=== PATIENT | male | born 1950 | race Caucasian/White ===

== ENCOUNTER 2017-02-18 15:31 | Inpatient (IN) | payer MEDICARE ==
[2017-02-18] VITALS (11 sets, daily range): BP systolic 119–210; BP diastolic 67–106
[~2017-02-18] VITALS: Ht 180.3 cm; Wt 66.8 kg
[~2017-02-18 15:31] MED LIST: ACET325T9 PO; ASCO500C PO; ASPI-482 PO; CARV25TA PO; CHOL100013 PO; DIVA500T4 PO; DUONEB INH; FOLI1TAB16 PO; HYDR-971 PO; LORA-434 PO; LOSA25TA4 PO; MIRT15TA PO; MULT-208 PO; ONDA4TAB7 PO; PANT40TA3 PO; PRAV40TA2 PO; PROSTAT PO; QUET25TA5 PO; TRAZ100T12 PO
[2017-02-18] MEDS ORDERED: IV NORMAL SALINE 1000ML BAG 1,000 ML IV SCH (15:37)
[2017-02-18] MEDS ORDERED: HEPARIN for IV BOLUS 10,000 UNIT/10 ML VIAL. IV ONE (15:45)
[2017-02-18] MEDS ORDERED: HEPARIN 25,000UTS/500ML PREMIX 500 ML IV PRN (15:45)
[2017-02-18] MEDS ORDERED: fentaNYL PF VIAL 100 MCG/2 ML VIAL IV PRN ×2 (15:45→17:30)
[2017-02-18] MEDS ORDERED: NITROGLYCERIN PREMIX 250 ML IV ONE (15:45)
[2017-02-18 15:47] LABS: BASO # 0.1 x10^3/uL (0.0-0.2); BASO % 1 % (0-3); EOS % 5 % (0-3); HEMATOCRIT 33.9 % (39.0-53.0); HEMOGLOBIN 11.1 g/dL (13.0-17.5); LYMPH % 13 % (24-48); MEAN CORPUSCULAR HEMOGLOBIN 27 pg (25-35); MEAN CORPUSCULAR HGB CONC 33 g/dL (31-37); MEAN CORPUSCULAR VOLUME 83 fL (79-100); MONO % 10 % (0-9); NEUT % 72 % (31-73); PLATELET COUNT 142 x10^3/uL (140-400); RED BLOOD COUNT 4.09 x10^6/uL (4.30-5.70); RED CELL DISTRIBUTION WIDTH 16.5 % (11.5-14.5); WHITE BLOOD COUNT 7.7 x10^3/uL (4.0-11.0)
[2017-02-18 15:56] LABS: POTASSIUM ISTAT 3.6 mmol/L (3.5-5.0)
[2017-02-18 16:00] LABS: CALCIUM 8.9 mg/dL (8.5-10.1); CREATININE 1.5 mg/dL (0.7-1.3); POTASSIUM 3.6 mmol/L (3.5-5.1)
[2017-02-18 16:06] LABS: ALBUMIN 3.4 g/dL (3.4-5.0); DIRECT BILIRUBIN 0.2 mg/dL (0.0-0.2); MAGNESIUM 1.9 mg/dL (1.8-2.4); TOTAL BILIRUBIN 0.4 mg/dL (0.2-1.0); TOTAL PROTEIN 8.3 g/dL (6.4-8.2)
--- NOTE | 2017-02-18 16:12 | PHYS DOC ---
Past Medical History Past Medical History: A-Fib, Anxiety, CAD, CHF, CVA, Dementia, GERD, High Cholesterol, Hypertension, CO, Schizophrenia, Other Additional Past Medical Histor: DYSPHAGIA, HEPATITIS C, POSSIBLE DM, COCAINE ABUSE, PLEURAL EFFUSION Past Surgical History: Coronary Bypass Surgery, Other Additional Past Surgical Histo: PEG TUBE, R THORASCOPY, HEMOTHORAX, AORTIC VALVE REPLACEMENT, BACK SURGERY Alcohol Use: Heavy Drug Use: Cocaine Adult General Chief Complaint Chief Complaint: CHEST PAIN HPI HPI Patient is a 67 year old male who presents with complaint of substernal chest pain that started 30 minutes prior to arrival. Patient states that the pain as 10 out of 10 and describes it as crushing pressure in the middle of his chest. Patient states that it radiates towards his left shoulder. Patient states that he had similar symptoms with his previous myocardial infarction. Patient has history of coronary artery disease status post multivessel bypass surgery, schizophrenia, and hypertension. Patient was brought to the emergency department by EMS. Patient received a full dose aspirin, 200 g of fentanyl, and 3 nitroglycerin sublingual tablets prior to arrival. Patient states that this did not help with his pain. Patient has history of smoking but denies any use of drugs or alcohol. EMS activated the patient as a code STEMI and patient was evaluated by Dr. Mora in tandem with my evaluation. Review of Systems Review of Systems Constitutional: Denies fever or chills [] Eyes: Denies change in visual acuity, redness, or eye pain [] HENT: Denies nasal congestion or sore throat [] Respiratory: Denies cough or shortness of breath [] Cardiovascular: Chest pain [] GI: Nausea, denies abdominal pain, vomiting, bloody stools or diarrhea [] : Denies dysuria or hematuria [] Musculoskeletal: Denies back pain or joint pain [] Integument: Denies rash or skin lesions [] Neurologic: Denies headache, focal weakness or sensory changes [] Current Medications Current Medications Current Medications Medications (Trade) Dose Ordered Sig/Raine Start Time Stop Time Status Last Admin Dose Admin Fentanyl Citrate (Fentanyl 2ml Vial) 50 mcg PRN Q15MIN PRN 02/18/17 15:45 02/19/17 15:44 02/18/17 16:18 50 MCG Heparin Sodium (Porcine) (Heparin Sodium) 4,000 unit 1X ONCE 02/18/17 15:45 02/18/17 15:46 DC 02/18/17 15:51 4,000 UNIT Heparin Sodium/ Dextrose 500 ml @ 0 mls/hr CONT PRN 02/18/17 15:45 02/18/17 15:57 14 MLS/HR Lorazepam (Ativan) 1 mg 1X ONCE 02/18/17 15:45 02/18/17 15:46 DC 02/18/17 15:45 1 MG Nitroglycerin/ Dextrose 250 ml @ 3 mls/hr 1X ONCE 02/18/17 15:45 02/22/17 03:04 02/18/17 15:45 3 MLS/HR Sodium Chloride 1,000 ml @ 100 mls/hr Q10H 02/18/17 15:37 02/19/17 01:36 02/18/17 15:46 100 MLS/HR Allergies Allergies Allergies Coded Allergies Type Severity Reaction Last Updated Verified isoniazid Allergy Intermediate 01/01/15 Yes thiamine (vitamin B1) Allergy Intermediate 01/01/15 Yes I S O L A T I O N *CONTACT* Allergy Unknown 01/04/15 Yes Physical Exam Physical Exam Constitutional: Alert, afebrile, agitated, appears in moderate to severe discomfort. [] HENT: Normocephalic, atraumatic, bilateral external ears normal, oropharynx moist, no oral exudates, nose normal. [] Eyes: PERRLA, EOMI, conjunctiva normal, no discharge. [] Neck: Normal range of motion, no tenderness, supple, no stridor. [] Cardiovascular:Heart rate regular rhythm, no murmur [] Lungs & Thorax: Tachypneic, breath sounds clear bilaterally, chest nontender to palpation [] Abdomen: Bowel sounds normal, soft, no tenderness, no masses, no pulsatile masses. [] Skin: Warm, dry, no erythema, no rash. [] Back: No tenderness, no CVA tenderness. [] Extremities: No tenderness, no cyanosis, no clubbing, ROM intact, no edema. [] Neurologic: Alert and oriented X 3, normal motor function, normal sensory function, no focal deficits noted. [] Current Patient Data Vital Signs Vital Signs Date Time Temp Pulse Resp B/P (MAP) Pulse Ox O2 Delivery O2 Flow Rate FiO2 02/18/17 17:18 67 16 176/99 (124) 100 Nasal Cannula 3.0 02/18/17 16:04 98.5 98.5 Lab Values Laboratory Tests Test 02/18/17 15:37 02/18/17 15:43 02/18/17 15:47 02/18/17 16:45 White Blood Count 7.7 x10^3/uL (4.0-11.0) Red Blood Count 4.09 x10^6/uL (4.30-5.70) L Hemoglobin 11.1 g/dL (13.0-17.5) L Hematocrit 33.9 % (39.0-53.0) L Mean Corpuscular Volume 83 fL (79-100) Mean Corpuscular Hemoglobin 27 pg (25-35) Mean Corpuscular Hemoglobin Concent 33 g/dL (31-37) Red Cell Distribution Width 16.5 % (11.5-14.5) H Platelet Count 142 x10^3/uL (140-400) Neutrophils (%) (Auto) 72 % (31-73) Lymphocytes (%) (Auto) 13 % (24-48) L Monocytes (%) (Auto) 10 % (0-9) H Eosinophils (%) (Auto) 5 % (0-3) H Basophils (%) (Auto) 1 % (0-3) Neutrophils # (Auto) 5.6 x10^3uL (1.8-7.7) Lymphocytes # (Auto) 1.0 x10^3/uL (1.0-4.8) Monocytes # (Auto) 0.7 x10^3/uL (0.0-1.1) Eosinophils # (Auto) 0.4 x10^3/uL (0.0-0.7) Basophils # (Auto) 0.1 x10^3/uL (0.0-0.2) Sodium Level 139 mmol/L (136-145) Potassium Level 3.6 mmol/L (3.5-5.1) Chloride Level 100 mmol/L (98-107) Carbon Dioxide Level 30 mmol/L (21-32) Anion Gap 9 (6-14) 15 mmol/L (6-14) H Blood Urea Nitrogen 16 mg/dL (8-26) Creatinine 1.5 mg/dL (0.7-1.3) H Estimated GFR (Cockcroft-Gault) 47.0 Glucose Level 98 mg/dL (70-99) 97 mg/dL (70-99) Calcium Level 8.9 mg/dL (8.5-10.1) Magnesium Level 1.9 mg/dL (1.8-2.4) Total Bilirubin 0.4 mg/dL (0.2-1.0) Direct Bilirubin 0.2 mg/dL (0.0-0.2) Aspartate Amino Transferase (AST) 29 U/L (15-37) Alanine Aminotransferase (ALT) 21 U/L (16-63) Alkaline Phosphatase 106 U/L (46-116) Creatine Kinase 38 U/L (39-308) L Creatine Kinase MB (Mass) 1.5 ng/mL (0.0-3.6) Creatine Kinase MB Relative Index % (0-4) Troponin I Quantitative 0.028 ng/mL (0.000-0.055) IH-Uet-T-Type Natriuretic Peptide 7170 pg/mL (0-124) H Total Protein 8.3 g/dL (6.4-8.2) H Albumin 3.4 g/dL (3.4-5.0) Lipase 253 U/L (73-393) POC Troponin I 0.02 ng/ml (<0.08) POC Hemoglobin 11.9 g/dL (14-18) L POC Hematocrit 35 % (37-52) L POC Sodium 136 mmol/L (135-145) POC Potassium 3.6 mmol/L (3.5-5.0) POC Chloride 97 mmol/L (98-110) L POC Total CO2 29 mmol/L (23-32) POC Blood Urea Nitrogen 16 mg/dL (8-26) POC Creatinine 1.4 mg/dL (0.5-1.4) POC Ionized Calcium (Zander) 1.08 mmol/L (1.13-1.32) L Urine Collection Type Unknown Urine Color Yellow Urine Clarity Clear Urine pH 6.5 Urine Specific [place] 1.015 Urine Protein >=300 mg/dL (NEG-TRACE) Urine Glucose (UA) Negative mg/dL (NEG) Urine Ketones (Stick) Negative mg/dL (NEG) Urine Blood Small (NEG) Urine Nitrite Negative (NEG) Urine Bilirubin Negative (NEG) Urine Urobilinogen Dipstick 0.2 mg/dL (0.2 mg/dL) Urine Leukocyte Esterase Negative (NEG) Urine RBC 20-40 /HPF (0-2) Urine WBC 1-4 /HPF (0-4) Urine Squamous Epithelial Cells Few /LPF Urine Bacteria 0 /HPF (0-FEW) Urine Hyaline Casts Moderate /HPF Urine Mucus Slight /LPF Urine Opiates Screen Neg (NEG) Urine Methadone Screen Neg (NEG) Urine Barbiturates Neg (NEG) Urine Phencyclidine Screen Neg (NEG) Urine Amphetamine/Methamphetamine Neg (NEG) Urine Benzodiazepines Screen Neg (NEG) Urine Cocaine Screen Pos (NEG) Urine Cannabinoids Screen Neg (NEG) Urine Ethyl Alcohol Neg (NEG) Laboratory Tests 02/18/17 15:37 Laboratory Tests 02/18/17 15:37 02/18/17 15:47 EKG EKG Interpreted by me: Heart rate 85, sinus rhythm, leftward axis, left bundle branch block, slight ST elevations in V3 through V5 with a concave up pattern, no acute changes compared to previous EKG. Findings do not support acute STEMI. [] Radiology/Procedures Radiology/Procedures [facility] [address] [place] [address] IMAGING REPORT Signed PATIENT: GEO ARAGON ACCOUNT: [id number] : 1950 LOCATION: ER AGE: 67 SEX: M EXAM STATUS: PRE ER ORD. PHYSICIAN: DEMARCO PIMENTEL MD REASON: chest pain PROCEDURE: PORTABLE CHEST 1V Indication chest pain. A single view of the chest was obtained and is compared to an exam 01/07/2015. Postoperative changes are noted. There is generalized cardiomegaly. There is no gross congestive heart failure. There is volume loss in the right lower lobe. Some of this may be chronic. There is blunting of the right costophrenic angle compatible with scarring or a small pleural effusion. Underlying pneumonia in the right lower lobe is not entirely excluded. IMPRESSION: Cardiomegaly. Volume loss in the right lower lobe. Some of this may be chronic. Underlying pneumonia and/or a small pleural effusion is not excluded DICTATED and SIGNED BY: LIONEL GUTIERREZ MD DATE: 02/18/17 3062 CC: DEMARCO PIMENTEL MD; NO PCP ~ [] Course & Med Decision Making Course & Med Decision Making Pertinent Labs and Imaging studies reviewed. (See chart for details) The patient was immediately evaluated by Dr. Mora of cardiology. Patient's EKG was compared to a prior EKG and showed no significant changes. Patient's code STEMI was canceled by Dr. Mora 10 minutes after arrival to the emergency department. The patient's blood pressure was found be critically high. The patient was started on IV nitroglycerin which helped improve the patient's blood pressure and symptoms. Patient also found to have evidence of cocaine in his system despite denial of using any drugs. Patient was given 1 mg of IV Ativan which helped improve the patient's agitation. Patient will be admitted the hospital to rule out myocardial infarction and for continued treatment of malignant hypertension. I spoke with Dr. Hernandez who accepted care patient in hospital. critical care time excluding procedures: 55 minutes Dragon Disclaimer Dragon Disclaimer This electronic medical record was generated, in whole or in part, using a voice recognition dictation system. Departure Departure Impression: Primary Impression: Malignant hypertension Additional Impressions: Chest pain Congestive heart failure (CHF) Cocaine abuse Disposition: ADMITTED INPATIENT Admitting Physician: Juan Hernandez Condition: GUARDED Referrals: NO PCP (PCP) Problem Qualifiers Additional Impressions: Chest pain Chest pain type: other chest pain Qualified Codes: R07.89 - Other chest pain Congestive heart failure (CHF) Congestive heart failure type: unspecified congestive heart failure type Congestive heart failure chronicity: unspecified congestive heart failure chronicity Qualified Codes: I50.9 - Heart failure, unspecified DEMARCO PIMENTEL MD February 18, 2017 16:12
[2017-02-18 16:13] LABS: CKMB MASS 1.5 ng/mL (0.0-3.6); CREATINE KINASE 38 U/L (39-308)
--- NOTE | 2017-02-18 16:17 | PDOC2 ---
CONSULT Date of Consult Date of Consult DATE: 02/18/17 TIME: 16:05 Reason for Consult Reason for Consult: Chest pain and SOB Referring Physician Referring Physician: Dr. Ca Identification/Chief Complaint Chief Complaint Chest pain and SOB Source Source: Chart review, Patient History of Present Illness Reason for Visit: The patient is a 67-year-old male with reported episodes of chest discomfort and increasing shortness of breath approximately one hour ago. Paramedics were called and he was transported to the emergency room at [place]. His initial EKG in the ambulance showed a sinus rhythm with ST segment changes in the anterior leads. His EKG in the emergency room showed cerebral changes although they were less pronounced. An old EKG from 2014 was very similar. The patient's initial blood pressure was a systolic of greater than 230. He was initially treated with lorazepam nitroglycerin and fentanyl. His pain has now largely resolved. His shortness of breath is significantly improved. The patient has a very extensive past medical history including a prosthetic aortic valve, bypass surgery, pulmonary hypertension, paroxysmal atrial fibrillation, hepatitis C, gastroesophageal reflux disease, reported schizophrenia and possible dementia. The patient is now resting much more comfortably in the emergency room. Past Medical History Cardiovascular: AFIB, CAD, CHF, HTN, CT, Hyperlipidemia, Other (probable aortic stensos before replacement) Pulmonary: COPD, Other (pulmonary HTN) CENTRAL NERVOUS SYSTEM: CVA, Dementia GI: GERD, Other (Hepatitis c) Psych: Depression, Schizophrenia Musculoskeletal: low back pain Past Surgical History Past Surgical History: CABG, Other (AVR, PEG tube, probable right thoracotomy) Family History Family History: Family History Unknown Social History <1 pack per day ALCOHOL: none Drugs: None Lives: [facility] Domestic Violence: Neg Current Medications Current Medications Current Medications Lorazepam (Ativan) 1 mg 1X ONCE IV Last administered on 02/18/17 15:45; Start 02/18/17 at 15:45; Stop 02/18/17 at 15:46; Status DC Nitroglycerin/ Dextrose 250 ml @ 3 mls/hr 1X ONCE IV Last administered on 02/18 15:45; Start 02/18/17 at 15:45; Stop 02/22/17 at 03:04 Fentanyl Citrate (Fentanyl 2ml Vial) 50 mcg PRN Q15MIN PRN IV PAIN GREATER THAN 3/10; Start 02/18/17 at 15:45; Stop 02/19/17 at 15:44 Sodium Chloride 1,000 ml @ 100 mls/hr Q10H IV Last administered on 02/18/17 15:46; Start 02/18/17 at 15:37; Stop 02/19/17 at 01:36 Heparin Sodium (Porcine) (Heparin Sodium) 4,000 unit 1X ONCE IV Last administered on 02/18/17 15:51; Start 02/18/17 at 15:45; Stop 02/18/17 at 15:46 ; Status DC Heparin Sodium/ Dextrose 500 ml @ 0 mls/hr CONT PRN IV SEE I/O RECORD Last administered on 02/18/17 15:57; Start 02/18/17 at 15:45 Active Scripts Active Reported Pravastatin Sodium 40 Mg Tablet 40 Mg PO DAILY Zofran (Ondansetron Hcl) 4 Mg Tablet 1 Tab PO Q6HRS Tylenol (Acetaminophen) 325 Mg Tablet 650 Mg PO PRN Q4HRS PRN Ativan (Lorazepam) 1 Mg Tablet 1 Mg PO PRN Q4HRS PRN [Duoneb ] 1 Vial INH PRN Q4HRS PRN [place] 5-325 Tablet (Acetaminophen/Hydrocodone Bitart) 1 Each Tablet 1-2 Tab PO Q4-6HRS [Prostat] 30 Ml PO BID Seroquel (Quetiapine Fumarate) 25 Mg Tablet 25 Mg PO BID Depakote Er (Divalproex Sodium) 500 Mg Tab.er.24h 500 Mg PO HS Remeron (Mirtazapine) 15 Mg Tablet 7.5 Mg PO HS Vitamin D (Cholecalciferol (Vitamin D3)) 1,000 Unit Capsule 50,000 Unit PO WEEKLY Protonix (Pantoprazole Sodium) 40 Mg Tablet.dr 1 Tab PO DAILY Folic Acid 1 Mg Tablet 1 Tab PO DAILY Losartan Potassium 25 Mg Tablet 1 Tab PO DAILY Vitamin C (Ascorbic Acid) 500 Mg Capsule.er 500 Mg PO DAILY Aspir 81 (Aspirin) 81 Mg Tablet.dr 1 Tab PO DAILY Multi-Day Vitamins (Multivitamin) 1 Each Tablet 1 Tab PO DAILY Trazodone Hcl 100 Mg Tablet 2 Tab PO QHS Coreg (Carvedilol) 25 Mg Tablet 1 Tab PO BID Allergies Allergies: Coded Allergies: isoniazid (Verified Allergy, Intermediate, 01/01/15) thiamine (Verified Allergy, Intermediate, 4/6/15) I S O L A T I O N *CONTACT* (Verified Allergy, Unknown, 01/04/15) mrsa + ROS PSYCHOLOGICAL ROS: YES: Anxiety Respiratory: YES: Shortness of breath, SOB with excertion Cardiovascular: yes Chest Pain Physical Exam General: moderate distress HEENT: Atraumatic Lungs: Other (decreased breath sounds) Heart: Regular rate (regular rhythm with a II/ murmur.-) Abdomen: Normal bowel sounds Labs Labs Laboratory Tests Test 02/18/17 15:37 02/18/17 15:43 02/18/17 15:47 White Blood Count 7.7 x10^3/uL (4.0-11.0) Red Blood Count 4.09 x10^6/uL (4.30-5.70) Hemoglobin 11.1 g/dL (13.0-17.5) Hematocrit 33.9 % (39.0-53.0) Mean Corpuscular Volume 83 fL (79-100) Mean Corpuscular Hemoglobin 27 pg (25-35) Mean Corpuscular Hemoglobin Concent 33 g/dL (31-37) Red Cell Distribution Width 16.5 % (11.5-14.5) Platelet Count 142 x10^3/uL (140-400) Neutrophils (%) (Auto) 72 % (31-73) Lymphocytes (%) (Auto) 13 % (24-48) Monocytes (%) (Auto) 10 % (0-9) Eosinophils (%) (Auto) 5 % (0-3) Basophils (%) (Auto) 1 % (0-3) Neutrophils # (Auto) 5.6 x10^3uL (1.8-7.7) Lymphocytes # (Auto) 1.0 x10^3/uL (1.0-4.8) Monocytes # (Auto) 0.7 x10^3/uL (0.0-1.1) Eosinophils # (Auto) 0.4 x10^3/uL (0.0-0.7) Basophils # (Auto) 0.1 x10^3/uL (0.0-0.2) Sodium Level 139 mmol/L (136-145) Potassium Level 3.6 mmol/L (3.5-5.1) Chloride Level 100 mmol/L (98-107) Carbon Dioxide Level 30 mmol/L (21-32) Anion Gap 9 (6-14) 15 mmol/L (6-14) Blood Urea Nitrogen 16 mg/dL (8-26) Creatinine 1.5 mg/dL (0.7-1.3) Estimated GFR (Cockcroft-Gault) 47.0 Glucose Level 98 mg/dL (70-99) 97 mg/dL (70-99) Calcium Level 8.9 mg/dL (8.5-10.1) Bedside Troponin I 0.02 ng/ml (<0.08) Bedside Hemoglobin 11.9 g/dL (14-18) Bedside Hematocrit 35 % (37-52) Bedside Sodium 136 mmol/L (135-145) Bedside Potassium 3.6 mmol/L (3.5-5.0) Bedside Chloride 97 mmol/L (98-110) Bedside Total CO2 29 mmol/L (23-32) Bedside Blood Urea Nitrogen 16 mg/dL (8-26) Bedside Creatinine 1.4 mg/dL (0.5-1.4) Bedside Ionized Calcium (Zander) 1.08 mmol/L (1.13-1.32) Laboratory Tests Test 02/18/17 15:37 02/18/17 15:43 02/18/17 15:47 White Blood Count 7.7 x10^3/uL (4.0-11.0) Red Blood Count 4.09 x10^6/uL (4.30-5.70) Hemoglobin 11.1 g/dL (13.0-17.5) Hematocrit 33.9 % (39.0-53.0) Mean Corpuscular Volume 83 fL (79-100) Mean Corpuscular Hemoglobin 27 pg (25-35) Mean Corpuscular Hemoglobin Concent 33 g/dL (31-37) Red Cell Distribution Width 16.5 % (11.5-14.5) Platelet Count 142 x10^3/uL (140-400) Neutrophils (%) (Auto) 72 % (31-73) Lymphocytes (%) (Auto) 13 % (24-48) Monocytes (%) (Auto) 10 % (0-9) Eosinophils (%) (Auto) 5 % (0-3) Basophils (%) (Auto) 1 % (0-3) Neutrophils # (Auto) 5.6 x10^3uL (1.8-7.7) Lymphocytes # (Auto) 1.0 x10^3/uL (1.0-4.8) Monocytes # (Auto) 0.7 x10^3/uL (0.0-1.1) Eosinophils # (Auto) 0.4 x10^3/uL (0.0-0.7) Basophils # (Auto) 0.1 x10^3/uL (0.0-0.2) Sodium Level 139 mmol/L (136-145) Potassium Level 3.6 mmol/L (3.5-5.1) Chloride Level 100 mmol/L (98-107) Carbon Dioxide Level 30 mmol/L (21-32) Anion Gap 9 (6-14) 15 mmol/L (6-14) Blood Urea Nitrogen 16 mg/dL (8-26) Creatinine 1.5 mg/dL (0.7-1.3) Estimated GFR (Cockcroft-Gault) 47.0 Glucose Level 98 mg/dL (70-99) 97 mg/dL (70-99) Calcium Level 8.9 mg/dL (8.5-10.1) Bedside Troponin I 0.02 ng/ml (<0.08) Bedside Hemoglobin 11.9 g/dL (14-18) Bedside Hematocrit 35 % (37-52) Bedside Sodium 136 mmol/L (135-145) Bedside Potassium 3.6 mmol/L (3.5-5.0) Bedside Chloride 97 mmol/L (98-110) Bedside Total CO2 29 mmol/L (23-32) Bedside Blood Urea Nitrogen 16 mg/dL (8-26) Bedside Creatinine 1.4 mg/dL (0.5-1.4) Bedside Ionized Calcium (Zander) 1.08 mmol/L (1.13-1.32) Images Images pending Assessment/Plan Assessment/Plan 1. Malignant hypertension. Patient is being treated with sedation and IV nitroglycerin. We'll adjust oral medications once they are available. 2. Chest pain with a history of bypass surgery. Initial troponin is not significantly elevated. EKG is very similar to previous EKGs. We'll obtain an resume home medications. We'll rule out for myocardial infarction. Echocardiogram for LV function and to check the patient's valve. 3. Prosthetic aortic valve. Echocardiogram to evaluate. We'll attempt to obtain old records. Of note on November 2014 echo patient's valve was working normally, ejection fraction was normal, pulmonary pressures were elevated at 61 mmHg. 4. Pulmonary hypertension. Measurements as above. Continue medical treatment. Echocardiogram. 5. COPD with respiratory failure. Patient is improved post lorazepam and pulmonary treatments.. We'll continue to closely monitor. Patient has a history of reportedly severe COPD and continues to smoke cigarettes. The pulmonary service has seen the patient in the past. 6. History of paroxysmal atrial fibrillation. Patient is in a sinus rhythm at this time. We'll continue to monitor. 7. Gastroesophageal reflux disease. We'll obtain baseline medications and restart. 8. History of hepatitis C. 9. History of possible schizophrenia and dementia. We'll obtain baseline records. Patient does not see a maintenance inspector [facility] We'll attempt to obtain these records. Thank you for allowing us to participate in the care of your patient. ANTHONY ROSAS MD February 18, 2017 16:17
[2017-02-18 16:56] LABS: BILIRUBIN,URINE NEGATIVE (NEG); GLUCOSE,URINE NEGATIVE (NEG); NITRITE,URINE NEGATIVE (NEG); PH,URINE 6.5; PROTEIN,URINE >=300 mg/dL (NEG-TRACE); UROBILINOGEN,URINE 0.2 mg/dL (0.2 mg/dL)
[2017-02-18 17:03] LABS: BACTERIA,URINE 0 /HPF (0-FEW); BARBITURATES NEG (NEG); BENZODIAZEPINES NEG (NEG); CANNABINOIDS NEG (NEG); COCAINE POS (NEG); METHADONE NEG (NEG); OPIATES NEG (NEG); PHENCYCLIDINE NEG (NEG); RBC,URINE 20-40 /HPF (0-2); SQUAMOUS EPITHELIAL CELL,UR FEW /LPF
[2017-02-18] MEDS: IV NORMAL SALINE 1000ML BAG 1,000 ML IV SCH (17:29)
[2017-02-18] MEDS ORDERED: ONDANSETRON PF 4 MG/2 ML VIAL. IV PRN ×2 (17:30→21:00)
[2017-02-18] MEDS ORDERED: amLODIPine BESYLATE 10 MG TABLET PO ONE (19:30)
[2017-02-18] MEDS ORDERED: hydrALAZINE 20 MG/ML VIAL. IVP PRN (21:00)
[2017-02-18] MEDS ORDERED: ACETAMINOPHEN 325 MG TABLET. PO PRN (21:00)
--- NOTE | 2017-02-18 21:01 | PDOC1 ---
History and Physical Past Medical History Cardiovascular: AFIB, CAD, CHF, HTN, DE, Hyperlipidemia, Other (probable aortic stensos before replacement) Pulmonary: COPD, Other (pulmonary HTN) CENTRAL NERVOUS SYSTEM: CVA, Dementia GI: GERD, Other (Hepatitis c) Psych: Depression, Schizophrenia Past Surgical History Past Surgical History: CABG, Other (AVR, PEG tube, probable right thoracotomy) Family History Family History: Family History Unknown Social History Smoke: <1 pack per day ALCOHOL: none Drugs: None Current Problem List Problem List Problems Medical Problems: (1) Chest pain Status: Acute (2) Cocaine abuse Status: Acute (3) Congestive heart failure (CHF) Status: Acute (4) Malignant hypertension Status: Acute Current Medications Current Medications Current Medications Medications (Trade) Dose Ordered Sig/Raine Start Time Stop Time Status Last Admin Dose Admin Amlodipine Besylate (Norvasc) 10 mg ONCE ONCE 02/18/17 19:30 02/18/17 19:31 DC 02/18/17 19:42 10 MG Fentanyl Citrate (Fentanyl 2ml Vial) 50 mcg PRN Q2HR PRN 02/18/17 17:30 02/19/17 17:29 Heparin Sodium (Porcine) (Heparin Sodium) 4,000 unit 1X ONCE 02/18/17 15:45 02/18/17 15:46 DC 02/18/17 15:51 4,000 UNIT Heparin Sodium/ Dextrose 500 ml @ 0 mls/hr CONT PRN 02/18/17 15:45 02/18/17 15:57 14 MLS/HR Hydralazine HCl (Apresoline) 50 mg BID 02/19/17 09:00 Lorazepam (Ativan) 1 mg 1X ONCE 02/18/17 15:45 02/18/17 15:46 DC 02/18/17 15:45 1 MG Nitroglycerin/ Dextrose 250 ml @ 3 mls/hr 1X ONCE 02/18/17 15:45 02/22/17 03:04 02/18/17 15:45 3 MLS/HR Ondansetron HCl (Zofran) 4 mg PRN Q8HRS PRN 02/18/17 17:30 02/19/17 17:29 Sodium Chloride 1,000 ml @ 60 mls/hr [id number] 02/18/17 17:29 02/19/17 17:28 Allergies Allergies Allergies Coded Allergies Type Severity Reaction Last Updated Verified isoniazid Allergy Intermediate 01/01/15 Yes thiamine (vitamin B1) Allergy Intermediate 01/01/15 Yes I S O L A T I O N *CONTACT* Allergy Unknown 01/04/15 Yes ROS Review of System CONSTITUTIONAL: No fever or chills EYES: No recent changes SKIN: No rash or itching CARDIOVASCULAR: chest pain, no syncope, palpitations, or edema RESPIRATORY: No SOB or cough GASTROINTESTINAL: No nausea, vomiting or abdominal pain NEUROLOGICAL: No headaches or weakness ENDOCRINE: No cold or heat intolerance GENITOURINARY: No urgency or frequency of urination MUSCULOSKELETAL: No back pain or joint pain LYMPHATICS: No enlarged lymph nodes PSYCHIATRIC: No anxiety or depression Physical Exam Physical Exam GEN.: No apparent distress. Alert and oriented times 3 HEENT: Head is normocephalic, atraumatic NECK: Supple. no JVD LUNGS: Clear to auscultation. Normal airflow HEART: RRR, S1, S2 present. Peripheral pulses intact, old healing scar on chest. ABDOMEN: Soft, nontender. Positive bowel sounds. EXTREMITIES: Without any cyanosis. NEUROLOGIC: Normal speech, normal tone PSYCHIATRIC: Normal affect, normal mood. SKIN: No ulcerations Vitals Vitals Vital Signs Date Time Temp Pulse Resp B/P (MAP) Pulse Ox O2 Delivery O2 Flow Rate FiO2 02/18/17 19:42 69 179/101 02/18/17 19:30 18 99 Nasal Cannula 2.0 02/18/17 16:04 98.5 98.5 Labs Labs Laboratory Tests Test 02/18/17 15:37 02/18/17 15:43 02/18/17 15:47 02/18/17 16:45 White Blood Count 7.7 x10^3/uL (4.0-11.0) Red Blood Count 4.09 x10^6/uL (4.30-5.70) Hemoglobin 11.1 g/dL (13.0-17.5) Hematocrit 33.9 % (39.0-53.0) Mean Corpuscular Volume 83 fL (79-100) Mean Corpuscular Hemoglobin 27 pg (25-35) Mean Corpuscular Hemoglobin Concent 33 g/dL (31-37) Red Cell Distribution Width 16.5 % (11.5-14.5) Platelet Count 142 x10^3/uL (140-400) Neutrophils (%) (Auto) 72 % (31-73) Lymphocytes (%) (Auto) 13 % (24-48) Monocytes (%) (Auto) 10 % (0-9) Eosinophils (%) (Auto) 5 % (0-3) Basophils (%) (Auto) 1 % (0-3) Neutrophils # (Auto) 5.6 x10^3uL (1.8-7.7) Lymphocytes # (Auto) 1.0 x10^3/uL (1.0-4.8) Monocytes # (Auto) 0.7 x10^3/uL (0.0-1.1) Eosinophils # (Auto) 0.4 x10^3/uL (0.0-0.7) Basophils # (Auto) 0.1 x10^3/uL (0.0-0.2) Sodium Level 139 mmol/L (136-145) Potassium Level 3.6 mmol/L (3.5-5.1) Chloride Level 100 mmol/L (98-107) Carbon Dioxide Level 30 mmol/L (21-32) Anion Gap 9 (6-14) 15 mmol/L (6-14) Blood Urea Nitrogen 16 mg/dL (8-26) Creatinine 1.5 mg/dL (0.7-1.3) Estimated GFR (Cockcroft-Gault) 47.0 Glucose Level 98 mg/dL (70-99) 97 mg/dL (70-99) Calcium Level 8.9 mg/dL (8.5-10.1) Magnesium Level 1.9 mg/dL (1.8-2.4) Total Bilirubin 0.4 mg/dL (0.2-1.0) Direct Bilirubin 0.2 mg/dL (0.0-0.2) Aspartate Amino Transf (AST/SGOT) 29 U/L (15-37) Alanine Aminotransferase (ALT/SGPT) 21 U/L (16-63) Alkaline Phosphatase 106 U/L (46-116) Creatine Kinase 38 U/L (39-308) Creatine Kinase MB (Mass) 1.5 ng/mL (0.0-3.6) Creatine Kinase MB Relative Index % (0-4) Troponin I Quantitative 0.028 ng/mL (0.000-0.055) AC-Hyi-X-Type Natriuretic Peptide 7170 pg/mL (0-124) Total Protein 8.3 g/dL (6.4-8.2) Albumin 3.4 g/dL (3.4-5.0) Lipase 253 U/L (73-393) Bedside Troponin I 0.02 ng/ml (<0.08) Bedside Hemoglobin 11.9 g/dL (14-18) Bedside Hematocrit 35 % (37-52) Bedside Sodium 136 mmol/L (135-145) Bedside Potassium 3.6 mmol/L (3.5-5.0) Bedside Chloride 97 mmol/L (98-110) Bedside Total CO2 29 mmol/L (23-32) Bedside Blood Urea Nitrogen 16 mg/dL (8-26) Bedside Creatinine 1.4 mg/dL (0.5-1.4) Bedside Ionized Calcium (Zander) 1.08 mmol/L (1.13-1.32) Urine Collection Type Unknown Urine Color Yellow Urine Clarity Clear Urine pH 6.5 Urine Specific [place] 1.015 Urine Protein >=300 mg/dL (NEG-TRACE) Urine Glucose (UA) Negative mg/dL (NEG) Urine Ketones (Stick) Negative mg/dL (NEG) Urine Blood Small (NEG) Urine Nitrite Negative (NEG) Urine Bilirubin Negative (NEG) Urine Urobilinogen Dipstick 0.2 mg/dL (0.2 mg/dL) Urine Leukocyte Esterase Negative (NEG) Urine RBC 20-40 /HPF (0-2) Urine WBC 1-4 /HPF (0-4) Urine Squamous Epithelial Cells Few /LPF Urine Bacteria 0 /HPF (0-FEW) Urine Hyaline Casts Moderate /HPF Urine Mucus Slight /LPF Urine Opiates Screen Neg (NEG) Urine Methadone Screen Neg (NEG) Urine Barbiturates Neg (NEG) Urine Phencyclidine Screen Neg (NEG) Urine Amphetamine/Methamphetamine Neg (NEG) Urine Benzodiazepines Screen Neg (NEG) Urine Cocaine Screen Pos (NEG) Urine Cannabinoids Screen Neg (NEG) Urine Ethyl Alcohol Neg (NEG) Test 02/18/17 19:40 Glucose (Fingerstick) 90 mg/dL (70-99) Laboratory Tests Test 02/18/17 15:37 02/18/17 15:43 02/18/17 15:47 02/18/17 16:45 White Blood Count 7.7 x10^3/uL (4.0-11.0) Red Blood Count 4.09 x10^6/uL (4.30-5.70) Hemoglobin 11.1 g/dL (13.0-17.5) Hematocrit 33.9 % (39.0-53.0) Mean Corpuscular Volume 83 fL (79-100) Mean Corpuscular Hemoglobin 27 pg (25-35) Mean Corpuscular Hemoglobin Concent 33 g/dL (31-37) Red Cell Distribution Width 16.5 % (11.5-14.5) Platelet Count 142 x10^3/uL (140-400) Neutrophils (%) (Auto) 72 % (31-73) Lymphocytes (%) (Auto) 13 % (24-48) Monocytes (%) (Auto) 10 % (0-9) Eosinophils (%) (Auto) 5 % (0-3) Basophils (%) (Auto) 1 % (0-3) Neutrophils # (Auto) 5.6 x10^3uL (1.8-7.7) Lymphocytes # (Auto) 1.0 x10^3/uL (1.0-4.8) Monocytes # (Auto) 0.7 x10^3/uL (0.0-1.1) Eosinophils # (Auto) 0.4 x10^3/uL (0.0-0.7) Basophils # (Auto) 0.1 x10^3/uL (0.0-0.2) Sodium Level 139 mmol/L (136-145) Potassium Level 3.6 mmol/L (3.5-5.1) Chloride Level 100 mmol/L (98-107) Carbon Dioxide Level 30 mmol/L (21-32) Anion Gap 9 (6-14) 15 mmol/L (6-14) Blood Urea Nitrogen 16 mg/dL (8-26) Creatinine 1.5 mg/dL (0.7-1.3) Estimated GFR (Cockcroft-Gault) 47.0 Glucose Level 98 mg/dL (70-99) 97 mg/dL (70-99) Calcium Level 8.9 mg/dL (8.5-10.1) Magnesium Level 1.9 mg/dL (1.8-2.4) Total Bilirubin 0.4 mg/dL (0.2-1.0) Direct Bilirubin 0.2 mg/dL (0.0-0.2) Aspartate Amino Transf (AST/SGOT) 29 U/L (15-37) Alanine Aminotransferase (ALT/SGPT) 21 U/L (16-63) Alkaline Phosphatase 106 U/L (46-116) Creatine Kinase 38 U/L (39-308) Creatine Kinase MB (Mass) 1.5 ng/mL (0.0-3.6) Creatine Kinase MB Relative Index % (0-4) Troponin I Quantitative 0.028 ng/mL (0.000-0.055) ZZ-Gsp-B-Type Natriuretic Peptide 7170 pg/mL (0-124) Total Protein 8.3 g/dL (6.4-8.2) Albumin 3.4 g/dL (3.4-5.0) Lipase 253 U/L (73-393) Bedside Troponin I 0.02 ng/ml (<0.08) Bedside Hemoglobin 11.9 g/dL (14-18) Bedside Hematocrit 35 % (37-52) Bedside Sodium 136 mmol/L (135-145) Bedside Potassium 3.6 mmol/L (3.5-5.0) Bedside Chloride 97 mmol/L (98-110) Bedside Total CO2 29 mmol/L (23-32) Bedside Blood Urea Nitrogen 16 mg/dL (8-26) Bedside Creatinine 1.4 mg/dL (0.5-1.4) Bedside Ionized Calcium (Zander) 1.08 mmol/L (1.13-1.32) Urine Collection Type Unknown Urine Color Yellow Urine Clarity Clear Urine pH 6.5 Urine Specific [place] 1.015 Urine Protein >=300 mg/dL (NEG-TRACE) Urine Glucose (UA) Negative mg/dL (NEG) Urine Ketones (Stick) Negative mg/dL (NEG) Urine Blood Small (NEG) Urine Nitrite Negative (NEG) Urine Bilirubin Negative (NEG) Urine Urobilinogen Dipstick 0.2 mg/dL (0.2 mg/dL) Urine Leukocyte Esterase Negative (NEG) Urine RBC 20-40 /HPF (0-2) Urine WBC 1-4 /HPF (0-4) Urine Squamous Epithelial Cells Few /LPF Urine Bacteria 0 /HPF (0-FEW) Urine Hyaline Casts Moderate /HPF Urine Mucus Slight /LPF Urine Opiates Screen Neg (NEG) Urine Methadone Screen Neg (NEG) Urine Barbiturates Neg (NEG) Urine Phencyclidine Screen Neg (NEG) Urine Amphetamine/Methamphetamine Neg (NEG) Urine Benzodiazepines Screen Neg (NEG) Urine Cocaine Screen Pos (NEG) Urine Cannabinoids Screen Neg (NEG) Urine Ethyl Alcohol Neg (NEG) Test 02/18/17 19:40 Glucose (Fingerstick) 90 mg/dL (70-99) VTE Prophylaxis Ordered VTE Prophylaxis Devices: Yes VTE Pharmacological Prophylaxi: No PRISCILLA CRUM MD February 18, 2017 21:01
[2017-02-18] MEDS: traZODone 100 MG TABLET. PO SCH (21:37)
[2017-02-19] VITALS (12 sets, daily range): BP systolic 140–185; BP diastolic 74–92
[2017-02-19 04:31] LABS: BASO % 1 % (0-3); EOS % 7 % (0-3); HEMATOCRIT 27.8 % (39.0-53.0); HEMOGLOBIN 9.6 g/dL (13.0-17.5); LYMPH # 1.1 x10^3/uL (1.0-4.8); LYMPH % 13 % (24-48); MEAN CORPUSCULAR HEMOGLOBIN 28 pg (25-35); MEAN CORPUSCULAR HGB CONC 35 g/dL (31-37); MEAN CORPUSCULAR VOLUME 81 fL (79-100); MONO % 8 % (0-9); NEUT % 72 % (31-73); PLATELET COUNT 118 x10^3/uL (140-400); RED BLOOD COUNT 3.45 x10^6/uL (4.30-5.70); RED CELL DISTRIBUTION WIDTH 16.3 % (11.5-14.5); WHITE BLOOD COUNT 8.2 x10^3/uL (4.0-11.0)
[2017-02-19 05:16] LABS: CALCIUM 8.5 mg/dL (8.5-10.1); CREATININE 1.4 mg/dL (0.7-1.3); GFR 50.9; MAGNESIUM 1.8 mg/dL (1.8-2.4); POTASSIUM 3.5 mmol/L (3.5-5.1)
[2017-02-19 05:18] LABS: CHOLESTEROL/HDL RATIO 2.6
[2017-02-19] MEDS: HYDROcodone/APAP 5/325MG 1 TAB TABLET PO PRN ×2 (05:29→16:43)
--- NOTE | 2017-02-19 08:01 | EKG ---
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
[2017-02-19] MEDS: ALBUTEROL SULFATE 2.5 MG/3 ML NEBU. NEB PRN ×3 (08:31→15:12)
--- NOTE | 2017-02-19 08:40 | HP ---
ADMIT DATE: 02/18/2017 CHIEF COMPLAINT: Chest pain. HISTORY OF PRESENT ILLNESS: A 67-year-old male patient with several coronary problems and cardiac history, presented to the ER with complaints of substernal chest pain. Symptoms started 30 minutes prior to arrival. Initially, code STEMI was called and on arrival, the patient received aspirin, fentanyl and nitroglycerin. He was evaluated by Cardiology and code STEMI was canceled. Upon arrival, the patient's blood pressures were high and he was requiring nitroglycerin drip. After some time, his symptoms subsided and at the time of my examination, the patient denies any chest pain, shortness of breath, resting comfortably. He did not recall most of his medications. PAST MEDICAL HISTORY: Please see my electronic H and P. REVIEW OF SYSTEMS: Please see my electronic H and P. PHYSICAL EXAMINATION: Please see my electronic H and P. LABORATORY FINDINGS: CBC: Hemoglobin is 11.1, hematocrit is 33.9, MCV 83. Chemistry: Sodium 136, potassium 3.6, chloride is 97, anion gap is 15, Creatine kinase 38, troponin I 0.028, proBNP 7170. Toxicology positive for urine cocaine. Urinalysis, nitrites negative, bilirubin negative. EKG, personally not able to review. As per the ER report, sinus rhythm with left axis deviation and heart rate is 85 with left bundle branch block. ASSESSMENT: 1. Malignant hypertension, present on admission. 2. Chest pain, needs to rule out acute coronary syndrome. 3. Prior history of pulmonary hypertension. 4. history of chronic obstructive pulmonary disease with chronic respiratry failure. 5. History of paroxysmal atrial fibrillation. 6. Gastroesophageal reflux disease. 7. History of hepatitis C. 8. History of questionable dementia. PLAN: 1. Currently, the patient is on IV nitroglycerin drip and heparin drip per ACS protocol. Cardiology has been consulted. We will get 3 sets of troponins, placed in ICU due to severity of his disease. 2. Pain control with fentanyl and Lortab. 3. Home medications not yet reviewed. We will need to call the pharmacy at [place] and resume home medications in the a.m. 4. N.p.o. from midnight. 5. The patient's hemodynamic stability improved with heparin and nitroglycerin. 6. Prognosis guarded, high risk for cardio vascular events. PRISCILLA CRUM MD DR: May JOB#: [id number] / [id number] DEVON
[2017-02-19] MEDS: IV NORMAL SALINE 1000ML BAG 1,000 ML IV SCH (10:09)
--- NOTE | 2017-02-19 12:00 | PDOC ---
CARDIO Progress Notes Date and Time Date of Service 02/19/17 Time of Evaluation 1035 Subjective Subjective: No Palpitations, Other (mild dyspnea ) Vitals Vitals Vital Signs Date Time Temp Pulse Resp B/P (MAP) Pulse Ox O2 Delivery O2 Flow Rate FiO2 02/19/17 09:38 77 145/78 02/19/17 08:34 95 Room Air 02/19/17 07:00 18 2.0 02/19/17 04:00 97.7 97.7 Weight Weight [ ] Input and Output Intake and Output Intake and Output 02/19/17 07:00 Intake Total 1951.4 ml Output Total 850 ml Balance 1101.4 ml Intake Oral 800 ml IV Total 1151.4 ml Output Urine Total 850 ml Laboratory Labs Laboratory Tests Test 02/18/17 15:37 02/18/17 15:43 02/18/17 15:47 02/18/17 16:45 White Blood Count 7.7 x10^3/uL (4.0-11.0) Red Blood Count 4.09 x10^6/uL (4.30-5.70) Hemoglobin 11.1 g/dL (13.0-17.5) Hematocrit 33.9 % (39.0-53.0) Mean Corpuscular Volume 83 fL (79-100) Mean Corpuscular Hemoglobin 27 pg (25-35) Mean Corpuscular Hemoglobin Concent 33 g/dL (31-37) Red Cell Distribution Width 16.5 % (11.5-14.5) Platelet Count 142 x10^3/uL (140-400) Neutrophils (%) (Auto) 72 % (31-73) Lymphocytes (%) (Auto) 13 % (24-48) Monocytes (%) (Auto) 10 % (0-9) Eosinophils (%) (Auto) 5 % (0-3) Basophils (%) (Auto) 1 % (0-3) Neutrophils # (Auto) 5.6 x10^3uL (1.8-7.7) Lymphocytes # (Auto) 1.0 x10^3/uL (1.0-4.8) Monocytes # (Auto) 0.7 x10^3/uL (0.0-1.1) Eosinophils # (Auto) 0.4 x10^3/uL (0.0-0.7) Basophils # (Auto) 0.1 x10^3/uL (0.0-0.2) Sodium Level 139 mmol/L (136-145) Potassium Level 3.6 mmol/L (3.5-5.1) Chloride Level 100 mmol/L (98-107) Carbon Dioxide Level 30 mmol/L (21-32) Anion Gap 9 (6-14) 15 mmol/L (6-14) Blood Urea Nitrogen 16 mg/dL (8-26) Creatinine 1.5 mg/dL (0.7-1.3) Estimated GFR (Cockcroft-Gault) 47.0 Glucose Level 98 mg/dL (70-99) 97 mg/dL (70-99) Calcium Level 8.9 mg/dL (8.5-10.1) Magnesium Level 1.9 mg/dL (1.8-2.4) Total Bilirubin 0.4 mg/dL (0.2-1.0) Direct Bilirubin 0.2 mg/dL (0.0-0.2) Aspartate Amino Transf (AST/SGOT) 29 U/L (15-37) Alanine Aminotransferase (ALT/SGPT) 21 U/L (16-63) Alkaline Phosphatase 106 U/L (46-116) Creatine Kinase 38 U/L (39-308) Creatine Kinase MB (Mass) 1.5 ng/mL (0.0-3.6) Creatine Kinase MB Relative Index % (0-4) Troponin I Quantitative 0.028 ng/mL (0.000-0.055) NQ-Qia-Q-Type Natriuretic Peptide 7170 pg/mL (0-124) Total Protein 8.3 g/dL (6.4-8.2) Albumin 3.4 g/dL (3.4-5.0) Lipase 253 U/L (73-393) Bedside Troponin I 0.02 ng/ml (<0.08) Bedside Hemoglobin 11.9 g/dL (14-18) Bedside Hematocrit 35 % (37-52) Bedside Sodium 136 mmol/L (135-145) Bedside Potassium 3.6 mmol/L (3.5-5.0) Bedside Chloride 97 mmol/L (98-110) Bedside Total CO2 29 mmol/L (23-32) Bedside Blood Urea Nitrogen 16 mg/dL (8-26) Bedside Creatinine 1.4 mg/dL (0.5-1.4) Bedside Ionized Calcium (Zander) 1.08 mmol/L (1.13-1.32) Urine Collection Type Unknown Urine Color Yellow Urine Clarity Clear Urine pH 6.5 Urine Specific Barry 1.015 Urine Protein >=300 mg/dL (NEG-TRACE) Urine Glucose (UA) Negative mg/dL (NEG) Urine Ketones (Stick) Negative mg/dL (NEG) Urine Blood Small (NEG) Urine Nitrite Negative (NEG) Urine Bilirubin Negative (NEG) Urine Urobilinogen Dipstick 0.2 mg/dL (0.2 mg/dL) Urine Leukocyte Esterase Negative (NEG) Urine RBC 20-40 /HPF (0-2) Urine WBC 1-4 /HPF (0-4) Urine Squamous Epithelial Cells Few /LPF Urine Bacteria 0 /HPF (0-FEW) Urine Hyaline Casts Moderate /HPF Urine Mucus Slight /LPF Urine Opiates Screen Neg (NEG) Urine Methadone Screen Neg (NEG) Urine Barbiturates Neg (NEG) Urine Phencyclidine Screen Neg (NEG) Urine Amphetamine/Methamphetamine Neg (NEG) Urine Benzodiazepines Screen Neg (NEG) Urine Cocaine Screen Pos (NEG) Urine Cannabinoids Screen Neg (NEG) Urine Ethyl Alcohol Neg (NEG) Test 02/18/17 18:20 02/18/17 19:40 02/18/17 22:05 02/19/17 04:10 Nasal Screen MRSA (PCR) Positive (Negative) Glucose (Fingerstick) 90 mg/dL (70-99) Heparin Anti-Xa Act, Unfractionated 0.31 IU/mL (0.30-0.70) 0.20 IU/mL (0.30-0.70) White Blood Count 8.2 x10^3/uL (4.0-11.0) Red Blood Count 3.45 x10^6/uL (4.30-5.70) Hemoglobin 9.6 g/dL (13.0-17.5) Hematocrit 27.8 % (39.0-53.0) Mean Corpuscular Volume 81 fL (79-100) Mean Corpuscular Hemoglobin 28 pg (25-35) Mean Corpuscular Hemoglobin Concent 35 g/dL (31-37) Red Cell Distribution Width 16.3 % (11.5-14.5) Platelet Count 118 x10^3/uL (140-400) Neutrophils (%) (Auto) 72 % (31-73) Lymphocytes (%) (Auto) 13 % (24-48) Monocytes (%) (Auto) 8 % (0-9) Eosinophils (%) (Auto) 7 % (0-3) Basophils (%) (Auto) 1 % (0-3) Neutrophils # (Auto) 5.9 x10^3uL (1.8-7.7) Lymphocytes # (Auto) 1.1 x10^3/uL (1.0-4.8) Monocytes # (Auto) 0.6 x10^3/uL (0.0-1.1) Eosinophils # (Auto) 0.6 x10^3/uL (0.0-0.7) Basophils # (Auto) 0.0 x10^3/uL (0.0-0.2) Sodium Level 140 mmol/L (136-145) Potassium Level 3.5 mmol/L (3.5-5.1) Chloride Level 103 mmol/L (98-107) Carbon Dioxide Level 29 mmol/L (21-32) Anion Gap 8 (6-14) Blood Urea Nitrogen 17 mg/dL (8-26) Creatinine 1.4 mg/dL (0.7-1.3) Estimated GFR (Cockcroft-Gault) 50.9 Glucose Level 97 mg/dL (70-99) Calcium Level 8.5 mg/dL (8.5-10.1) Magnesium Level 1.8 mg/dL (1.8-2.4) Troponin I Quantitative 0.033 ng/mL (0.000-0.055) Triglycerides Level 41 mg/dL (0-150) Cholesterol Level 162 mg/dL (0-200) LDL Cholesterol, Calculated 92 mg/dL (0-100) VLDL Cholesterol, Calculated 8 mg/dL (0-40) Non-HDL Cholesterol Calculated 100 mg/dL (0-129) HDL Cholesterol 62 mg/dL (40-60) Cholesterol/HDL Ratio 2.6 Physical Exam HEENT: Neck Supple W Full Motion Chest: Symmetric LUNGS: Other (diminished bases, left chest tenderness upon palpation) Heart: S1S2, RRR, murmurs (systolic murmur ) Abdomen: Soft N/T Extremities: 2+ Dorsalis Pedis, No Edema Neurology: alert, oriented, follow commands, other (anxious ) Assessment Assessment 1. Malignant hypertension secondary to med non-compliance improved with nitro gtt. oral antiHTN therapy resumed- titrate nitro off as able. monitor trends to assess need for titration 2. Chest pain, atypical CE negative- AMI ruled out. discontinue heparin gtt Pain likely MSK in origin as it is reproducible with palpation to left chest. [facility] 3. Acute on chronic diastolic HF echo 12/10 with preserved LV function diuresis with lasix; monitor renal function echo to assess LV function 4. CAD s/p bypass surgery. details/facility unknown; patient cannot recall stable. Continue medical management LDL= 92; statin therapy no BB with cocaine use 3. Prosthetic AVR echo pending to evaluate. 4. Pulmonary hypertension PAP previously 61 5. Acute on chronic respiratory failure with AE COPD with continued tobaccoism improved. 6. H/o PAFIB maintaining SR with controlled rate ASA for stroke prevention monitor tele for paroxysmal episodes to guide ac therapy . 7. KHALIDA with CKD monitor with diuresis 8. Schizophrenia/ ? dementia 9. Non-compliance 10. Substance abuse UDS + cocaine 11. H/o hepatitis C MARILUZ MARTÍNEZ APRN February 19, 2017 12:00
--- NOTE | 2017-02-19 12:13 | CARD ---
APPROVED REPORT EXAM: Two-dimensional and M-mode echocardiogram with Doppler and color Doppler. Other Information Quality : Good INDICATION Chest Pain Malignant HTN, CHF 2D DIMENSIONS RVDd2.9 (2.9-3.5cm)Left Atrium(2D)4.3 (1.6-4.0cm) IVSd1.5 (0.7-1.1cm)Aortic Root(2D)3.3 (2.0-3.7cm) LVDd5.1 (3.9-5.9cm)LVOT Diameter2.2 (1.8-2.4cm) PWd1.1 (0.7-1.1cm)LVDs3.9 (2.5-4.0cm) FS (%) 22.2 %SV54.0 ml LVEF(%)44.6 (>50%) Aortic Valve AoV Peak [place].267.9cm/sAoV VTI53.8cm AO Peak GR.28.7mmHgLVOT Peak [place].101.9cm/s AO Mean GR.15mmHgAVA (VMAX)1.42cm2 Mitral Valve MV E Peak Gr.8mmHgMV E Mean Gr.2mmHg Pulmonary Valve PV Peak Jubynihs99.1cm/s Tricuspid Valve TR P. Bitodfye218ek/sTR Peak Gr.91mmHg LEFT VENTRICLE The left ventricle is normal size. There is mild to moderate asymmetric left ventricular hypertrophy. Left ventricle systolic function is mildly impaired. The Ejection Fraction is 45-50%. Moderate basal to mid inferior wall hypokinesis. Septal motion suggestive of conduction abnormality. Tissue Doppler imaging reveals moderate to severe left ventricular diastolic dysfunction. No left ventricle thrombu s noted on this study. RIGHT VENTRICLE The right ventricle is normal size. There is normal right ventricular wall thickness. The right ventr icular systolic function is normal. ATRIA The left atrium size is normal. The right atrium size is normal. The interatrial septum is intact wit h no evidence for an atrial septal defect or patent foramen ovale as noted on 2-D or Doppler imaging. AORTIC VALVE The aortic valve is moderately sclerotic. The aortic valve is trileaflet. Doppler and Color Flow reve aled no significant aortic regurgitation. There is mild valvular aortic stenosis. Calculated aortic v alve area is 1.5 cm2 with maximum pressure gradient of 29 mmHg and mean pressure gradient of 15 mmHg. MITRAL VALVE Mitral annular calcification is mild. The mitral valve leaflets are thickened. There is no evidence o f mitral valve prolapse. There is no mitral valve stenosis. Doppler and Color Flow revealed mild mitr al regurgitation. TRICUSPID VALVE Doppler and Color Flow revealed moderate tricuspid regurgitation. The pulmonary artery systolic press ure is estimated at 99 mmHg. There is severe pulmonary hypertension. PULMONIC VALVE Doppler and Color Flow revealed mild pulmonic valvular regurgitation. There is no pulmonic valvular s tenosis. GREAT VESSELS The aortic root is normal in size. The ascending aorta is normal in size. The pulmonary artery is dil ated. The IVC is normal in size and collapses <50% with inspiration. PERICARDIAL EFFUSION There is no evidence of significant pericardial effusion. Critical Notification Critical Value: No <Conclusion> Left ventricle systolic function is mildly impaired. The Ejection Fraction is 45-50%. Moderate basal to mid inferior wall hypokinesis. Septal motion suggestive of conduction abnormality. Tissue Doppler imaging reveals moderate to severe left ventricular diastolic dysfunction. Doppler and Color Flow revealed moderate tricuspid regurgitation. The pulmonary artery systolic press ure is estimated at 99 mmHg. There is severe pulmonary hypertension.
[2017-02-19] MEDS ORDERED: LOSARTAN POTASSIUM 25 MG TABLET. PO SCH (12:30)
[2017-02-19] MEDS ORDERED: FUROSEMIDE 40 MG/4 ML VIAL. IVP ONE (12:30)
[2017-02-19] MEDS: ASPIRIN ENTERIC COATED 81 MG TABLET.DR. PO SCH (12:35)
--- NOTE | 2017-02-19 14:16 | PDOC ---
PROGRESS NOTES Chief Complaint Chief Complaint Chest pain History of Present Illness History of Present Illness Pt was lying in bed in NAD Denies current chest pain or SOA d/w restarting pt home meds Vitals Vitals Vital Signs Date Time Temp Pulse Resp B/P (MAP) Pulse Ox O2 Delivery O2 Flow Rate FiO2 02/19/17 12:33 164/91 02/19/17 12:12 98 Room Air 02/19/17 11:46 97.8 66 20 97.8 02/19/17 07:00 2.0 Physical Exam General: Alert, Cooperative, No acute distress Heart: Regular rate (regular rhythm with a II/ murmur.-), Normal S1, Normal S2 Lungs: Clear, Other (no wheezing) Abdomen: Normal bowel sounds, Soft Extremities: No clubbing, No edema Skin: No rashes, No significant lesion Labs LABS Laboratory Tests Test 02/18/17 15:37 02/18/17 15:43 02/18/17 15:47 02/18/17 16:45 White Blood Count 7.7 x10^3/uL (4.0-11.0) Red Blood Count 4.09 x10^6/uL (4.30-5.70) Hemoglobin 11.1 g/dL (13.0-17.5) Hematocrit 33.9 % (39.0-53.0) Mean Corpuscular Volume 83 fL (79-100) Mean Corpuscular Hemoglobin 27 pg (25-35) Mean Corpuscular Hemoglobin Concent 33 g/dL (31-37) Red Cell Distribution Width 16.5 % (11.5-14.5) Platelet Count 142 x10^3/uL (140-400) Neutrophils (%) (Auto) 72 % (31-73) Lymphocytes (%) (Auto) 13 % (24-48) Monocytes (%) (Auto) 10 % (0-9) Eosinophils (%) (Auto) 5 % (0-3) Basophils (%) (Auto) 1 % (0-3) Neutrophils # (Auto) 5.6 x10^3uL (1.8-7.7) Lymphocytes # (Auto) 1.0 x10^3/uL (1.0-4.8) Monocytes # (Auto) 0.7 x10^3/uL (0.0-1.1) Eosinophils # (Auto) 0.4 x10^3/uL (0.0-0.7) Basophils # (Auto) 0.1 x10^3/uL (0.0-0.2) Sodium Level 139 mmol/L (136-145) Potassium Level 3.6 mmol/L (3.5-5.1) Chloride Level 100 mmol/L (98-107) Carbon Dioxide Level 30 mmol/L (21-32) Anion Gap 9 (6-14) 15 mmol/L (6-14) Blood Urea Nitrogen 16 mg/dL (8-26) Creatinine 1.5 mg/dL (0.7-1.3) Estimated GFR (Cockcroft-Gault) 47.0 Glucose Level 98 mg/dL (70-99) 97 mg/dL (70-99) Calcium Level 8.9 mg/dL (8.5-10.1) Magnesium Level 1.9 mg/dL (1.8-2.4) Total Bilirubin 0.4 mg/dL (0.2-1.0) Direct Bilirubin 0.2 mg/dL (0.0-0.2) Aspartate Amino Transf (AST/SGOT) 29 U/L (15-37) Alanine Aminotransferase (ALT/SGPT) 21 U/L (16-63) Alkaline Phosphatase 106 U/L (46-116) Creatine Kinase 38 U/L (39-308) Creatine Kinase MB (Mass) 1.5 ng/mL (0.0-3.6) Creatine Kinase MB Relative Index % (0-4) Troponin I Quantitative 0.028 ng/mL (0.000-0.055) EX-Too-J-Type Natriuretic Peptide 7170 pg/mL (0-124) Total Protein 8.3 g/dL (6.4-8.2) Albumin 3.4 g/dL (3.4-5.0) Lipase 253 U/L (73-393) Bedside Troponin I 0.02 ng/ml (<0.08) Bedside Hemoglobin 11.9 g/dL (14-18) Bedside Hematocrit 35 % (37-52) Bedside Sodium 136 mmol/L (135-145) Bedside Potassium 3.6 mmol/L (3.5-5.0) Bedside Chloride 97 mmol/L (98-110) Bedside Total CO2 29 mmol/L (23-32) Bedside Blood Urea Nitrogen 16 mg/dL (8-26) Bedside Creatinine 1.4 mg/dL (0.5-1.4) Bedside Ionized Calcium (Zander) 1.08 mmol/L (1.13-1.32) Urine Collection Type Unknown Urine Color Yellow Urine Clarity Clear Urine pH 6.5 Urine Specific [place] 1.015 Urine Protein >=300 mg/dL (NEG-TRACE) Urine Glucose (UA) Negative mg/dL (NEG) Urine Ketones (Stick) Negative mg/dL (NEG) Urine Blood Small (NEG) Urine Nitrite Negative (NEG) Urine Bilirubin Negative (NEG) Urine Urobilinogen Dipstick 0.2 mg/dL (0.2 mg/dL) Urine Leukocyte Esterase Negative (NEG) Urine RBC 20-40 /HPF (0-2) Urine WBC 1-4 /HPF (0-4) Urine Squamous Epithelial Cells Few /LPF Urine Bacteria 0 /HPF (0-FEW) Urine Hyaline Casts Moderate /HPF Urine Mucus Slight /LPF Urine Opiates Screen Neg (NEG) Urine Methadone Screen Neg (NEG) Urine Barbiturates Neg (NEG) Urine Phencyclidine Screen Neg (NEG) Urine Amphetamine/Methamphetamine Neg (NEG) Urine Benzodiazepines Screen Neg (NEG) Urine Cocaine Screen Pos (NEG) Urine Cannabinoids Screen Neg (NEG) Urine Ethyl Alcohol Neg (NEG) Test 02/18/17 18:20 02/18/17 19:40 02/18/17 22:05 02/19/17 04:10 Nasal Screen MRSA (PCR) Positive (Negative) Glucose (Fingerstick) 90 mg/dL (70-99) Heparin Anti-Xa Act, Unfractionated 0.31 IU/mL (0.30-0.70) 0.20 IU/mL (0.30-0.70) White Blood Count 8.2 x10^3/uL (4.0-11.0) Red Blood Count 3.45 x10^6/uL (4.30-5.70) Hemoglobin 9.6 g/dL (13.0-17.5) Hematocrit 27.8 % (39.0-53.0) Mean Corpuscular Volume 81 fL (79-100) Mean Corpuscular Hemoglobin 28 pg (25-35) Mean Corpuscular Hemoglobin Concent 35 g/dL (31-37) Red Cell Distribution Width 16.3 % (11.5-14.5) Platelet Count 118 x10^3/uL (140-400) Neutrophils (%) (Auto) 72 % (31-73) Lymphocytes (%) (Auto) 13 % (24-48) Monocytes (%) (Auto) 8 % (0-9) Eosinophils (%) (Auto) 7 % (0-3) Basophils (%) (Auto) 1 % (0-3) Neutrophils # (Auto) 5.9 x10^3uL (1.8-7.7) Lymphocytes # (Auto) 1.1 x10^3/uL (1.0-4.8) Monocytes # (Auto) 0.6 x10^3/uL (0.0-1.1) Eosinophils # (Auto) 0.6 x10^3/uL (0.0-0.7) Basophils # (Auto) 0.0 x10^3/uL (0.0-0.2) Sodium Level 140 mmol/L (136-145) Potassium Level 3.5 mmol/L (3.5-5.1) Chloride Level 103 mmol/L (98-107) Carbon Dioxide Level 29 mmol/L (21-32) Anion Gap 8 (6-14) Blood Urea Nitrogen 17 mg/dL (8-26) Creatinine 1.4 mg/dL (0.7-1.3) Estimated GFR (Cockcroft-Gault) 50.9 Glucose Level 97 mg/dL (70-99) Calcium Level 8.5 mg/dL (8.5-10.1) Magnesium Level 1.8 mg/dL (1.8-2.4) Troponin I Quantitative 0.033 ng/mL (0.000-0.055) Triglycerides Level 41 mg/dL (0-150) Cholesterol Level 162 mg/dL (0-200) LDL Cholesterol, Calculated 92 mg/dL (0-100) VLDL Cholesterol, Calculated 8 mg/dL (0-40) Non-HDL Cholesterol Calculated 100 mg/dL (0-129) HDL Cholesterol 62 mg/dL (40-60) Cholesterol/HDL Ratio 2.6 Test 02/19/17 11:00 Heparin Anti-Xa Act, Unfractionated 0.27 IU/mL (0.30-0.70) Review of Systems Review of Systems Denies chest pain Denies SOA Assessment and Plan Assessmemt and Plan Problems Medical Problems: (1) Chest pain Status: Acute (2) Cocaine abuse Status: Acute (3) Congestive heart failure (CHF) Status: Acute (4) Malignant hypertension Status: Acute Assessment: 1. Malignant hypertension: secondary to med non-compliance 2. Chest pain, atypical: CE negative- AMI ruled out, Pain likely MSK in origin as it is reproducible with palpation to left chest. 3. Acute on chronic diastolic HF: echo 12/10 with preserved LV function 4. CAD: s/p bypass surgery. details/facility unknown; patient cannot recall 5. Prosthetic AVR 6. Pulmonary hypertension 7. Acute on chronic respiratory failure with AE COPD - improved. 6. H/o PAFIB: maintaining SR with controlled rate 7. KHALIDA with CKD - improved 8. Schizophrenia/ ? dementia 10. Substance abuse : UDS + cocaine 11. H/o hepatitis C 12. Borderline hypokalemia Plan: Appreciate cardio input Await repeat echo Continue tele monitoring KCl 40 mEq PO x once Continue oral HTN meds, wean off nitro Check labs in am PT/OT Disp: if remain stable, probable d/c tomorrow Problems: Comment Review of Relevant I have reviewed the following items florentin (where applicable) has been applied. Labs Laboratory Tests Test 02/18/17 15:37 02/18/17 15:43 02/18/17 15:47 02/18/17 16:45 White Blood Count 7.7 x10^3/uL (4.0-11.0) Red Blood Count 4.09 x10^6/uL (4.30-5.70) Hemoglobin 11.1 g/dL (13.0-17.5) Hematocrit 33.9 % (39.0-53.0) Mean Corpuscular Volume 83 fL (79-100) Mean Corpuscular Hemoglobin 27 pg (25-35) Mean Corpuscular Hemoglobin Concent 33 g/dL (31-37) Red Cell Distribution Width 16.5 % (11.5-14.5) Platelet Count 142 x10^3/uL (140-400) Neutrophils (%) (Auto) 72 % (31-73) Lymphocytes (%) (Auto) 13 % (24-48) Monocytes (%) (Auto) 10 % (0-9) Eosinophils (%) (Auto) 5 % (0-3) Basophils (%) (Auto) 1 % (0-3) Neutrophils # (Auto) 5.6 x10^3uL (1.8-7.7) Lymphocytes # (Auto) 1.0 x10^3/uL (1.0-4.8) Monocytes # (Auto) 0.7 x10^3/uL (0.0-1.1) Eosinophils # (Auto) 0.4 x10^3/uL (0.0-0.7) Basophils # (Auto) 0.1 x10^3/uL (0.0-0.2) Sodium Level 139 mmol/L (136-145) Potassium Level 3.6 mmol/L (3.5-5.1) Chloride Level 100 mmol/L (98-107) Carbon Dioxide Level 30 mmol/L (21-32) Anion Gap 9 (6-14) 15 mmol/L (6-14) Blood Urea Nitrogen 16 mg/dL (8-26) Creatinine 1.5 mg/dL (0.7-1.3) Estimated GFR (Cockcroft-Gault) 47.0 Glucose Level 98 mg/dL (70-99) 97 mg/dL (70-99) Calcium Level 8.9 mg/dL (8.5-10.1) Magnesium Level 1.9 mg/dL (1.8-2.4) Total Bilirubin 0.4 mg/dL (0.2-1.0) Direct Bilirubin 0.2 mg/dL (0.0-0.2) Aspartate Amino Transf (AST/SGOT) 29 U/L (15-37) Alanine Aminotransferase (ALT/SGPT) 21 U/L (16-63) Alkaline Phosphatase 106 U/L (46-116) Creatine Kinase 38 U/L (39-308) Creatine Kinase MB (Mass) 1.5 ng/mL (0.0-3.6) Creatine Kinase MB Relative Index % (0-4) Troponin I Quantitative 0.028 ng/mL (0.000-0.055) ER-Pct-K-Type Natriuretic Peptide 7170 pg/mL (0-124) Total Protein 8.3 g/dL (6.4-8.2) Albumin 3.4 g/dL (3.4-5.0) Lipase 253 U/L (73-393) Bedside Troponin I 0.02 ng/ml (<0.08) Bedside Hemoglobin 11.9 g/dL (14-18) Bedside Hematocrit 35 % (37-52) Bedside Sodium 136 mmol/L (135-145) Bedside Potassium 3.6 mmol/L (3.5-5.0) Bedside Chloride 97 mmol/L (98-110) Bedside Total CO2 29 mmol/L (23-32) Bedside Blood Urea Nitrogen 16 mg/dL (8-26) Bedside Creatinine 1.4 mg/dL (0.5-1.4) Bedside Ionized Calcium (Zander) 1.08 mmol/L (1.13-1.32) Urine Collection Type Unknown Urine Color Yellow Urine Clarity Clear Urine pH 6.5 Urine Specific [place] 1.015 Urine Protein >=300 mg/dL (NEG-TRACE) Urine Glucose (UA) Negative mg/dL (NEG) Urine Ketones (Stick) Negative mg/dL (NEG) Urine Blood Small (NEG) Urine Nitrite Negative (NEG) Urine Bilirubin Negative (NEG) Urine Urobilinogen Dipstick 0.2 mg/dL (0.2 mg/dL) Urine Leukocyte Esterase Negative (NEG) Urine RBC 20-40 /HPF (0-2) Urine WBC 1-4 /HPF (0-4) Urine Squamous Epithelial Cells Few /LPF Urine Bacteria 0 /HPF (0-FEW) Urine Hyaline Casts Moderate /HPF Urine Mucus Slight /LPF Urine Opiates Screen Neg (NEG) Urine Methadone Screen Neg (NEG) Urine Barbiturates Neg (NEG) Urine Phencyclidine Screen Neg (NEG) Urine Amphetamine/Methamphetamine Neg (NEG) Urine Benzodiazepines Screen Neg (NEG) Urine Cocaine Screen Pos (NEG) Urine Cannabinoids Screen Neg (NEG) Urine Ethyl Alcohol Neg (NEG) Test 02/18/17 18:20 02/18/17 19:40 02/18/17 22:05 02/19/17 04:10 Nasal Screen MRSA (PCR) Positive (Negative) Glucose (Fingerstick) 90 mg/dL (70-99) Heparin Anti-Xa Act, Unfractionated 0.31 IU/mL (0.30-0.70) 0.20 IU/mL (0.30-0.70) White Blood Count 8.2 x10^3/uL (4.0-11.0) Red Blood Count 3.45 x10^6/uL (4.30-5.70) Hemoglobin 9.6 g/dL (13.0-17.5) Hematocrit 27.8 % (39.0-53.0) Mean Corpuscular Volume 81 fL (79-100) Mean Corpuscular Hemoglobin 28 pg (25-35) Mean Corpuscular Hemoglobin Concent 35 g/dL (31-37) Red Cell Distribution Width 16.3 % (11.5-14.5) Platelet Count 118 x10^3/uL (140-400) Neutrophils (%) (Auto) 72 % (31-73) Lymphocytes (%) (Auto) 13 % (24-48) Monocytes (%) (Auto) 8 % (0-9) Eosinophils (%) (Auto) 7 % (0-3) Basophils (%) (Auto) 1 % (0-3) Neutrophils # (Auto) 5.9 x10^3uL (1.8-7.7) Lymphocytes # (Auto) 1.1 x10^3/uL (1.0-4.8) Monocytes # (Auto) 0.6 x10^3/uL (0.0-1.1) Eosinophils # (Auto) 0.6 x10^3/uL (0.0-0.7) Basophils # (Auto) 0.0 x10^3/uL (0.0-0.2) Sodium Level 140 mmol/L (136-145) Potassium Level 3.5 mmol/L (3.5-5.1) Chloride Level 103 mmol/L (98-107) Carbon Dioxide Level 29 mmol/L (21-32) Anion Gap 8 (6-14) Blood Urea Nitrogen 17 mg/dL (8-26) Creatinine 1.4 mg/dL (0.7-1.3) Estimated GFR (Cockcroft-Gault) 50.9 Glucose Level 97 mg/dL (70-99) Calcium Level 8.5 mg/dL (8.5-10.1) Magnesium Level 1.8 mg/dL (1.8-2.4) Troponin I Quantitative 0.033 ng/mL (0.000-0.055) Triglycerides Level 41 mg/dL (0-150) Cholesterol Level 162 mg/dL (0-200) LDL Cholesterol, Calculated 92 mg/dL (0-100) VLDL Cholesterol, Calculated 8 mg/dL (0-40) Non-HDL Cholesterol Calculated 100 mg/dL (0-129) HDL Cholesterol 62 mg/dL (40-60) Cholesterol/HDL Ratio 2.6 Test 02/19/17 11:00 Heparin Anti-Xa Act, Unfractionated 0.27 IU/mL (0.30-0.70) Laboratory Tests Test 02/18/17 15:37 02/18/17 15:43 02/18/17 15:47 02/18/17 16:45 White Blood Count 7.7 x10^3/uL (4.0-11.0) Red Blood Count 4.09 x10^6/uL (4.30-5.70) Hemoglobin 11.1 g/dL (13.0-17.5) Hematocrit 33.9 % (39.0-53.0) Mean Corpuscular Volume 83 fL (79-100) Mean Corpuscular Hemoglobin 27 pg (25-35) Mean Corpuscular Hemoglobin Concent 33 g/dL (31-37) Red Cell Distribution Width 16.5 % (11.5-14.5) Platelet Count 142 x10^3/uL (140-400) Neutrophils (%) (Auto) 72 % (31-73) Lymphocytes (%) (Auto) 13 % (24-48) Monocytes (%) (Auto) 10 % (0-9) Eosinophils (%) (Auto) 5 % (0-3) Basophils (%) (Auto) 1 % (0-3) Neutrophils # (Auto) 5.6 x10^3uL (1.8-7.7) Lymphocytes # (Auto) 1.0 x10^3/uL (1.0-4.8) Monocytes # (Auto) 0.7 x10^3/uL (0.0-1.1) Eosinophils # (Auto) 0.4 x10^3/uL (0.0-0.7) Basophils # (Auto) 0.1 x10^3/uL (0.0-0.2) Sodium Level 139 mmol/L (136-145) Potassium Level 3.6 mmol/L (3.5-5.1) Chloride Level 100 mmol/L (98-107) Carbon Dioxide Level 30 mmol/L (21-32) Anion Gap 9 (6-14) 15 mmol/L (6-14) Blood Urea Nitrogen 16 mg/dL (8-26) Creatinine 1.5 mg/dL (0.7-1.3) Estimated GFR (Cockcroft-Gault) 47.0 Glucose Level 98 mg/dL (70-99) 97 mg/dL (70-99) Calcium Level 8.9 mg/dL (8.5-10.1) Magnesium Level 1.9 mg/dL (1.8-2.4) Total Bilirubin 0.4 mg/dL (0.2-1.0) Direct Bilirubin 0.2 mg/dL (0.0-0.2) Aspartate Amino Transf (AST/SGOT) 29 U/L (15-37) Alanine Aminotransferase (ALT/SGPT) 21 U/L (16-63) Alkaline Phosphatase 106 U/L (46-116) Creatine Kinase 38 U/L (39-308) Creatine Kinase MB (Mass) 1.5 ng/mL (0.0-3.6) Creatine Kinase MB Relative Index % (0-4) Troponin I Quantitative 0.028 ng/mL (0.000-0.055) CK-Ljr-D-Type Natriuretic Peptide 7170 pg/mL (0-124) Total Protein 8.3 g/dL (6.4-8.2) Albumin 3.4 g/dL (3.4-5.0) Lipase 253 U/L (73-393) Bedside Troponin I 0.02 ng/ml (<0.08) Bedside Hemoglobin 11.9 g/dL (14-18) Bedside Hematocrit 35 % (37-52) Bedside Sodium 136 mmol/L (135-145) Bedside Potassium 3.6 mmol/L (3.5-5.0) Bedside Chloride 97 mmol/L (98-110) Bedside Total CO2 29 mmol/L (23-32) Bedside Blood Urea Nitrogen 16 mg/dL (8-26) Bedside Creatinine 1.4 mg/dL (0.5-1.4) Bedside Ionized Calcium (Zander) 1.08 mmol/L (1.13-1.32) Urine Collection Type Unknown Urine Color Yellow Urine Clarity Clear Urine pH 6.5 Urine Specific [place] 1.015 Urine Protein >=300 mg/dL (NEG-TRACE) Urine Glucose (UA) Negative mg/dL (NEG) Urine Ketones (Stick) Negative mg/dL (NEG) Urine Blood Small (NEG) Urine Nitrite Negative (NEG) Urine Bilirubin Negative (NEG) Urine Urobilinogen Dipstick 0.2 mg/dL (0.2 mg/dL) Urine Leukocyte Esterase Negative (NEG) Urine RBC 20-40 /HPF (0-2) Urine WBC 1-4 /HPF (0-4) Urine Squamous Epithelial Cells Few /LPF Urine Bacteria 0 /HPF (0-FEW) Urine Hyaline Casts Moderate /HPF Urine Mucus Slight /LPF Urine Opiates Screen Neg (NEG) Urine Methadone Screen Neg (NEG) Urine Barbiturates Neg (NEG) Urine Phencyclidine Screen Neg (NEG) Urine Amphetamine/Methamphetamine Neg (NEG) Urine Benzodiazepines Screen Neg (NEG) Urine Cocaine Screen Pos (NEG) Urine Cannabinoids Screen Neg (NEG) Urine Ethyl Alcohol Neg (NEG) Test 02/18/17 18:20 02/18/17 19:40 02/18/17 22:05 02/19/17 04:10 Nasal Screen MRSA (PCR) Positive (Negative) Glucose (Fingerstick) 90 mg/dL (70-99) Heparin Anti-Xa Act, Unfractionated 0.31 IU/mL (0.30-0.70) 0.20 IU/mL (0.30-0.70) White Blood Count 8.2 x10^3/uL (4.0-11.0) Red Blood Count 3.45 x10^6/uL (4.30-5.70) Hemoglobin 9.6 g/dL (13.0-17.5) Hematocrit 27.8 % (39.0-53.0) Mean Corpuscular Volume 81 fL (79-100) Mean Corpuscular Hemoglobin 28 pg (25-35) Mean Corpuscular Hemoglobin Concent 35 g/dL (31-37) Red Cell Distribution Width 16.3 % (11.5-14.5) Platelet Count 118 x10^3/uL (140-400) Neutrophils (%) (Auto) 72 % (31-73) Lymphocytes (%) (Auto) 13 % (24-48) Monocytes (%) (Auto) 8 % (0-9) Eosinophils (%) (Auto) 7 % (0-3) Basophils (%) (Auto) 1 % (0-3) Neutrophils # (Auto) 5.9 x10^3uL (1.8-7.7) Lymphocytes # (Auto) 1.1 x10^3/uL (1.0-4.8) Monocytes # (Auto) 0.6 x10^3/uL (0.0-1.1) Eosinophils # (Auto) 0.6 x10^3/uL (0.0-0.7) Basophils # (Auto) 0.0 x10^3/uL (0.0-0.2) Sodium Level 140 mmol/L (136-145) Potassium Level 3.5 mmol/L (3.5-5.1) Chloride Level 103 mmol/L (98-107) Carbon Dioxide Level 29 mmol/L (21-32) Anion Gap 8 (6-14) Blood Urea Nitrogen 17 mg/dL (8-26) Creatinine 1.4 mg/dL (0.7-1.3) Estimated GFR (Cockcroft-Gault) 50.9 Glucose Level 97 mg/dL (70-99) Calcium Level 8.5 mg/dL (8.5-10.1) Magnesium Level 1.8 mg/dL (1.8-2.4) Troponin I Quantitative 0.033 ng/mL (0.000-0.055) Triglycerides Level 41 mg/dL (0-150) Cholesterol Level 162 mg/dL (0-200) LDL Cholesterol, Calculated 92 mg/dL (0-100) VLDL Cholesterol, Calculated 8 mg/dL (0-40) Non-HDL Cholesterol Calculated 100 mg/dL (0-129) HDL Cholesterol 62 mg/dL (40-60) Cholesterol/HDL Ratio 2.6 Test 02/19/17 11:00 Heparin Anti-Xa Act, Unfractionated 0.27 IU/mL (0.30-0.70) Medications Current Medications Lorazepam (Ativan) 1 mg 1X ONCE IV Last administered on 02/18/17 15:45; Start 02/18/17 at 15:45; Stop 02/18/17 at 15:46; Status DC Nitroglycerin/ Dextrose 250 ml @ 3 mls/hr 1X ONCE IV Last administered on 02/18 15:45; Start 02/18/17 at 15:45; Stop 02/22/17 at 03:04 Fentanyl Citrate (Fentanyl 2ml Vial) 50 mcg PRN Q15MIN PRN IV PAIN GREATER THAN 3/10 Last administered on 02/18/17 16:18; Start 02/18/17 at 15:45; Stop at 15:44 Sodium Chloride 1,000 ml @ 100 mls/hr Q10H IV Last administered on 02/18/17 15:46; Start 02/18/17 at 15:37; Stop 02/19/17 at 01:36; Status DC Heparin Sodium (Porcine) (Heparin Sodium) 4,000 unit 1X ONCE IV Last administered on 02/18/17 15:51; Start 02/18/17 at 15:45; Stop 02/19/17 at 11:17 ; Status DC Heparin Sodium/ Dextrose 500 ml @ 0 mls/hr CONT PRN IV SEE I/O RECORD Last administered on 02/18/17 15:57; Start 02/18/17 at 15:45; Stop 02/19/17 at 11:17 ; Status DC Ondansetron HCl (Zofran) 4 mg PRN Q8HRS PRN IV NAUSEA/VOMITING; Start 02/18/17 at 17:30; Stop 02/18/17 at 21:13; Status DC Fentanyl Citrate (Fentanyl 2ml Vial) 50 mcg PRN Q2HR PRN IV PAIN; Start at 17:30; Stop 02/19/17 at 17:29 Sodium Chloride 1,000 ml @ 60 mls/hr [id number] IV ; Start 02/18/17 at 17:29; Stop 02/19/17 at 17:28 Amlodipine Besylate (Norvasc) 10 mg ONCE ONCE PO Last administered on 19:42; Start 02/18/17 at 19:30; Stop 02/18/17 at 19:31; Status DC Hydralazine HCl (Apresoline) 50 mg ONCE ONCE PO Last administered on 19:42; Start 02/18/17 at 19:30; Stop 02/18/17 at 19:31; Status DC Hydralazine HCl (Apresoline) 50 mg BID PO Last administered on 02/19/17 09:38 ; Start 02/19/17 at 09:00 Acetaminophen (Tylenol) 325 mg PRN Q6HRS PRN PO MILD PAIN / TEMP; Start at 21:00 Acetaminophen/ Hydrocodone Bitart (Lortab 5/325) 1 tab PRN Q6HRS PRN PO MODERATE TO SEVERE PAIN Last administered on 02/19/17 05:29; Start 02/18/17 at 21:00 Hydralazine HCl (Apresoline) 10 mg PRN Q4HRS PRN IVP ELEVATED BP, SEE COMMENTS ; Start 02/18/17 at 21:00 Ondansetron HCl (Zofran) 4 mg PRN Q8HRS PRN IV NAUSEA/VOMITING; Start 02/18/17 at 21:00 Albuterol Sulfate (Ventolin Neb Soln) 2.5 mg PRN Q4HRS PRN NEB SHORTNESS OF BREATH Last administered on 02/19/17 12:11; Start 02/18/17 at 21:00 Trazodone HCl (Desyrel) 200 mg QHS PO Last administered on 02/18/17 21:37; Start 02/18/17 at 22:00 Aspirin (Ecotrin) 81 mg DAILY PO Last administered on 02/19/17 12:35; Start at 12:30 Losartan Potassium (Cozaar) 25 mg DAILY PO Last administered on 02/19/17 12:33 ; Start 02/19/17 at 12:30 Atorvastatin Calcium (Lipitor) 10 mg QHS PO ; Start 02/19/17 at 21:00 Furosemide (Lasix) 40 mg 1X ONCE IVP Last administered on 02/19/17 12:33; Start 02/19/17 at 12:30; Stop 02/19/17 at 12:31; Status DC Active Scripts Active Reported Pravastatin Sodium 40 Mg Tablet 40 Mg PO DAILY Zofran (Ondansetron Hcl) 4 Mg Tablet 1 Tab PO Q6HRS Tylenol (Acetaminophen) 325 Mg Tablet 650 Mg PO PRN Q4HRS PRN Ativan (Lorazepam) 1 Mg Tablet 1 Mg PO PRN Q4HRS PRN [Duoneb ] 1 Vial INH PRN Q4HRS PRN [place] 5-325 Tablet (Acetaminophen/Hydrocodone Bitart) 1 Each Tablet 1-2 Tab PO Q4-6HRS [Prostat] 30 Ml PO BID Seroquel (Quetiapine Fumarate) 25 Mg Tablet 25 Mg PO BID Depakote Er (Divalproex Sodium) 500 Mg Tab.er.24h 500 Mg PO HS Remeron (Mirtazapine) 15 Mg Tablet 7.5 Mg PO HS Vitamin D (Cholecalciferol (Vitamin D3)) 1,000 Unit Capsule 50,000 Unit PO WEEKLY Protonix (Pantoprazole Sodium) 40 Mg Tablet.dr 1 Tab PO DAILY Folic Acid 1 Mg Tablet 1 Tab PO DAILY Losartan Potassium 25 Mg Tablet 1 Tab PO DAILY Vitamin C (Ascorbic Acid) 500 Mg Capsule.er 500 Mg PO DAILY Aspir 81 (Aspirin) 81 Mg Tablet.dr 1 Tab PO DAILY Multi-Day Vitamins (Multivitamin) 1 Each Tablet 1 Tab PO DAILY Trazodone Hcl 100 Mg Tablet 2 Tab PO QHS Coreg (Carvedilol) 25 Mg Tablet 1 Tab PO BID Vitals/I & O Vital Sign - Last 24 Hours 02/18/17 02/18/17 02/18/17 02/18/17 16:04 16:18 16:19 16:34 Temp 98.5 98.5 Pulse 84 73 81 Resp 21 18 21 21 B/P (MAP) 237/118 (157) 220/116 (150) 219/120 (153) Pulse Ox 88 99 99 O2 Delivery Room Air Nasal Cannula Nasal Cannula Nasal Cannula O2 Flow Rate 2.0 2.0 2.0 02/18/17 02/18/17 02/18/17 02/18/17 16:43 16:49 16:55 17:04 Pulse 73 69 64 69 Resp 20 18 19 19 B/P (MAP) 221/115 (150) 195/104 (134) 189/107 (134) 196/107 (136) Pulse Ox 100 100 100 100 O2 Delivery Nasal Cannula Nasal Cannula Nasal Cannula Nasal Cannula O2 Flow Rate 2.0 2.0 2.0 2.0 02/18/17 02/18/17 02/18/17 02/18/17 17:17 17:18 17:19 17:34 Pulse 66 67 67 68 Resp 17 16 20 17 B/P (MAP) 176/99 (124) 176/99 (124) 178/103 (128) 179/104 (129) Pulse Ox 100 100 100 99 O2 Delivery Nasal Cannula Nasal Cannula Nasal Cannula Nasal Cannula O2 Flow Rate 2.0 3.0 2.0 2.0 02/18/17 02/18/17 02/18/17 02/18/17 17:41 17:43 17:49 18:05 Pulse 69 70 75 72 Resp 18 19 19 20 B/P (MAP) 200/115 (143) 191/105 (133) 188/109 (135) 184/96 (125) Pulse Ox 100 99 97 99 O2 Delivery Nasal Cannula Nasal Cannula Nasal Cannula Nasal Cannula O2 Flow Rate 2.0 2.0 2.0 2.0 02/18/17 02/18/17 02/18/17 02/18/17 18:15 18:30 18:45 19:00 Pulse 70 72 68 69 Resp 18 20 18 18 B/P (MAP) 210/106 (140) 190/104 (132) 186/99 (128) 179/95 (123) Pulse Ox 98 97 98 96 O2 Delivery Room Air Nasal Cannula Nasal Cannula Nasal Cannula O2 Flow Rate 2.0 2.0 2.0 02/18/17 02/18/17 02/18/17 02/18/17 19:15 19:30 19:42 19:42 Pulse 64 64 69 69 Resp 20 18 B/P (MAP) 173/95 (121) 179/101 (127) 179/101 179/101 Pulse Ox 99 99 O2 Delivery Nasal Cannula Nasal Cannula O2 Flow Rate 2.0 2.0 02/18/17 02/18/17 02/18/17 02/18/17 20:00 20:00 21:00 22:00 Pulse 69 71 68 Resp 15 27 15 B/P (MAP) 194/105 (134) 186/90 (122) 157/89 (111) Pulse Ox 98 96 96 O2 Delivery Nasal Cannula Nasal Cannula Nasal Cannula Nasal Cannula O2 Flow Rate 2.0 2.0 2.0 2.0 02/18/17 02/19/17 02/19/17 02/19/17 23:00 00:18 00:18 01:00 Temp 97.4 97.4 Pulse 59 67 66 Resp 13 17 12 B/P (MAP) 119/67 (84) 179/88 (118) 152/81 (104) Pulse Ox 95 97 97 O2 Delivery Nasal Cannula Nasal Cannula Nasal Cannula Nasal Cannula O2 Flow Rate 2.0 2.0 2.0 2.0 02/19/17 02/19/17 02/19/17 02/19/17 02:00 03:00 04:00 04:00 Temp 97.7 97.7 Pulse 66 69 67 Resp 12 13 14 B/P (MAP) 140/77 (98) 168/84 (112) 158/83 (108) Pulse Ox 95 96 96 O2 Delivery Nasal Cannula Nasal Cannula Nasal Cannula Nasal Cannula O2 Flow Rate 2.0 2.0 2.0 2.0 02/19/17 02/19/17 02/19/17 02/19/17 05:00 05:29 06:00 06:29 Pulse 70 66 Resp 14 18 13 10 B/P (MAP) 146/74 (98) 156/77 (103) Pulse Ox 96 97 97 98 O2 Delivery Nasal Cannula Nasal Cannula Nasal Cannula Nasal Cannula O2 Flow Rate 2.0 2.0 2.0 2.0 02/19/17 02/19/17 02/19/17 02/19/17 07:00 08:00 08:34 09:38 Pulse 59 77 Resp 18 B/P (MAP) 156/77 (103) 145/78 Pulse Ox 97 95 O2 Delivery Nasal Cannula Room Air Room Air O2 Flow Rate 2.0 02/19/17 02/19/17 02/19/17 11:46 12:12 12:33 Temp 97.8 97.8 Pulse 66 Resp 20 B/P (MAP) 164/91 (115) 164/91 Pulse Ox 98 98 O2 Delivery Room Air Room Air Intake and Output 02/18/17 02/18/17 02/19/17 15:00 23:00 07:00 Intake Total 300 ml 1651.4 ml Output Total 150 ml 700 ml Balance 150 ml 951.4 ml SONAL HARDEN III DO February 19, 2017 14:16
[2017-02-19] MEDS ORDERED: POTASSIUM CHLORIDE 20 MEQ TABLET.ER. PO ONE (14:30)
[2017-02-19] MEDS ORDERED: CLON1PAT TD (15:43)
[2017-02-19] MEDS ORDERED: POTA20TA82 PO (15:43)
[2017-02-19] MEDS ORDERED: LISI40TA PO (15:43)
[2017-02-19] MEDS ORDERED: HYDR-2868 PO (15:43)
[2017-02-19] MEDS ORDERED: ISOS60TA2 PO (15:43)
--- NOTE | 2017-02-19 15:43 | EKG ---
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
[2017-02-19] MEDS ORDERED: FURO20TA3 PO (15:50)
[2017-02-19] MEDS: LISINOPRIL 40 MG TABLET. PO SCH (16:42)
[2017-02-19] MEDS: PANTOPRAZOLE 40 MG TABLET.DR. PO SCH (16:43)
[2017-02-19] MEDS: ISOSORBIDE MONONITRATE ER 60 MG TAB.ER.24H. PO SCH (16:43)
[2017-02-19] MEDS: POTASSIUM CHLORIDE 20 MEQ TABLET.ER. PO SCH (17:00)
[2017-02-19] MEDS: FUROSEMIDE 20 MG TABLET PO SCH (17:00)
[2017-02-19] MEDS ORDERED: ATORVASTATIN CALCIUM 10 MG TABLET. PO SCH (21:00)
[2017-02-19] MEDS ORDERED: CALCIUM CARBONATE 500 MG TAB.CHEW PO PRN (21:00)
[2017-02-19] MEDS: traZODone 100 MG TABLET. PO SCH (21:09)
--- NOTE | 2017-02-20 02:23 | ACF ---
Admission Forms Criteria HYPERTENSION Clinical Indications for Admission to Inpatient Care ( Place "X" for any and all applicable criteria): Admission is indicated for ANY ONE of the following(1)(2)(3)(4): [ ]I. Hypertensive emergency, with evidence of acute and progressing target organ disease as indicated by ANY ONE of the following: [ ]a) Hypertensive encephalopathy (eg, confusion, altered mental status) [ ]b) Cerebral infarction [ ]c) Intracranial hemorrhage [ ]d) Myocardial ischemia or infarction [ ]e) Pulmonary edema [ ]f) Aortic dissection [ ]g) Seizure [ ]h) Acute renal insufficiency [ ]i) Papilledema [ ]j) Microangiopathic hemolytic anemia [ ]II. Adrenergic crisis (eg, severe hypertension due to pheochromocytoma crisis, cocaine or amphetamine intoxication, or clonidine withdrawal) [X ]III. Severe hypertension (SBP greater than 180 mmHg or DBP greater than 110 mmHg or greater than the 95th percentile for age, gender, and height in pediatric patients) that cannot be controlled (eg, to SBP less than 160 mmHg and DBP less than 100 mmHg in adults) by treatment with oral medication in emergency department or observation care Extended stay beyond goal length of stay may be needed for(11)(12)(13): [ ]a) Persistent hypertensive encephalopathy [ ]b) Continuation of pulmonary edema [ ]c) Recurring or persistent severe hypertension [ ]d) Target organ damage (eg, angina, stroke, aortic dissection) [ ]e) Associated renal insufficiency The original [facility] (by [employer])replaced by [facility] content created by [employer] has been revised. The portions of the content which have been revised are identified through the use of italic text or in bold, and [facility] has neither reviewed nor approved the modified material. All other unmodified content is copyright [facility]. Please see references footnoted in the original [facility] (by [employer])[facility] [employer] edition 2016 Admission Criteria Met?: Yes HOLDEN PAYTON February 20, 2017 02:23
[2017-02-20 02:50] VITALS: BP 191/86
[2017-02-20 04:08] LABS: BASO % 1 % (0-3); EOS % 7 % (0-3); HEMATOCRIT 28.6 % (39.0-53.0); HEMOGLOBIN 9.5 g/dL (13.0-17.5); LYMPH # 0.8 x10^3/uL (1.0-4.8); LYMPH % 12 % (24-48); MEAN CORPUSCULAR HEMOGLOBIN 27 pg (25-35); MEAN CORPUSCULAR HGB CONC 33 g/dL (31-37); MEAN CORPUSCULAR VOLUME 83 fL (79-100); MONO % 8 % (0-9); NEUT % 71 % (31-73); PLATELET COUNT 112 x10^3/uL (140-400); RED BLOOD COUNT 3.47 x10^6/uL (4.30-5.70); RED CELL DISTRIBUTION WIDTH 16.9 % (11.5-14.5); WHITE BLOOD COUNT 6.5 x10^3/uL (4.0-11.0)
[2017-02-20 04:24] LABS: CALCIUM 8.6 mg/dL (8.5-10.1); CREATININE 1.7 mg/dL (0.7-1.3); GFR 40.7; POTASSIUM 3.7 mmol/L (3.5-5.1)
[2017-02-20] MEDS: LISINOPRIL 40 MG TABLET. PO SCH (05:59)
[2017-02-20] MEDS: PANTOPRAZOLE 40 MG TABLET.DR. PO SCH (05:59)
[2017-02-20] MEDS: HYDROcodone/APAP 5/325MG 1 TAB TABLET PO PRN (06:32)
[2017-02-20] MEDS: ALBUTEROL SULFATE 2.5 MG/3 ML NEBU. NEB PRN (06:55)
[2017-02-20 07:00] VITALS: BP 173/74
[2017-02-20] MEDS: ASPIRIN ENTERIC COATED 81 MG TABLET.DR. PO SCH (08:29)
[2017-02-20] MEDS: FUROSEMIDE 20 MG TABLET PO SCH (08:29)
[2017-02-20] MEDS: ISOSORBIDE MONONITRATE ER 60 MG TAB.ER.24H. PO SCH (08:30)
[2017-02-20] MEDS: POTASSIUM CHLORIDE 20 MEQ TABLET.ER. PO SCH (08:30)
[2017-02-20 08:39] VITALS: BP 163/82
[2017-02-20 11:00] VITALS: BP 159/86
--- NOTE | 2017-02-20 12:44 | PDOC ---
CARDIO Progress Notes Date and Time Date of Service 02/20/17 Time of Evaluation 1115 Subjective Subjective: No Palpitations, Other (mild dyspnea ) Vitals Vitals Vital Signs Date Time Temp Pulse Resp B/P (MAP) Pulse Ox O2 Delivery O2 Flow Rate FiO2 02/20/17 11:00 98.6 97 22 159/86 (110) 98 Room Air 98.6 02/19/17 07:00 2.0 Weight Weight [ ] Input and Output Intake and Output Intake and Output 02/20/17 07:00 Intake Total 2147 ml Output Total 3500 ml Balance -1353 ml Intake Oral 1370 ml IV Total 777 ml Output Urine Total 3500 ml # Bowel Movements 4 Laboratory Labs Laboratory Tests Test 02/20/17 04:00 White Blood Count 6.5 x10^3/uL (4.0-11.0) Red Blood Count 3.47 x10^6/uL (4.30-5.70) Hemoglobin 9.5 g/dL (13.0-17.5) Hematocrit 28.6 % (39.0-53.0) Mean Corpuscular Volume 83 fL (79-100) Mean Corpuscular Hemoglobin 27 pg (25-35) Mean Corpuscular Hemoglobin Concent 33 g/dL (31-37) Red Cell Distribution Width 16.9 % (11.5-14.5) Platelet Count 112 x10^3/uL (140-400) Neutrophils (%) (Auto) 71 % (31-73) Lymphocytes (%) (Auto) 12 % (24-48) Monocytes (%) (Auto) 8 % (0-9) Eosinophils (%) (Auto) 7 % (0-3) Basophils (%) (Auto) 1 % (0-3) Neutrophils # (Auto) 4.7 x10^3uL (1.8-7.7) Lymphocytes # (Auto) 0.8 x10^3/uL (1.0-4.8) Monocytes # (Auto) 0.5 x10^3/uL (0.0-1.1) Eosinophils # (Auto) 0.5 x10^3/uL (0.0-0.7) Basophils # (Auto) 0.0 x10^3/uL (0.0-0.2) Sodium Level 140 mmol/L (136-145) Potassium Level 3.7 mmol/L (3.5-5.1) Chloride Level 104 mmol/L (98-107) Carbon Dioxide Level 30 mmol/L (21-32) Anion Gap 6 (6-14) Blood Urea Nitrogen 19 mg/dL (8-26) Creatinine 1.7 mg/dL (0.7-1.3) Estimated GFR (Cockcroft-Gault) 40.7 Glucose Level 100 mg/dL (70-99) Calcium Level 8.6 mg/dL (8.5-10.1) Physical Exam HEENT: Neck Supple W Full Motion Chest: Symmetric LUNGS: Other (diminished bases, left chest tenderness upon palpation) Heart: S1S2, RRR, murmurs (systolic murmur ) Abdomen: Soft N/T Extremities: 2+ Dorsalis Pedis, No Edema Neurology: alert, oriented, follow commands, other (anxious ) Assessment Assessment 1. Malignant hypertension secondary to med non-compliance; patient reports not taking medications " most of the time" better controlled with resumptions of home medication therapy 2. Chest pain, atypical AMI ruled out Pain likely MSK in origin as it is reproducible with palpation to left chest. may discharge from a cardiac standpoint [facility]. 3. Acute on chronic diastolic HF improved with Lasix echo shows an EF of 45-50% continue optimization therapy encouraged medical compliance 4. CAD s/p bypass surgery. stable. Continue medical management LDL= 92; statin therapy no BB with cocaine use 3. Prosthetic AVR 4. Severe pulmonary hypertension PAP 99 per echo 5. Acute on chronic respiratory failure with AE COPD with continued tobaccoism improved. 6. H/o PAFIB maintaining SR with controlled rate ASA for stroke prevention no further episodes of AFIB 7. KHALIDA with CKD monitor with diuresis 8. Schizophrenia/ ? dementia 9. Non-compliance 10. Substance abuse UDS + cocaine 11. H/o hepatitis C MARILUZ MARTÍNEZ APRN February 20, 2017 12:44
--- NOTE | 2017-02-21 00:04 | DS ---
DATE OF DISCHARGE: 02/20/2017 DISCHARGE DIAGNOSES: Accelerated hypertension and angina. DISCHARGE DIAGNOSIS: Resolving accelerated hypertension. HOSPITAL COURSE: The patient is a pleasant 67-year-old male who presented with accelerated hypertension. He was admitted to telemetry. We checked serial enzymes and serial EKGs, did cardiac monitoring. This morning, when I examined him, he was back to his baseline, his blood pressures have normalized. We plan to discharge. DISPOSITION: Home. ACTIVITY: As tolerated. DIET: Low sodium. MEDICATIONS: Please see the MRAD. TOTAL TIME: 32 minutes. SONAL HARDEN DO DR: DWAYNE/crystal JOB#: [id number] / [id number]
== END 2017-02-20 15:35 | disposition home or self-care (01) | DRG 291 ==
LOC: ER 15:31 → 1 WEST ICU 16:30 → 2 NORTH 02-19 11:30
PROVIDERS: ADMIT Internal Medicine; ATTEND Internal Medicine
DX: I13.0 Hypertensive heart and chronic kidney disease with heart failure and stage 1 through stage 4 chronic kidney disease, or unspecified chronic kidney disease (principal); I50.33 Acute on chronic diastolic (congestive) heart failure; J96.20 Acute and chronic respiratory failure, unspecified whether with hypoxia or hypercapnia; N17.9 Acute kidney failure, unspecified; J44.1 Chronic obstructive pulmonary disease with (acute) exacerbation; I25.119 Atherosclerotic heart disease of native coronary artery with unspecified angina pectoris; E78.5 Hyperlipidemia, unspecified; E87.6 Hypokalemia; F03.90 Unspecified dementia, unspecified severity, without behavioral disturbance, psychotic disturbance, mood disturbance, and anxiety; F14.10 Cocaine abuse, uncomplicated; F17.210 Nicotine dependence, cigarettes, uncomplicated; F41.9 Anxiety disorder, unspecified; E78.00 Pure hypercholesterolemia, unspecified; F20.9 Schizophrenia, unspecified; I15.8 Other secondary hypertension; I27.2 Other secondary pulmonary hypertension; I48.0 Paroxysmal atrial fibrillation; K21.9 Gastro-esophageal reflux disease without esophagitis; F32.9 Major depressive disorder, single episode, unspecified; N18.9 Chronic kidney disease, unspecified; Z86.73 Personal history of transient ischemic attack (TIA), and cerebral infarction without residual deficits; Z91.14 Patient's other noncompliance with medication regimen; Z91.19 Patient's noncompliance with other medical treatment and regimen; Z95.1 Presence of aortocoronary bypass graft; Z95.2 Presence of prosthetic heart valve; Z93.1 Gastrostomy status; Z88.8 Allergy status to other drugs, medicaments and biological substances
CPT/HCPCS: 36415; 71010; 80047; 80048; 80061; 80076; 81001; 82553; 82962; 83690; 83735; 83880; 84484; 85027; 85520; 87641; 93005; 93306; 94250; 94640; 94760; 96365; 96367; 96375; 96376; G0481; J0360; J1940; J2060; J3010; J3490; J7030; 97530; 99291-25

== ENCOUNTER 2017-06-26 09:58 | Inpatient (IN) | payer MEDICARE ==
[~2017-06-26] VITALS: Ht 180.3 cm; Wt 70.5 kg
[~2017-06-26 09:58] MED LIST changes: +CLON1PAT TD; +FURO20TA3 PO; +HYDR-2868 PO; +ISOS60TA2 PO; +LISI40TA PO; +POTA20TA82 PO
[2017-06-26] MEDS ORDERED: IV NORMAL SALINE 1000ML BAG 1,000 ML IV SCH (10:02)
[2017-06-26 10:14] LABS: BASO # 0.1 x10^3/uL (0.0-0.2); BASO % 1 % (0-3); EOS % 7 % (0-3); HEMATOCRIT 24.5 % (39.0-53.0); HEMOGLOBIN 8.7 g/dL (13.0-17.5); LYMPH # 0.7 x10^3/uL (1.0-4.8); LYMPH % 8 % (24-48); MEAN CORPUSCULAR HEMOGLOBIN 29 pg (25-35); MEAN CORPUSCULAR HGB CONC 35 g/dL (31-37); MEAN CORPUSCULAR VOLUME 83 fL (79-100); MONO % 10 % (0-9); NEUT % 75 % (31-73); PLATELET COUNT 124 x10^3/uL (140-400); RED BLOOD COUNT 2.95 x10^6/uL (4.30-5.70); RED CELL DISTRIBUTION WIDTH 18.4 % (11.5-14.5); WHITE BLOOD COUNT 8.1 x10^3/uL (4.0-11.0)
[2017-06-26] MEDS ORDERED: ASPIRIN 325 MG TABLET PO ONE (10:15)
[2017-06-26 10:26] LABS: CREATININE 1.5 mg/dL (0.7-1.3); POTASSIUM 4.2 mmol/L (3.5-5.1)
--- NOTE | 2017-06-26 10:28 | PHYS DOC ---
Past Medical History Past Medical History: A-Fib, Anxiety, CAD, CHF, CVA, Dementia, GERD, High Cholesterol, Hypertension, AR, Schizophrenia, Other Additional Past Medical Histor: DYSPHAGIA, HEPATITIS C, POSSIBLE DM, COCAINE ABUSE, PLEURAL EFFUSION Past Surgical History: Coronary Bypass Surgery, Other Additional Past Surgical Histo: PEG TUBE, R THORASCOPY, HEMOTHORAX, AORTIC VALVE REPLACEMENT, BACK SURGERY Alcohol Use: Heavy Drug Use: Cocaine Adult General Chief Complaint Chief Complaint: CHEST PAIN HPI HPI Patient is a 67 year old male who presents with the complaint of left-sided chest pain. Patient has known coronary artery disease and multiple risk factors for coronary artery disease also a history of schizophrenia. History, ROS, physical exam limited secondary to significant condition. Cardiology was consulted reviewed the EKG, they came down and saw the patient in the room and review the EKG and agreed that there is no acute changes. EKG today was compared to one of of January 2017. Review of Systems Review of Systems Constitutional: Denies fever or chills [] HENT: Denies nasal congestion or sore throat [] Respiratory: Denies cough or shortness of breath [] Cardiovascular: No additional information not addressed in HPI [] GI: Denies abdominal pain, nausea, vomiting, bloody stools or diarrhea [] Musculoskeletal: Denies back pain or joint pain [] Integument: Denies rash or skin lesions [] Neurologic: Denies headache, focal weakness or sensory changes [] ROS limited secondary to secondary condition Current Medications Current Medications Current Medications Medications (Trade) Dose Ordered Sig/Raine Start Time Stop Time Status Last Admin Dose Admin Aspirin (Meaghan Aspirin) 325 mg 1X ONCE 06/26/17 10:15 06/26/17 10:16 DC 06/26/17 10:12 325 MG Sodium Chloride 1,000 ml @ 1,000 mls/hr Q1H 06/26/17 10:02 06/26/17 11:01 DC 06/26/17 10:12 1,000 MLS/HR Allergies Allergies Allergies Coded Allergies Type Severity Reaction Last Updated Verified isoniazid Allergy Intermediate 01/01/15 Yes thiamine (vitamin B1) Allergy Intermediate 01/01/15 Yes I S O L A T I O N *CONTACT* Allergy Unknown 01/04/15 Yes Physical Exam Physical Exam Constitutional: Well developed, well nourished, mild distress, non-toxic appearance. [] HENT: Normocephalic, atraumatic, bilateral external ears normal, oropharynx dry , no oral exudates, nose normal. [] Eyes: , EOMI, conjunctiva normal, no discharge. [] Neck: Normal range of motion, no tenderness, supple, no stridor. No JVD Cardiovascular:Heart rate regular rhythm, no murmur, equal pulses, normal perfusion. Old well-healed scar midsternal Lungs & Thorax: Bilateral breath sounds clear to auscultation, no tachypnea Abdomen: Bowel sounds normal, soft, no tenderness, no masses, no pulsatile masses. [] Skin: Warm, dry, no erythema, no rash. [] Back: No tenderness, Extremities: No tenderness, no cyanosis, no DVT, ROM intact, no edema. [] Neurologic: Alert and oriented X 3, normal motor function,no focal deficits noted. [] Psychologic: Anxious, tangential. [] Current Patient Data Vital Signs Vital Signs Date Time Temp Pulse Resp B/P (MAP) Pulse Ox O2 Delivery O2 Flow Rate FiO2 06/26/17 10:14 98.6 71 16 174/85 (114) 90 Room Air 98.6 Lab Values Laboratory Tests Test 06/26/17 10:05 White Blood Count 8.1 x10^3/uL (4.0-11.0) Red Blood Count 2.95 x10^6/uL (4.30-5.70) L Hemoglobin 8.7 g/dL (13.0-17.5) L Hematocrit 24.5 % (39.0-53.0) L Mean Corpuscular Volume 83 fL (79-100) Mean Corpuscular Hemoglobin 29 pg (25-35) Mean Corpuscular Hemoglobin Concent 35 g/dL (31-37) Red Cell Distribution Width 18.4 % (11.5-14.5) H Platelet Count 124 x10^3/uL (140-400) L Neutrophils (%) (Auto) 75 % (31-73) H Lymphocytes (%) (Auto) 8 % (24-48) L Monocytes (%) (Auto) 10 % (0-9) H Eosinophils (%) (Auto) 7 % (0-3) H Basophils (%) (Auto) 1 % (0-3) Neutrophils # (Auto) 6.1 x10^3uL (1.8-7.7) Lymphocytes # (Auto) 0.7 x10^3/uL (1.0-4.8) L Monocytes # (Auto) 0.8 x10^3/uL (0.0-1.1) Eosinophils # (Auto) 0.6 x10^3/uL (0.0-0.7) Basophils # (Auto) 0.1 x10^3/uL (0.0-0.2) Sodium Level 134 mmol/L (136-145) L Potassium Level 4.2 mmol/L (3.5-5.1) Chloride Level 100 mmol/L (98-107) Carbon Dioxide Level 26 mmol/L (21-32) Anion Gap 8 (6-14) Blood Urea Nitrogen 25 mg/dL (8-26) Creatinine 1.5 mg/dL (0.7-1.3) H Estimated GFR (Cockcroft-Gault) 47.0 Glucose Level 108 mg/dL (70-99) H Calcium Level 9.0 mg/dL (8.5-10.1) Troponin I Quantitative 0.032 ng/mL (0.000-0.055) Laboratory Tests 06/26/17 10:05 Laboratory Tests 06/26/17 10:05 EKG EKG 0958 sinus rhythm, 68, no STEMI, similar to previous EKG from January 2017[] Radiology/Procedures Radiology/Procedures 1. Mild left lung base airspace opacity likely atelectasis or infiltrate appears new compared to prior exam. 2. Mild prominent appearing bilateral interstitial lung markings likely mild congestive changes. 3. Mild volume loss with blunting of the right costophrenic angle could be scarring or effusion similar to prior exam. [] Course & Med Decision Making Course & Med Decision Making Pertinent Labs and Imaging studies reviewed. (See chart for details) [] Dragon Disclaimer Dragon Disclaimer This electronic medical record was generated, in whole or in part, using a voice recognition dictation system. Departure Departure Impression: Primary Impression: Chest pain Additional Impression: Schizophrenia Disposition: 09 ADMITTED INPATIENT Admitting Physician: Ami Russo Condition: STABLE Referrals: NO PCP (PCP) Problem Qualifiers Tatiana NAVA MD Jun 26, 2017 10:28
--- NOTE | 2017-06-26 10:30 | RAD ---
Examination: Single frontal view chest. History: History of chest pain Comparison: 02/18/2017 Findings: Mild cardiomegaly is unchanged. There is volume loss identified in the right lower lobe of the lung with blunting of the right costophrenic angle could be scarring or mild effusion grossly similar to prior exam. Right lateral lung base scarring changes grossly similar to prior exam. Mild left lung base airspace opacity appears new likely atelectasis or infiltrate. Minimal prominent appearing bilateral interstitial lung markings. Calcified granuloma left upper lobe of the lung similar to prior exam. Sternotomy wires appear intact. Impression: 1. Mild left lung base airspace opacity likely atelectasis or infiltrate appears new compared to prior exam. 2. Mild prominent appearing bilateral interstitial lung markings likely mild congestive changes. 3. Mild volume loss with blunting of the right costophrenic angle could be scarring or effusion similar to prior exam.
[2017-06-26 11:22] LABS: POTASSIUM ISTAT 5.5 mmol/L (3.5-5.0)
[2017-06-26] MEDS ORDERED: ONDANSETRON PF 4 MG/2 ML VIAL. IV PRN ×2 (11:30→13:30)
--- NOTE | 2017-06-26 12:20 | PDOC2 ---
CARDIAC CONSULT DATE OF CONSULT Date of Consult DATE: 06/26/17 TIME: 12:05 REASON FOR CONSULT Reason for Consult: CP REFERRING PHYSICIAN Referring Physician: Giles SOURCE Source: Chart review, Patient HISTORY OF PRESENT ILLNESS HISTORY OF PRESENT ILLNESS This is a 67 yo male admitted for complains of chest pain and SOA. He is a poor historian and ending yelling most of our conversation. Reports that he has been having left chest pain which was reproducible with palpation. After I did this he warned me not to do it again. Deneis any nausea but positive for SOA with O2 sat noted in the mid 80s on RA. Upon further testing he was noted with CHF and renal insufficiency. He is significant for CAD, severe pulmonary HTN and COPD. Presently denies any CP unless I press his left chest and no radiation noted. Denies any n/v or palpitations. PAST MEDICAL HISTORY Cardiovascular: AFIB (?), CAD, CHF, HTN, IN, Hyperlipidemia Pulmonary: Other (severe pulmonary HTN PAP 99 mmHg) CENTRAL NERVOUS SYSTEM: CVA GI: GERD Heme/Onc: Anemia NOS Hepatobiliary: Hep A/B/C (c) Psych: Depression, Schizophrenia Musculoskeletal: low back pain, Osteoarthritis Rheumatologic: No pertinent hx Infectious disease: Other (HEp C; MRSA) ENT: No pertinent hx Renal/: Chronic renal insuff Endocrine: Diabetes Dermatology: No pertinent hx PAST SURGICAL HISTORY Past Surgical History: CABG (with AVR), Other (PEG placement; right thoracotomy ) FAMILY HISTORY Family History: Family History Unknown SOCIAL HISTORY Smoke: <1 pack per day ALCOHOL: none Drugs: Cocaine Lives: Residential CURRENT MEDICATIONS CURRENT MEDICATIONS Current Medications Medications (Trade) Dose Ordered Sig/Raine Route PRN Reason Start Time Stop Time Status Last Admin Dose Admin Aspirin (Meaghan Aspirin) 325 mg 1X ONCE PO 06/26/17 10:15 06/26/17 10:16 DC 06/26/17 10:12 Sodium Chloride 1,000 ml @ 1,000 mls/hr Q1H IV 06/26/17 10:02 06/26/17 11:01 DC 06/26/17 10:12 ALLERGIES ALLERGIES: Coded Allergies: isoniazid (Verified Allergy, Intermediate, 01/01/15) thiamine (vitamin B1) (Verified Allergy, Intermediate, 01/01/15) I S O L A T I O N *CONTACT* (Verified Allergy, Unknown, 01/04/15) mrsa + ROS Review of System limited, poor historian PHYSICAL EXAM General: Alert, Oriented X3, Cooperative, mild distress HEENT: Atraumatic, Mucous membr. moist/pink Lungs: Other (basilar crackles and diminished) Heart: Regular rate (SR with LBBB), Normal S1, Normal S2, Other (distant heart sounds) Abdomen: Soft, No tenderness Extremities: No cyanosis, Other (1+ bilateral LE pitting edema) Skin: No breakdown, No significant lesion Neuro: Normal speech, Sensation intact Psych/Mental Status: Mental status NL, Other (irritable) MUSCULOSKELETAL: Osteoarthritic changes both hands VITALS VITALS Vital Signs Date Time Temp Pulse Resp B/P (MAP) Pulse Ox O2 Delivery O2 Flow Rate FiO2 06/26/17 10:14 98.6 71 16 174/85 (114) 90 Room Air 98.6 LABS Lab: Laboratory Tests Test 06/26/17 10:05 06/26/17 10:09 White Blood Count 8.1 x10^3/uL (4.0-11.0) Red Blood Count 2.95 x10^6/uL (4.30-5.70) Hemoglobin 8.7 g/dL (13.0-17.5) Hematocrit 24.5 % (39.0-53.0) Mean Corpuscular Volume 83 fL (79-100) Mean Corpuscular Hemoglobin 29 pg (25-35) Mean Corpuscular Hemoglobin Concent 35 g/dL (31-37) Red Cell Distribution Width 18.4 % (11.5-14.5) Platelet Count 124 x10^3/uL (140-400) Neutrophils (%) (Auto) 75 % (31-73) Lymphocytes (%) (Auto) 8 % (24-48) Monocytes (%) (Auto) 10 % (0-9) Eosinophils (%) (Auto) 7 % (0-3) Basophils (%) (Auto) 1 % (0-3) Neutrophils # (Auto) 6.1 x10^3uL (1.8-7.7) Lymphocytes # (Auto) 0.7 x10^3/uL (1.0-4.8) Monocytes # (Auto) 0.8 x10^3/uL (0.0-1.1) Eosinophils # (Auto) 0.6 x10^3/uL (0.0-0.7) Basophils # (Auto) 0.1 x10^3/uL (0.0-0.2) Sodium Level 134 mmol/L (136-145) Potassium Level 4.2 mmol/L (3.5-5.1) Chloride Level 100 mmol/L (98-107) Carbon Dioxide Level 26 mmol/L (21-32) Anion Gap 8 (6-14) 13 mmol/L (6-14) Blood Urea Nitrogen 25 mg/dL (8-26) Creatinine 1.5 mg/dL (0.7-1.3) Estimated GFR (Cockcroft-Gault) 47.0 Glucose Level 108 mg/dL (70-99) 104 mg/dL (70-99) Calcium Level 9.0 mg/dL (8.5-10.1) Bedside Troponin I 0.04 ng/ml (<0.08) Troponin I Quantitative 0.032 ng/mL (0.000-0.055) Bedside Hemoglobin 9.2 g/dL (14-18) Bedside Hematocrit 27 % (37-52) Bedside Sodium 131 mmol/L (135-145) Bedside Potassium 5.5 mmol/L (3.5-5.0) Bedside Chloride 103 mmol/L (98-110) Bedside Total CO2 21 mmol/L (23-32) Bedside Blood Urea Nitrogen 33 mg/dL (8-26) Bedside Creatinine 1.6 mg/dL (0.5-1.4) Bedside Ionized Calcium (Zander) 0.97 mmol/L (1.13-1.32) ECHOCARDIOGRAM ECHOCARDIOGRAM <Conclusion> Left ventricle systolic function is mildly impaired. The Ejection Fraction is 45 -50%. Moderate basal to mid inferior wall hypokinesis. Septal motion suggestive of conduction abnormality. Tissue Doppler imaging reveals moderate to severe left ventricular diastolic dysfunction. Doppler and Color Flow revealed moderate tricuspid regurgitation. The pulmonary artery systolic pressure is estimated at 99 mmHg. There is severe pulmonary hypertension. DATE: 02/19/17 1213 ASSESSMENT/PLAN ASSESSMENT/PLAN 1. Atypical Chest pain; reproducible. likely MSK 2. Acute on chronic diastolic/systolic CHF: possibly induced by pulmonary issue 3. CAD with chronic LBBB: Past CABG with prosthetic AVR 4. AECOPD/Severe pulmonary hypertension: per PCP. PAP 99 mmHg 5. Possible PAFIB hx: multiple admission with no evidence of AFIB 6. KHALIDA with CKD3 with mild hyperkalemia: prerenal. per PCP 7. Schizophrenia/dementia 8. Hx of treatment Non-compliance and use of cocaine 9. HTN: labile 10. DM2/HLP 11. Continue tobaccoism Recommendations 1. Recent TTE with no mention of prosthetic aortic valve. Not on OAC so would assume bioprosthetic. Will revisit previous echo and if not conclusive then will repeat TTE 2. Continue with ASA and secondary prevention measures 3. Lasix with caution.. Discussed hydration adequacy with staff. 4. Resume BP meds from nsg home. Problems: ARASELI MANCIA BOOM TENDER Jun 26, 2017 12:20
[2017-06-26 12:46] LABS: BARBITURATES NEG (NEG); BENZODIAZEPINES NEG (NEG); CANNABINOIDS NEG (NEG); COCAINE NEG (NEG); METHADONE NEG (NEG); OPIATES NEG (NEG); PHENCYCLIDINE NEG (NEG)
[2017-06-26 13:00] VITALS: BP 135/75
[2017-06-26] MEDS ORDERED: FUROSEMIDE 40 MG/4 ML VIAL. IVP SCH (13:00)
--- NOTE | 2017-06-26 13:02 | EKG ---
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 RI6.01 Unconfirmed report Compared to ECG 02/19/2017 11:52:21 No significant changes Electronically Signed On 07-15-2017 10:28:41 CDT by Tyron Costa
[2017-06-26] MEDS ORDERED: KETOROLAC 15 MG/ML VIAL. IV PRN (13:30)
[2017-06-26] MEDS ORDERED: MORPHINE SULFATE 4 MG/ML DISP.SYRIN. IV PRN (13:30)
[2017-06-26] MEDS ORDERED: ACETAMINOPHEN 500 MG TABLET PO PRN (13:30)
[2017-06-26] MEDS ORDERED: TRAZ50TA15 PO (13:47)
[2017-06-26] MEDS ORDERED: FERR-26 PO (13:47)
[2017-06-26] MEDS ORDERED: LACT1CAP6 PO (13:47)
[2017-06-26] MEDS ORDERED: HYDR-2869 PO (13:47)
[2017-06-26] MEDS ORDERED: SENN-37 PO (13:47)
[2017-06-26] MEDS ORDERED: POLY255P PO (13:47)
[2017-06-26] MEDS ORDERED: NITR0.4T22 SL (13:47)
[2017-06-26] MEDS ORDERED: MAGN2400 PO (13:47)
[2017-06-26] MEDS ORDERED: ATOR40TA59 PO (13:47)
[2017-06-26] MEDS ORDERED: IPRA3AMP NEB (13:47)
[2017-06-26] MEDS ORDERED: AMOX1TAB61 PO (13:47)
[2017-06-26] MEDS ORDERED: DICL100G18 TP (13:47)
--- NOTE | 2017-06-26 13:52 | PDOC1 ---
History and Physical Date of Admission Date of Admission DATE: 06/26/17 TIME: 13:48 Identification/Chief Complaint Chief Complaint CP in SNU Problems: Source Source: Caregiver, Chart review, Patient History of Present Illness History of Present Illness 67 y.o male who had just recently started SNU, was sent in by staff bec of left sided CP in bed, at rest, reproducible to palpation, no other presyncopal sxs, diaphoresis or SOA. Does have CAD hx, Pt actually feels fine now and claims he does not know why he was sent to hospital,. Rest of history may be limited, nO family at bedside,. LAst time I admitted him was 2 yrs ago for: DATE OF ADMISSION: 01/01/2015 DATE OF DISCHARGE: 01/05/2015 ATTENDING PHYSICIAN: Ami Devlin M.D. DISCHARGE DIAGNOSES: 1. Complicated pneumonia/loculated effusion, no white count, no fever. 2. Dementia. 3. Hospital-acquired pneumonia because of a snf resident. 4. Acute on chronic congestive heart failure with diastolic dysfunction, not decompensated. 5. Pulmonary hypertension. 6. Coronary artery disease, coronary artery bypass grafting in the past with aortic valve replacement, stable. 7. Hypertension, improved. 8. Dyslipidemia, on statin. 9. History of atrial fibrillation. 10. Anemia of inflammation. Seen by cards now, planned for TTE. He does cont to smoke few cigs in SNU - claims they allow him to "get breaks" Past Medical History Cardiovascular: AFIB (?), CAD, CHF, HTN, [place], Hyperlipidemia Pulmonary: Other (severe pulmonary HTN PAP 99 mmHg) CENTRAL NERVOUS SYSTEM: CVA GI: GERD Heme/Onc: Anemia NOS Hepatobiliary: Hep A/B/C (c) Psych: Depression, Schizophrenia Musculoskeletal: low back pain, Osteoarthritis Rheumatologic: No pertinent hx Infectious disease: Other (HEp C; MRSA) ENT: No pertinent hx Renal/: Chronic renal insuff Endocrine: Diabetes Dermatology: No pertinent hx Past Surgical History Past Surgical History: CABG (with AVR), Other (PEG placement; right thoracotomy ) Family History Family History: Hypertension, Family History Unknown Social History Smoke: <1 pack per day ALCOHOL: none Drugs: Cocaine Current Problem List Problem List Problems Medical Problems: (1) Chest pain Status: Acute (2) Schizophrenia Status: Acute Problems: Current Medications Current Medications Current Medications Aspirin (Meaghan Aspirin) 325 mg 1X ONCE PO Last administered on 06/26/17 10:12 ; Start 06/26/17 at 10:15; Stop 06/26/17 at 10:16; Status DC Sodium Chloride 1,000 ml @ 1,000 mls/hr Q1H IV Last administered on 06/26/17 10:12; Start 06/26/17 at 10:02; Stop 06/26/17 at 11:01; Status DC Ondansetron HCl (Zofran) 4 mg PRN Q8HRS PRN IV NAUSEA/VOMITING; Start 06/26/17 at 11:30; Stop 06/26/17 at 13:22; Status DC Furosemide (Lasix) 40 mg DAILY IVP ; Start 06/26/17 at 13:00 Ondansetron HCl (Zofran) 4 mg PRN Q6HRS PRN IV NAUSEA/VOMITING; Start 06/26/17 at 13:30; Stop 06/27/17 at 13:29 Acetaminophen (Tylenol) 500 mg PRN Q6HRS PRN PO MILD PAIN / TEMP; Start at 13:30 Acetaminophen/ Hydrocodone Bitart (Lortab 5/325) 1 tab PRN Q4HRS PRN PO PAIN; Start 06/26/17 at 13:30 Ketorolac Tromethamine (Toradol) 15 mg PRN Q6HRS PRN IV PAIN; Start 06/26/17 at 13:30; Stop 07/01/17 at 13:29 Morphine Sulfate 1 mg PRN Q2HR PRN IV PAIN; Start 06/26/17 at 13:30 Active Scripts Active Reported Voltaren (Diclofenac Sodium) 100 Gm Gel..gram. 100 Gm TP PRN QID PRN Senokot-S Tablet (Sennosides/Docusate Sodium) 1 Each Tablet 2 Each PO PRN DAILY PRN Polyethylene Glycol 3350 255 Gm Powder 17 Gm PO PRN DAILY PRN NITROGLYCERIN SubLingual (Nitroglycerin) 0.4 Mg Tab.subl 0.4 Mg SL PRN Q5MIN PRN Milk Of Magnesia (Magnesium Hydroxide) 2,400 Mg/10 Ml Oral.susp 2,400 Mg PO PRN DAILY PRN Probiotic (Lactobacillus Acidophilus) 1 Each Capsule 1 Each PO BID 5 Days Ferrous Sulfate 325 Mg Tablet 325 Mg PO DAILY Augmentin 875-125 Tablet (Amoxicillin/Potassium Clav) 1 Each Tablet 1 Tab PO BID 5 Days Atorvastatin Calcium 40 Mg Tablet 40 Mg PO HS Hydralazine Hcl 50 Mg Tablet 50 Mg PO BID Duoneb 0.5-3(2.5) Mg/3 Ml (Albuterol/Ipratropium) 3 Ml Ampul.neb 3 Ml NEB QID Trazodone Hcl 50 Mg Tablet 100 Mg PO HS Zofran (Ondansetron Hcl) 4 Mg Tablet 1 Tab PO Q6HRS Protonix (Pantoprazole Sodium) 40 Mg Tablet.dr 1 Tab PO DAILY Aspir 81 (Aspirin) 81 Mg Tablet.dr 1 Tab PO DAILY Allergies Allergies: Coded Allergies: isoniazid (Verified Allergy, Intermediate, 01/01/15) thiamine (vitamin B1) (Verified Allergy, Intermediate, 01/01/15) I S O L A T I O N *CONTACT* (Verified Allergy, Unknown, 01/04/15) mrsa + ROS Review of System CP, that's it all else is neg Physical Exam General: Alert, Oriented X3, Cooperative, No acute distress HEENT: Atraumatic, PERRLA, EOMI Lungs: Clear to auscultation, Normal air movement Heart: S1S2, RRR, no thrills, no rubs, no gallops, no murmurs Cardiovascular: S1, S2 Breasts: Normal, Rt breast nml w/o mass, Lt breast nml w/o mass, Nipples normal Abdomen: Normal bowel sounds, Soft, No tenderness, No hepatosplenomegaly, No masses Male Genitals Exam: normal genitalia, normal prostate Rectal Exam: not examined Extremities: No clubbing, No cyanosis, No edema, Normal pulses, No tenderness/ swelling Skin: No rashes, No breakdown, No significant lesion Neuro: Normal gait, Normal speech, Strength at 5/5 X4 ext, Normal tone, Sensation intact, Cranial nerves 3-12 NL, Reflexes 2+ Vitals Vitals Vital Signs Date Time Temp Pulse Resp B/P (MAP) Pulse Ox O2 Delivery O2 Flow Rate FiO2 06/26/17 13:02 Nasal Cannula 2.0 06/26/17 13:00 97.5 81 18 135/75 (95) 85 97.5 Labs Labs Laboratory Tests Test 06/26/17 10:00 06/26/17 10:05 06/26/17 10:09 06/26/17 10:35 Magnesium Level 1.9 mg/dL (1.8-2.4) White Blood Count 8.1 x10^3/uL (4.0-11.0) Red Blood Count 2.95 x10^6/uL (4.30-5.70) Hemoglobin 8.7 g/dL (13.0-17.5) Hematocrit 24.5 % (39.0-53.0) Mean Corpuscular Volume 83 fL (79-100) Mean Corpuscular Hemoglobin 29 pg (25-35) Mean Corpuscular Hemoglobin Concent 35 g/dL (31-37) Red Cell Distribution Width 18.4 % (11.5-14.5) Platelet Count 124 x10^3/uL (140-400) Neutrophils (%) (Auto) 75 % (31-73) Lymphocytes (%) (Auto) 8 % (24-48) Monocytes (%) (Auto) 10 % (0-9) Eosinophils (%) (Auto) 7 % (0-3) Basophils (%) (Auto) 1 % (0-3) Neutrophils # (Auto) 6.1 x10^3uL (1.8-7.7) Lymphocytes # (Auto) 0.7 x10^3/uL (1.0-4.8) Monocytes # (Auto) 0.8 x10^3/uL (0.0-1.1) Eosinophils # (Auto) 0.6 x10^3/uL (0.0-0.7) Basophils # (Auto) 0.1 x10^3/uL (0.0-0.2) Sodium Level 134 mmol/L (136-145) Potassium Level 4.2 mmol/L (3.5-5.1) Chloride Level 100 mmol/L (98-107) Carbon Dioxide Level 26 mmol/L (21-32) Anion Gap 8 (6-14) 13 mmol/L (6-14) Blood Urea Nitrogen 25 mg/dL (8-26) Creatinine 1.5 mg/dL (0.7-1.3) Estimated GFR (Cockcroft-Gault) 47.0 Glucose Level 108 mg/dL (70-99) 104 mg/dL (70-99) Calcium Level 9.0 mg/dL (8.5-10.1) Bedside Troponin I 0.04 ng/ml (<0.08) Troponin I Quantitative 0.032 ng/mL (0.000-0.055) Bedside Hemoglobin 9.2 g/dL (14-18) Bedside Hematocrit 27 % (37-52) Bedside Sodium 131 mmol/L (135-145) Bedside Potassium 5.5 mmol/L (3.5-5.0) Bedside Chloride 103 mmol/L (98-110) Bedside Total CO2 21 mmol/L (23-32) Bedside Blood Urea Nitrogen 33 mg/dL (8-26) Bedside Creatinine 1.6 mg/dL (0.5-1.4) Bedside Ionized Calcium (Zander) 0.97 mmol/L (1.13-1.32) Urine Opiates Screen Neg (NEG) Urine Methadone Screen Neg (NEG) Urine Barbiturates Neg (NEG) Urine Phencyclidine Screen Neg (NEG) Urine Amphetamine/Methamphetamine Neg (NEG) Urine Benzodiazepines Screen Neg (NEG) Urine Cocaine Screen Neg (NEG) Urine Cannabinoids Screen Neg (NEG) Urine Ethyl Alcohol Neg (NEG) Laboratory Tests Test 06/26/17 10:00 06/26/17 10:05 06/26/17 10:09 06/26/17 10:35 Magnesium Level 1.9 mg/dL (1.8-2.4) White Blood Count 8.1 x10^3/uL (4.0-11.0) Red Blood Count 2.95 x10^6/uL (4.30-5.70) Hemoglobin 8.7 g/dL (13.0-17.5) Hematocrit 24.5 % (39.0-53.0) Mean Corpuscular Volume 83 fL (79-100) Mean Corpuscular Hemoglobin 29 pg (25-35) Mean Corpuscular Hemoglobin Concent 35 g/dL (31-37) Red Cell Distribution Width 18.4 % (11.5-14.5) Platelet Count 124 x10^3/uL (140-400) Neutrophils (%) (Auto) 75 % (31-73) Lymphocytes (%) (Auto) 8 % (24-48) Monocytes (%) (Auto) 10 % (0-9) Eosinophils (%) (Auto) 7 % (0-3) Basophils (%) (Auto) 1 % (0-3) Neutrophils # (Auto) 6.1 x10^3uL (1.8-7.7) Lymphocytes # (Auto) 0.7 x10^3/uL (1.0-4.8) Monocytes # (Auto) 0.8 x10^3/uL (0.0-1.1) Eosinophils # (Auto) 0.6 x10^3/uL (0.0-0.7) Basophils # (Auto) 0.1 x10^3/uL (0.0-0.2) Sodium Level 134 mmol/L (136-145) Potassium Level 4.2 mmol/L (3.5-5.1) Chloride Level 100 mmol/L (98-107) Carbon Dioxide Level 26 mmol/L (21-32) Anion Gap 8 (6-14) 13 mmol/L (6-14) Blood Urea Nitrogen 25 mg/dL (8-26) Creatinine 1.5 mg/dL (0.7-1.3) Estimated GFR (Cockcroft-Gault) 47.0 Glucose Level 108 mg/dL (70-99) 104 mg/dL (70-99) Calcium Level 9.0 mg/dL (8.5-10.1) Bedside Troponin I 0.04 ng/ml (<0.08) Troponin I Quantitative 0.032 ng/mL (0.000-0.055) Bedside Hemoglobin 9.2 g/dL (14-18) Bedside Hematocrit 27 % (37-52) Bedside Sodium 131 mmol/L (135-145) Bedside Potassium 5.5 mmol/L (3.5-5.0) Bedside Chloride 103 mmol/L (98-110) Bedside Total CO2 21 mmol/L (23-32) Bedside Blood Urea Nitrogen 33 mg/dL (8-26) Bedside Creatinine 1.6 mg/dL (0.5-1.4) Bedside Ionized Calcium (Zander) 0.97 mmol/L (1.13-1.32) Urine Opiates Screen Neg (NEG) Urine Methadone Screen Neg (NEG) Urine Barbiturates Neg (NEG) Urine Phencyclidine Screen Neg (NEG) Urine Amphetamine/Methamphetamine Neg (NEG) Urine Benzodiazepines Screen Neg (NEG) Urine Cocaine Screen Neg (NEG) Urine Cannabinoids Screen Neg (NEG) Urine Ethyl Alcohol Neg (NEG) VTE Prophylaxis Ordered VTE Prophylaxis Devices: Yes VTE Pharmacological Prophylaxi: Yes Assessment/Plan Assessment/Plan 1. Atypical Chest pain; reproducible. likely MSK 2. Acute on chronic diastolic/systolic CHF: possibly induced by pulmonary issue 3. CAD with chronic LBBB: Past CABG with prosthetic AVR 4. AECOPD/Severe pulmonary hypertension: per PCP. PAP 99 mmHg 5. Possible PAFIB hx: multiple admission with no evidence of AFIB 6. KHALIDA with CKD3 with mild hyperkalemia: prerenal. per PCP 7. Schizophrenia/dementia 8. Hx of treatment Non-compliance and use of cocaine 9. HTN: labile 10. DM2/HLP 11. Continue tobaccoism PLAN: Admit TTE Resume home meds PT/OT Low risk for cardiac etiology Seen at 524 [facility]I DEVLIN MD Jun 26, 2017 13:52
[2017-06-26] MEDS: ASPIRIN ENTERIC COATED 81 MG TABLET.DR. PO SCH (14:15)
[2017-06-26] MEDS ORDERED: DICLOFENAC SODIUM 1% TOPICAL GEL 100GM TUBE. TP PRN (14:15)
[2017-06-26] MEDS ORDERED: POLYETHYLENE GLYCOL 3350 238 GM POWDER PO PRN (14:15)
[2017-06-26] MEDS: AMOXICILLIN/K CLAV 875/125MG TABLET. PO SCH ×2 (14:15→21:40)
[2017-06-26] MEDS ORDERED: NITROGLYCERIN SUBLINGUAL 0.4 MG BOTTLE OF 25. SL PRN (14:15)
[2017-06-26] MEDS ORDERED: SENNOSIDES/DOCUSATE 8.6/50MG TABLET. PO PRN (14:15)
[2017-06-26 14:29] LABS: CHOLESTEROL 128 mg/dL (0-200); HDLC 81 mg/dL (40-60); NON-HDL CHOLESTEROL 47 mg/dL (0-129)
[2017-06-26] MEDS: ONDANSETRON ODT 4 MG TAB.RAPDIS. PO SCH ×3 (14:30→23:47)
[2017-06-26] MEDS ORDERED: MAGNESIUM HYDROXIDE 2,400 MG/30 ML ORAL.SUSP. PO PRN (14:30)
[2017-06-26 14:41] LABS: CHOLESTEROL/HDL RATIO 1.6
[2017-06-26 14:42] LABS: TRIGLYCERIDES < 15 mg/dL (0-150)
[2017-06-26 15:00] VITALS: BP 130/68
[2017-06-26] MEDS ORDERED: AMLO10TA2 PO (15:57)
[2017-06-26] MEDS ORDERED: ACET325T9 PO (15:57)
[2017-06-26] MEDS: amLODIPine BESYLATE 10 MG TABLET PO SCH (16:00)
[2017-06-26] MEDS ORDERED: ACETAMINOPHEN 325 MG TABLET. PO PRN (16:00)
--- NOTE | 2017-06-26 16:04 | CARD ---
APPROVED REPORT EXAM: Two-dimensional and M-mode echocardiogram with Doppler and color Doppler. Other Information Quality : Good INDICATION Aortic Valve Disease Pulmonary Hypertention Surgery/Intervention Status/Post Aortic Valve Replacement: Bioprosthetic 2D DIMENSIONS RVDd2.7 (2.9-3.5cm)Left Atrium(2D)3.4 (1.6-4.0cm) IVSd1.8 (0.7-1.1cm)Aortic Root(2D)3.3 (2.0-3.7cm) LVDd4.9 (3.9-5.9cm)LVOT Diameter2.1 (1.8-2.4cm) PWd1.3 (0.7-1.1cm)LVDs4.2 (2.5-4.0cm) FS (%) 15.5 %SV37.3 ml LVEF(%)32.6 (>50%) Aortic Valve AoV Peak [place].276.7cm/sAoV VTI47.2cm AO Peak GR.30.6mmHgLVOT VTI 22.60cm AO Mean GR.16mmHgAVA (VTI)1.60cm2 Mitral Valve MV E Otgkpesp316.0cm/sMV DECEL [id number] TDI Lateral E' P. V3.86cm/sMedial E' P. V3.86cm/s E/Lateral E'38.1E/Medial E'38.1 Tricuspid Valve TR P. [id number] [id number] TR Peak Gr.[id number] LEFT VENTRICLE The left ventricle is normal size. There is mild to moderate concentric left ventricular hypertrophy. Left ventricle systolic function is low normal. The Ejection Fraction is 50-55%. There is akinesis o f the basal to mid inferior/inferolateral hunter. The septal motion is consistent with conduction abno rmality. Tissue Doppler imaging reveals moderate left ventricular diastolic dysfunction. RIGHT VENTRICLE The right ventricle is normal size. The right ventricular systolic function is normal. ATRIA The left atrium size is normal. The right atrium size is normal. The interatrial septum is intact wit h no evidence for an atrial septal defect or patent foramen ovale as noted on 2-D or Doppler imaging. AORTIC VALVE The aortic valve is not well visualized. It appears heavily calcified but by doppler interrogation th ere does not appear to be significant stenosis. If there is high clinical suspicion, consider WIN. Do ppler and Color Flow revealed trace to mild aortic regurgitation. Calculated aortic valve area is 1.6 cm2 with maximum pressure gradient of 31 mmHg and mean pressure gradient of 16 mmHg. Doppler and col or-flow analysis revealed mild aortic stenosis. Bioprosthesis leaflets are not well visualized. MITRAL VALVE The mitral valve is mildly thickened. There is no evidence of mitral valve prolapse. There is no mitr al valve stenosis. Doppler and Color-flow revealed trace mitral regurgitation. TRICUSPID VALVE The tricuspid valve is normal in structure and function. Doppler and Color Flow revealed trace to mil d tricuspid regurgitation. There is severe pulmonary hypertension. The PA pressure was estimated at 8 7 mmHg. There is no tricuspid valve stenosis. PULMONIC VALVE Doppler and Color Flow revealed mild pulmonic valvular regurgitation. There is no pulmonic valvular s tenosis. GREAT VESSELS The aortic root is normal in size. The ascending aorta is normal in size. The IVC is normal in size a nd collapses >50% with inspiration. PERICARDIAL EFFUSION There is no evidence of significant pericardial effusion. Critical Notification Critical Value: No <Conclusion> There is akinesis of the basal to mid inferior/inferolateral hunter. The septal motion is consistent w ith conduction abnormality. Left ventricle systolic function is low normal. The Ejection Fraction is 50-55%. The aortic valve is not well visualized. It appears heavily calcified but by doppler interrogation th ere does not appear to be significant stenosis. If there is high clinical suspicion, consider WIN. Doppler and Color Flow revealed trace to mild tricuspid regurgitation. There is severe pulmonary hype rtension. The PA pressure was estimated at 87 mmHg.
[2017-06-26] MEDS: IPRATRPIUM/ALBUTEROL 0.5/2.5MG 3 ML NEBU. NEB SCH ×2 (16:39→20:14)
[2017-06-26] MEDS: PANTOPRAZOLE 40 MG TABLET.DR. PO SCH (17:54)
[2017-06-26] MEDS: FERROUS SULFATE 325 MG TABLET. PO SCH (17:54)
[2017-06-26 19:00] VITALS: BP 111/68
[2017-06-26] MEDS: LACTOBACILLUS ACIDOPH & BULGAR 1 TABLET. PO SCH (21:39)
[2017-06-26] MEDS: traZODone 50 MG TABLET. PO SCH (21:40)
[2017-06-26] MEDS: ATORVASTATIN CALCIUM 40 MG TABLET. PO SCH (21:40)
[2017-06-26 23:00] VITALS: BP 126/72
[2017-06-27] VITALS (7 sets, daily range): BP systolic 117–141; BP diastolic 63–80
[2017-06-27 05:48] LABS: BASO % 1 % (0-3); EOS % 4 % (0-3); HEMATOCRIT 23.8 % (39.0-53.0); HEMOGLOBIN 8.6 g/dL (13.0-17.5); LYMPH # 0.5 x10^3/uL (1.0-4.8); LYMPH % 6 % (24-48); MEAN CORPUSCULAR HEMOGLOBIN 30 pg (25-35); MEAN CORPUSCULAR HGB CONC 36 g/dL (31-37); MEAN CORPUSCULAR VOLUME 82 fL (79-100); MONO % 10 % (0-9); NEUT % 80 % (31-73); PLATELET COUNT 121 x10^3/uL (140-400); RED BLOOD COUNT 2.92 x10^6/uL (4.30-5.70); RED CELL DISTRIBUTION WIDTH 18.6 % (11.5-14.5); WHITE BLOOD COUNT 8.3 x10^3/uL (4.0-11.0)
[2017-06-27] MEDS: ONDANSETRON ODT 4 MG TAB.RAPDIS. PO SCH ×4 (06:00→23:27)
[2017-06-27 06:11] LABS: CALCIUM 8.5 mg/dL (8.5-10.1); CREATININE 1.5 mg/dL (0.7-1.3); POTASSIUM 3.8 mmol/L (3.5-5.1)
[2017-06-27] MEDS: IPRATRPIUM/ALBUTEROL 0.5/2.5MG 3 ML NEBU. NEB SCH ×4 (07:47→19:23)
--- NOTE | 2017-06-27 09:16 | PDOC ---
LORIE ESPINOSA Yasmine SE[employer] ENGINE [employer]IMIZER 06/27/17 0916: PROGRESS NOTES Subjective Subjective no chest pain, breathing better, no palpitations. Objective Objective tele - sinus rhythm with occasional short PAT Echo There is akinesis of the basal to mid inferior/inferolateral hunter. The septal motion is consistent with conduction abnormality. Left ventricle systolic function is low normal. The Ejection Fraction is 50-55%. The aortic valve is not well visualized. It appears heavily calcified but by doppler interrogation there does not appear to be significant stenosis. If there is high clinical suspicion, consider WIN. Doppler and Color Flow revealed trace to mild tricuspid regurgitation. There is severe pulmonary hypertension. The PA pressure was estimated at 87 mmHg. Vital Signs Date Time Temp Pulse Resp B/P (MAP) Pulse Ox O2 Delivery O2 Flow Rate FiO2 06/27/17 07:50 84 Room Air 06/27/17 03:00 98.2 83 18 122/63 (82) 2.0 98.2 Physical Exam Abdomen: Normal bowel sounds, Soft Heart: Regular rate, Normal S1, Normal S2 Extremities: Other (trace to 1+ edema bilaterally) General: Alert, Oriented X3, Cooperative, No acute distress HEENT: Atraumatic, EOMI Lungs: Other (decreased bases without significant crackles, rhonchi or wheezing ) Neuro: Normal gait, Normal speech, Strength at 5/5 X4 ext Psych/Mental Status: Mental status NL, Mood NL Assessment Assessment Problems Medical Problems: (1) Chest pain Status: Acute (2) Schizophrenia Status: Acute 1. Atypical Chest pain; - WI ruled out. No acute abn by echo 2. respitory insufficiency likely multifactorial : Acute on chronic diastolic/ systolic CHF, severe PHTN, COPD, Anemia - continues to require 2L/NC. good diuresis. will change lasix to oral, avoid significant preload decrease secondary to PHTN. 3. severe PHTN with pas 87 mmHg - Consider pulmonary consult and referral to PHTN clinic. 4. CAD with chronic LBBB: Past CABG with prosthetic AVR - angina free, continue med mgmt 5. Hypertension - controlled 6. Possible PAFIB hx: Occasional PAT on monitor but no atrial fib Comment Review of Relevant I have reviewed the following items florentin (where applicable) has been applied. Labs Laboratory Tests Test 06/26/17 10:00 06/26/17 10:05 06/26/17 10:09 06/26/17 10:35 Magnesium Level 1.9 mg/dL (1.8-2.4) White Blood Count 8.1 x10^3/uL (4.0-11.0) Red Blood Count 2.95 x10^6/uL (4.30-5.70) Hemoglobin 8.7 g/dL (13.0-17.5) Hematocrit 24.5 % (39.0-53.0) Mean Corpuscular Volume 83 fL (79-100) Mean Corpuscular Hemoglobin 29 pg (25-35) Mean Corpuscular Hemoglobin Concent 35 g/dL (31-37) Red Cell Distribution Width 18.4 % (11.5-14.5) Platelet Count 124 x10^3/uL (140-400) Neutrophils (%) (Auto) 75 % (31-73) Lymphocytes (%) (Auto) 8 % (24-48) Monocytes (%) (Auto) 10 % (0-9) Eosinophils (%) (Auto) 7 % (0-3) Basophils (%) (Auto) 1 % (0-3) Neutrophils # (Auto) 6.1 x10^3uL (1.8-7.7) Lymphocytes # (Auto) 0.7 x10^3/uL (1.0-4.8) Monocytes # (Auto) 0.8 x10^3/uL (0.0-1.1) Eosinophils # (Auto) 0.6 x10^3/uL (0.0-0.7) Basophils # (Auto) 0.1 x10^3/uL (0.0-0.2) Sodium Level 134 mmol/L (136-145) Potassium Level 4.2 mmol/L (3.5-5.1) Chloride Level 100 mmol/L (98-107) Carbon Dioxide Level 26 mmol/L (21-32) Anion Gap 8 (6-14) 13 mmol/L (6-14) Blood Urea Nitrogen 25 mg/dL (8-26) Creatinine 1.5 mg/dL (0.7-1.3) Estimated GFR (Cockcroft-Gault) 47.0 Glucose Level 108 mg/dL (70-99) 104 mg/dL (70-99) Calcium Level 9.0 mg/dL (8.5-10.1) Bedside Troponin I 0.04 ng/ml (<0.08) Troponin I Quantitative 0.032 ng/mL (0.000-0.055) SL-Qbl-U-Type Natriuretic Peptide 5450 pg/mL (0-124) Triglycerides Level < 15 mg/dL (0-150) Cholesterol Level 128 mg/dL (0-200) LDL Cholesterol, Calculated 44 mg/dL (0-100) VLDL Cholesterol, Calculated 3 mg/dL (0-40) Non-HDL Cholesterol Calculated 47 mg/dL (0-129) HDL Cholesterol 81 mg/dL (40-60) Cholesterol/HDL Ratio 1.6 Bedside Hemoglobin 9.2 g/dL (14-18) Bedside Hematocrit 27 % (37-52) Bedside Sodium 131 mmol/L (135-145) Bedside Potassium 5.5 mmol/L (3.5-5.0) Bedside Chloride 103 mmol/L (98-110) Bedside Total CO2 21 mmol/L (23-32) Bedside Blood Urea Nitrogen 33 mg/dL (8-26) Bedside Creatinine 1.6 mg/dL (0.5-1.4) Bedside Ionized Calcium (Zander) 0.97 mmol/L (1.13-1.32) Urine Opiates Screen Neg (NEG) Urine Methadone Screen Neg (NEG) Urine Barbiturates Neg (NEG) Urine Phencyclidine Screen Neg (NEG) Urine Amphetamine/Methamphetamine Neg (NEG) Urine Benzodiazepines Screen Neg (NEG) Urine Cocaine Screen Neg (NEG) Urine Cannabinoids Screen Neg (NEG) Urine Ethyl Alcohol Neg (NEG) Test 06/26/17 13:00 06/26/17 17:30 06/27/17 00:01 06/27/17 04:45 Nasal Screen MRSA (PCR) Positive (Negative) Troponin I Quantitative 0.020 ng/mL (0.000-0.055) 0.027 ng/mL (0.000-0.055) White Blood Count 8.3 x10^3/uL (4.0-11.0) Red Blood Count 2.92 x10^6/uL (4.30-5.70) Hemoglobin 8.6 g/dL (13.0-17.5) Hematocrit 23.8 % (39.0-53.0) Mean Corpuscular Volume 82 fL (79-100) Mean Corpuscular Hemoglobin 30 pg (25-35) Mean Corpuscular Hemoglobin Concent 36 g/dL (31-37) Red Cell Distribution Width 18.6 % (11.5-14.5) Platelet Count 121 x10^3/uL (140-400) Neutrophils (%) (Auto) 80 % (31-73) Lymphocytes (%) (Auto) 6 % (24-48) Monocytes (%) (Auto) 10 % (0-9) Eosinophils (%) (Auto) 4 % (0-3) Basophils (%) (Auto) 1 % (0-3) Neutrophils # (Auto) 6.6 x10^3uL (1.8-7.7) Lymphocytes # (Auto) 0.5 x10^3/uL (1.0-4.8) Monocytes # (Auto) 0.8 x10^3/uL (0.0-1.1) Eosinophils # (Auto) 0.3 x10^3/uL (0.0-0.7) Basophils # (Auto) 0.0 x10^3/uL (0.0-0.2) Sodium Level 134 mmol/L (136-145) Potassium Level 3.8 mmol/L (3.5-5.1) Chloride Level 99 mmol/L (98-107) Carbon Dioxide Level 26 mmol/L (21-32) Anion Gap 9 (6-14) Blood Urea Nitrogen 23 mg/dL (8-26) Creatinine 1.5 mg/dL (0.7-1.3) Estimated GFR (Cockcroft-Gault) 47.0 Glucose Level 78 mg/dL (70-99) Calcium Level 8.5 mg/dL (8.5-10.1) Laboratory Tests Test 06/26/17 10:00 06/26/17 10:05 06/26/17 10:09 06/26/17 10:35 Magnesium Level 1.9 mg/dL (1.8-2.4) White Blood Count 8.1 x10^3/uL (4.0-11.0) Red Blood Count 2.95 x10^6/uL (4.30-5.70) Hemoglobin 8.7 g/dL (13.0-17.5) Hematocrit 24.5 % (39.0-53.0) Mean Corpuscular Volume 83 fL (79-100) Mean Corpuscular Hemoglobin 29 pg (25-35) Mean Corpuscular Hemoglobin Concent 35 g/dL (31-37) Red Cell Distribution Width 18.4 % (11.5-14.5) Platelet Count 124 x10^3/uL (140-400) Neutrophils (%) (Auto) 75 % (31-73) Lymphocytes (%) (Auto) 8 % (24-48) Monocytes (%) (Auto) 10 % (0-9) Eosinophils (%) (Auto) 7 % (0-3) Basophils (%) (Auto) 1 % (0-3) Neutrophils # (Auto) 6.1 x10^3uL (1.8-7.7) Lymphocytes # (Auto) 0.7 x10^3/uL (1.0-4.8) Monocytes # (Auto) 0.8 x10^3/uL (0.0-1.1) Eosinophils # (Auto) 0.6 x10^3/uL (0.0-0.7) Basophils # (Auto) 0.1 x10^3/uL (0.0-0.2) Sodium Level 134 mmol/L (136-145) Potassium Level 4.2 mmol/L (3.5-5.1) Chloride Level 100 mmol/L (98-107) Carbon Dioxide Level 26 mmol/L (21-32) Anion Gap 8 (6-14) 13 mmol/L (6-14) Blood Urea Nitrogen 25 mg/dL (8-26) Creatinine 1.5 mg/dL (0.7-1.3) Estimated GFR (Cockcroft-Gault) 47.0 Glucose Level 108 mg/dL (70-99) 104 mg/dL (70-99) Calcium Level 9.0 mg/dL (8.5-10.1) Bedside Troponin I 0.04 ng/ml (<0.08) Troponin I Quantitative 0.032 ng/mL (0.000-0.055) CY-Lus-R-Type Natriuretic Peptide 5450 pg/mL (0-124) Triglycerides Level < 15 mg/dL (0-150) Cholesterol Level 128 mg/dL (0-200) LDL Cholesterol, Calculated 44 mg/dL (0-100) VLDL Cholesterol, Calculated 3 mg/dL (0-40) Non-HDL Cholesterol Calculated 47 mg/dL (0-129) HDL Cholesterol 81 mg/dL (40-60) Cholesterol/HDL Ratio 1.6 Bedside Hemoglobin 9.2 g/dL (14-18) Bedside Hematocrit 27 % (37-52) Bedside Sodium 131 mmol/L (135-145) Bedside Potassium 5.5 mmol/L (3.5-5.0) Bedside Chloride 103 mmol/L (98-110) Bedside Total CO2 21 mmol/L (23-32) Bedside Blood Urea Nitrogen 33 mg/dL (8-26) Bedside Creatinine 1.6 mg/dL (0.5-1.4) Bedside Ionized Calcium (Zander) 0.97 mmol/L (1.13-1.32) Urine Opiates Screen Neg (NEG) Urine Methadone Screen Neg (NEG) Urine Barbiturates Neg (NEG) Urine Phencyclidine Screen Neg (NEG) Urine Amphetamine/Methamphetamine Neg (NEG) Urine Benzodiazepines Screen Neg (NEG) Urine Cocaine Screen Neg (NEG) Urine Cannabinoids Screen Neg (NEG) Urine Ethyl Alcohol Neg (NEG) Test 06/26/17 13:00 06/26/17 17:30 06/27/17 00:01 06/27/17 04:45 Nasal Screen MRSA (PCR) Positive (Negative) Troponin I Quantitative 0.020 ng/mL (0.000-0.055) 0.027 ng/mL (0.000-0.055) White Blood Count 8.3 x10^3/uL (4.0-11.0) Red Blood Count 2.92 x10^6/uL (4.30-5.70) Hemoglobin 8.6 g/dL (13.0-17.5) Hematocrit 23.8 % (39.0-53.0) Mean Corpuscular Volume 82 fL (79-100) Mean Corpuscular Hemoglobin 30 pg (25-35) Mean Corpuscular Hemoglobin Concent 36 g/dL (31-37) Red Cell Distribution Width 18.6 % (11.5-14.5) Platelet Count 121 x10^3/uL (140-400) Neutrophils (%) (Auto) 80 % (31-73) Lymphocytes (%) (Auto) 6 % (24-48) Monocytes (%) (Auto) 10 % (0-9) Eosinophils (%) (Auto) 4 % (0-3) Basophils (%) (Auto) 1 % (0-3) Neutrophils # (Auto) 6.6 x10^3uL (1.8-7.7) Lymphocytes # (Auto) 0.5 x10^3/uL (1.0-4.8) Monocytes # (Auto) 0.8 x10^3/uL (0.0-1.1) Eosinophils # (Auto) 0.3 x10^3/uL (0.0-0.7) Basophils # (Auto) 0.0 x10^3/uL (0.0-0.2) Sodium Level 134 mmol/L (136-145) Potassium Level 3.8 mmol/L (3.5-5.1) Chloride Level 99 mmol/L (98-107) Carbon Dioxide Level 26 mmol/L (21-32) Anion Gap 9 (6-14) Blood Urea Nitrogen 23 mg/dL (8-26) Creatinine 1.5 mg/dL (0.7-1.3) Estimated GFR (Cockcroft-Gault) 47.0 Glucose Level 78 mg/dL (70-99) Calcium Level 8.5 mg/dL (8.5-10.1) Medications Current Medications Aspirin ([employer] Aspirin) 325 mg 1X ONCE PO Last administered on 06/26/17 10:12 ; Start 06/26/17 at 10:15; Stop 06/26/17 at 10:16; Status DC Sodium Chloride 1,000 ml @ 1,000 mls/hr Q1H IV Last administered on 06/26/17 10:12; Start 06/26/17 at 10:02; Stop 06/26/17 at 11:01; Status DC Ondansetron HCl (Zofran) 4 mg PRN Q8HRS PRN IV NAUSEA/VOMITING; Start 06/26/17 at 11:30; Stop 06/26/17 at 13:22; Status DC Furosemide (Lasix) 40 mg DAILY IVP Last administered on 06/26/17 14:21; Start 06/26/17 at 13:00 Ondansetron HCl (Zofran) 4 mg PRN Q6HRS PRN IV NAUSEA/VOMITING; Start 06/26/17 at 13:30; Stop 06/27/17 at 13:29 Acetaminophen (Tylenol) 500 mg PRN Q6HRS PRN PO MILD PAIN / TEMP; Start at 13:30 Acetaminophen/ Hydrocodone Bitart (Lortab 5/325) 1 tab PRN Q4HRS PRN PO PAIN; Start 06/26/17 at 13:30 Ketorolac Tromethamine (Toradol) 15 mg PRN Q6HRS PRN IV PAIN; Start 06/26/17 at 13:30; Stop 07/01/17 at 13:29 Morphine Sulfate 1 mg PRN Q2HR PRN IV PAIN; Start 06/26/17 at 13:30 Amoxicillin/ Clavulanate Potassium (Augmentin 875/ 125mg) 1 tab BID PO Last administered on 06/26/17 21:40; Start 06/26/17 at 14:15 Aspirin (Ecotrin) 81 mg DAILY PO ; Start 06/26/17 at 14:15 Atorvastatin Calcium (Lipitor) 40 mg HS PO Last administered on 06/26/17 21:40 ; Start 06/26/17 at 21:00 Diclofenac Sodium (Voltaren) 100 julissa PRN QID PRN TP INFLAMMATION; Start at 14:15 Ferrous Sulfate (Feosol) 325 mg DAILY PO Last administered on 06/26/17 17:54; Start 06/26/17 at 17:30 Hydralazine HCl (Apresoline) 50 mg BID PO Last administered on 06/26/17 21:40 ; Start 06/26/17 at 14:15 Albuterol/ Ipratropium (Duoneb) 3 ml QID NEB Last administered on 06/27/17 07: 47; Start 06/26/17 at 17:00 Nitroglycerin (Nitrostat) 0.4 mg PRN Q5MIN PRN SL CHEST PAIN; Start 06/26/17 at 14:15 Pantoprazole Sodium (Protonix) 40 mg DAILY PO Last administered on 06/26/17 17 :54; Start 06/26/17 at 16:30 Polyethylene Glycol (miraLAX Powder BULK BOTTLE) 17 gm PRN DAILY PRN PO CONSTIPATION; Start 06/26/17 at 14:15 Senna/Docusate Sodium (Senna Plus) 2 tab PRN DAILY PRN PO CONSTIPATION; Start 06/26/17 at 14:15 Trazodone HCl (Desyrel) 100 mg HS PO Last administered on 06/26/17 21:40; Start 06/26/17 at 21:00 Lactobacillus Acidophilus (Bacid, Leila-Bid) 1 tab BID PO Last administered on 21:39; Start 06/26/17 at 21:00 Magnesium Hydroxide (Milk Of Magnesia) 2,400 mg PRN DAILY PRN PO CONSTIPATION; Start 06/26/17 at 14:30 Ondansetron HCl (Zofran Odt) 4 mg Q6HRS PO Last administered on 06/26/17 23:47 ; Start 06/26/17 at 14:30 Acetaminophen (Tylenol) 650 mg PRN Q6HRS PRN PO MILD PAIN / TEMP; Start at 16:00 Amlodipine Besylate (Norvasc) 10 mg DAILY PO ; Start 06/26/17 at 16:00 Active Scripts Active Reported Tylenol (Acetaminophen) 325 Mg Tablet 650 Mg PO PRN Q6HRS PRN Amlodipine Besylate 10 Mg Tablet 10 Mg PO DAILY Voltaren (Diclofenac Sodium) 100 Gm Gel..gram. 100 Gm TP PRN QID PRN Senokot-S Tablet (Sennosides/Docusate Sodium) 1 Each Tablet 2 Each PO PRN DAILY PRN Polyethylene Glycol 3350 255 Gm Powder 17 Gm PO PRN DAILY PRN NITROGLYCERIN SubLingual (Nitroglycerin) 0.4 Mg Tab.subl 0.4 Mg SL PRN Q5MIN PRN Milk Of Magnesia (Magnesium Hydroxide) 2,400 Mg/10 Ml Oral.susp 2,400 Mg PO PRN DAILY PRN Probiotic (Lactobacillus Acidophilus) 1 Each Capsule 1 Each PO BID 5 Days Ferrous Sulfate 325 Mg Tablet 325 Mg PO DAILY Augmentin 875-125 Tablet (Amoxicillin/Potassium Clav) 1 Each Tablet 1 Tab PO BID 5 Days Atorvastatin Calcium 40 Mg Tablet 40 Mg PO HS Hydralazine Hcl 50 Mg Tablet 50 Mg PO BID Duoneb 0.5-3(2.5) Mg/3 Ml (Albuterol/Ipratropium) 3 Ml Ampul.neb 3 Ml NEB QID Trazodone Hcl 50 Mg Tablet 100 Mg PO HS Zofran (Ondansetron Hcl) 4 Mg Tablet 1 Tab PO Q6HRS Protonix (Pantoprazole Sodium) 40 Mg Tablet.dr 1 Tab PO DAILY Aspir 81 (Aspirin) 81 Mg Tablet.dr 1 Tab PO DAILY Vitals/I & O Vital Sign - Last 24 Hours 06/26/17 06/26/17 06/26/17 06/26/17 10:14 10:36 11:06 11:51 Temp 98.6 98.6 Pulse 71 68 66 78 Resp 16 B/P (MAP) 174/85 (114) 185/84 (117) 164/21 (68) 194/91 (125) Pulse Ox 90 91 90 90 O2 Delivery Room Air Nasal Cannula Nasal Cannula O2 Flow Rate 2.0 2.0 06/26/17 06/26/17 06/26/17 06/26/17 13:00 13:02 15:00 16:41 Temp 97.5 97.6 97.5 97.6 Pulse 81 80 Resp 18 18 B/P (MAP) 135/75 (95) 130/68 (88) Pulse Ox 85 89 O2 Delivery Nasal Cannula Nasal Cannula Nasal Cannula Nasal Cannula O2 Flow Rate 2.0 2.0 2.0 06/26/17 06/26/17 06/26/17 06/26/17 19:00 20:00 20:16 21:40 Temp 97.5 97.5 Pulse 69 69 Resp 16 B/P (MAP) 111/68 (82) 111/68 Pulse Ox 93 94 O2 Delivery Nasal Cannula Nasal Cannula Nasal Cannula O2 Flow Rate 2.0 2.0 2.0 06/26/17 06/27/17 06/27/17 23:00 03:00 07:50 Temp 97.6 98.2 97.6 98.2 Pulse 78 83 Resp 18 18 B/P (MAP) 126/72 (90) 122/63 (82) Pulse Ox 92 94 84 O2 Delivery Nasal Cannula Nasal Cannula Room Air O2 Flow Rate 2.0 2.0 RAJENDRA CRAMER MD 06/27/17 1322: PROGRESS NOTES Plan Plan of Care Patient seen and examined. Agree with above nurse practitioner note. No acute events overnight. Chest pain has resolved. Supportive care from a cardiac standpoint. Okay to discharge from a cardiac standpoint. He will need follow-up for his pulmonary hypertension and approximately 2-4 weeks. LORIE ESPINOSA APRN Jun 27, 2017 09:16 RAJENDRA CRAMER MD Jun 27, 2017 13:22
[2017-06-27] MEDS: AMOXICILLIN/K CLAV 875/125MG TABLET. PO SCH ×2 (09:31→20:25)
[2017-06-27] MEDS: PANTOPRAZOLE 40 MG TABLET.DR. PO SCH (09:32)
[2017-06-27] MEDS: FERROUS SULFATE 325 MG TABLET. PO SCH (09:32)
[2017-06-27] MEDS: ASPIRIN ENTERIC COATED 81 MG TABLET.DR. PO SCH (09:32)
[2017-06-27] MEDS: LACTOBACILLUS ACIDOPH & BULGAR 1 TABLET. PO SCH ×2 (09:33→20:25)
[2017-06-27] MEDS: amLODIPine BESYLATE 10 MG TABLET PO SCH (09:34)
[2017-06-27] MEDS: FUROSEMIDE 40 MG TABLET. PO SCH (12:44)
--- NOTE | 2017-06-27 13:01 | PDOC ---
PROGRESS NOTES Chief Complaint Chief Complaint Chest pain from SNU History of Present Illness History of Present Illness 67 y.o male who had just recently started SNU, was sent in by staff bec of left sided CP in bed, at rest, reproducible to palpation, no other presyncopal sxs, diaphoresis or SOA. He has a hx of CAD. The patient is being followed by cardiology who currently performing a full cardiac workup. I will also consult pulm due to CXR findings. Patient seen at bedside. he is resting comfortably and in no acute distress. he denies any current CP and states he is feeling quite well and would like to return to SNU. Vitals Vitals Vital Signs Date Time Temp Pulse Resp B/P (MAP) Pulse Ox O2 Delivery O2 Flow Rate FiO2 06/27/17 11:00 98.7 95 19 137/70 (92) 80 Room Air 98.7 06/27/17 03:00 2.0 Physical Exam General: Alert, Oriented X3, Cooperative, No acute distress Heart: Regular rate, Normal S1, Normal S2 Lungs: Clear, Other Abdomen: Normal bowel sounds, Soft Extremities: Other (trace to 1+ edema bilaterally) Skin: No rashes, No breakdown, No significant lesion Labs LABS Laboratory Tests Test 06/26/17 13:00 06/26/17 17:30 06/27/17 00:01 06/27/17 04:45 Nasal Screen MRSA (PCR) Positive (Negative) Troponin I Quantitative 0.020 ng/mL (0.000-0.055) 0.027 ng/mL (0.000-0.055) White Blood Count 8.3 x10^3/uL (4.0-11.0) Red Blood Count 2.92 x10^6/uL (4.30-5.70) Hemoglobin 8.6 g/dL (13.0-17.5) Hematocrit 23.8 % (39.0-53.0) Mean Corpuscular Volume 82 fL (79-100) Mean Corpuscular Hemoglobin 30 pg (25-35) Mean Corpuscular Hemoglobin Concent 36 g/dL (31-37) Red Cell Distribution Width 18.6 % (11.5-14.5) Platelet Count 121 x10^3/uL (140-400) Neutrophils (%) (Auto) 80 % (31-73) Lymphocytes (%) (Auto) 6 % (24-48) Monocytes (%) (Auto) 10 % (0-9) Eosinophils (%) (Auto) 4 % (0-3) Basophils (%) (Auto) 1 % (0-3) Neutrophils # (Auto) 6.6 x10^3uL (1.8-7.7) Lymphocytes # (Auto) 0.5 x10^3/uL (1.0-4.8) Monocytes # (Auto) 0.8 x10^3/uL (0.0-1.1) Eosinophils # (Auto) 0.3 x10^3/uL (0.0-0.7) Basophils # (Auto) 0.0 x10^3/uL (0.0-0.2) Sodium Level 134 mmol/L (136-145) Potassium Level 3.8 mmol/L (3.5-5.1) Chloride Level 99 mmol/L (98-107) Carbon Dioxide Level 26 mmol/L (21-32) Anion Gap 9 (6-14) Blood Urea Nitrogen 23 mg/dL (8-26) Creatinine 1.5 mg/dL (0.7-1.3) Estimated GFR (Cockcroft-Gault) 47.0 Glucose Level 78 mg/dL (70-99) Calcium Level 8.5 mg/dL (8.5-10.1) Review of Systems Review of Systems General: + fatigue, + hunger CV: denies CP and palpitations Resp: no SOB or wheezing Assessment and Plan Assessmemt and Plan Problems Medical Problems: (1) Chest pain Status: Acute (2) Schizophrenia Status: Acute Assessment 1. Atypical Chest pain; reproducible. likely MSK 2. Acute on chronic diastolic/systolic CHF: possibly induced by pulmonary issue 3. CAD with chronic LBBB: Past CABG with prosthetic AVR 4. AECOPD/Severe pulmonary hypertension: per PCP. PAP 99 mmHg 5. Possible PAFIB hx: multiple admission with no evidence of AFIB 6. KHALIDA with CKD3 with mild hyperkalemia: prerenal. per PCP 7. Schizophrenia/dementia 8. Hx of treatment Non-compliance and use of cocaine 9. HTN: labile 10. DM2/HLP 11. Continue tobaccoism Plan: -Recheck labs -Continue home Meds -Cardiology will continue to follow -PT/OT -Consult Pulm Problems: Comment Review of Relevant I have reviewed the following items florentin (where applicable) has been applied. Labs Laboratory Tests Test 06/26/17 10:00 06/26/17 10:05 06/26/17 10:09 06/26/17 10:35 Magnesium Level 1.9 mg/dL (1.8-2.4) White Blood Count 8.1 x10^3/uL (4.0-11.0) Red Blood Count 2.95 x10^6/uL (4.30-5.70) Hemoglobin 8.7 g/dL (13.0-17.5) Hematocrit 24.5 % (39.0-53.0) Mean Corpuscular Volume 83 fL (79-100) Mean Corpuscular Hemoglobin 29 pg (25-35) Mean Corpuscular Hemoglobin Concent 35 g/dL (31-37) Red Cell Distribution Width 18.4 % (11.5-14.5) Platelet Count 124 x10^3/uL (140-400) Neutrophils (%) (Auto) 75 % (31-73) Lymphocytes (%) (Auto) 8 % (24-48) Monocytes (%) (Auto) 10 % (0-9) Eosinophils (%) (Auto) 7 % (0-3) Basophils (%) (Auto) 1 % (0-3) Neutrophils # (Auto) 6.1 x10^3uL (1.8-7.7) Lymphocytes # (Auto) 0.7 x10^3/uL (1.0-4.8) Monocytes # (Auto) 0.8 x10^3/uL (0.0-1.1) Eosinophils # (Auto) 0.6 x10^3/uL (0.0-0.7) Basophils # (Auto) 0.1 x10^3/uL (0.0-0.2) Sodium Level 134 mmol/L (136-145) Potassium Level 4.2 mmol/L (3.5-5.1) Chloride Level 100 mmol/L (98-107) Carbon Dioxide Level 26 mmol/L (21-32) Anion Gap 8 (6-14) 13 mmol/L (6-14) Blood Urea Nitrogen 25 mg/dL (8-26) Creatinine 1.5 mg/dL (0.7-1.3) Estimated GFR (Cockcroft-Gault) 47.0 Glucose Level 108 mg/dL (70-99) 104 mg/dL (70-99) Calcium Level 9.0 mg/dL (8.5-10.1) Bedside Troponin I 0.04 ng/ml (<0.08) Troponin I Quantitative 0.032 ng/mL (0.000-0.055) DW-Dbq-V-Type Natriuretic Peptide 5450 pg/mL (0-124) Triglycerides Level < 15 mg/dL (0-150) Cholesterol Level 128 mg/dL (0-200) LDL Cholesterol, Calculated 44 mg/dL (0-100) VLDL Cholesterol, Calculated 3 mg/dL (0-40) Non-HDL Cholesterol Calculated 47 mg/dL (0-129) HDL Cholesterol 81 mg/dL (40-60) Cholesterol/HDL Ratio 1.6 Bedside Hemoglobin 9.2 g/dL (14-18) Bedside Hematocrit 27 % (37-52) Bedside Sodium 131 mmol/L (135-145) Bedside Potassium 5.5 mmol/L (3.5-5.0) Bedside Chloride 103 mmol/L (98-110) Bedside Total CO2 21 mmol/L (23-32) Bedside Blood Urea Nitrogen 33 mg/dL (8-26) Bedside Creatinine 1.6 mg/dL (0.5-1.4) Bedside Ionized Calcium (Zander) 0.97 mmol/L (1.13-1.32) Urine Opiates Screen Neg (NEG) Urine Methadone Screen Neg (NEG) Urine Barbiturates Neg (NEG) Urine Phencyclidine Screen Neg (NEG) Urine Amphetamine/Methamphetamine Neg (NEG) Urine Benzodiazepines Screen Neg (NEG) Urine Cocaine Screen Neg (NEG) Urine Cannabinoids Screen Neg (NEG) Urine Ethyl Alcohol Neg (NEG) Test 06/26/17 13:00 06/26/17 17:30 06/27/17 00:01 06/27/17 04:45 Nasal Screen MRSA (PCR) Positive (Negative) Troponin I Quantitative 0.020 ng/mL (0.000-0.055) 0.027 ng/mL (0.000-0.055) White Blood Count 8.3 x10^3/uL (4.0-11.0) Red Blood Count 2.92 x10^6/uL (4.30-5.70) Hemoglobin 8.6 g/dL (13.0-17.5) Hematocrit 23.8 % (39.0-53.0) Mean Corpuscular Volume 82 fL (79-100) Mean Corpuscular Hemoglobin 30 pg (25-35) Mean Corpuscular Hemoglobin Concent 36 g/dL (31-37) Red Cell Distribution Width 18.6 % (11.5-14.5) Platelet Count 121 x10^3/uL (140-400) Neutrophils (%) (Auto) 80 % (31-73) Lymphocytes (%) (Auto) 6 % (24-48) Monocytes (%) (Auto) 10 % (0-9) Eosinophils (%) (Auto) 4 % (0-3) Basophils (%) (Auto) 1 % (0-3) Neutrophils # (Auto) 6.6 x10^3uL (1.8-7.7) Lymphocytes # (Auto) 0.5 x10^3/uL (1.0-4.8) Monocytes # (Auto) 0.8 x10^3/uL (0.0-1.1) Eosinophils # (Auto) 0.3 x10^3/uL (0.0-0.7) Basophils # (Auto) 0.0 x10^3/uL (0.0-0.2) Sodium Level 134 mmol/L (136-145) Potassium Level 3.8 mmol/L (3.5-5.1) Chloride Level 99 mmol/L (98-107) Carbon Dioxide Level 26 mmol/L (21-32) Anion Gap 9 (6-14) Blood Urea Nitrogen 23 mg/dL (8-26) Creatinine 1.5 mg/dL (0.7-1.3) Estimated GFR (Cockcroft-Gault) 47.0 Glucose Level 78 mg/dL (70-99) Calcium Level 8.5 mg/dL (8.5-10.1) Laboratory Tests Test 06/26/17 13:00 06/26/17 17:30 06/27/17 00:01 06/27/17 04:45 Nasal Screen MRSA (PCR) Positive (Negative) Troponin I Quantitative 0.020 ng/mL (0.000-0.055) 0.027 ng/mL (0.000-0.055) White Blood Count 8.3 x10^3/uL (4.0-11.0) Red Blood Count 2.92 x10^6/uL (4.30-5.70) Hemoglobin 8.6 g/dL (13.0-17.5) Hematocrit 23.8 % (39.0-53.0) Mean Corpuscular Volume 82 fL (79-100) Mean Corpuscular Hemoglobin 30 pg (25-35) Mean Corpuscular Hemoglobin Concent 36 g/dL (31-37) Red Cell Distribution Width 18.6 % (11.5-14.5) Platelet Count 121 x10^3/uL (140-400) Neutrophils (%) (Auto) 80 % (31-73) Lymphocytes (%) (Auto) 6 % (24-48) Monocytes (%) (Auto) 10 % (0-9) Eosinophils (%) (Auto) 4 % (0-3) Basophils (%) (Auto) 1 % (0-3) Neutrophils # (Auto) 6.6 x10^3uL (1.8-7.7) Lymphocytes # (Auto) 0.5 x10^3/uL (1.0-4.8) Monocytes # (Auto) 0.8 x10^3/uL (0.0-1.1) Eosinophils # (Auto) 0.3 x10^3/uL (0.0-0.7) Basophils # (Auto) 0.0 x10^3/uL (0.0-0.2) Sodium Level 134 mmol/L (136-145) Potassium Level 3.8 mmol/L (3.5-5.1) Chloride Level 99 mmol/L (98-107) Carbon Dioxide Level 26 mmol/L (21-32) Anion Gap 9 (6-14) Blood Urea Nitrogen 23 mg/dL (8-26) Creatinine 1.5 mg/dL (0.7-1.3) Estimated GFR (Cockcroft-Gault) 47.0 Glucose Level 78 mg/dL (70-99) Calcium Level 8.5 mg/dL (8.5-10.1) Medications Current Medications Aspirin (Meaghan Aspirin) 325 mg 1X ONCE PO Last administered on 06/26/17t 10:12 ; Start 06/26/17 at 10:15; Stop 06/26/17 at 10:16; Status DC Sodium Chloride 1,000 ml @ 1,000 mls/hr Q1H IV Last administered on 06/26/17 10:12; Start 06/26/17 at 10:02; Stop 06/26/17 at 11:01; Status DC Ondansetron HCl (Zofran) 4 mg PRN Q8HRS PRN IV NAUSEA/VOMITING; Start 06/26/17 at 11:30; Stop 06/26/17 at 13:22; Status DC Furosemide (Lasix) 40 mg DAILY IVP Last administered on 06/26/17 14:21; Start 06/26/17 at 13:00; Stop 06/27/17 at 09:18; Status DC Ondansetron HCl (Zofran) 4 mg PRN Q6HRS PRN IV NAUSEA/VOMITING; Start 06/26/17 at 13:30; Stop 06/27/17 at 13:29 Acetaminophen (Tylenol) 500 mg PRN Q6HRS PRN PO MILD PAIN / TEMP; Start at 13:30 Acetaminophen/ Hydrocodone Bitart (Lortab 5/325) 1 tab PRN Q4HRS PRN PO PAIN; Start 06/26/17 at 13:30 Ketorolac Tromethamine (Toradol) 15 mg PRN Q6HRS PRN IV PAIN; Start 06/26/17 at 13:30; Stop 07/01/17 at 13:29 Morphine Sulfate 1 mg PRN Q2HR PRN IV PAIN; Start 06/26/17 at 13:30 Amoxicillin/ Clavulanate Potassium (Augmentin 875/ 125mg) 1 tab BID PO Last administered on 06/27/17 09:31; Start 06/26/17 at 14:15 Aspirin (Ecotrin) 81 mg DAILY PO Last administered on 06/27/17 09:32; Start at 14:15 Atorvastatin Calcium (Lipitor) 40 mg HS PO Last administered on 06/26/17 21:40 ; Start 06/26/17 at 21:00 Diclofenac Sodium (Voltaren) 100 julissa PRN QID PRN TP INFLAMMATION; Start at 14:15 Ferrous Sulfate (Feosol) 325 mg DAILY PO Last administered on 06/27/17 09:32; Start 06/26/17 at 17:30 Hydralazine HCl (Apresoline) 50 mg BID PO Last administered on 06/27/17 09:33 ; Start 06/26/17 at 14:15 Albuterol/ Ipratropium (Duoneb) 3 ml QID NEB Last administered on 06/27/17 10: 46; Start 06/26/17 at 17:00 Nitroglycerin (Nitrostat) 0.4 mg PRN Q5MIN PRN SL CHEST PAIN; Start 06/26/17 at 14:15 Pantoprazole Sodium (Protonix) 40 mg DAILY PO Last administered on 06/27/17 09 :32; Start 06/26/17 at 16:30 Polyethylene Glycol (miraLAX Powder BULK BOTTLE) 17 gm PRN DAILY PRN PO CONSTIPATION; Start 06/26/17 at 14:15 Senna/Docusate Sodium (Senna Plus) 2 tab PRN DAILY PRN PO CONSTIPATION; Start 06/26/17 at 14:15 Trazodone HCl (Desyrel) 100 mg HS PO Last administered on 06/26/17 21:40; Start 06/26/17 at 21:00 Lactobacillus Acidophilus (Bacid, Leila-Bid) 1 tab BID PO Last administered on 09:33; Start 06/26/17 at 21:00 Magnesium Hydroxide (Milk Of Magnesia) 2,400 mg PRN DAILY PRN PO CONSTIPATION; Start 06/26/17 at 14:30 Ondansetron HCl (Zofran Odt) 4 mg Q6HRS PO Last administered on 06/27/17 12:43 ; Start 06/26/17 at 14:30 Acetaminophen (Tylenol) 650 mg PRN Q6HRS PRN PO MILD PAIN / TEMP; Start at 16:00 Amlodipine Besylate (Norvasc) 10 mg DAILY PO Last administered on 06/27/17 09: 34; Start 06/26/17 at 16:00 Furosemide (Lasix) 40 mg DAILY PO Last administered on 06/27/17 12:44; Start 06/27/17 at 10:00 Active Scripts Active Reported Tylenol (Acetaminophen) 325 Mg Tablet 650 Mg PO PRN Q6HRS PRN Amlodipine Besylate 10 Mg Tablet 10 Mg PO DAILY Voltaren (Diclofenac Sodium) 100 Gm Gel..gram. 100 Gm TP PRN QID PRN Senokot-S Tablet (Sennosides/Docusate Sodium) 1 Each Tablet 2 Each PO PRN DAILY PRN Polyethylene Glycol 3350 255 Gm Powder 17 Gm PO PRN DAILY PRN NITROGLYCERIN SubLingual (Nitroglycerin) 0.4 Mg Tab.subl 0.4 Mg SL PRN Q5MIN PRN Milk Of Magnesia (Magnesium Hydroxide) 2,400 Mg/10 Ml Oral.susp 2,400 Mg PO PRN DAILY PRN Probiotic (Lactobacillus Acidophilus) 1 Each Capsule 1 Each PO BID 5 Days Ferrous Sulfate 325 Mg Tablet 325 Mg PO DAILY Augmentin 875-125 Tablet (Amoxicillin/Potassium Clav) 1 Each Tablet 1 Tab PO BID 5 Days Atorvastatin Calcium 40 Mg Tablet 40 Mg PO HS Hydralazine Hcl 50 Mg Tablet 50 Mg PO BID Duoneb 0.5-3(2.5) Mg/3 Ml (Albuterol/Ipratropium) 3 Ml Ampul.neb 3 Ml NEB QID Trazodone Hcl 50 Mg Tablet 100 Mg PO HS Zofran (Ondansetron Hcl) 4 Mg Tablet 1 Tab PO Q6HRS Protonix (Pantoprazole Sodium) 40 Mg Tablet.dr 1 Tab PO DAILY Aspir 81 (Aspirin) 81 Mg Tablet.dr 1 Tab PO DAILY Vitals/I & O Vital Sign - Last 24 Hours 06/26/17 06/26/17 06/26/17 06/26/17 13:00 13:02 15:00 16:41 Temp 97.5 97.6 97.5 97.6 Pulse 81 80 Resp 18 18 B/P (MAP) 135/75 (95) 130/68 (88) Pulse Ox 85 89 O2 Delivery Nasal Cannula Nasal Cannula Nasal Cannula Nasal Cannula O2 Flow Rate 2.0 2.0 2.0 06/26/17 06/26/17 06/26/17 06/26/17 19:00 20:00 20:16 21:40 Temp 97.5 97.5 Pulse 69 69 Resp 16 B/P (MAP) 111/68 (82) 111/68 Pulse Ox 93 94 O2 Delivery Nasal Cannula Nasal Cannula Nasal Cannula O2 Flow Rate 2.0 2.0 2.0 06/26/17 06/27/17 06/27/17 06/27/17 23:00 03:00 07:00 07:50 Temp 97.6 98.2 98.6 97.6 98.2 98.6 Pulse 78 83 70 Resp 18 18 18 B/P (MAP) 126/72 (90) 122/63 (82) 137/75 (95) Pulse Ox 92 94 88 84 O2 Delivery Nasal Cannula Nasal Cannula Nasal Cannula Room Air O2 Flow Rate 2.0 2.0 06/27/17 06/27/17 06/27/17 06/27/17 09:33 09:34 10:48 11:00 Temp 98.7 98.7 Pulse 70 70 95 Resp 19 B/P (MAP) 137/75 137/75 137/70 (92) Pulse Ox 84 80 O2 Delivery Room Air Room Air SONAL HARDEN III DO Jun 27, 2017 13:01
[2017-06-27] MEDS: traZODone 50 MG TABLET. PO SCH (20:25)
[2017-06-27] MEDS: ATORVASTATIN CALCIUM 40 MG TABLET. PO SCH (20:25)
[2017-06-28] MEDS: HYDROcodone/APAP 5/325MG 1 TAB TABLET PO PRN ×3 (00:10→20:24)
[2017-06-28 03:16] VITALS: BP 122/67
[2017-06-28] MEDS: ONDANSETRON ODT 4 MG TAB.RAPDIS. PO SCH ×4 (06:05→23:15)
[2017-06-28 06:19] LABS: BASO % 1 % (0-3); EOS % 7 % (0-3); HEMATOCRIT 23.6 % (39.0-53.0); HEMOGLOBIN 8.2 g/dL (13.0-17.5); LYMPH # 0.6 x10^3/uL (1.0-4.8); LYMPH % 11 % (24-48); MEAN CORPUSCULAR HEMOGLOBIN 29 pg (25-35); MEAN CORPUSCULAR HGB CONC 35 g/dL (31-37); MEAN CORPUSCULAR VOLUME 83 fL (79-100); MONO % 12 % (0-9); NEUT % 69 % (31-73); PLATELET COUNT 104 x10^3/uL (140-400); RED BLOOD COUNT 2.85 x10^6/uL (4.30-5.70); WHITE BLOOD COUNT 5.6 x10^3/uL (4.0-11.0)
[2017-06-28 06:49] LABS: CALCIUM 8.6 mg/dL (8.5-10.1); CREATININE 1.7 mg/dL (0.7-1.3); GFR 40.7; POTASSIUM 3.5 mmol/L (3.5-5.1)
[2017-06-28] MEDS: IPRATRPIUM/ALBUTEROL 0.5/2.5MG 3 ML NEBU. NEB SCH ×4 (07:49→20:29)
[2017-06-28 09:31] VITALS: BP 150/82
[2017-06-28 11:00] VITALS: BP 154/85
[2017-06-28] MEDS: LACTOBACILLUS ACIDOPH & BULGAR 1 TABLET. PO SCH ×2 (11:03→20:24)
[2017-06-28] MEDS: FERROUS SULFATE 325 MG TABLET. PO SCH (11:03)
[2017-06-28] MEDS: PANTOPRAZOLE 40 MG TABLET.DR. PO SCH (11:03)
[2017-06-28] MEDS: FUROSEMIDE 40 MG TABLET. PO SCH (11:03)
[2017-06-28] MEDS: AMOXICILLIN/K CLAV 875/125MG TABLET. PO SCH (11:03)
[2017-06-28] MEDS: ASPIRIN ENTERIC COATED 81 MG TABLET.DR. PO SCH (11:03)
[2017-06-28] MEDS: amLODIPine BESYLATE 10 MG TABLET PO SCH (11:07)
--- NOTE | 2017-06-28 11:51 | PDOC ---
Provider Note Provider Note dictated TIFFANY CHEW MD Jun 28, 2017 11:51
[2017-06-28] MEDS ORDERED: VANCOMYCIN 1.75 GM in IV NORMAL SALINE 500ML BAG 500 ML IV ONE (12:30)
--- NOTE | 2017-06-28 12:32 | CONS ---
DATE OF CONSULTATION: ATTENDING PHYSICIAN: Dr. Russo REASON FOR CONSULTATION: Dyspnea. HISTORY OF PRESENT ILLNESS: The patient is a 67-year-old male who is a resident of [facility]. The patient presented to the hospital with complaint of shortness of breath. He has a cough and he says it develops mostly over here. Denies any chest pain. He has no headache. No nausea, vomiting or diarrhea and no leg edema. The patient's chest x-ray was reviewed and I had initially looked at the x-ray from 01/2017 where he had some pleural thickening and a small loculated right pleural effusion. The patient's chest x-ray done on this admission on 06/26 was reviewed and it shows that the amount of pleural thickening/loculation has definitely increased. He has more right lower lobe pleural effusion. The patient has infiltrate involving the right lower lobe as well and also minimally in the left lower lobe. He has hard wire on his spine and a calcified nodule in the left upper lobe. The patient is currently requiring supplemental oxygen at a flow of 2 liters with saturation of 90%-96%. No history of deep vein thrombosis or pulmonary embolism. No history of any lung malignancy. Consultation requested for further evaluation and management. He was started on Augmentin p.o. PAST MEDICAL HISTORY: Significant for history of pulmonary hypertension. In fact, his recent echocardiogram has shown an EF of 50%-55% and there was evidence of severe pulmonary hypertension with a pulmonary artery systolic pressure of 87. He had a workup done previously in 2016 for his pulmonary hypertension. His CT angiogram had no evidence of pulmonary embolism. History of COPD, unknown FEV1; history of coronary artery bypass grafting in the past with aortic valve replacement; history of dyslipidemia; and atrial fibrillation. PAST SURGICAL HISTORY: History of bypass with AVR and history of PEG placement, history of right thoracotomy. FAMILY HISTORY: Hypertension. ALLERGIES: ISONIAZID AND THIAMINE. REVIEW OF SYSTEMS: Twelve-point systems obtained, pertinent positives discussed in my history of present illness, otherwise noncontributory. All systems that were negative were reviewed as well. MEDICATIONS: Reviewed, as listed in the MRAD. PHYSICAL EXAMINATION: GENERAL: He is awake, following commands. VITAL SIGNS: Blood pressure is stable, pulse ox 90%-96% on 3 liters. HEENT: Sclerae nonicteric. NECK: Supple. LUNGS: Diminished breath sounds posteriorly. CARDIOVASCULAR: Regular . ABDOMEN: Soft, nontender. EXTREMITIES: No pitting edema. LABORATORY DATA: Reviewed. White cell count 5.6, hemoglobin 8.2 and platelets are 104. Toxicology screen is negative. Chemistries with a BUN of 24 and a creatinine of 1.7. MRSA screen was positive. IMPRESSION: 1. Acute hypoxic respiratory failure secondary to suspected healthcare-associated pneumonia. He also has other abnormalities on his chest x-ray with increasing pleural thickening and loculated pleural effusion involving the right lower lobe and the possibility of a parapneumonic effusion cannot be ruled out. However, a mesothelioma should also be considered as well. 2. Abnormal chest x-ray with increasing pleural thickening on the right side and also right lower lobe partially loculated pleural effusion along with infiltrate. Also, minimal infiltrate in the left lower lobe. The pleural processes have progressed since January's chest x-ray and I would like to proceed with CT chest to rule out any organized pleural effusion, rule out any pleural-based mass such as mesothelioma. 3. Severe pulmonary hypertension demonstrated on previous echo and on a recent echo as well. Previous CT angiogram was negative. The severity of pulmonary hypertension is certainly out of proportion to one would expect from chronic obstructive pulmonary disease or cardiac dysfunction. We will need further workup. 4. History of prior thoracotomy in the past, details of which are not available .Pt does not remember anything. 5. Schizophrenia RECOMMENDATIONS: 1. Change oral Augmentin to IV cefepime./Vanc 2. Obtain CT chest without contrast to better assess for pleural and parenchymal lung process. 3. May need CT-guided thoracentesis. 4. Obtain old records regarding details of prior thoracotomy. 5. Bronchodilators. 6. Continue oxygen. 7. Further recommendations to follow after review of CT chest. TIFFANY CHEW MD DR: KASSIE/crystal JOB#: [id number] / [id number] DEVON
[2017-06-28] MEDS: CEFEPIME HCL 1 GM in IV NORMAL SALINE 50ML 50 ML IV SCH ×2 (12:57→20:23)
--- NOTE | 2017-06-28 13:40 | PDOC ---
PROGRESS NOTES Chief Complaint Chief Complaint Chest pain from SNU History of Present Illness History of Present Illness 67 y.o male who had just recently started SNU, was sent in by staff bec of left sided CP in bed, at rest, reproducible to palpation, no other presyncopal sxs, diaphoresis or SOA. He has a hx of CAD. The patient is being followed by cardiology who performed a full cardiac workup. Echocardiogram showed severe PHTN. Pulm is now following. Patient seen at bedside. he is resting comfortably and in no acute distress. Potassium is 3.5 this AM-will treat with 40 mg PO. He denies any current CP and states he is feeling quite well and would like to be d/c from the hospital. No acute complaints at this time. Awaiting pulm input for further plan of care. Vitals Vitals Vital Signs Date Time Temp Pulse Resp B/P (MAP) Pulse Ox O2 Delivery O2 Flow Rate FiO2 06/28/17 11:33 Nasal Cannula 3.0 06/28/17 11:07 77 140/76 06/28/17 11:00 97.9 20 90 97.9 Physical Exam General: Alert, Oriented X3, Cooperative, No acute distress Heart: Regular rate, Normal S1, Normal S2 Lungs: Clear, Other (Mild wheezing best heard over the left lower lobe) Abdomen: Normal bowel sounds, Soft Extremities: No clubbing, No cyanosis, Other (trace to 1+ edema bilaterally) Skin: No rashes, No breakdown, No significant lesion Labs LABS Laboratory Tests Test 06/28/17 05:55 White Blood Count 5.6 x10^3/uL (4.0-11.0) Red Blood Count 2.85 x10^6/uL (4.30-5.70) Hemoglobin 8.2 g/dL (13.0-17.5) Hematocrit 23.6 % (39.0-53.0) Mean Corpuscular Volume 83 fL (79-100) Mean Corpuscular Hemoglobin 29 pg (25-35) Mean Corpuscular Hemoglobin Concent 35 g/dL (31-37) Red Cell Distribution Width 18.0 % (11.5-14.5) Platelet Count 104 x10^3/uL (140-400) Neutrophils (%) (Auto) 69 % (31-73) Lymphocytes (%) (Auto) 11 % (24-48) Monocytes (%) (Auto) 12 % (0-9) Eosinophils (%) (Auto) 7 % (0-3) Basophils (%) (Auto) 1 % (0-3) Neutrophils # (Auto) 3.8 x10^3uL (1.8-7.7) Lymphocytes # (Auto) 0.6 x10^3/uL (1.0-4.8) Monocytes # (Auto) 0.7 x10^3/uL (0.0-1.1) Eosinophils # (Auto) 0.4 x10^3/uL (0.0-0.7) Basophils # (Auto) 0.0 x10^3/uL (0.0-0.2) Sodium Level 132 mmol/L (136-145) Potassium Level 3.5 mmol/L (3.5-5.1) Chloride Level 97 mmol/L (98-107) Carbon Dioxide Level 25 mmol/L (21-32) Anion Gap 10 (6-14) Blood Urea Nitrogen 24 mg/dL (8-26) Creatinine 1.7 mg/dL (0.7-1.3) Estimated GFR (Cockcroft-Gault) 40.7 Glucose Level 106 mg/dL (70-99) Calcium Level 8.6 mg/dL (8.5-10.1) Review of Systems Review of Systems Gen: + fatigue, No fever or chills CV: no CP or palpitations Resp: No SOB or pleuritic pain Assessment and Plan Assessmemt and Plan Problems Medical Problems: (1) Chest pain Status: Acute (2) Schizophrenia Status: Acute Assessment: CP PHTN CAD Shizophrenia Plan: -continue monitoring -home meds -recheck labs -PT/OT -Ordered 40 mg potassium PO -Continue cardiology following -Consult Pulm-continue with their plan of care Problems: Comment Review of Relevant I have reviewed the following items florentin (where applicable) has been applied. Labs Laboratory Tests Test 06/26/17 17:30 06/27/17 00:01 06/27/17 04:45 06/28/17 05:55 Troponin I Quantitative 0.020 ng/mL (0.000-0.055) 0.027 ng/mL (0.000-0.055) White Blood Count 8.3 x10^3/uL (4.0-11.0) 5.6 x10^3/uL (4.0-11.0) Red Blood Count 2.92 x10^6/uL (4.30-5.70) 2.85 x10^6/uL (4.30-5.70) Hemoglobin 8.6 g/dL (13.0-17.5) 8.2 g/dL (13.0-17.5) Hematocrit 23.8 % (39.0-53.0) 23.6 % (39.0-53.0) Mean Corpuscular Volume 82 fL (79-100) 83 fL (79-100) Mean Corpuscular Hemoglobin 30 pg (25-35) 29 pg (25-35) Mean Corpuscular Hemoglobin Concent 36 g/dL (31-37) 35 g/dL (31-37) Red Cell Distribution Width 18.6 % (11.5-14.5) 18.0 % (11.5-14.5) Platelet Count 121 x10^3/uL (140-400) 104 x10^3/uL (140-400) Neutrophils (%) (Auto) 80 % (31-73) 69 % (31-73) Lymphocytes (%) (Auto) 6 % (24-48) 11 % (24-48) Monocytes (%) (Auto) 10 % (0-9) 12 % (0-9) Eosinophils (%) (Auto) 4 % (0-3) 7 % (0-3) Basophils (%) (Auto) 1 % (0-3) 1 % (0-3) Neutrophils # (Auto) 6.6 x10^3uL (1.8-7.7) 3.8 x10^3uL (1.8-7.7) Lymphocytes # (Auto) 0.5 x10^3/uL (1.0-4.8) 0.6 x10^3/uL (1.0-4.8) Monocytes # (Auto) 0.8 x10^3/uL (0.0-1.1) 0.7 x10^3/uL (0.0-1.1) Eosinophils # (Auto) 0.3 x10^3/uL (0.0-0.7) 0.4 x10^3/uL (0.0-0.7) Basophils # (Auto) 0.0 x10^3/uL (0.0-0.2) 0.0 x10^3/uL (0.0-0.2) Sodium Level 134 mmol/L (136-145) 132 mmol/L (136-145) Potassium Level 3.8 mmol/L (3.5-5.1) 3.5 mmol/L (3.5-5.1) Chloride Level 99 mmol/L (98-107) 97 mmol/L (98-107) Carbon Dioxide Level 26 mmol/L (21-32) 25 mmol/L (21-32) Anion Gap 9 (6-14) 10 (6-14) Blood Urea Nitrogen 23 mg/dL (8-26) 24 mg/dL (8-26) Creatinine 1.5 mg/dL (0.7-1.3) 1.7 mg/dL (0.7-1.3) Estimated GFR (Cockcroft-Gault) 47.0 40.7 Glucose Level 78 mg/dL (70-99) 106 mg/dL (70-99) Calcium Level 8.5 mg/dL (8.5-10.1) 8.6 mg/dL (8.5-10.1) Laboratory Tests Test 06/28/17 05:55 White Blood Count 5.6 x10^3/uL (4.0-11.0) Red Blood Count 2.85 x10^6/uL (4.30-5.70) Hemoglobin 8.2 g/dL (13.0-17.5) Hematocrit 23.6 % (39.0-53.0) Mean Corpuscular Volume 83 fL (79-100) Mean Corpuscular Hemoglobin 29 pg (25-35) Mean Corpuscular Hemoglobin Concent 35 g/dL (31-37) Red Cell Distribution Width 18.0 % (11.5-14.5) Platelet Count 104 x10^3/uL (140-400) Neutrophils (%) (Auto) 69 % (31-73) Lymphocytes (%) (Auto) 11 % (24-48) Monocytes (%) (Auto) 12 % (0-9) Eosinophils (%) (Auto) 7 % (0-3) Basophils (%) (Auto) 1 % (0-3) Neutrophils # (Auto) 3.8 x10^3uL (1.8-7.7) Lymphocytes # (Auto) 0.6 x10^3/uL (1.0-4.8) Monocytes # (Auto) 0.7 x10^3/uL (0.0-1.1) Eosinophils # (Auto) 0.4 x10^3/uL (0.0-0.7) Basophils # (Auto) 0.0 x10^3/uL (0.0-0.2) Sodium Level 132 mmol/L (136-145) Potassium Level 3.5 mmol/L (3.5-5.1) Chloride Level 97 mmol/L (98-107) Carbon Dioxide Level 25 mmol/L (21-32) Anion Gap 10 (6-14) Blood Urea Nitrogen 24 mg/dL (8-26) Creatinine 1.7 mg/dL (0.7-1.3) Estimated GFR (Cockcroft-Gault) 40.7 Glucose Level 106 mg/dL (70-99) Calcium Level 8.6 mg/dL (8.5-10.1) Medications Current Medications Aspirin ([employer] Aspirin) 325 mg 1X ONCE PO Last administered on 06/26/17 10:12 ; Start 06/26/17 at 10:15; Stop 06/26/17 at 10:16; Status DC Sodium Chloride 1,000 ml @ 1,000 mls/hr Q1H IV Last administered on 06/26/17 10:12; Start 06/26/17 at 10:02; Stop 06/26/17 at 11:01; Status DC Ondansetron HCl (Zofran) 4 mg PRN Q8HRS PRN IV NAUSEA/VOMITING; Start 06/26/17 at 11:30; Stop 06/26/17 at 13:22; Status DC Furosemide (Lasix) 40 mg DAILY IVP Last administered on 06/26/17 14:21; Start 06/26/17 at 13:00; Stop 06/27/17 at 09:18; Status DC Ondansetron HCl (Zofran) 4 mg PRN Q6HRS PRN IV NAUSEA/VOMITING; Start 06/26/17 at 13:30; Stop 06/27/17 at 13:29; Status DC Acetaminophen (Tylenol) 500 mg PRN Q6HRS PRN PO MILD PAIN / TEMP; Start at 13:30; Stop 06/27/17 at 15:22; Status DC Acetaminophen/ Hydrocodone Bitart (Lortab 5/325) 1 tab PRN Q4HRS PRN PO MODERATE - SEVERE PAIN Last administered on 06/28/17 00:10; Start 06/26/17 at 13:30 Ketorolac Tromethamine (Toradol) 15 mg PRN Q6HRS PRN IV PAIN; Start 06/26/17 at 13:30; Stop 07/01/17 at 13:29 Morphine Sulfate 1 mg PRN Q2HR PRN IV PAIN; Start 06/26/17 at 13:30 Amoxicillin/ Clavulanate Potassium (Augmentin 875/ 125mg) 1 tab BID PO Last administered on 06/28/17 11:03; Start 06/26/17 at 14:15; Stop 06/28/17 at 11:52 ; Status DC Aspirin (Ecotrin) 81 mg DAILY PO Last administered on 06/28/17 11:03; Start at 14:15 Atorvastatin Calcium (Lipitor) 40 mg HS PO Last administered on 06/27/17 20:25 ; Start 06/26/17 at 21:00 Diclofenac Sodium (Voltaren) 100 julissa PRN QID PRN TP INFLAMMATION; Start at 14:15 Ferrous Sulfate (Feosol) 325 mg DAILY PO Last administered on 06/28/17 11:03; Start 06/26/17 at 17:30 Hydralazine HCl (Apresoline) 50 mg BID PO Last administered on 06/28/17 11:06 ; Start 06/26/17 at 14:15 Albuterol/ Ipratropium (Duoneb) 3 ml QID NEB Last administered on 06/28/17 11: 33; Start 06/26/17 at 17:00 Nitroglycerin (Nitrostat) 0.4 mg PRN Q5MIN PRN SL CHEST PAIN; Start 06/26/17 at 14:15 Pantoprazole Sodium (Protonix) 40 mg DAILY PO Last administered on 06/28/17 11 :03; Start 06/26/17 at 16:30 Polyethylene Glycol (miraLAX Powder BULK BOTTLE) 17 gm PRN DAILY PRN PO CONSTIPATION; Start 06/26/17 at 14:15 Senna/Docusate Sodium (Senna Plus) 2 tab PRN DAILY PRN PO CONSTIPATION; Start 06/26/17 at 14:15 Trazodone HCl (Desyrel) 100 mg HS PO Last administered on 06/27/17 20:25; Start 06/26/17 at 21:00 Lactobacillus Acidophilus (Bacid, Leila-Bid) 1 tab BID PO Last administered on 06/28/17 11:03; Start 06/26/17 at 21:00 Magnesium Hydroxide (Milk Of Magnesia) 2,400 mg PRN DAILY PRN PO CONSTIPATION; Start 06/26/17 at 14:30 Ondansetron HCl (Zofran Odt) 4 mg Q6HRS PO Last administered on 06/28/17 12:58 ; Start 06/26/17 at 14:30 Acetaminophen (Tylenol) 650 mg PRN Q6HRS PRN PO MILD PAIN / TEMP; Start at 16:00 Amlodipine Besylate (Norvasc) 10 mg DAILY PO Last administered on 06/28/17 11: 07; Start 06/26/17 at 16:00 Furosemide (Lasix) 40 mg DAILY PO Last administered on 06/28/17 11:03; Start 06/27/17 at 10:00 Vancomycin HCl (Vanco Per Pharmacy) 1 each PRN DAILY PRN MC SEE COMMENTS; Start 06/28/17 at 12:00 Cefepime HCl 1 gm/ Sodium Chloride 50 ml @ 100 mls/hr Q8HRS IV Last administered on 06/28/17 12:57; Start 06/28/17 at 12:30 Vancomycin HCl 1.75 gm/Sodium Chloride 500 ml @ 250 mls/hr 1X ONCE IV ; Start 06/28/17 at 12:30; Stop 06/28/17 at 14:29 Active Scripts Active Reported Tylenol (Acetaminophen) 325 Mg Tablet 650 Mg PO PRN Q6HRS PRN Amlodipine Besylate 10 Mg Tablet 10 Mg PO DAILY Voltaren (Diclofenac Sodium) 100 Gm Gel..gram. 100 Gm TP PRN QID PRN Senokot-S Tablet (Sennosides/Docusate Sodium) 1 Each Tablet 2 Each PO PRN DAILY PRN Polyethylene Glycol 3350 255 Gm Powder 17 Gm PO PRN DAILY PRN NITROGLYCERIN SubLingual (Nitroglycerin) 0.4 Mg Tab.subl 0.4 Mg SL PRN Q5MIN PRN Milk Of Magnesia (Magnesium Hydroxide) 2,400 Mg/10 Ml Oral.susp 2,400 Mg PO PRN DAILY PRN Probiotic (Lactobacillus Acidophilus) 1 Each Capsule 1 Each PO BID 5 Days Ferrous Sulfate 325 Mg Tablet 325 Mg PO DAILY Augmentin 875-125 Tablet (Amoxicillin/Potassium Clav) 1 Each Tablet 1 Tab PO BID 5 Days Atorvastatin Calcium 40 Mg Tablet 40 Mg PO HS Hydralazine Hcl 50 Mg Tablet 50 Mg PO BID Duoneb 0.5-3(2.5) Mg/3 Ml (Albuterol/Ipratropium) 3 Ml Ampul.neb 3 Ml NEB QID Trazodone Hcl 50 Mg Tablet 100 Mg PO HS Zofran (Ondansetron Hcl) 4 Mg Tablet 1 Tab PO Q6HRS Protonix (Pantoprazole Sodium) 40 Mg Tablet.dr 1 Tab PO DAILY Aspir 81 (Aspirin) 81 Mg Tablet.dr 1 Tab PO DAILY Vitals/I & O Vital Sign - Last 24 Hours 06/27/17 06/27/17 06/27/17 06/27/17 15:00 15:06 15:53 17:31 Temp 98.5 98.3 98.5 98.3 Pulse 78 77 Resp 19 20 B/P (MAP) 131/71 (91) 130/69 (89) Pulse Ox 93 90 84 93 O2 Delivery Room Air Nasal Cannula Nasal Cannula Nasal Cannula O2 Flow Rate 3.5 3.0 2.5 06/27/17 06/27/17 06/27/17 06/27/17 19:00 19:24 20:00 20:25 Temp 97.7 97.7 Pulse 80 80 Resp 20 B/P (MAP) 141/80 (100) 141/80 Pulse Ox 88 95 O2 Delivery Nasal Cannula Nasal Cannula Nasal Cannula O2 Flow Rate 3.0 2.5 06/27/17 06/28/17 06/28/17 06/28/17 23:00 00:10 03:16 07:30 Temp 98.1 97.6 98.1 97.6 Pulse 78 78 Resp 20 20 20 B/P (MAP) 117/66 (83) 122/67 (85) Pulse Ox 92 92 92 95 O2 Delivery Nasal Cannula Nasal Cannula Nasal Cannula Nasal Cannula O2 Flow Rate 3.0 2.0 06/28/17 06/28/17 06/28/17 06/28/17 07:40 07:52 09:31 11:00 Temp 97.3 97.9 97.3 97.9 Pulse 76 79 Resp 20 20 B/P (MAP) 150/82 (104) 154/85 (108) Pulse Ox 96 96 90 O2 Delivery Nasal Cannula Nasal Cannula Nasal Cannula Nasal Cannula O2 Flow Rate 2.0 3.0 2.0 2.0 06/28/17 06/28/17 06/28/17 11:06 11:07 11:33 Pulse 77 77 B/P (MAP) 140/76 140/76 O2 Delivery Nasal Cannula O2 Flow Rate 3.0 SONAL HARDEN III DO Jun 28, 2017 13:40
[2017-06-28] MEDS ORDERED: POTASSIUM CHLORIDE 20 MEQ TABLET.ER. PO ONE (14:00)
--- NOTE | 2017-06-28 14:06 | RAD ---
One or more of the following individualized dose reduction techniques were utilized for this examination: 1. Automated exposure control 2. Adjustment of the mA and/or kV according to patient size 3. Use of iterative reconstruction technique CT chest without contrast. History: Loculated pleural effusion CT scan of the chest was done without contrast. Comparison is made with a recent chest x-ray and with a previous chest CT from December 2014. Thyroid is homogeneous. There is mediastinal adenopathy although the pattern has changed little from the old exam. Visualized portions of the liver and spleen are normal. The gallbladder was contracted without a calcified gallstone. Adrenal glands are normal. There are renal calculi. There is pleural thickening or small effusion on the left. There is fluid loculated in the major fissure on the left. There is atelectasis along the loculated effusion in the left lower lobe. There is pleural thickening on the right. Pleural calcifications on the right suggests prior pleurodesis. There is chronic infiltrate in the right lower lobe. Right lower lobe disease was similar in appearance on the old study. The heart is enlarged. There are changes from prior right past surgery. Is also chronic scarring or infiltrate along the lateral right upper lobe Impression: 1. Left pleural effusion including fluid loculated in the fissure similar to the old study. 2. Left lower lobe atelectasis secondary to the fusion. 3. Scarring in the lingula without change. 4. Chronic pleural thickening on the right. 5. Chronic right lower lobe infiltrates and scarring and in the lateral chest on the right. 6. Mediastinal adenopathy similar to the old exam.
[2017-06-28] MEDS: VANCOMYCIN PER PHARMACY MC PRN (14:46)
[2017-06-28 15:00] VITALS: BP 149/80
[2017-06-28 19:00] VITALS: BP 141/77
[2017-06-28] MEDS: traZODone 50 MG TABLET. PO SCH (20:23)
[2017-06-28] MEDS: ATORVASTATIN CALCIUM 40 MG TABLET. PO SCH (20:24)
[2017-06-28 23:00] VITALS: BP 140/78
[2017-06-29 03:01] VITALS: BP 135/72
[2017-06-29] MEDS ORDERED: ALBUTEROL SULFATE 2.5 MG/3 ML NEBU. NEB ONE (04:15)
[2017-06-29 04:51] LABS: BASO % 1 % (0-3); EOS % 7 % (0-3); HEMATOCRIT 23.6 % (39.0-53.0); HEMOGLOBIN 7.9 g/dL (13.0-17.5); LYMPH # 0.6 x10^3/uL (1.0-4.8); LYMPH % 9 % (24-48); MEAN CORPUSCULAR HEMOGLOBIN 28 pg (25-35); MEAN CORPUSCULAR HGB CONC 34 g/dL (31-37); MEAN CORPUSCULAR VOLUME 84 fL (79-100); MONO % 12 % (0-9); NEUT % 72 % (31-73); PLATELET COUNT 112 x10^3/uL (140-400); RED BLOOD COUNT 2.81 x10^6/uL (4.30-5.70); RED CELL DISTRIBUTION WIDTH 18.2 % (11.5-14.5); WHITE BLOOD COUNT 6.3 x10^3/uL (4.0-11.0)
[2017-06-29 05:03] LABS: CALCIUM 8.8 mg/dL (8.5-10.1); CREATININE 1.7 mg/dL (0.7-1.3); GFR 40.7
[2017-06-29] MEDS: ONDANSETRON ODT 4 MG TAB.RAPDIS. PO SCH ×4 (05:35→23:17)
[2017-06-29] MEDS: CEFEPIME HCL 1 GM in IV NORMAL SALINE 50ML 50 ML IV SCH ×3 (05:35→20:45)
[2017-06-29] MEDS: HYDROcodone/APAP 5/325MG 1 TAB TABLET PO PRN ×3 (05:35→20:44)
[2017-06-29 07:00] VITALS: BP 141/79
[2017-06-29] MEDS: IPRATRPIUM/ALBUTEROL 0.5/2.5MG 3 ML NEBU. NEB SCH ×4 (08:14→19:59)
[2017-06-29] MEDS: LACTOBACILLUS ACIDOPH & BULGAR 1 TABLET. PO SCH ×2 (08:48→20:44)
[2017-06-29] MEDS: ASPIRIN ENTERIC COATED 81 MG TABLET.DR. PO SCH (08:48)
[2017-06-29] MEDS: FUROSEMIDE 40 MG TABLET. PO SCH (08:48)
[2017-06-29] MEDS: FERROUS SULFATE 325 MG TABLET. PO SCH (08:48)
[2017-06-29] MEDS: PANTOPRAZOLE 40 MG TABLET.DR. PO SCH (08:48)
[2017-06-29] MEDS: amLODIPine BESYLATE 10 MG TABLET PO SCH (08:49)
--- NOTE | 2017-06-29 09:14 | PDOC ---
PULMONARY PROGRESS NOTES Subjective PT WITH NO INCREASE SOA Vitals Vital Signs Date Time Temp Pulse Resp B/P (MAP) Pulse Ox O2 Delivery O2 Flow Rate FiO2 06/29/17 08:50 75 135/72 06/29/17 08:14 92 Simple Mask 6.0 06/29/17 07:00 97.4 18 97.4 ROS: No Nausea, No Chest Pain, No Abdominal Pain, No Increase Cough General: Alert, No acute distress Lungs: Clear Cardiovascular: S1, S2 Abdomen: Soft Neuro Exam: Alert Extremities: No Edema, Other Skin: Warm Labs Laboratory Tests Test 06/28/17 05:55 06/29/17 04:05 White Blood Count 5.6 x10^3/uL (4.0-11.0) 6.3 x10^3/uL (4.0-11.0) Red Blood Count 2.85 x10^6/uL (4.30-5.70) 2.81 x10^6/uL (4.30-5.70) Hemoglobin 8.2 g/dL (13.0-17.5) 7.9 g/dL (13.0-17.5) Hematocrit 23.6 % (39.0-53.0) 23.6 % (39.0-53.0) Mean Corpuscular Volume 83 fL (79-100) 84 fL (79-100) Mean Corpuscular Hemoglobin 29 pg (25-35) 28 pg (25-35) Mean Corpuscular Hemoglobin Concent 35 g/dL (31-37) 34 g/dL (31-37) Red Cell Distribution Width 18.0 % (11.5-14.5) 18.2 % (11.5-14.5) Platelet Count 104 x10^3/uL (140-400) 112 x10^3/uL (140-400) Neutrophils (%) (Auto) 69 % (31-73) 72 % (31-73) Lymphocytes (%) (Auto) 11 % (24-48) 9 % (24-48) Monocytes (%) (Auto) 12 % (0-9) 12 % (0-9) Eosinophils (%) (Auto) 7 % (0-3) 7 % (0-3) Basophils (%) (Auto) 1 % (0-3) 1 % (0-3) Neutrophils # (Auto) 3.8 x10^3uL (1.8-7.7) 4.5 x10^3uL (1.8-7.7) Lymphocytes # (Auto) 0.6 x10^3/uL (1.0-4.8) 0.6 x10^3/uL (1.0-4.8) Monocytes # (Auto) 0.7 x10^3/uL (0.0-1.1) 0.7 x10^3/uL (0.0-1.1) Eosinophils # (Auto) 0.4 x10^3/uL (0.0-0.7) 0.4 x10^3/uL (0.0-0.7) Basophils # (Auto) 0.0 x10^3/uL (0.0-0.2) 0.0 x10^3/uL (0.0-0.2) Sodium Level 132 mmol/L (136-145) 131 mmol/L (136-145) Potassium Level 3.5 mmol/L (3.5-5.1) 4.0 mmol/L (3.5-5.1) Chloride Level 97 mmol/L (98-107) 97 mmol/L (98-107) Carbon Dioxide Level 25 mmol/L (21-32) 25 mmol/L (21-32) Anion Gap 10 (6-14) 9 (6-14) Blood Urea Nitrogen 24 mg/dL (8-26) 25 mg/dL (8-26) Creatinine 1.7 mg/dL (0.7-1.3) 1.7 mg/dL (0.7-1.3) Estimated GFR (Cockcroft-Gault) 40.7 40.7 Glucose Level 106 mg/dL (70-99) 96 mg/dL (70-99) Calcium Level 8.6 mg/dL (8.5-10.1) 8.8 mg/dL (8.5-10.1) Laboratory Tests Test 06/29/17 04:05 White Blood Count 6.3 x10^3/uL (4.0-11.0) Red Blood Count 2.81 x10^6/uL (4.30-5.70) Hemoglobin 7.9 g/dL (13.0-17.5) Hematocrit 23.6 % (39.0-53.0) Mean Corpuscular Volume 84 fL (79-100) Mean Corpuscular Hemoglobin 28 pg (25-35) Mean Corpuscular Hemoglobin Concent 34 g/dL (31-37) Red Cell Distribution Width 18.2 % (11.5-14.5) Platelet Count 112 x10^3/uL (140-400) Neutrophils (%) (Auto) 72 % (31-73) Lymphocytes (%) (Auto) 9 % (24-48) Monocytes (%) (Auto) 12 % (0-9) Eosinophils (%) (Auto) 7 % (0-3) Basophils (%) (Auto) 1 % (0-3) Neutrophils # (Auto) 4.5 x10^3uL (1.8-7.7) Lymphocytes # (Auto) 0.6 x10^3/uL (1.0-4.8) Monocytes # (Auto) 0.7 x10^3/uL (0.0-1.1) Eosinophils # (Auto) 0.4 x10^3/uL (0.0-0.7) Basophils # (Auto) 0.0 x10^3/uL (0.0-0.2) Sodium Level 131 mmol/L (136-145) Potassium Level 4.0 mmol/L (3.5-5.1) Chloride Level 97 mmol/L (98-107) Carbon Dioxide Level 25 mmol/L (21-32) Anion Gap 9 (6-14) Blood Urea Nitrogen 25 mg/dL (8-26) Creatinine 1.7 mg/dL (0.7-1.3) Estimated GFR (Cockcroft-Gault) 40.7 Glucose Level 96 mg/dL (70-99) Calcium Level 8.8 mg/dL (8.5-10.1) Medications Active Scripts Medications Dose Route/Sig Max Daily Dose Days Date Category Tylenol (Acetaminophen) 325 Mg Tablet 650 Mg PO PRN Q6HRS PRN 06/26/17 Reported Amlodipine Besylate 10 Mg Tablet 10 Mg PO DAILY 06/26/17 Reported Voltaren (Diclofenac Sodium) 100 Gm Gel..gram. 100 Gm TP PRN QID PRN 06/26/17 Reported Senokot-S Tablet (Sennosides/Docusate Sodium) 1 Each Tablet 2 Each PO PRN DAILY PRN 06/26/17 Reported Polyethylene Glycol 3350 255 Gm Powder 17 Gm PO PRN DAILY PRN 06/26/17 Reported NITROGLYCERIN SubLingual (Nitroglycerin) 0.4 Mg Tab.subl 0.4 Mg SL PRN Q5MIN PRN 06/26/17 Reported Milk Of Magnesia (Magnesium Hydroxide) 2,400 Mg/10 Ml Oral.susp 2,400 Mg PO PRN DAILY PRN 06/26/17 Reported Probiotic (Lactobacillus Acidophilus) 1 Each Capsule 1 Each PO BID 5 06/26/17 Reported Ferrous Sulfate 325 Mg Tablet 325 Mg PO DAILY 06/26/17 Reported Augmentin 875-125 Tablet (Amoxicillin/Potassium Clav) 1 Each Tablet 1 Tab PO BID 5 06/26/17 Reported Atorvastatin Calcium 40 Mg Tablet 40 Mg PO HS 06/26/17 Reported Hydralazine Hcl 50 Mg Tablet 50 Mg PO BID 06/26/17 Reported Duoneb 0.5-3(2.5) Mg/3 Ml (Albuterol/Ipratropium) 3 Ml Ampul.neb 3 Ml NEB QID 06/26/17 Reported Trazodone Hcl 50 Mg Tablet 100 Mg PO HS 06/26/17 Reported Zofran (Ondansetron Hcl) 4 Mg Tablet 1 Tab PO Q6HRS 01/01/15 Reported Protonix (Pantoprazole Sodium) 40 Mg Tablet.dr 1 Tab PO DAILY 01/01/15 Reported Aspir 81 (Aspirin) 81 Mg Tablet.dr 1 Tab PO DAILY 01/01/15 Reported Impression . 1. Acute hypoxic respiratory failure secondary to suspected GRAM NEG/POS PNEUMONIA 2. Abnormal chest x-ray with increasing pleural thickening on the right side 3. Severe pulmonary hypertension demonstrated on previous echo and on a recent echo as well. Previous CT angiogram was negative. 4. History of prior thoracotomy in the past, details of which are not available .Pt does not remember anything. 5. Schizophrenia Impression: 1. Left pleural effusion including fluid loculated in the fissure similar to the old study. 2. Left lower lobe atelectasis secondary to the fusion. 3. Scarring in the lingula without change. 4. Chronic pleural thickening on the right. 5. Chronic right lower lobe infiltrates and scarring and in the lateral chest on the right. 6. Mediastinal adenopathy similar to the old exam. Plan . REVIEWED THE CT NO MAJOR CHANGE IN COMPARISON TO PREVIOUS CT WILL NEED A RIGHT HEART CATH TO CONFIRM PULM HTN CONTINUE SAME FOR NOW I DO NOT RECOMMEND CHEST TUBE PLACEMENT SIGRID DAMON MD Jun 29, 2017 09:14
[2017-06-29 11:00] VITALS: BP 149/73
--- NOTE | 2017-06-29 11:17 | PDOC ---
PROGRESS NOTES Chief Complaint Chief Complaint Chest pain from SNU PNA History of Present Illness History of Present Illness 67 y.o male who had just recently started SNU, was sent in by staff bec of left sided CP in bed, at rest, reproducible to palpation, no other presyncopal sxs, diaphoresis or SOA. He has a hx of CAD. The patient is being followed by cardiology who performed a full cardiac workup. Echocardiogram showed severe PHTN. Pulm is now following. CT chest per pulm. Will move forward with plan of care per pulm, following CT chest results. Patient seen at bedside. he is resting comfortably and in no acute distress. Potassium up to 4 today. The patient is pleasant and talkitive. He denies any current CP and states he is feeling quite well and would like to be d/c from the hospital. No acute complaints at this time. Awaiting pulm input for further plan of care. Vitals Vitals Vital Signs Date Time Temp Pulse Resp B/P (MAP) Pulse Ox O2 Delivery O2 Flow Rate FiO2 06/29/17 08:50 75 135/72 06/29/17 08:14 92 Simple Mask 6.0 06/29/17 07:00 97.4 18 97.4 Physical Exam General: Alert, Oriented X3, Cooperative, No acute distress Heart: Regular rate, Normal S1, Normal S2 Lungs: Clear, Other (Mild wheezing best heard over the left lower lobe) Abdomen: Normal bowel sounds, Soft Extremities: No clubbing, No cyanosis, Other (trace to 1+ edema bilaterally) Skin: No rashes, No breakdown, No significant lesion Labs LABS Laboratory Tests Test 06/29/17 04:05 White Blood Count 6.3 x10^3/uL (4.0-11.0) Red Blood Count 2.81 x10^6/uL (4.30-5.70) Hemoglobin 7.9 g/dL (13.0-17.5) Hematocrit 23.6 % (39.0-53.0) Mean Corpuscular Volume 84 fL (79-100) Mean Corpuscular Hemoglobin 28 pg (25-35) Mean Corpuscular Hemoglobin Concent 34 g/dL (31-37) Red Cell Distribution Width 18.2 % (11.5-14.5) Platelet Count 112 x10^3/uL (140-400) Neutrophils (%) (Auto) 72 % (31-73) Lymphocytes (%) (Auto) 9 % (24-48) Monocytes (%) (Auto) 12 % (0-9) Eosinophils (%) (Auto) 7 % (0-3) Basophils (%) (Auto) 1 % (0-3) Neutrophils # (Auto) 4.5 x10^3uL (1.8-7.7) Lymphocytes # (Auto) 0.6 x10^3/uL (1.0-4.8) Monocytes # (Auto) 0.7 x10^3/uL (0.0-1.1) Eosinophils # (Auto) 0.4 x10^3/uL (0.0-0.7) Basophils # (Auto) 0.0 x10^3/uL (0.0-0.2) Sodium Level 131 mmol/L (136-145) Potassium Level 4.0 mmol/L (3.5-5.1) Chloride Level 97 mmol/L (98-107) Carbon Dioxide Level 25 mmol/L (21-32) Anion Gap 9 (6-14) Blood Urea Nitrogen 25 mg/dL (8-26) Creatinine 1.7 mg/dL (0.7-1.3) Estimated GFR (Cockcroft-Gault) 40.7 Glucose Level 96 mg/dL (70-99) Calcium Level 8.8 mg/dL (8.5-10.1) Review of Systems Review of Systems Gen: + fatigue, +hunger, No fever or chills CV: No CP or palpitations Resp: + SOB, no pleuritic pain Assessment and Plan Assessmemt and Plan Problems Medical Problems: (1) Chest pain Status: Acute (2) Schizophrenia Status: Acute Assessment: CP PNA Atelectasis pleural effusion Shizophrenia Anemia Plan: continue monitoring continue abx per pulm breathing treatments home meds PT/OT recheck labs CT Chest Anemia-Will follow [facility] Pulm Dr. Huber following the patient-Will await his input for further plan of care and probable d/c if cleared by him. Problems: Comment Review of Relevant I have reviewed the following items florentin (where applicable) has been applied. Labs Laboratory Tests Test 06/28/17 05:55 06/29/17 04:05 White Blood Count 5.6 x10^3/uL (4.0-11.0) 6.3 x10^3/uL (4.0-11.0) Red Blood Count 2.85 x10^6/uL (4.30-5.70) 2.81 x10^6/uL (4.30-5.70) Hemoglobin 8.2 g/dL (13.0-17.5) 7.9 g/dL (13.0-17.5) Hematocrit 23.6 % (39.0-53.0) 23.6 % (39.0-53.0) Mean Corpuscular Volume 83 fL (79-100) 84 fL (79-100) Mean Corpuscular Hemoglobin 29 pg (25-35) 28 pg (25-35) Mean Corpuscular Hemoglobin Concent 35 g/dL (31-37) 34 g/dL (31-37) Red Cell Distribution Width 18.0 % (11.5-14.5) 18.2 % (11.5-14.5) Platelet Count 104 x10^3/uL (140-400) 112 x10^3/uL (140-400) Neutrophils (%) (Auto) 69 % (31-73) 72 % (31-73) Lymphocytes (%) (Auto) 11 % (24-48) 9 % (24-48) Monocytes (%) (Auto) 12 % (0-9) 12 % (0-9) Eosinophils (%) (Auto) 7 % (0-3) 7 % (0-3) Basophils (%) (Auto) 1 % (0-3) 1 % (0-3) Neutrophils # (Auto) 3.8 x10^3uL (1.8-7.7) 4.5 x10^3uL (1.8-7.7) Lymphocytes # (Auto) 0.6 x10^3/uL (1.0-4.8) 0.6 x10^3/uL (1.0-4.8) Monocytes # (Auto) 0.7 x10^3/uL (0.0-1.1) 0.7 x10^3/uL (0.0-1.1) Eosinophils # (Auto) 0.4 x10^3/uL (0.0-0.7) 0.4 x10^3/uL (0.0-0.7) Basophils # (Auto) 0.0 x10^3/uL (0.0-0.2) 0.0 x10^3/uL (0.0-0.2) Sodium Level 132 mmol/L (136-145) 131 mmol/L (136-145) Potassium Level 3.5 mmol/L (3.5-5.1) 4.0 mmol/L (3.5-5.1) Chloride Level 97 mmol/L (98-107) 97 mmol/L (98-107) Carbon Dioxide Level 25 mmol/L (21-32) 25 mmol/L (21-32) Anion Gap 10 (6-14) 9 (6-14) Blood Urea Nitrogen 24 mg/dL (8-26) 25 mg/dL (8-26) Creatinine 1.7 mg/dL (0.7-1.3) 1.7 mg/dL (0.7-1.3) Estimated GFR (Cockcroft-Gault) 40.7 40.7 Glucose Level 106 mg/dL (70-99) 96 mg/dL (70-99) Calcium Level 8.6 mg/dL (8.5-10.1) 8.8 mg/dL (8.5-10.1) Laboratory Tests Test 06/29/17 04:05 White Blood Count 6.3 x10^3/uL (4.0-11.0) Red Blood Count 2.81 x10^6/uL (4.30-5.70) Hemoglobin 7.9 g/dL (13.0-17.5) Hematocrit 23.6 % (39.0-53.0) Mean Corpuscular Volume 84 fL (79-100) Mean Corpuscular Hemoglobin 28 pg (25-35) Mean Corpuscular Hemoglobin Concent 34 g/dL (31-37) Red Cell Distribution Width 18.2 % (11.5-14.5) Platelet Count 112 x10^3/uL (140-400) Neutrophils (%) (Auto) 72 % (31-73) Lymphocytes (%) (Auto) 9 % (24-48) Monocytes (%) (Auto) 12 % (0-9) Eosinophils (%) (Auto) 7 % (0-3) Basophils (%) (Auto) 1 % (0-3) Neutrophils # (Auto) 4.5 x10^3uL (1.8-7.7) Lymphocytes # (Auto) 0.6 x10^3/uL (1.0-4.8) Monocytes # (Auto) 0.7 x10^3/uL (0.0-1.1) Eosinophils # (Auto) 0.4 x10^3/uL (0.0-0.7) Basophils # (Auto) 0.0 x10^3/uL (0.0-0.2) Sodium Level 131 mmol/L (136-145) Potassium Level 4.0 mmol/L (3.5-5.1) Chloride Level 97 mmol/L (98-107) Carbon Dioxide Level 25 mmol/L (21-32) Anion Gap 9 (6-14) Blood Urea Nitrogen 25 mg/dL (8-26) Creatinine 1.7 mg/dL (0.7-1.3) Estimated GFR (Cockcroft-Gault) 40.7 Glucose Level 96 mg/dL (70-99) Calcium Level 8.8 mg/dL (8.5-10.1) Medications Current Medications Aspirin (ChangeMob Aspirin) 325 mg 1X ONCE PO Last administered on 06/26/17 10:12 ; Start 06/26/17 at 10:15; Stop 06/26/17 at 10:16; Status DC Sodium Chloride 1,000 ml @ 1,000 mls/hr Q1H IV Last administered on 06/26/17 10:12; Start 06/26/17 at 10:02; Stop 06/26/17 at 11:01; Status DC Ondansetron HCl (Zofran) 4 mg PRN Q8HRS PRN IV NAUSEA/VOMITING; Start 06/26/17 at 11:30; Stop 06/26/17 at 13:22; Status DC Furosemide (Lasix) 40 mg DAILY IVP Last administered on 06/26/17 14:21; Start 06/26/17 at 13:00; Stop 06/27/17 at 09:18; Status DC Ondansetron HCl (Zofran) 4 mg PRN Q6HRS PRN IV NAUSEA/VOMITING; Start 06/26/17 at 13:30; Stop 06/27/17 at 13:29; Status DC Acetaminophen (Tylenol) 500 mg PRN Q6HRS PRN PO MILD PAIN / TEMP; Start at 13:30; Stop 06/27/17 at 15:22; Status DC Acetaminophen/ Hydrocodone Bitart (Lortab 5/325) 1 tab PRN Q4HRS PRN PO MODERATE - SEVERE PAIN Last administered on 06/29/17 05:35; Start 06/26/17 at 13:30 Ketorolac Tromethamine (Toradol) 15 mg PRN Q6HRS PRN IV PAIN; Start 06/26/17 at 13:30; Stop 07/01/17 at 13:29 Morphine Sulfate 1 mg PRN Q2HR PRN IV PAIN; Start 06/26/17 at 13:30 Amoxicillin/ Clavulanate Potassium (Augmentin 875/ 125mg) 1 tab BID PO Last administered on 06/28/17 11:03; Start 06/26/17 at 14:15; Stop 06/28/17 at 11:52 ; Status DC Aspirin (Ecotrin) 81 mg DAILY PO Last administered on 06/29/17 08:48; Start at 14:15 Atorvastatin Calcium (Lipitor) 40 mg HS PO Last administered on 06/28/17 20:24 ; Start 06/26/17 at 21:00 Diclofenac Sodium (Voltaren) 100 julissa PRN QID PRN TP INFLAMMATION; Start at 14:15 Ferrous Sulfate (Feosol) 325 mg DAILY PO Last administered on 06/29/17 08:48; Start 06/26/17 at 17:30 Hydralazine HCl (Apresoline) 50 mg BID PO Last administered on 06/29/17 08:50 ; Start 06/26/17 at 14:15 Albuterol/ Ipratropium (Duoneb) 3 ml QID NEB Last administered on 06/29/17 08: 14; Start 06/26/17 at 17:00 Nitroglycerin (Nitrostat) 0.4 mg PRN Q5MIN PRN SL CHEST PAIN; Start 06/26/17 at 14:15 Pantoprazole Sodium (Protonix) 40 mg DAILY PO Last administered on 06/29/17 08 :48; Start 06/26/17 at 16:30 Polyethylene Glycol (miraLAX Powder BULK BOTTLE) 17 gm PRN DAILY PRN PO CONSTIPATION; Start 06/26/17 at 14:15 Senna/Docusate Sodium (Senna Plus) 2 tab PRN DAILY PRN PO CONSTIPATION; Start 06/26/17 at 14:15 Trazodone HCl (Desyrel) 100 mg HS PO Last administered on 06/28/17 20:23; Start 06/26/17 at 21:00 Lactobacillus Acidophilus (Bacid, Leila-Bid) 1 tab BID PO Last administered on 06/29/17 08:48; Start 06/26/17 at 21:00 Magnesium Hydroxide (Milk Of Magnesia) 2,400 mg PRN DAILY PRN PO CONSTIPATION; Start 06/26/17 at 14:30 Ondansetron HCl (Zofran Odt) 4 mg Q6HRS PO Last administered on 06/29/17 05:35 ; Start 06/26/17 at 14:30 Acetaminophen (Tylenol) 650 mg PRN Q6HRS PRN PO MILD PAIN / TEMP; Start at 16:00 Amlodipine Besylate (Norvasc) 10 mg DAILY PO Last administered on 06/29/17 08: 49; Start 06/26/17 at 16:00 Furosemide (Lasix) 40 mg DAILY PO Last administered on 06/29/17 08:48; Start 06/27/17 at 10:00 Vancomycin HCl (Vanco Per Pharmacy) 1 each PRN DAILY PRN MC SEE COMMENTS Last administered on 06/28/17 14:46; Start 06/28/17 at 12:00 Cefepime HCl 1 gm/ Sodium Chloride 50 ml @ 100 mls/hr Q8HRS IV Last administered on 06/29/17 05:35; Start 06/28/17 at 12:30 Vancomycin HCl 1.75 gm/Sodium Chloride 500 ml @ 250 mls/hr 1X ONCE IV Last administered on 06/28/17 14:30; Start 06/28/17 at 12:30; Stop 06/28/17 at 14:29 ; Status DC Potassium Chloride (Klor-Con) 40 meq 1X ONCE PO Last administered on 17:08; Start 06/28/17 at 14:00; Stop 06/28/17 at 14:01; Status DC Vancomycin HCl 1 gm/Sodium Chloride 250 ml @ 250 mls/hr Q24H IV ; Start at 15:00 Vancomycin HCl 1 each 1X ONCE MC ; Start 06/30/17 at 14:30; Stop 06/30/17 at 14 :31 Albuterol Sulfate (Ventolin Neb Soln) 2.5 mg 1X ONCE NEB Last administered on 06/29/17t 04:20; Start 06/29/17 at 04:15; Stop 06/29/17 at 04:16; Status DC Active Scripts Active Reported Tylenol (Acetaminophen) 325 Mg Tablet 650 Mg PO PRN Q6HRS PRN Amlodipine Besylate 10 Mg Tablet 10 Mg PO DAILY Voltaren (Diclofenac Sodium) 100 Gm Gel..gram. 100 Gm TP PRN QID PRN Senokot-S Tablet (Sennosides/Docusate Sodium) 1 Each Tablet 2 Each PO PRN DAILY PRN Polyethylene Glycol 3350 255 Gm Powder 17 Gm PO PRN DAILY PRN NITROGLYCERIN SubLingual (Nitroglycerin) 0.4 Mg Tab.subl 0.4 Mg SL PRN Q5MIN PRN Milk Of Magnesia (Magnesium Hydroxide) 2,400 Mg/10 Ml Oral.susp 2,400 Mg PO PRN DAILY PRN Probiotic (Lactobacillus Acidophilus) 1 Each Capsule 1 Each PO BID 5 Days Ferrous Sulfate 325 Mg Tablet 325 Mg PO DAILY Augmentin 875-125 Tablet (Amoxicillin/Potassium Clav) 1 Each Tablet 1 Tab PO BID 5 Days Atorvastatin Calcium 40 Mg Tablet 40 Mg PO HS Hydralazine Hcl 50 Mg Tablet 50 Mg PO BID Duoneb 0.5-3(2.5) Mg/3 Ml (Albuterol/Ipratropium) 3 Ml Ampul.neb 3 Ml NEB QID Trazodone Hcl 50 Mg Tablet 100 Mg PO HS Zofran (Ondansetron Hcl) 4 Mg Tablet 1 Tab PO Q6HRS Protonix (Pantoprazole Sodium) 40 Mg Tablet.dr 1 Tab PO DAILY Aspir 81 (Aspirin) 81 Mg Tablet.dr 1 Tab PO DAILY Vitals/I & O Vital Sign - Last 24 Hours 06/28/17 06/28/17 06/28/17 06/28/17 11:33 15:00 16:37 17:10 Temp 97.6 97.6 Pulse 75 Resp 20 20 B/P (MAP) 149/80 (103) Pulse Ox 93 90 O2 Delivery Nasal Cannula Nasal Cannula Nasal Cannula Nasal Cannula O2 Flow Rate 3.0 2.0 3.0 2.5 06/28/17 06/28/17 06/28/17 06/28/17 19:00 19:35 20:24 20:24 Temp 97.4 97.4 Pulse 79 79 Resp 20 18 B/P (MAP) 141/77 (98) 141/77 Pulse Ox 91 90 O2 Delivery Nasal Cannula Nasal Cannula Nasal Cannula O2 Flow Rate 2.0 2.0 06/28/17 06/28/17 06/29/17 06/29/17 20:33 23:00 03:01 04:21 Temp 97.8 97.9 97.8 97.9 Pulse 87 75 Resp 20 20 B/P (MAP) 140/78 (98) 135/72 (93) Pulse Ox 93 91 92 93 O2 Delivery Nasal Cannula Nasal Cannula O2 Flow Rate 5.0 5.0 06/29/17 06/29/17 06/29/17 06/29/17 05:35 06:35 07:00 08:00 Temp 97.4 97.4 Pulse 75 Resp 18 18 18 B/P (MAP) 141/79 (99) Pulse Ox 93 93 90 O2 Delivery Nasal Cannula Nasal Cannula Nasal Cannula Nasal Cannula O2 Flow Rate 5.0 5.0 6.0 06/29/17 06/29/17 06/29/17 08:14 08:49 08:50 Pulse 75 75 B/P (MAP) 135/72 135/72 Pulse Ox 92 O2 Delivery Simple Mask O2 Flow Rate 6.0 Intake and Output 06/29/17 06/29/17 06/30/17 15:00 23:00 07:00 Intake Total 250 ml Balance 250 ml CASTLE,NIAL K III DO Jun 29, 2017 11:17
[2017-06-29] MEDS: VANCOMYCIN PER PHARMACY MC PRN (13:06)
[2017-06-29 15:00] VITALS: BP 139/62
[2017-06-29] MEDS: VANCOMYCIN 1 GM in IV NORMAL SALINE 250ML 250 ML IV SCH (16:28)
[2017-06-29 19:00] VITALS: BP 120/70
[2017-06-29] MEDS: ALPRAZolam 0.25 MG TABLET PO PRN (20:43)
[2017-06-29] MEDS: traZODone 50 MG TABLET. PO SCH (20:44)
[2017-06-29] MEDS: ATORVASTATIN CALCIUM 40 MG TABLET. PO SCH (20:44)
[2017-06-29 23:00] VITALS: BP 133/74
[2017-06-30 04:28] LABS: BASO # 0.1 x10^3/uL (0.0-0.2); BASO % 1 % (0-3); EOS % 10 % (0-3); HEMATOCRIT 21.7 % (39.0-53.0); HEMOGLOBIN 7.5 g/dL (13.0-17.5); LYMPH # 0.5 x10^3/uL (1.0-4.8); LYMPH % 10 % (24-48); MEAN CORPUSCULAR HEMOGLOBIN 29 pg (25-35); MEAN CORPUSCULAR HGB CONC 35 g/dL (31-37); MEAN CORPUSCULAR VOLUME 83 fL (79-100); MONO % 13 % (0-9); NEUT % 66 % (31-73); PLATELET COUNT 113 x10^3/uL (140-400); RED BLOOD COUNT 2.61 x10^6/uL (4.30-5.70); RED CELL DISTRIBUTION WIDTH 17.9 % (11.5-14.5)
[2017-06-30 04:39] LABS: CALCIUM 8.4 mg/dL (8.5-10.1); CREATININE 1.8 mg/dL (0.7-1.3); GFR 38.1; POTASSIUM 3.8 mmol/L (3.5-5.1)
[2017-06-30] MEDS: ONDANSETRON ODT 4 MG TAB.RAPDIS. PO SCH ×2 (05:01→11:39)
[2017-06-30] MEDS: CEFEPIME HCL 1 GM in IV NORMAL SALINE 50ML 50 ML IV SCH ×2 (05:02→14:09)
[2017-06-30 07:00] VITALS: BP 116/73
[2017-06-30] MEDS: IPRATRPIUM/ALBUTEROL 0.5/2.5MG 3 ML NEBU. NEB SCH ×3 (07:30→16:18)
[2017-06-30] MEDS: LACTOBACILLUS ACIDOPH & BULGAR 1 TABLET. PO SCH (08:48)
[2017-06-30] MEDS: ASPIRIN ENTERIC COATED 81 MG TABLET.DR. PO SCH (08:48)
[2017-06-30] MEDS: FERROUS SULFATE 325 MG TABLET. PO SCH (08:48)
[2017-06-30] MEDS: FUROSEMIDE 40 MG TABLET. PO SCH (08:48)
[2017-06-30] MEDS: ALPRAZolam 0.25 MG TABLET PO PRN (08:49)
[2017-06-30] MEDS: PANTOPRAZOLE 40 MG TABLET.DR. PO SCH (08:49)
[2017-06-30] MEDS: amLODIPine BESYLATE 10 MG TABLET PO SCH (08:49)
--- NOTE | 2017-06-30 10:41 | PDOC ---
PROGRESS NOTES Chief Complaint Chief Complaint Chest pain from SNU PNA PMH: Afib, CAD CHF HTN DE Anemia Schizophrenia CVA GERD History of Present Illness History of Present Illness Pt was awake and sitting on the side of his bed. He was very conversant and pleasant. He has no new complaints at this time other than mild fatigue and some hunger. Pulmonary is seeing him and discussed a possible right heart cath in order to diagnose pulmonary HTN. Believes resp failure likely secondary to pneumonia. Discussed plan of care with the pt and RN. Pt would like to know when he can go and is getting anxious. Pt has some flight of ideas and is difficult to have him fully concentrate. Vitals Vitals Vital Signs Date Time Temp Pulse Resp B/P (MAP) Pulse Ox O2 Delivery O2 Flow Rate FiO2 06/30/17 08:49 87 116/73 06/30/17 08:00 Nasal Cannula 6.0 06/30/17 07:32 98 06/30/17 07:00 98.1 18 98.1 Physical Exam General: Alert, Oriented X3, Cooperative, No acute distress Heart: Regular rate, Normal S1, Normal S2 Lungs: Clear Abdomen: Normal bowel sounds, Soft Extremities: No clubbing, No cyanosis Skin: No rashes, No breakdown, No significant lesion Labs LABS Laboratory Tests Test 06/30/17 04:00 White Blood Count 5.0 x10^3/uL (4.0-11.0) Red Blood Count 2.61 x10^6/uL (4.30-5.70) Hemoglobin 7.5 g/dL (13.0-17.5) Hematocrit 21.7 % (39.0-53.0) Mean Corpuscular Volume 83 fL (79-100) Mean Corpuscular Hemoglobin 29 pg (25-35) Mean Corpuscular Hemoglobin Concent 35 g/dL (31-37) Red Cell Distribution Width 17.9 % (11.5-14.5) Platelet Count 113 x10^3/uL (140-400) Neutrophils (%) (Auto) 66 % (31-73) Lymphocytes (%) (Auto) 10 % (24-48) Monocytes (%) (Auto) 13 % (0-9) Eosinophils (%) (Auto) 10 % (0-3) Basophils (%) (Auto) 1 % (0-3) Neutrophils # (Auto) 3.3 x10^3uL (1.8-7.7) Lymphocytes # (Auto) 0.5 x10^3/uL (1.0-4.8) Monocytes # (Auto) 0.6 x10^3/uL (0.0-1.1) Eosinophils # (Auto) 0.5 x10^3/uL (0.0-0.7) Basophils # (Auto) 0.1 x10^3/uL (0.0-0.2) Sodium Level 130 mmol/L (136-145) Potassium Level 3.8 mmol/L (3.5-5.1) Chloride Level 97 mmol/L (98-107) Carbon Dioxide Level 25 mmol/L (21-32) Anion Gap 8 (6-14) Blood Urea Nitrogen 25 mg/dL (8-26) Creatinine 1.8 mg/dL (0.7-1.3) Estimated GFR (Cockcroft-Gault) 38.1 Glucose Level 102 mg/dL (70-99) Calcium Level 8.4 mg/dL (8.5-10.1) Review of Systems Review of Systems PT complains of fatigue Pt complains of hunger Assessment and Plan Assessmemt and Plan Problems Medical Problems: (1) Chest pain Status: Acute (2) Schizophrenia Status: Acute Chest pain from SNU PNA PMH: Afib, CAD CHF HTN DE Anemia Schizophrenia CVA GERD Plan: Recheck labs PT/OT Awaiting Pulmonary Cont. abx Monitor Hgb - steady decline of 1.2g noted Appreciate subspecialist input Possible SNU tomorrow if ok with pulm Problems: Comment Review of Relevant I have reviewed the following items florentin (where applicable) has been applied. Labs Laboratory Tests Test 06/29/17 04:05 06/30/17 04:00 White Blood Count 6.3 x10^3/uL (4.0-11.0) 5.0 x10^3/uL (4.0-11.0) Red Blood Count 2.81 x10^6/uL (4.30-5.70) 2.61 x10^6/uL (4.30-5.70) Hemoglobin 7.9 g/dL (13.0-17.5) 7.5 g/dL (13.0-17.5) Hematocrit 23.6 % (39.0-53.0) 21.7 % (39.0-53.0) Mean Corpuscular Volume 84 fL (79-100) 83 fL (79-100) Mean Corpuscular Hemoglobin 28 pg (25-35) 29 pg (25-35) Mean Corpuscular Hemoglobin Concent 34 g/dL (31-37) 35 g/dL (31-37) Red Cell Distribution Width 18.2 % (11.5-14.5) 17.9 % (11.5-14.5) Platelet Count 112 x10^3/uL (140-400) 113 x10^3/uL (140-400) Neutrophils (%) (Auto) 72 % (31-73) 66 % (31-73) Lymphocytes (%) (Auto) 9 % (24-48) 10 % (24-48) Monocytes (%) (Auto) 12 % (0-9) 13 % (0-9) Eosinophils (%) (Auto) 7 % (0-3) 10 % (0-3) Basophils (%) (Auto) 1 % (0-3) 1 % (0-3) Neutrophils # (Auto) 4.5 x10^3uL (1.8-7.7) 3.3 x10^3uL (1.8-7.7) Lymphocytes # (Auto) 0.6 x10^3/uL (1.0-4.8) 0.5 x10^3/uL (1.0-4.8) Monocytes # (Auto) 0.7 x10^3/uL (0.0-1.1) 0.6 x10^3/uL (0.0-1.1) Eosinophils # (Auto) 0.4 x10^3/uL (0.0-0.7) 0.5 x10^3/uL (0.0-0.7) Basophils # (Auto) 0.0 x10^3/uL (0.0-0.2) 0.1 x10^3/uL (0.0-0.2) Sodium Level 131 mmol/L (136-145) 130 mmol/L (136-145) Potassium Level 4.0 mmol/L (3.5-5.1) 3.8 mmol/L (3.5-5.1) Chloride Level 97 mmol/L (98-107) 97 mmol/L (98-107) Carbon Dioxide Level 25 mmol/L (21-32) 25 mmol/L (21-32) Anion Gap 9 (6-14) 8 (6-14) Blood Urea Nitrogen 25 mg/dL (8-26) 25 mg/dL (8-26) Creatinine 1.7 mg/dL (0.7-1.3) 1.8 mg/dL (0.7-1.3) Estimated GFR (Cockcroft-Gault) 40.7 38.1 Glucose Level 96 mg/dL (70-99) 102 mg/dL (70-99) Calcium Level 8.8 mg/dL (8.5-10.1) 8.4 mg/dL (8.5-10.1) Laboratory Tests Test 06/30/17 04:00 White Blood Count 5.0 x10^3/uL (4.0-11.0) Red Blood Count 2.61 x10^6/uL (4.30-5.70) Hemoglobin 7.5 g/dL (13.0-17.5) Hematocrit 21.7 % (39.0-53.0) Mean Corpuscular Volume 83 fL (79-100) Mean Corpuscular Hemoglobin 29 pg (25-35) Mean Corpuscular Hemoglobin Concent 35 g/dL (31-37) Red Cell Distribution Width 17.9 % (11.5-14.5) Platelet Count 113 x10^3/uL (140-400) Neutrophils (%) (Auto) 66 % (31-73) Lymphocytes (%) (Auto) 10 % (24-48) Monocytes (%) (Auto) 13 % (0-9) Eosinophils (%) (Auto) 10 % (0-3) Basophils (%) (Auto) 1 % (0-3) Neutrophils # (Auto) 3.3 x10^3uL (1.8-7.7) Lymphocytes # (Auto) 0.5 x10^3/uL (1.0-4.8) Monocytes # (Auto) 0.6 x10^3/uL (0.0-1.1) Eosinophils # (Auto) 0.5 x10^3/uL (0.0-0.7) Basophils # (Auto) 0.1 x10^3/uL (0.0-0.2) Sodium Level 130 mmol/L (136-145) Potassium Level 3.8 mmol/L (3.5-5.1) Chloride Level 97 mmol/L (98-107) Carbon Dioxide Level 25 mmol/L (21-32) Anion Gap 8 (6-14) Blood Urea Nitrogen 25 mg/dL (8-26) Creatinine 1.8 mg/dL (0.7-1.3) Estimated GFR (Cockcroft-Gault) 38.1 Glucose Level 102 mg/dL (70-99) Calcium Level 8.4 mg/dL (8.5-10.1) Medications Current Medications Aspirin (OYO Sport[employer]ys Aspirin) 325 mg 1X ONCE PO Last administered on 06/26/17 10:12 ; Start 06/26/17 at 10:15; Stop 06/26/17 at 10:16; Status DC Sodium Chloride 1,000 ml @ 1,000 mls/hr Q1H IV Last administered on 06/26/17 10:12; Start 06/26/17 at 10:02; Stop 06/26/17 at 11:01; Status DC Ondansetron HCl (Zofran) 4 mg PRN Q8HRS PRN IV NAUSEA/VOMITING; Start 06/26/17 at 11:30; Stop 06/26/17 at 13:22; Status DC Furosemide (Lasix) 40 mg DAILY IVP Last administered on 06/26/17 14:21; Start 06/26/17 at 13:00; Stop 06/27/17 at 09:18; Status DC Ondansetron HCl (Zofran) 4 mg PRN Q6HRS PRN IV NAUSEA/VOMITING; Start 06/26/17 at 13:30; Stop 06/27/17 at 13:29; Status DC Acetaminophen (Tylenol) 500 mg PRN Q6HRS PRN PO MILD PAIN / TEMP; Start at 13:30; Stop 06/27/17 at 15:22; Status DC Acetaminophen/ Hydrocodone Bitart (Lortab 5/325) 1 tab PRN Q4HRS PRN PO MODERATE - SEVERE PAIN Last administered on 06/29/17 20:44; Start 06/26/17 at 13:30 Ketorolac Tromethamine (Toradol) 15 mg PRN Q6HRS PRN IV PAIN; Start 06/26/17 at 13:30; Stop 07/01/17 at 13:29 Morphine Sulfate 1 mg PRN Q2HR PRN IV PAIN; Start 06/26/17 at 13:30 Amoxicillin/ Clavulanate Potassium (Augmentin 875/ 125mg) 1 tab BID PO Last administered on 06/28/17 11:03; Start 06/26/17 at 14:15; Stop 06/28/17 at 11:52 ; Status DC Aspirin (Ecotrin) 81 mg DAILY PO Last administered on 06/30/17 08:48; Start at 14:15 Atorvastatin Calcium (Lipitor) 40 mg HS PO Last administered on 06/29/17 20:44 ; Start 06/26/17 at 21:00 Diclofenac Sodium (Voltaren) 100 julissa PRN QID PRN TP INFLAMMATION; Start at 14:15 Ferrous Sulfate (Feosol) 325 mg DAILY PO Last administered on 06/30/17 08:48; Start 06/26/17 at 17:30 Hydralazine HCl (Apresoline) 50 mg BID PO Last administered on 06/30/17 08:48 ; Start 06/26/17 at 14:15 Albuterol/ Ipratropium (Duoneb) 3 ml QID NEB Last administered on 06/30/17 07: 30; Start 06/26/17 at 17:00 Nitroglycerin (Nitrostat) 0.4 mg PRN Q5MIN PRN SL CHEST PAIN; Start 06/26/17 at 14:15 Pantoprazole Sodium (Protonix) 40 mg DAILY PO Last administered on 06/30/17 08 :49; Start 06/26/17 at 16:30 Polyethylene Glycol (miraLAX Powder BULK BOTTLE) 17 gm PRN DAILY PRN PO CONSTIPATION; Start 06/26/17 at 14:15 Senna/Docusate Sodium (Senna Plus) 2 tab PRN DAILY PRN PO CONSTIPATION; Start 06/26/17 at 14:15 Trazodone HCl (Desyrel) 100 mg HS PO Last administered on 06/29/17 20:44; Start 06/26/17 at 21:00 Lactobacillus Acidophilus (Bacid, Leila-Bid) 1 tab BID PO Last administered on 06/30/17 08:48; Start 06/26/17 at 21:00 Magnesium Hydroxide (Milk Of Magnesia) 2,400 mg PRN DAILY PRN PO CONSTIPATION; Start 06/26/17 at 14:30 Ondansetron HCl (Zofran Odt) 4 mg Q6HRS PO Last administered on 06/30/17 05:01 ; Start 06/26/17 at 14:30 Acetaminophen (Tylenol) 650 mg PRN Q6HRS PRN PO MILD PAIN / TEMP; Start at 16:00 Amlodipine Besylate (Norvasc) 10 mg DAILY PO Last administered on 06/30/17 08: 49; Start 06/26/17 at 16:00 Furosemide (Lasix) 40 mg DAILY PO Last administered on 06/30/17 08:48; Start 06/27/17 at 10:00 Vancomycin HCl (Vanco Per Pharmacy) 1 each PRN DAILY PRN MC SEE COMMENTS Last administered on 06/29/17 13:06; Start 06/28/17 at 12:00 Cefepime HCl 1 gm/ Sodium Chloride 50 ml @ 100 mls/hr Q8HRS IV Last administered on 06/30/17 05:02; Start 06/28/17 at 12:30 Vancomycin HCl 1.75 gm/Sodium Chloride 500 ml @ 250 mls/hr 1X ONCE IV Last administered on 06/28/17 14:30; Start 06/28/17 at 12:30; Stop 06/28/17 at 14:29 ; Status DC Potassium Chloride (Klor-Con) 40 meq 1X ONCE PO Last administered on 17:08; Start 06/28/17 at 14:00; Stop 06/28/17 at 14:01; Status DC Vancomycin HCl 1 gm/Sodium Chloride 250 ml @ 250 mls/hr Q24H IV Last administered on 06/29/17 16:28; Start 06/29/17 at 15:00 Vancomycin HCl 1 each 1X ONCE MC ; Start 06/30/17 at 14:30; Stop 06/30/17 at 14 :31 Albuterol Sulfate (Ventolin Neb Soln) 2.5 mg 1X ONCE NEB Last administered on 06/29/17 04:20; Start 06/29/17 at 04:15; Stop 06/29/17 at 04:16; Status DC Alprazolam (Xanax) 0.25 mg PRN Q6HRS PRN PO ANXIETY / AGITATION Last administered on 06/30/17t 08:49; Start 06/29/17 at 19:15 Active Scripts Active Reported Tylenol (Acetaminophen) 325 Mg Tablet 650 Mg PO PRN Q6HRS PRN Amlodipine Besylate 10 Mg Tablet 10 Mg PO DAILY Voltaren (Diclofenac Sodium) 100 Gm Gel..gram. 100 Gm TP PRN QID PRN Senokot-S Tablet (Sennosides/Docusate Sodium) 1 Each Tablet 2 Each PO PRN DAILY PRN Polyethylene Glycol 3350 255 Gm Powder 17 Gm PO PRN DAILY PRN NITROGLYCERIN SubLingual (Nitroglycerin) 0.4 Mg Tab.subl 0.4 Mg SL PRN Q5MIN PRN Milk Of Magnesia (Magnesium Hydroxide) 2,400 Mg/10 Ml Oral.susp 2,400 Mg PO PRN DAILY PRN Probiotic (Lactobacillus Acidophilus) 1 Each Capsule 1 Each PO BID 5 Days Ferrous Sulfate 325 Mg Tablet 325 Mg PO DAILY Augmentin 875-125 Tablet (Amoxicillin/Potassium Clav) 1 Each Tablet 1 Tab PO BID 5 Days Atorvastatin Calcium 40 Mg Tablet 40 Mg PO HS Hydralazine Hcl 50 Mg Tablet 50 Mg PO BID Duoneb 0.5-3(2.5) Mg/3 Ml (Albuterol/Ipratropium) 3 Ml Ampul.neb 3 Ml NEB QID Trazodone Hcl 50 Mg Tablet 100 Mg PO HS Zofran (Ondansetron Hcl) 4 Mg Tablet 1 Tab PO Q6HRS Protonix (Pantoprazole Sodium) 40 Mg Tablet.dr 1 Tab PO DAILY Aspir 81 (Aspirin) 81 Mg Tablet.dr 1 Tab PO DAILY Vitals/I & O Vital Sign - Last 24 Hours 06/29/17 06/29/17 06/29/17 06/29/17 11:00 11:47 15:00 15:32 Temp 97.7 97.1 97.7 97.1 Pulse 77 79 Resp 18 18 B/P (MAP) 149/73 (98) 139/62 (87) Pulse Ox 92 91 93 94 O2 Delivery Nasal Cannula Nasal Cannula Nasal Cannula Nasal Cannula O2 Flow Rate 5.0 5.0 06/29/17 06/29/17 06/29/17 06/29/17 17:22 18:22 19:00 19:30 Temp 98.0 98.0 Pulse 71 Resp 20 20 18 B/P (MAP) 120/70 (87) Pulse Ox 92 O2 Delivery Nasal Cannula Nasal Cannula Nasal Cannula O2 Flow Rate 5.0 5.0 06/29/17 06/29/17 06/29/17 06/29/17 20:02 20:44 20:44 21:44 Pulse 79 Resp 18 B/P (MAP) 141/67 Pulse Ox 96 96 96 O2 Delivery Nasal Cannula Nasal Cannula Nasal Cannula O2 Flow Rate 5.0 5.0 5.0 06/29/17 06/30/17 06/30/17 06/30/17 23:00 07:00 07:32 08:00 Temp 98.3 98.1 98.3 98.1 Pulse 81 73 Resp 18 18 B/P (MAP) 133/74 (93) 116/73 (87) Pulse Ox 90 95 98 O2 Delivery Nasal Cannula Nasal Cannula Nasal Cannula Nasal Cannula O2 Flow Rate 5.0 6.0 06/30/17 06/30/17 08:48 08:49 Pulse 87 87 B/P (MAP) 116/73 116/73 SONAL HARDEN III DO Jun 30, 2017 10:41
[2017-06-30 11:00] VITALS: BP 127/74
--- NOTE | 2017-06-30 12:09 | PDOC2 ---
CONSULT Date of Consult Date of Consult DATE: 06/30/17 TIME: 12:04 Reason for Consult Reason for Consult: RENAL FAILURE Referring Physician Referring Physician: QUITA Identification/Chief Complaint Chief Complaint SOB Problems: Source Source: Chart review History of Present Illness Reason for Visit: THIS IS A 67 YR OLD ADMITTED WITH SOB FROM HIS ASSISTED FACILITY. CR IS 1.8 AND RENAL CONSULT WAS INITIATED. HE HAS CKD STAGE 3 WITH CR OF 1.5-1.7 AT BASELINE. CURRENTLY ON ANTIBIOTICS FOR HIS PNEUMONIA. NA IS 130 TO 134 RANGE. HE IS A POOR HX AND DOES NOT PROVIDE A GOOD HX OF CURRENT OR PAST PROBLEMS Past Medical History Cardiovascular: AFIB (?), CAD, CHF, HTN, PA, Hyperlipidemia Pulmonary: Other (severe pulmonary HTN PAP 99 mmHg) CENTRAL NERVOUS SYSTEM: CVA GI: GERD Heme/Onc: Anemia NOS Hepatobiliary: Hep A/B/C (c) Psych: Depression, Schizophrenia Musculoskeletal: low back pain, Osteoarthritis Rheumatologic: No pertinent hx Infectious disease: Other (HEp C; MRSA) ENT: No pertinent hx Renal/: Chronic renal insuff Endocrine: Diabetes Dermatology: No pertinent hx Past Surgical History Past Surgical History: CABG (with AVR), Other (PEG placement; right thoracotomy ) Family History Family History: Hypertension, Family History Unknown Social History <1 pack per day ALCOHOL: none Drugs: Cocaine Lives: Alf Domestic Violence: Neg Current Problem List Problem List Problems Medical Problems: (1) Chest pain Status: Acute (2) Schizophrenia Status: Acute Current Medications Current Medications Current Medications Aspirin (Meaghan Aspirin) 325 mg 1X ONCE PO Last administered on 06/26/17 10:12 ; Start 06/26/17 at 10:15; Stop 06/26/17 at 10:16; Status DC Sodium Chloride 1,000 ml @ 1,000 mls/hr Q1H IV Last administered on 06/26/17 10:12; Start 06/26/17 at 10:02; Stop 06/26/17 at 11:01; Status DC Ondansetron HCl (Zofran) 4 mg PRN Q8HRS PRN IV NAUSEA/VOMITING; Start 06/26/17 at 11:30; Stop 06/26/17 at 13:22; Status DC Furosemide (Lasix) 40 mg DAILY IVP Last administered on 06/26/17 14:21; Start 06/26/17 at 13:00; Stop 06/27/17 at 09:18; Status DC Ondansetron HCl (Zofran) 4 mg PRN Q6HRS PRN IV NAUSEA/VOMITING; Start 06/26/17 at 13:30; Stop 06/27/17 at 13:29; Status DC Acetaminophen (Tylenol) 500 mg PRN Q6HRS PRN PO MILD PAIN / TEMP; Start at 13:30; Stop 06/27/17 at 15:22; Status DC Acetaminophen/ Hydrocodone Bitart (Lortab 5/325) 1 tab PRN Q4HRS PRN PO MODERATE - SEVERE PAIN Last administered on 06/29/17 20:44; Start 06/26/17 at 13:30 Ketorolac Tromethamine (Toradol) 15 mg PRN Q6HRS PRN IV PAIN; Start 06/26/17 at 13:30; Stop 07/01/17 at 13:29 Morphine Sulfate 1 mg PRN Q2HR PRN IV PAIN; Start 06/26/17 at 13:30 Amoxicillin/ Clavulanate Potassium (Augmentin 875/ 125mg) 1 tab BID PO Last administered on 06/28/17 11:03; Start 06/26/17 at 14:15; Stop 06/28/17 at 11:52 ; Status DC Aspirin (Ecotrin) 81 mg DAILY PO Last administered on 06/30/17 08:48; Start at 14:15 Atorvastatin Calcium (Lipitor) 40 mg HS PO Last administered on 06/29/17 20:44 ; Start 06/26/17 at 21:00 Diclofenac Sodium (Voltaren) 100 julissa PRN QID PRN TP INFLAMMATION; Start at 14:15 Ferrous Sulfate (Feosol) 325 mg DAILY PO Last administered on 06/30/17 08:48; Start 06/26/17 at 17:30 Hydralazine HCl (Apresoline) 50 mg BID PO Last administered on 06/30/17 08:48 ; Start 06/26/17 at 14:15 Albuterol/ Ipratropium (Duoneb) 3 ml QID NEB Last administered on 06/30/17 11: 36; Start 06/26/17 at 17:00 Nitroglycerin (Nitrostat) 0.4 mg PRN Q5MIN PRN SL CHEST PAIN; Start 06/26/17 at 14:15 Pantoprazole Sodium (Protonix) 40 mg DAILY PO Last administered on 06/30/17 08 :49; Start 06/26/17 at 16:30 Polyethylene Glycol (miraLAX Powder BULK BOTTLE) 17 gm PRN DAILY PRN PO CONSTIPATION; Start 06/26/17 at 14:15 Senna/Docusate Sodium (Senna Plus) 2 tab PRN DAILY PRN PO CONSTIPATION; Start 06/26/17 at 14:15 Trazodone HCl (Desyrel) 100 mg HS PO Last administered on 06/29/17 20:44; Start 06/26/17 at 21:00 Lactobacillus Acidophilus (Bacid, Leila-Bid) 1 tab BID PO Last administered on 06/30/17 08:48; Start 06/26/17 at 21:00 Magnesium Hydroxide (Milk Of Magnesia) 2,400 mg PRN DAILY PRN PO CONSTIPATION; Start 06/26/17 at 14:30 Ondansetron HCl (Zofran Odt) 4 mg Q6HRS PO Last administered on 06/30/17 11:39 ; Start 06/26/17 at 14:30 Acetaminophen (Tylenol) 650 mg PRN Q6HRS PRN PO MILD PAIN / TEMP; Start at 16:00 Amlodipine Besylate (Norvasc) 10 mg DAILY PO Last administered on 06/30/17 08: 49; Start 06/26/17 at 16:00 Furosemide (Lasix) 40 mg DAILY PO Last administered on 06/30/17 08:48; Start 06/27/17 at 10:00 Vancomycin HCl (Vanco Per Pharmacy) 1 each PRN DAILY PRN MC SEE COMMENTS Last administered on 06/29/17 13:06; Start 06/28/17 at 12:00 Cefepime HCl 1 gm/ Sodium Chloride 50 ml @ 100 mls/hr Q8HRS IV Last administered on 06/30/17 05:02; Start 06/28/17 at 12:30 Vancomycin HCl 1.75 gm/Sodium Chloride 500 ml @ 250 mls/hr 1X ONCE IV Last administered on 06/28/17 14:30; Start 06/28/17 at 12:30; Stop 06/28/17 at 14:29 ; Status DC Potassium Chloride (Klor-Con) 40 meq 1X ONCE PO Last administered on 17:08; Start 06/28/17 at 14:00; Stop 06/28/17 at 14:01; Status DC Vancomycin HCl 1 gm/Sodium Chloride 250 ml @ 250 mls/hr Q24H IV Last administered on 06/29/17 16:28; Start 06/29/17 at 15:00 Vancomycin HCl 1 each 1X ONCE MC ; Start 06/30/17 at 14:30; Stop 06/30/17 at 14 :31 Albuterol Sulfate (Ventolin Neb Soln) 2.5 mg 1X ONCE NEB Last administered on 06/29/17 04:20; Start 06/29/17 at 04:15; Stop 06/29/17 at 04:16; Status DC Alprazolam (Xanax) 0.25 mg PRN Q6HRS PRN PO ANXIETY / AGITATION Last administered on 06/30/17 08:49; Start 06/29/17 at 19:15 Active Scripts Active Reported Tylenol (Acetaminophen) 325 Mg Tablet 650 Mg PO PRN Q6HRS PRN Amlodipine Besylate 10 Mg Tablet 10 Mg PO DAILY Voltaren (Diclofenac Sodium) 100 Gm Gel..gram. 100 Gm TP PRN QID PRN Senokot-S Tablet (Sennosides/Docusate Sodium) 1 Each Tablet 2 Each PO PRN DAILY PRN Polyethylene Glycol 3350 255 Gm Powder 17 Gm PO PRN DAILY PRN NITROGLYCERIN SubLingual (Nitroglycerin) 0.4 Mg Tab.subl 0.4 Mg SL PRN Q5MIN PRN Milk Of Magnesia (Magnesium Hydroxide) 2,400 Mg/10 Ml Oral.susp 2,400 Mg PO PRN DAILY PRN Probiotic (Lactobacillus Acidophilus) 1 Each Capsule 1 Each PO BID 5 Days Ferrous Sulfate 325 Mg Tablet 325 Mg PO DAILY Augmentin 875-125 Tablet (Amoxicillin/Potassium Clav) 1 Each Tablet 1 Tab PO BID 5 Days Atorvastatin Calcium 40 Mg Tablet 40 Mg PO HS Hydralazine Hcl 50 Mg Tablet 50 Mg PO BID Duoneb 0.5-3(2.5) Mg/3 Ml (Albuterol/Ipratropium) 3 Ml Ampul.neb 3 Ml NEB QID Trazodone Hcl 50 Mg Tablet 100 Mg PO HS Zofran (Ondansetron Hcl) 4 Mg Tablet 1 Tab PO Q6HRS Protonix (Pantoprazole Sodium) 40 Mg Tablet.dr 1 Tab PO DAILY Aspir 81 (Aspirin) 81 Mg Tablet.dr 1 Tab PO DAILY Allergies Allergies: Coded Allergies: isoniazid (Verified Allergy, Intermediate, 01/01/15) thiamine (vitamin B1) (Verified Allergy, Intermediate, 01/01/15) I S O L A T I O N *CONTACT* (Verified Allergy, Unknown, 01/04/15) mrsa + ROS Review of System UNABLE TO OBTAIN FROM THIS PT Physical Exam General: Alert, Cooperative, No acute distress HEENT: Atraumatic, PERRLA Lungs: Clear to auscultation Heart: Regular rate, Normal S1, Normal S2 Abdomen: Normal bowel sounds, Soft, No tenderness Extremities: No clubbing, No edema Skin: No rashes Neuro: Other (NO ASYMMETRY) Psych/Mental Status: Other (FLAT AFFECT) MUSCULOSKELETAL: No deformity, No swelling Vitals VITALS Vital Signs Date Time Temp Pulse Resp B/P (MAP) Pulse Ox O2 Delivery O2 Flow Rate FiO2 06/30/17 11:38 95 Nasal Cannula 5.0 06/30/17 11:00 97.6 76 18 127/74 (91) 97.6 Labs Labs Laboratory Tests Test 06/29/17 04:05 06/30/17 04:00 White Blood Count 6.3 x10^3/uL (4.0-11.0) 5.0 x10^3/uL (4.0-11.0) Red Blood Count 2.81 x10^6/uL (4.30-5.70) 2.61 x10^6/uL (4.30-5.70) Hemoglobin 7.9 g/dL (13.0-17.5) 7.5 g/dL (13.0-17.5) Hematocrit 23.6 % (39.0-53.0) 21.7 % (39.0-53.0) Mean Corpuscular Volume 84 fL (79-100) 83 fL (79-100) Mean Corpuscular Hemoglobin 28 pg (25-35) 29 pg (25-35) Mean Corpuscular Hemoglobin Concent 34 g/dL (31-37) 35 g/dL (31-37) Red Cell Distribution Width 18.2 % (11.5-14.5) 17.9 % (11.5-14.5) Platelet Count 112 x10^3/uL (140-400) 113 x10^3/uL (140-400) Neutrophils (%) (Auto) 72 % (31-73) 66 % (31-73) Lymphocytes (%) (Auto) 9 % (24-48) 10 % (24-48) Monocytes (%) (Auto) 12 % (0-9) 13 % (0-9) Eosinophils (%) (Auto) 7 % (0-3) 10 % (0-3) Basophils (%) (Auto) 1 % (0-3) 1 % (0-3) Neutrophils # (Auto) 4.5 x10^3uL (1.8-7.7) 3.3 x10^3uL (1.8-7.7) Lymphocytes # (Auto) 0.6 x10^3/uL (1.0-4.8) 0.5 x10^3/uL (1.0-4.8) Monocytes # (Auto) 0.7 x10^3/uL (0.0-1.1) 0.6 x10^3/uL (0.0-1.1) Eosinophils # (Auto) 0.4 x10^3/uL (0.0-0.7) 0.5 x10^3/uL (0.0-0.7) Basophils # (Auto) 0.0 x10^3/uL (0.0-0.2) 0.1 x10^3/uL (0.0-0.2) Sodium Level 131 mmol/L (136-145) 130 mmol/L (136-145) Potassium Level 4.0 mmol/L (3.5-5.1) 3.8 mmol/L (3.5-5.1) Chloride Level 97 mmol/L (98-107) 97 mmol/L (98-107) Carbon Dioxide Level 25 mmol/L (21-32) 25 mmol/L (21-32) Anion Gap 9 (6-14) 8 (6-14) Blood Urea Nitrogen 25 mg/dL (8-26) 25 mg/dL (8-26) Creatinine 1.7 mg/dL (0.7-1.3) 1.8 mg/dL (0.7-1.3) Estimated GFR (Cockcroft-Gault) 40.7 38.1 Glucose Level 96 mg/dL (70-99) 102 mg/dL (70-99) Calcium Level 8.8 mg/dL (8.5-10.1) 8.4 mg/dL (8.5-10.1) Laboratory Tests Test 06/30/17 04:00 White Blood Count 5.0 x10^3/uL (4.0-11.0) Red Blood Count 2.61 x10^6/uL (4.30-5.70) Hemoglobin 7.5 g/dL (13.0-17.5) Hematocrit 21.7 % (39.0-53.0) Mean Corpuscular Volume 83 fL (79-100) Mean Corpuscular Hemoglobin 29 pg (25-35) Mean Corpuscular Hemoglobin Concent 35 g/dL (31-37) Red Cell Distribution Width 17.9 % (11.5-14.5) Platelet Count 113 x10^3/uL (140-400) Neutrophils (%) (Auto) 66 % (31-73) Lymphocytes (%) (Auto) 10 % (24-48) Monocytes (%) (Auto) 13 % (0-9) Eosinophils (%) (Auto) 10 % (0-3) Basophils (%) (Auto) 1 % (0-3) Neutrophils # (Auto) 3.3 x10^3uL (1.8-7.7) Lymphocytes # (Auto) 0.5 x10^3/uL (1.0-4.8) Monocytes # (Auto) 0.6 x10^3/uL (0.0-1.1) Eosinophils # (Auto) 0.5 x10^3/uL (0.0-0.7) Basophils # (Auto) 0.1 x10^3/uL (0.0-0.2) Sodium Level 130 mmol/L (136-145) Potassium Level 3.8 mmol/L (3.5-5.1) Chloride Level 97 mmol/L (98-107) Carbon Dioxide Level 25 mmol/L (21-32) Anion Gap 8 (6-14) Blood Urea Nitrogen 25 mg/dL (8-26) Creatinine 1.8 mg/dL (0.7-1.3) Estimated GFR (Cockcroft-Gault) 38.1 Glucose Level 102 mg/dL (70-99) Calcium Level 8.4 mg/dL (8.5-10.1) Assessment/Plan Assessment/Plan IMP MILD HYPONATREMIA-STABLE CKD STAGE 3-BASELINE CR IS 1.5-1.7-CURRENTLY 1.8 PNEUMONIA SCHIZOPHRENIA PLAN SUPPORTIVE CARE RENAL FUNCTION IS STABLE WILL FOLLOW NEEDED AVOID TORADOL NINO JEROME MD Jun 30, 2017 12:09
--- NOTE | 2017-06-30 13:05 | PDOC ---
PULMONARY PROGRESS NOTES Subjective PT WITH NO INCREASE SOA Vitals Vital Signs Date Time Temp Pulse Resp B/P (MAP) Pulse Ox O2 Delivery O2 Flow Rate FiO2 06/30/17 11:38 95 Nasal Cannula 5.0 06/30/17 11:00 97.6 76 18 127/74 (91) 97.6 ROS: No Nausea, No Chest Pain, No Abdominal Pain, No Increase Cough General: Alert, No acute distress Lungs: Clear Cardiovascular: S1, S2 Abdomen: Soft Neuro Exam: Alert Extremities: No Edema, Other Skin: Warm Labs Laboratory Tests Test 06/29/17 04:05 06/30/17 04:00 White Blood Count 6.3 x10^3/uL (4.0-11.0) 5.0 x10^3/uL (4.0-11.0) Red Blood Count 2.81 x10^6/uL (4.30-5.70) 2.61 x10^6/uL (4.30-5.70) Hemoglobin 7.9 g/dL (13.0-17.5) 7.5 g/dL (13.0-17.5) Hematocrit 23.6 % (39.0-53.0) 21.7 % (39.0-53.0) Mean Corpuscular Volume 84 fL (79-100) 83 fL (79-100) Mean Corpuscular Hemoglobin 28 pg (25-35) 29 pg (25-35) Mean Corpuscular Hemoglobin Concent 34 g/dL (31-37) 35 g/dL (31-37) Red Cell Distribution Width 18.2 % (11.5-14.5) 17.9 % (11.5-14.5) Platelet Count 112 x10^3/uL (140-400) 113 x10^3/uL (140-400) Neutrophils (%) (Auto) 72 % (31-73) 66 % (31-73) Lymphocytes (%) (Auto) 9 % (24-48) 10 % (24-48) Monocytes (%) (Auto) 12 % (0-9) 13 % (0-9) Eosinophils (%) (Auto) 7 % (0-3) 10 % (0-3) Basophils (%) (Auto) 1 % (0-3) 1 % (0-3) Neutrophils # (Auto) 4.5 x10^3uL (1.8-7.7) 3.3 x10^3uL (1.8-7.7) Lymphocytes # (Auto) 0.6 x10^3/uL (1.0-4.8) 0.5 x10^3/uL (1.0-4.8) Monocytes # (Auto) 0.7 x10^3/uL (0.0-1.1) 0.6 x10^3/uL (0.0-1.1) Eosinophils # (Auto) 0.4 x10^3/uL (0.0-0.7) 0.5 x10^3/uL (0.0-0.7) Basophils # (Auto) 0.0 x10^3/uL (0.0-0.2) 0.1 x10^3/uL (0.0-0.2) Sodium Level 131 mmol/L (136-145) 130 mmol/L (136-145) Potassium Level 4.0 mmol/L (3.5-5.1) 3.8 mmol/L (3.5-5.1) Chloride Level 97 mmol/L (98-107) 97 mmol/L (98-107) Carbon Dioxide Level 25 mmol/L (21-32) 25 mmol/L (21-32) Anion Gap 9 (6-14) 8 (6-14) Blood Urea Nitrogen 25 mg/dL (8-26) 25 mg/dL (8-26) Creatinine 1.7 mg/dL (0.7-1.3) 1.8 mg/dL (0.7-1.3) Estimated GFR (Cockcroft-Gault) 40.7 38.1 Glucose Level 96 mg/dL (70-99) 102 mg/dL (70-99) Calcium Level 8.8 mg/dL (8.5-10.1) 8.4 mg/dL (8.5-10.1) Laboratory Tests Test 06/30/17 04:00 White Blood Count 5.0 x10^3/uL (4.0-11.0) Red Blood Count 2.61 x10^6/uL (4.30-5.70) Hemoglobin 7.5 g/dL (13.0-17.5) Hematocrit 21.7 % (39.0-53.0) Mean Corpuscular Volume 83 fL (79-100) Mean Corpuscular Hemoglobin 29 pg (25-35) Mean Corpuscular Hemoglobin Concent 35 g/dL (31-37) Red Cell Distribution Width 17.9 % (11.5-14.5) Platelet Count 113 x10^3/uL (140-400) Neutrophils (%) (Auto) 66 % (31-73) Lymphocytes (%) (Auto) 10 % (24-48) Monocytes (%) (Auto) 13 % (0-9) Eosinophils (%) (Auto) 10 % (0-3) Basophils (%) (Auto) 1 % (0-3) Neutrophils # (Auto) 3.3 x10^3uL (1.8-7.7) Lymphocytes # (Auto) 0.5 x10^3/uL (1.0-4.8) Monocytes # (Auto) 0.6 x10^3/uL (0.0-1.1) Eosinophils # (Auto) 0.5 x10^3/uL (0.0-0.7) Basophils # (Auto) 0.1 x10^3/uL (0.0-0.2) Sodium Level 130 mmol/L (136-145) Potassium Level 3.8 mmol/L (3.5-5.1) Chloride Level 97 mmol/L (98-107) Carbon Dioxide Level 25 mmol/L (21-32) Anion Gap 8 (6-14) Blood Urea Nitrogen 25 mg/dL (8-26) Creatinine 1.8 mg/dL (0.7-1.3) Estimated GFR (Cockcroft-Gault) 38.1 Glucose Level 102 mg/dL (70-99) Calcium Level 8.4 mg/dL (8.5-10.1) Medications Active Scripts Medications Dose Route/Sig Max Daily Dose Days Date Category Tylenol (Acetaminophen) 325 Mg Tablet 650 Mg PO PRN Q6HRS PRN 06/26/17 Reported Amlodipine Besylate 10 Mg Tablet 10 Mg PO DAILY 06/26/17 Reported Voltaren (Diclofenac Sodium) 100 Gm Gel..gram. 100 Gm TP PRN QID PRN 06/26/17 Reported Senokot-S Tablet (Sennosides/Docusate Sodium) 1 Each Tablet 2 Each PO PRN DAILY PRN 06/26/17 Reported Polyethylene Glycol 3350 255 Gm Powder 17 Gm PO PRN DAILY PRN 06/26/17 Reported NITROGLYCERIN SubLingual (Nitroglycerin) 0.4 Mg Tab.subl 0.4 Mg SL PRN Q5MIN PRN 06/26/17 Reported Milk Of Magnesia (Magnesium Hydroxide) 2,400 Mg/10 Ml Oral.susp 2,400 Mg PO PRN DAILY PRN 06/26/17 Reported Probiotic (Lactobacillus Acidophilus) 1 Each Capsule 1 Each PO BID 5 06/26/17 Reported Ferrous Sulfate 325 Mg Tablet 325 Mg PO DAILY 06/26/17 Reported Augmentin 875-125 Tablet (Amoxicillin/Potassium Clav) 1 Each Tablet 1 Tab PO BID 5 06/26/17 Reported Atorvastatin Calcium 40 Mg Tablet 40 Mg PO HS 06/26/17 Reported Hydralazine Hcl 50 Mg Tablet 50 Mg PO BID 06/26/17 Reported Duoneb 0.5-3(2.5) Mg/3 Ml (Albuterol/Ipratropium) 3 Ml Ampul.neb 3 Ml NEB QID 06/26/17 Reported Trazodone Hcl 50 Mg Tablet 100 Mg PO HS 06/26/17 Reported Zofran (Ondansetron Hcl) 4 Mg Tablet 1 Tab PO Q6HRS 01/01/15 Reported Protonix (Pantoprazole Sodium) 40 Mg Tablet.dr 1 Tab PO DAILY 01/01/15 Reported Aspir 81 (Aspirin) 81 Mg Tablet.dr 1 Tab PO DAILY 01/01/15 Reported Impression . 1. Acute hypoxic respiratory failure secondary to suspected GRAM NEG/POS PNEUMONIA 2. Abnormal chest x-ray with increasing pleural thickening on the right side 3. Severe pulmonary hypertension demonstrated on previous echo and on a recent echo as well. Previous CT angiogram was negative. 4. History of prior thoracotomy in the past, details of which are not available .Pt does not remember anything. 5. Schizophrenia Impression: 1. Left pleural effusion including fluid loculated in the fissure similar to the old study. 2. Left lower lobe atelectasis secondary to the fusion. 3. Scarring in the lingula without change. 4. Chronic pleural thickening on the right. 5. Chronic right lower lobe infiltrates and scarring and in the lateral chest on the right. 6. Mediastinal adenopathy similar to the old exam. Plan . REVIEWED THE CT NO MAJOR CHANGE IN COMPARISON TO PREVIOUS CT WILL NEED A RIGHT HEART CATH TO CONFIRM PULM HTN CONTINUE SAME FOR NOW I DO NOT RECOMMEND CHEST TUBE PLACEMENT SIGRID DAMON MD Jun 30, 2017 13:05
[2017-06-30 15:00] VITALS: BP 120/62
[2017-06-30] MEDS: VANCOMYCIN PER PHARMACY MC PRN (15:19)
[2017-06-30] MEDS: VANCOMYCIN 1 GM in IV NORMAL SALINE 250ML 250 ML IV SCH (15:28)
--- NOTE | 2017-07-16 12:29 | DS ---
DATE OF DISCHARGE: 06/30/2017 ADMISSION DIAGNOSIS: Chest pain. 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 HOSPITAL COURSE: The patient is a pleasant 67-year-old male with multiple medical issues. Basically, presented with chest pain. We admitted him. We did a full workup. His cardiac workup was negative, but we are concerned he could have a possible risk for mesothelioma. He does have some calcium plaquing on his pleura. He did well. We discharged to skilled. DISPOSITION: Skilled. SONAL HARDEN DO DR: DWAYNE/crystal JOB#: [id number] / [id number]
== END 2017-06-30 16:45 | DRG 177 ==
LOC: ER 09:58 → 5 NORTH 11:17
PROVIDERS: ADMIT Internal Medicine; ATTEND Internal Medicine
DX: J69.0 Pneumonitis due to inhalation of food and vomit (principal); I50.43 Acute on chronic combined systolic (congestive) and diastolic (congestive) heart failure; J96.01 Acute respiratory failure with hypoxia; N17.9 Acute kidney failure, unspecified; I13.0 Hypertensive heart and chronic kidney disease with heart failure and stage 1 through stage 4 chronic kidney disease, or unspecified chronic kidney disease; J44.0 Chronic obstructive pulmonary disease with (acute) lower respiratory infection; J44.1 Chronic obstructive pulmonary disease with (acute) exacerbation; J98.11 Atelectasis; E87.1 Hypo-osmolality and hyponatremia; F03.90 Unspecified dementia, unspecified severity, without behavioral disturbance, psychotic disturbance, mood disturbance, and anxiety; E11.22 Type 2 diabetes mellitus with diabetic chronic kidney disease; N18.3 Chronic kidney disease, stage 3 (moderate); R07.89 Other chest pain; D64.9 Anemia, unspecified; E87.5 Hyperkalemia; F17.210 Nicotine dependence, cigarettes, uncomplicated; F20.9 Schizophrenia, unspecified; I25.10 Atherosclerotic heart disease of native coronary artery without angina pectoris; I44.7 Left bundle-branch block, unspecified; I48.91 Unspecified atrial fibrillation; K21.9 Gastro-esophageal reflux disease without esophagitis; E78.5 Hyperlipidemia, unspecified; E78.00 Pure hypercholesterolemia, unspecified; Z82.49 Family history of ischemic heart disease and other diseases of the circulatory system; Z86.73 Personal history of transient ischemic attack (TIA), and cerebral infarction without residual deficits; Z91.19 Patient's noncompliance with other medical treatment and regimen; Z93.1 Gastrostomy status; Z95.1 Presence of aortocoronary bypass graft; Z95.2 Presence of prosthetic heart valve; Z87.898 Personal history of other specified conditions; Z88.1 Allergy status to other antibiotic agents; Z88.8 Allergy status to other drugs, medicaments and biological substances
CPT/HCPCS: 36415; 71010; 71250; 80047; 80048; 80061; 80202; 80307; 83735; 83880; 84484; 85025; 87641; 93005; 93306; 94640; 94760; 96360; J0692; J1940; J3370; J7030; J7040; J7050; J7613; J7620; Q0162; 97110; 97116; 99285-25; G0479

== ENCOUNTER 2017-07-10 12:39 | Inpatient (IN) | payer MEDICARE ==
[~2017-07-10] VITALS: Ht 177.8 cm; Wt 75.0 kg
[~2017-07-10 12:39] MED LIST changes: +AMLO10TA2 PO; +AMOX1TAB61 PO; +ATOR40TA59 PO; +DICL100G18 TP; +FERR-26 PO; +HYDR-2869 PO; +IPRA3AMP NEB; +LACT1CAP6 PO; +MAGN2400 PO; +NITR0.4T22 SL; +POLY255P PO; +SENN-37 PO; +TRAZ50TA15 PO
[2017-07-10 13:45] VITALS: BP 166/81
[2017-07-10] MEDS ORDERED: 0.9 % SODIUM CHLORIDE 10 ML DISP.SYRIN. IV PRN (14:00)
[2017-07-10] MEDS ORDERED: MAG HYDROX/ALUMINUM HYD/SIMETH 30 ML ORAL.SUSP PO PRN (14:00)
[2017-07-10] MEDS ORDERED: MAGNESIUM HYDROXIDE 2,400 MG/30 ML ORAL.SUSP. PO PRN ×2 (14:00→14:30)
[2017-07-10] MEDS ORDERED: PROCHLORPERAZINE 10 MG/2 ML VIAL. IV PRN (14:00)
[2017-07-10] MEDS ORDERED: DICLOFENAC SODIUM 1% TOPICAL GEL 100GM TUBE. TP PRN (14:15)
[2017-07-10] MEDS ORDERED: POLYETHYLENE GLYCOL 3350 238 GM POWDER PO PRN (14:15)
--- NOTE | 2017-07-10 14:24 | HP ---
ADMIT DATE: 07/10/2017 CHIEF COMPLAINT: Chest pain. HISTORY OF PRESENT ILLNESS: The patient is a 67-year-old gentleman [facility] with multiple medical and psychiatric issues, who presented to the Emergency Room at [facility] this morning with left-sided chest pain. He relates that this is sharp pain over his entire left chest, has been going on since this morning. Initially states it is a 10/10. When I remind him that people with a 10/10 chest pain typically do not want to eat because there are so miserable, he gradually decreases the pain level to 4. He states that he has been short of breath as well, is typically on 2-4 liters of O2 at home. He has been diagnosed with pneumonia, states this was today, but clearly has been on antibiotics on an outpatient basis as well. He denies any nausea, vomiting, although apparently told the Emergency Room doctor that he is having loose stools. He was transferred to [facility] secondary to multiple issues including chest pain, pneumonia and anemia with hemoglobin of 7.4, 2 g below his baseline. PAST MEDICAL HISTORY: Aortic stenosis, status post replacement; CHF; hypertension; hyperlipidemia; COPD, O2 dependent; atrial fibrillation; GERD; dysphagia; diabetes; schizophrenia. PAST SURGICAL HISTORY: Status post CABG and aortic valve replacement, also had maze procedure. He is status post back surgery. FAMILY HISTORY: Both parents passed of cancers. He is unsure what type. SOCIAL HISTORY: States he quit smoking cigarettes 5 days ago. No alcohol, no drugs. REVIEW OF SYSTEMS: Positive as per HPI. Denies any other symptoms in rest of organ system review. PHYSICAL EXAMINATION: VITAL SIGNS: Blood pressure of 166/82, heart rate of 78, respiratory rate at 22. He is satting 85% on 6 liters, afebrile. GENERAL: This is a well-nourished 67-year-old gentleman, awake, alert, in no acute distress, somewhat inappropriate in interactions with yelling and not quite appropriate answers. HEENT: Shows no scleral icterus. Oral mucosa is pink and moist. NECK: Supple, without any lymphadenopathy. LUNGS: Clear. HEART: Has regular rate and rhythm. ABDOMEN: Has positive bowel sounds, soft, nontender. EXTREMITIES: Show no edema. SKIN: Warm, soft and dry without any rash. LABORATORY DATA: CBC with a WBC of 7.5, hemoglobin 7.4, MCV of 85, platelets of 161. Chemistries with a BUN and creatinine of 35 and 1.8. Of note, all his labs are essentially identical to labs from 06/30 when he was discharged from [facility]. LFTs essentially within normal limits. IMAGING: Chest x-ray shows cardiomegaly and worsening moderate patchy bilateral pulmonary infiltrates suggesting pulmonary edema versus pneumonia. Ultrasound of the lower extremities shows a 2.4 x 3.7 cm fluid collection in the left popliteal fossa comparable with a Weber's cyst, no DVT in either extremity. ASSESSMENT AND PLAN: The patient is a 67-year-old snf resident, who presents with left-sided chest pain and imaging consistent with worsening congestive heart failure. He actually had been seen by both Pulmonary as well as Cardiology Services at his recent admission about a week ago. We will reconsult both services. He does have significant pulmonary hypertension and pleural effusion, although echo did not reveal significant heart failure. Right heart catheterization may be an option for diagnosis. In the meantime, we will continue his medications. We will keep him on p.o. antibiotics as he has no other signs of ongoing infection at this time. He did have infectious pneumonia during previous admit, and treated with IV antibiotics which were switched to p.o. at time of discharge. The patient does have significant history of heart disease including coronary artery disease status post CABG with AVR. His left-sided chest pain is somewhat atypical. We will obtain CTA to rule out pulmonary embolus. He does have multiple other medical issues including chronic renal insufficiency and now worsening hyponatremia. We will obtain renal consult as well. For his diabetes, home medications will be continued, insulin sliding scale will be added. For all his other medical issues, home medications will be continued. JYOTSNA HELMS MD DR: MARSHALL/nts JOB#: [id number] / [id number] DEVON
[2017-07-10] MEDS: ONDANSETRON ODT 4 MG TAB.RAPDIS. PO SCH ×2 (14:30→17:51)
--- NOTE | 2017-07-10 14:31 | EKG ---
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
[2017-07-10 14:49] LABS: BASO % 1 % (0-3); EOS % 0 % (0-3); HEMATOCRIT 23.6 % (39.0-53.0); HEMOGLOBIN 7.9 g/dL (13.0-17.5); LYMPH # 0.1 x10^3/uL (1.0-4.8); LYMPH % 2 % (24-48); MEAN CORPUSCULAR HEMOGLOBIN 28 pg (25-35); MEAN CORPUSCULAR HGB CONC 34 g/dL (31-37); MEAN CORPUSCULAR VOLUME 84 fL (79-100); MONO % 1 % (0-9); NEUT % 97 % (31-73); PLATELET COUNT 143 x10^3/uL (140-400); RED BLOOD COUNT 2.79 x10^6/uL (4.30-5.70); RED CELL DISTRIBUTION WIDTH 17.8 % (11.5-14.5); WHITE BLOOD COUNT 6.8 x10^3/uL (4.0-11.0)
[2017-07-10 15:00] LABS: INR 1.2 (0.8-1.1); PROTHROMBIN TIME PATIENT 14.3 SEC (11.7-14.0)
[2017-07-10] MEDS ORDERED: guaiFENesin DM 200MG/20MG 10 ML SYRUP PO PRN (15:00)
[2017-07-10] MEDS: ASPIRIN ENTERIC COATED 81 MG TABLET.DR. PO SCH (15:00)
[2017-07-10 15:08] LABS: ALBUMIN 3.1 g/dL (3.4-5.0); ALBUMIN/GLOBULIN RATIO 0.6 (1.0-1.7); CALCIUM 9.1 mg/dL (8.5-10.1); GFR 33.7; MAGNESIUM 1.8 mg/dL (1.8-2.4); PHOSPHORUS 4.3 mg/dL (2.6-4.7); TOTAL BILIRUBIN 0.4 mg/dL (0.2-1.0); TOTAL PROTEIN 7.9 g/dL (6.4-8.2)
[2017-07-10 15:35] LABS: ANISOCYTOSIS SLIGHT; OVALOCYTES FEW; PLT ESTIMATE ADEQUATE (ADEQUATE); POLYCHROMASIA SLIGHT; SCHISTOCYTES OCC
[2017-07-10 15:36] LABS: ACANTHOCYTES OCC
[2017-07-10] MEDS: IPRATRPIUM/ALBUTEROL 0.5/2.5MG 3 ML NEBU. NEB SCH ×2 (16:00→19:53)
--- NOTE | 2017-07-10 16:16 | PDOC ---
CARDIO Progress Notes Date and Time Date of Service 07/10/2017 Time of Evaluation 1600 Subjective Subjective: Other (Positive for reproducible CP, SOA, No nausea, palpitations and complains of abdominal fullness) Vitals Vitals Vital Signs Date Time Temp Pulse Resp B/P (MAP) Pulse Ox O2 Delivery O2 Flow Rate FiO2 07/10/17 13:45 97.6 78 22 166/81 (109) 85 Nasal Cannula 6.0 97.6 Weight Weight [ ] Laboratory Labs Laboratory Tests Test 07/10/17 14:35 White Blood Count 6.8 x10^3/uL (4.0-11.0) Red Blood Count 2.79 x10^6/uL (4.30-5.70) Hemoglobin 7.9 g/dL (13.0-17.5) Hematocrit 23.6 % (39.0-53.0) Mean Corpuscular Volume 84 fL (79-100) Mean Corpuscular Hemoglobin 28 pg (25-35) Mean Corpuscular Hemoglobin Concent 34 g/dL (31-37) Red Cell Distribution Width 17.8 % (11.5-14.5) Platelet Count 143 x10^3/uL (140-400) Neutrophils (%) (Auto) 97 % (31-73) Lymphocytes (%) (Auto) 2 % (24-48) Monocytes (%) (Auto) 1 % (0-9) Eosinophils (%) (Auto) 0 % (0-3) Basophils (%) (Auto) 1 % (0-3) Neutrophils # (Auto) 6.6 x10^3uL (1.8-7.7) Lymphocytes # (Auto) 0.1 x10^3/uL (1.0-4.8) Monocytes # (Auto) 0.1 x10^3/uL (0.0-1.1) Eosinophils # (Auto) 0.0 x10^3/uL (0.0-0.7) Basophils # (Auto) 0.0 x10^3/uL (0.0-0.2) Segmented Neutrophils % 97 % (35-66) Lymphocytes % 3 % (24-48) Platelet Estimate Adequate (ADEQUATE) Polychromasia Slight Anisocytosis Slight Ovalocytes Few Acanthocytes Occ Schistocytes Occ Prothrombin Time 14.3 SEC (11.7-14.0) Prothromb Time International Ratio 1.2 (0.8-1.1) Activated Partial Thromboplast Time 33 SEC (24-38) D-Dimer (Zayda) 1.43 ug/mlFEU (0.00-0.50) Sodium Level 139 mmol/L (136-145) Potassium Level 4.0 mmol/L (3.5-5.1) Chloride Level 102 mmol/L (98-107) Carbon Dioxide Level 25 mmol/L (21-32) Anion Gap 12 (6-14) Blood Urea Nitrogen 36 mg/dL (8-26) Creatinine 2.0 mg/dL (0.7-1.3) Estimated GFR (Cockcroft-Gault) 33.7 BUN/Creatinine Ratio 18 (6-20) Glucose Level 200 mg/dL (70-99) Calcium Level 9.1 mg/dL (8.5-10.1) Phosphorus Level 4.3 mg/dL (2.6-4.7) Magnesium Level 1.8 mg/dL (1.8-2.4) Total Bilirubin 0.4 mg/dL (0.2-1.0) Aspartate Amino Transf (AST/SGOT) 26 U/L (15-37) Alanine Aminotransferase (ALT/SGPT) 26 U/L (16-63) Alkaline Phosphatase 142 U/L (46-116) Total Protein 7.9 g/dL (6.4-8.2) Albumin 3.1 g/dL (3.4-5.0) Albumin/Globulin Ratio 0.6 (1.0-1.7) Thyroid Stimulating Hormone (TSH) 1.779 uIU/mL (0.358-3.74) Physical Exam HEENT: Neck Supple W Full Motion Chest: Symmetric Heart: S1S2, RRR (SR with LBBB), other (distant heart sounds) Abdomen: Soft N/T Extremities: No Calf Tenderness, Other (2+ bilateral LE pitting edema) Neurology: alert, follow commands Assessment Assessment HPI: This is a 67 yo male admitted as a transfer from [place] for chest pain. Reports is as sharp and also with some SOA. He was noted with pneumonia recently and was also noted with atypical CP from his recent hospital admission which was reproducible with palpation. Also he has been having loose stools and noted with anemia with Hgb of 7.4. Pt is a poor historian. I saw him in his room and told me to leave him alone. I asked about his CP and right away after mildly pressing on his left chest, he said stop it that hurts. He is also DM2 and was found with bar of chocolate harshens in his shoes. He is significant for severe pulmonary HTN and presumed bioprosthetic AVR as pt is not on OAC. His SOA slightly better and able to lay flat but slightly tachypneic still. He received x1 IV lasix dose in [place] as he was noted with acute CHF. <Conclusion> TTE There is akinesis of the basal to mid inferior/inferolateral hunter. The septal motion is consistent with conduction abnormality. Left ventricle systolic function is low normal. The Ejection Fraction is 50-55%. The aortic valve is not well visualized. It appears heavily calcified but by doppler interrogation there does not appear to be significant stenosis. If there is high clinical suspicion, consider WIN. Doppler and Color Flow revealed trace to mild tricuspid regurgitation. There is severe pulmonary hypertension. The PA pressure was estimated at 87 mmHg. DATE: 06/26/17 1603 Assessment/Plan 1. Atypical Chest pain: MSK/pleuritic. 2. Acute on chronic diastolic/systolic CHF: likely induced by pulmonary issue 3. CAD with chronic LBBB: Past CABG with prosthetic AVR 4. AECOPD/Severe pulmonary hypertension: per PCP. PAP 87 mmHg 5. Possible PAFIB hx: multiple admissions with no evidence of AFIB 6. KHALIDA on CKD3 7. Schizophrenia/dementia 8. Hx of treatment Non-compliance 9. HTN 10. DM2/HLP 11. Continued tobaccoism 12. Recent pneumonia 13. Anemia: Hgb 7.9 per PCP Recommendations 1. Will consider for RHC and WIN on Thursday to further evaluate his PHTN and AVR 2. Strict I & O. Pt has received lasix IV at [facility] today. Continue low dose IV lasix and additional dosing with caution 3. Continue antiHTN regimen. Maintain PO hydration. 4. Pulmonary consult. 5. Continue with secondary prevention ARASELI MANCIA APRN Jul 10, 2017 16:16
--- NOTE | 2017-07-10 17:31 | PDOC ---
Provider Note Provider Note [id number] acute resp fail acuter diastolic chf pulm htn ae of copd see orders YANNICK BARRON MD Jul 10, 2017 17:31
[2017-07-10] MEDS: PANTOPRAZOLE 40 MG TABLET.DR. PO SCH (17:51)
[2017-07-10] MEDS: FERROUS SULFATE 325 MG TABLET. PO SCH (17:51)
[2017-07-10] MEDS: amLODIPine BESYLATE 10 MG TABLET PO SCH (17:54)
--- NOTE | 2017-07-10 17:59 | CONS ---
DATE OF CONSULTATION: 07/10/2017 I was asked to see this 67-year-old gentleman for shortness of breath, chest pain. HISTORY OF PRESENT ILLNESS: He is a poor historian. He was transferred from [place] for chest pain. He had recent admission for pneumonia. He states that his chest pain now is better. He was found to have hemoglobin of 7.4. He has occasional cough. No fever or chills. PAST MEDICAL HISTORY: Pulmonary hypertension, echocardiogram shows ejection fraction 55% with pulmonary artery systolic pressure of 87, COPD, CABG AVR. FAMILY HISTORY: Hypertension. ALLERGIES: INH AND THIAMINE. MEDICATIONS: Currently, he is on Lasix, MiraLax, trazodone, hydralazine, Lipitor, Protonix, DuoNeb, ferrous sulfate, aspirin, Norvasc, magnesium, nitroglycerin. REVIEW OF SYSTEMS: As mentioned as above, other systems otherwise negative. PHYSICAL EXAMINATION: GENERAL: This is an overweight gentleman. VITAL SIGNS: His O2 saturation on 6 liters of oxygen is 90%, respiratory rate 22, heart rate 78, blood pressure 166/81, temperature 97.6. HEENT: Normocephalic, atraumatic. Pupils equal, round, reactive to light. There is shallow oropharynx. Nose is clear. NECK: Positive JVD. No lymphadenopathy. CARDIOVASCULAR: Regular rate and rhythm. PMI is nondisplaced. CHEST: Inspection is normal. LUNGS: There are bibasilar crackle sounds, a few end expiratory wheezing. ABDOMEN: Soft. Bowel sounds are good. There is no mass. EXTREMITIES: Lower extremities positive for edema. LYMPHATICS: No lymphadenopathy. NEUROLOGIC: Alert. LABORATORY DATA: I reviewed the following lab detail: WBC 6.8, hemoglobin 7.9, platelets 143. Sodium 139, potassium 4, chloride 102, CO2 25, glucose 200. BUN 36, creatinine 2. INR 1.2. Chest x-ray reportedly showed increased vascular marking, loculated effusion. IMPRESSION: 1. Acute respiratory failure, multifactorial in etiology including acute diastolic congestive heart failure, acute exacerbation of chronic obstructive pulmonary disease. 2. Abnormal chest x-ray. 3. Severe pulmonary hypertension. 4. History previous thoracotomy. 5. Schizophrenia. 6. Paroxysmal atrial fibrillation. 7. [id number] kidney disease. 8. Diabetes mellitus. 9. Recent pneumonia. 10. Anemia. PLAN AND RECOMMENDATIONS: 1. Titrate FiO2 to keep O2 saturation 90%. 2. Bronchodilator. 3. Inhaled corticosteroid. 4. Keep intake less than output, Lasix, monitor creatinine and potassium. 5. Cardiology is consulted. They are planning to do a WIN on Thursday. 6. Monitor respiratory status very closely. 7. Workup for hemoglobin per primary physician. 8. Continue Protonix for stress ulcer prophylaxis. 9. Findings and recommendations were discussed with the patient and RN. 10. His lower extremity venous Doppler did not show DVT, I agree with V/Q scan. At the same time, we will repeat the chest x-ray. He may require CT of the chest. Thank you very much for allowing me to participate in care of this very nice gentleman. YANNICK BARRON M.D. DR: Paul JOB#: [id number] / [id number]
[2017-07-10 19:00] VITALS: BP 143/70
--- NOTE | 2017-07-10 19:31 | RAD ---
Lung scan 07/10/2017 CLINICAL HISTORY: Left-sided chest pain with shortness of breath. TECHNIQUE: After the administration of 15.0 mCi of xenon-133 gas, ventilation images of both lungs were obtained using the gamma camera. After the intravenous administration of 5.0 mCi of technetium 99m MAA, perfusion images of both lungs were obtained. FINDINGS: No recent chest radiograph is available for comparison. Comparison is made to a CTA of the chest dated 06/16/2016. This demonstrated surgical changes consistent with a CABG procedure and mild to moderate cardiomegaly. Heterogeneous ventilation and perfusion to both lungs is seen. No unmatched perfusion defect is noted. These findings are consistent with a low probability study for pulmonary embolism. IMPRESSION: Low probability study. Electronically signed by: Johnny Valdes MD (07/10/2017 7:28 PM) [facility]
[2017-07-10] MEDS: BUDESONIDE 0.5 MG/2 ML NEBU. NEB SCH (19:53)
[2017-07-10] MEDS: SENNOSIDES/DOCUSATE 8.6/50MG TABLET. PO SCH (20:48)
[2017-07-10] MEDS: traZODone 50 MG TABLET. PO SCH (20:48)
[2017-07-10] MEDS: LACTOBACILLUS ACIDOPH & BULGAR 1 TABLET. PO SCH (20:48)
[2017-07-10] MEDS: ATORVASTATIN CALCIUM 40 MG TABLET. PO SCH (20:48)
[2017-07-10 23:00] VITALS: BP 129/67
[2017-07-10 23:05] LABS: BILIRUBIN,URINE NEGATIVE (NEG); GLUCOSE,URINE NEGATIVE (NEG); NITRITE,URINE NEGATIVE (NEG); PROTEIN,URINE 30 mg/dL (NEG-TRACE); UROBILINOGEN,URINE 0.2 mg/dL (0.2 mg/dL)
[2017-07-10 23:19] LABS: BACTERIA,URINE FEW /HPF (0-FEW); SQUAMOUS EPITHELIAL CELL,UR FEW /LPF
[2017-07-11] MEDS: ALBUTEROL SULFATE 2.5 MG/3 ML NEBU. NEB PRN ×2 (01:15→05:05)
[2017-07-11 03:00] VITALS: BP 135/76
[2017-07-11 04:46] LABS: BASO % 0 % (0-3); EOS % 0 % (0-3); HEMOGLOBIN 7.1 g/dL (13.0-17.5); LYMPH # 0.2 x10^3/uL (1.0-4.8); LYMPH % 3 % (24-48); MEAN CORPUSCULAR HEMOGLOBIN 28 pg (25-35); MEAN CORPUSCULAR HGB CONC 34 g/dL (31-37); MEAN CORPUSCULAR VOLUME 83 fL (79-100); MONO % 2 % (0-9); NEUT % 95 % (31-73); PLATELET COUNT 142 x10^3/uL (140-400); RED BLOOD COUNT 2.51 x10^6/uL (4.30-5.70); RED CELL DISTRIBUTION WIDTH 17.9 % (11.5-14.5); WHITE BLOOD COUNT 7.2 x10^3/uL (4.0-11.0)
[2017-07-11] MEDS: ACETAMINOPHEN 325 MG TABLET. PO PRN (04:55)
[2017-07-11 04:58] LABS: ALBUMIN 2.9 g/dL (3.4-5.0); ALBUMIN/GLOBULIN RATIO 0.7 (1.0-1.7); CALCIUM 8.7 mg/dL (8.5-10.1); CREATININE 2.1 mg/dL (0.7-1.3); GFR 31.9; POTASSIUM 4.1 mmol/L (3.5-5.1); TOTAL BILIRUBIN 0.3 mg/dL (0.2-1.0); TOTAL PROTEIN 7.2 g/dL (6.4-8.2)
[2017-07-11 05:06] LABS: HEMATOCRIT 20.8 % (39.0-53.0)
[2017-07-11] MEDS: ONDANSETRON ODT 4 MG TAB.RAPDIS. PO SCH ×4 (05:31→16:41)
[2017-07-11 07:22] VITALS: BP 141/74
[2017-07-11] MEDS: BUDESONIDE 0.5 MG/2 ML NEBU. NEB SCH ×2 (07:24→20:46)
[2017-07-11] MEDS: IPRATRPIUM/ALBUTEROL 0.5/2.5MG 3 ML NEBU. NEB SCH ×4 (07:24→20:45)
[2017-07-11] MEDS: SENNOSIDES/DOCUSATE 8.6/50MG TABLET. PO SCH ×2 (07:59→20:44)
[2017-07-11] MEDS: amLODIPine BESYLATE 10 MG TABLET PO SCH (08:00)
[2017-07-11] MEDS: FERROUS SULFATE 325 MG TABLET. PO SCH (08:00)
[2017-07-11] MEDS: LACTOBACILLUS ACIDOPH & BULGAR 1 TABLET. PO SCH ×2 (08:01→20:43)
[2017-07-11] MEDS: PANTOPRAZOLE 40 MG TABLET.DR. PO SCH (08:01)
[2017-07-11] MEDS: ASPIRIN ENTERIC COATED 81 MG TABLET.DR. PO SCH (08:01)
[2017-07-11] MEDS: FUROSEMIDE 20 MG/2 ML VIAL. IVP SCH (08:01)
[2017-07-11] MEDS ORDERED: POLYETHYLENE GLYCOL 3350 17 GM PACKET. PO PRN (09:00)
--- NOTE | 2017-07-11 09:44 | RAD ---
Portable AP upright chest x-ray performed at 08 11 History: CHF. Follow-up study. Comparison: June 26, 2017. Findings: Old granulomatous disease is seen. Again seen are bilateral pleural effusions. There is a small to moderate-sized pleural effusion on the right side which has not changed significantly. Small left-sided pleural effusion is seen which has increased slightly in size. Loculated pleural fluid is again evident within the major fissure on the left side. This has increased here. Cephalization of pulmonary flow is seen. Mild perihilar interstitial pulmonary edema is seen which is more prominent than previously. No pneumothorax is seen. The heart size and mediastinum are stable. IMPRESSION: Worsening CHF.
--- NOTE | 2017-07-11 11:09 | PDOC ---
PROGRESS NOTES Chief Complaint Chief Complaint 1. Acute respiratory failure, multifactorial in etiology including acute diastolic congestive heart failure, acute exacerbation of chronic obstructive pulmonary disease. 1. Atypical Chest pain: MSK/pleuritic. 2. Acute on chronic diastolic/systolic CHF: likely induced by pulmonary issue 3. Severe pulmonary hypertension. 3. CAD with chronic LBBB: Past CABG with prosthetic AVR 4. AECOPD/Severe pulmonary hypertension: per PCP. PAP 87 mmHg 5. Schizophrenia. 6. Paroxysmal atrial fibrillation. 7. Oyood-tu-skdmixy kidney disease. 8. Diabetes mellitus. 9. Recent pneumonia. 10. Anemia, NORMOCYTIC History of Present Illness History of Present Illness Wants to go home today Doing ok he claims Lives with roomates CArds planning WIN thursday ON diuresis with monitoring of lytes Also on PNA coverage HGb 7 plus MCV NORMAL pT CLAIMS he had cscope done many yrs ago was normal Pt claims he ahd some bloody streaks in his diaper long time ago, he does not known from which end that came from PLAn: Check FOBT GI consult WIN plans cards on thursday tentative Cont Abx for PNA, empiric Diurese and elytes monitoring dw pt Vitals Vitals Vital Signs Date Time Temp Pulse Resp B/P (MAP) Pulse Ox O2 Delivery O2 Flow Rate FiO2 07/11/17 08:00 Nasal Cannula 5.0 07/11/17 08:00 70 106/71 07/11/17 07:32 91 07/11/17 07:22 97.9 20 97.9 Physical Exam General: Alert, Oriented X3, Cooperative Heart: Regular rate Lungs: Clear Abdomen: Normal bowel sounds, Soft Extremities: No clubbing, No cyanosis Skin: No rashes, No breakdown Labs LABS Laboratory Tests Test 07/10/17 14:35 07/10/17 21:24 07/10/17 22:57 07/11/17 03:30 White Blood Count 6.8 x10^3/uL (4.0-11.0) 7.2 x10^3/uL (4.0-11.0) Red Blood Count 2.79 x10^6/uL (4.30-5.70) 2.51 x10^6/uL (4.30-5.70) Hemoglobin 7.9 g/dL (13.0-17.5) 7.1 g/dL (13.0-17.5) Hematocrit 23.6 % (39.0-53.0) 20.8 % (39.0-53.0) Mean Corpuscular Volume 84 fL (79-100) 83 fL (79-100) Mean Corpuscular Hemoglobin 28 pg (25-35) 28 pg (25-35) Mean Corpuscular Hemoglobin Concent 34 g/dL (31-37) 34 g/dL (31-37) Red Cell Distribution Width 17.8 % (11.5-14.5) 17.9 % (11.5-14.5) Platelet Count 143 x10^3/uL (140-400) 142 x10^3/uL (140-400) Neutrophils (%) (Auto) 97 % (31-73) 95 % (31-73) Lymphocytes (%) (Auto) 2 % (24-48) 3 % (24-48) Monocytes (%) (Auto) 1 % (0-9) 2 % (0-9) Eosinophils (%) (Auto) 0 % (0-3) 0 % (0-3) Basophils (%) (Auto) 1 % (0-3) 0 % (0-3) Neutrophils # (Auto) 6.6 x10^3uL (1.8-7.7) 6.9 x10^3uL (1.8-7.7) Lymphocytes # (Auto) 0.1 x10^3/uL (1.0-4.8) 0.2 x10^3/uL (1.0-4.8) Monocytes # (Auto) 0.1 x10^3/uL (0.0-1.1) 0.1 x10^3/uL (0.0-1.1) Eosinophils # (Auto) 0.0 x10^3/uL (0.0-0.7) 0.0 x10^3/uL (0.0-0.7) Basophils # (Auto) 0.0 x10^3/uL (0.0-0.2) 0.0 x10^3/uL (0.0-0.2) Segmented Neutrophils % 97 % (35-66) Lymphocytes % 3 % (24-48) Platelet Estimate Adequate (ADEQUATE) Polychromasia Slight Anisocytosis Slight Ovalocytes Few Acanthocytes Occ Schistocytes Occ Prothrombin Time 14.3 SEC (11.7-14.0) Prothromb Time International Ratio 1.2 (0.8-1.1) Activated Partial Thromboplast Time 33 SEC (24-38) D-Dimer (Zayda) 1.43 ug/mlFEU (0.00-0.50) Sodium Level 139 mmol/L (136-145) 138 mmol/L (136-145) Potassium Level 4.0 mmol/L (3.5-5.1) 4.1 mmol/L (3.5-5.1) Chloride Level 102 mmol/L (98-107) 103 mmol/L (98-107) Carbon Dioxide Level 25 mmol/L (21-32) 26 mmol/L (21-32) Anion Gap 12 (6-14) 9 (6-14) Blood Urea Nitrogen 36 mg/dL (8-26) 42 mg/dL (8-26) Creatinine 2.0 mg/dL (0.7-1.3) 2.1 mg/dL (0.7-1.3) Estimated GFR (Cockcroft-Gault) 33.7 31.9 BUN/Creatinine Ratio 18 (6-20) 20 (6-20) Glucose Level 200 mg/dL (70-99) 153 mg/dL (70-99) Calcium Level 9.1 mg/dL (8.5-10.1) 8.7 mg/dL (8.5-10.1) Phosphorus Level 4.3 mg/dL (2.6-4.7) Magnesium Level 1.8 mg/dL (1.8-2.4) 1.8 mg/dL (1.8-2.4) Total Bilirubin 0.4 mg/dL (0.2-1.0) 0.3 mg/dL (0.2-1.0) Aspartate Amino Transf (AST/SGOT) 26 U/L (15-37) 22 U/L (15-37) Alanine Aminotransferase (ALT/SGPT) 26 U/L (16-63) 24 U/L (16-63) Alkaline Phosphatase 142 U/L (46-116) 118 U/L (46-116) Total Protein 7.9 g/dL (6.4-8.2) 7.2 g/dL (6.4-8.2) Albumin 3.1 g/dL (3.4-5.0) 2.9 g/dL (3.4-5.0) Albumin/Globulin Ratio 0.6 (1.0-1.7) 0.7 (1.0-1.7) Thyroid Stimulating Hormone (TSH) 1.779 uIU/mL (0.358-3.74) Glucose (Fingerstick) 239 mg/dL (70-99) Urine Collection Type Unknown Urine Color Yellow Urine Clarity Clear Urine pH 5.0 Urine Specific [place] 1.015 Urine Protein 30 mg/dL (NEG-TRACE) Urine Glucose (UA) Negative mg/dL (NEG) Urine Ketones (Stick) Negative mg/dL (NEG) Urine Blood Small (NEG) Urine Nitrite Negative (NEG) Urine Bilirubin Negative (NEG) Urine Urobilinogen Dipstick 0.2 mg/dL (0.2 mg/dL) Urine Leukocyte Esterase Moderate (NEG) Urine RBC 11-20 /HPF (0-2) Urine WBC 11-20 /HPF (0-4) Urine Squamous Epithelial Cells Few /LPF Urine Bacteria Few /HPF (0-FEW) Urine Hyaline Casts Many /HPF Test 07/11/17 07:27 07/11/17 10:56 Glucose (Fingerstick) 253 mg/dL (70-99) 201 mg/dL (70-99) Review of Systems Review of Systems denies 14 pt reviewed Comment Review of Relevant I have reviewed the following items florentin (where applicable) has been applied. Labs Laboratory Tests Test 07/10/17 14:35 07/10/17 21:24 07/10/17 22:57 07/11/17 03:30 White Blood Count 6.8 x10^3/uL (4.0-11.0) 7.2 x10^3/uL (4.0-11.0) Red Blood Count 2.79 x10^6/uL (4.30-5.70) 2.51 x10^6/uL (4.30-5.70) Hemoglobin 7.9 g/dL (13.0-17.5) 7.1 g/dL (13.0-17.5) Hematocrit 23.6 % (39.0-53.0) 20.8 % (39.0-53.0) Mean Corpuscular Volume 84 fL (79-100) 83 fL (79-100) Mean Corpuscular Hemoglobin 28 pg (25-35) 28 pg (25-35) Mean Corpuscular Hemoglobin Concent 34 g/dL (31-37) 34 g/dL (31-37) Red Cell Distribution Width 17.8 % (11.5-14.5) 17.9 % (11.5-14.5) Platelet Count 143 x10^3/uL (140-400) 142 x10^3/uL (140-400) Neutrophils (%) (Auto) 97 % (31-73) 95 % (31-73) Lymphocytes (%) (Auto) 2 % (24-48) 3 % (24-48) Monocytes (%) (Auto) 1 % (0-9) 2 % (0-9) Eosinophils (%) (Auto) 0 % (0-3) 0 % (0-3) Basophils (%) (Auto) 1 % (0-3) 0 % (0-3) Neutrophils # (Auto) 6.6 x10^3uL (1.8-7.7) 6.9 x10^3uL (1.8-7.7) Lymphocytes # (Auto) 0.1 x10^3/uL (1.0-4.8) 0.2 x10^3/uL (1.0-4.8) Monocytes # (Auto) 0.1 x10^3/uL (0.0-1.1) 0.1 x10^3/uL (0.0-1.1) Eosinophils # (Auto) 0.0 x10^3/uL (0.0-0.7) 0.0 x10^3/uL (0.0-0.7) Basophils # (Auto) 0.0 x10^3/uL (0.0-0.2) 0.0 x10^3/uL (0.0-0.2) Segmented Neutrophils % 97 % (35-66) Lymphocytes % 3 % (24-48) Platelet Estimate Adequate (ADEQUATE) Polychromasia Slight Anisocytosis Slight Ovalocytes Few Acanthocytes Occ Schistocytes Occ Prothrombin Time 14.3 SEC (11.7-14.0) Prothromb Time International Ratio 1.2 (0.8-1.1) Activated Partial Thromboplast Time 33 SEC (24-38) D-Dimer (Zayda) 1.43 ug/mlFEU (0.00-0.50) Sodium Level 139 mmol/L (136-145) 138 mmol/L (136-145) Potassium Level 4.0 mmol/L (3.5-5.1) 4.1 mmol/L (3.5-5.1) Chloride Level 102 mmol/L (98-107) 103 mmol/L (98-107) Carbon Dioxide Level 25 mmol/L (21-32) 26 mmol/L (21-32) Anion Gap 12 (6-14) 9 (6-14) Blood Urea Nitrogen 36 mg/dL (8-26) 42 mg/dL (8-26) Creatinine 2.0 mg/dL (0.7-1.3) 2.1 mg/dL (0.7-1.3) Estimated GFR (Cockcroft-Gault) 33.7 31.9 BUN/Creatinine Ratio 18 (6-20) 20 (6-20) Glucose Level 200 mg/dL (70-99) 153 mg/dL (70-99) Calcium Level 9.1 mg/dL (8.5-10.1) 8.7 mg/dL (8.5-10.1) Phosphorus Level 4.3 mg/dL (2.6-4.7) Magnesium Level 1.8 mg/dL (1.8-2.4) 1.8 mg/dL (1.8-2.4) Total Bilirubin 0.4 mg/dL (0.2-1.0) 0.3 mg/dL (0.2-1.0) Aspartate Amino Transf (AST/SGOT) 26 U/L (15-37) 22 U/L (15-37) Alanine Aminotransferase (ALT/SGPT) 26 U/L (16-63) 24 U/L (16-63) Alkaline Phosphatase 142 U/L (46-116) 118 U/L (46-116) Total Protein 7.9 g/dL (6.4-8.2) 7.2 g/dL (6.4-8.2) Albumin 3.1 g/dL (3.4-5.0) 2.9 g/dL (3.4-5.0) Albumin/Globulin Ratio 0.6 (1.0-1.7) 0.7 (1.0-1.7) Thyroid Stimulating Hormone (TSH) 1.779 uIU/mL (0.358-3.74) Glucose (Fingerstick) 239 mg/dL (70-99) Urine Collection Type Unknown Urine Color Yellow Urine Clarity Clear Urine pH 5.0 Urine Specific [place] 1.015 Urine Protein 30 mg/dL (NEG-TRACE) Urine Glucose (UA) Negative mg/dL (NEG) Urine Ketones (Stick) Negative mg/dL (NEG) Urine Blood Small (NEG) Urine Nitrite Negative (NEG) Urine Bilirubin Negative (NEG) Urine Urobilinogen Dipstick 0.2 mg/dL (0.2 mg/dL) Urine Leukocyte Esterase Moderate (NEG) Urine RBC 11-20 /HPF (0-2) Urine WBC 11-20 /HPF (0-4) Urine Squamous Epithelial Cells Few /LPF Urine Bacteria Few /HPF (0-FEW) Urine Hyaline Casts Many /HPF Test 07/11/17 07:27 07/11/17 10:56 Glucose (Fingerstick) 253 mg/dL (70-99) 201 mg/dL (70-99) Laboratory Tests Test 07/10/17 14:35 07/10/17 21:24 07/10/17 22:57 07/11/17 03:30 White Blood Count 6.8 x10^3/uL (4.0-11.0) 7.2 x10^3/uL (4.0-11.0) Red Blood Count 2.79 x10^6/uL (4.30-5.70) 2.51 x10^6/uL (4.30-5.70) Hemoglobin 7.9 g/dL (13.0-17.5) 7.1 g/dL (13.0-17.5) Hematocrit 23.6 % (39.0-53.0) 20.8 % (39.0-53.0) Mean Corpuscular Volume 84 fL (79-100) 83 fL (79-100) Mean Corpuscular Hemoglobin 28 pg (25-35) 28 pg (25-35) Mean Corpuscular Hemoglobin Concent 34 g/dL (31-37) 34 g/dL (31-37) Red Cell Distribution Width 17.8 % (11.5-14.5) 17.9 % (11.5-14.5) Platelet Count 143 x10^3/uL (140-400) 142 x10^3/uL (140-400) Neutrophils (%) (Auto) 97 % (31-73) 95 % (31-73) Lymphocytes (%) (Auto) 2 % (24-48) 3 % (24-48) Monocytes (%) (Auto) 1 % (0-9) 2 % (0-9) Eosinophils (%) (Auto) 0 % (0-3) 0 % (0-3) Basophils (%) (Auto) 1 % (0-3) 0 % (0-3) Neutrophils # (Auto) 6.6 x10^3uL (1.8-7.7) 6.9 x10^3uL (1.8-7.7) Lymphocytes # (Auto) 0.1 x10^3/uL (1.0-4.8) 0.2 x10^3/uL (1.0-4.8) Monocytes # (Auto) 0.1 x10^3/uL (0.0-1.1) 0.1 x10^3/uL (0.0-1.1) Eosinophils # (Auto) 0.0 x10^3/uL (0.0-0.7) 0.0 x10^3/uL (0.0-0.7) Basophils # (Auto) 0.0 x10^3/uL (0.0-0.2) 0.0 x10^3/uL (0.0-0.2) Segmented Neutrophils % 97 % (35-66) Lymphocytes % 3 % (24-48) Platelet Estimate Adequate (ADEQUATE) Polychromasia Slight Anisocytosis Slight Ovalocytes Few Acanthocytes Occ Schistocytes Occ Prothrombin Time 14.3 SEC (11.7-14.0) Prothromb Time International Ratio 1.2 (0.8-1.1) Activated Partial Thromboplast Time 33 SEC (24-38) D-Dimer (Zayda) 1.43 ug/mlFEU (0.00-0.50) Sodium Level 139 mmol/L (136-145) 138 mmol/L (136-145) Potassium Level 4.0 mmol/L (3.5-5.1) 4.1 mmol/L (3.5-5.1) Chloride Level 102 mmol/L (98-107) 103 mmol/L (98-107) Carbon Dioxide Level 25 mmol/L (21-32) 26 mmol/L (21-32) Anion Gap 12 (6-14) 9 (6-14) Blood Urea Nitrogen 36 mg/dL (8-26) 42 mg/dL (8-26) Creatinine 2.0 mg/dL (0.7-1.3) 2.1 mg/dL (0.7-1.3) Estimated GFR (Cockcroft-Gault) 33.7 31.9 BUN/Creatinine Ratio 18 (6-20) 20 (6-20) Glucose Level 200 mg/dL (70-99) 153 mg/dL (70-99) Calcium Level 9.1 mg/dL (8.5-10.1) 8.7 mg/dL (8.5-10.1) Phosphorus Level 4.3 mg/dL (2.6-4.7) Magnesium Level 1.8 mg/dL (1.8-2.4) 1.8 mg/dL (1.8-2.4) Total Bilirubin 0.4 mg/dL (0.2-1.0) 0.3 mg/dL (0.2-1.0) Aspartate Amino Transf (AST/SGOT) 26 U/L (15-37) 22 U/L (15-37) Alanine Aminotransferase (ALT/SGPT) 26 U/L (16-63) 24 U/L (16-63) Alkaline Phosphatase 142 U/L (46-116) 118 U/L (46-116) Total Protein 7.9 g/dL (6.4-8.2) 7.2 g/dL (6.4-8.2) Albumin 3.1 g/dL (3.4-5.0) 2.9 g/dL (3.4-5.0) Albumin/Globulin Ratio 0.6 (1.0-1.7) 0.7 (1.0-1.7) Thyroid Stimulating Hormone (TSH) 1.779 uIU/mL (0.358-3.74) Glucose (Fingerstick) 239 mg/dL (70-99) Urine Collection Type Unknown Urine Color Yellow Urine Clarity Clear Urine pH 5.0 Urine Specific [place] 1.015 Urine Protein 30 mg/dL (NEG-TRACE) Urine Glucose (UA) Negative mg/dL (NEG) Urine Ketones (Stick) Negative mg/dL (NEG) Urine Blood Small (NEG) Urine Nitrite Negative (NEG) Urine Bilirubin Negative (NEG) Urine Urobilinogen Dipstick 0.2 mg/dL (0.2 mg/dL) Urine Leukocyte Esterase Moderate (NEG) Urine RBC 11-20 /HPF (0-2) Urine WBC 11-20 /HPF (0-4) Urine Squamous Epithelial Cells Few /LPF Urine Bacteria Few /HPF (0-FEW) Urine Hyaline Casts Many /HPF Test 07/11/17 07:27 07/11/17 10:56 Glucose (Fingerstick) 253 mg/dL (70-99) 201 mg/dL (70-99) Medications Current Medications Sodium Chloride (Normal Saline Flush) 3 ml PRN DAILY PRN IV AFTER MEDS AND BLOOD DRAWS; Start 07/10/17 at 14:00 Prochlorperazine Edisylate (Compazine) 10 mg PRN Q6HRS PRN IV NAUSEA/VOMITING; Start 07/10/17 at 14:00 Al Hydroxide/Mg Hydroxide (Mylanta Plus Xs) 30 ml PRN Q3HRS PRN PO HEARTBURN / GAS; Start 07/10/17 at 14:00 Senna/Docusate Sodium (Senna Plus) 1 tab BID PO Last administered on 07:59; Start 07/10/17 at 21:00 Magnesium Hydroxide (Milk Of Magnesia) 2,400 mg PRN Q12HR PRN PO CONSTIPATION; Start 07/10/17 at 14:00 Acetaminophen (Tylenol) 650 mg PRN Q6HRS PRN PO MILD PAIN / TEMP Last administered on 07/11/17 04:55; Start 07/10/17 at 14:15 Amlodipine Besylate (Norvasc) 10 mg DAILY PO Last administered on 07/11/17 08 :00; Start 07/10/17 at 15:00 Aspirin (Ecotrin) 81 mg DAILY PO Last administered on 07/11/17 08:01; Start 07/10/17 at 15:00 Atorvastatin Calcium (Lipitor) 40 mg HS PO Last administered on 07/10/17 20: 48; Start 07/10/17 at 21:00 Diclofenac Sodium (Voltaren) 100 julissa PRN QID PRN TP INFLAMMATION; Start at 14:15 Ferrous Sulfate (Feosol) 325 mg DAILYWBKFT PO Last administered on 07/11/17 08:00; Start 07/10/17 at 15:00 Hydralazine HCl (Apresoline) 50 mg BID PO Last administered on 07/11/17 08:00 ; Start 07/10/17 at 21:00 Albuterol/ Ipratropium (Duoneb) 3 ml RTQID NEB Last administered on 07/11/17 07:24; Start 07/10/17 at 16:00 Nitroglycerin (Nitrostat) 0.4 mg PRN Q5MIN PRN SL CHEST PAIN; Start 07/10/17 at 14:15 Pantoprazole Sodium (Protonix) 40 mg DAILYAC PO Last administered on 08:01; Start 07/10/17 at 16:30 Polyethylene Glycol (miraLAX Powder BULK BOTTLE) 17 gm PRN DAILY PRN PO CONSTIPATION; Start 07/10/17 at 14:15; Stop 07/10/17 at 14:22; Status DC Senna/Docusate Sodium (Senna Plus) 2 tab PRN DAILY PRN PO CONSTIPATION; Start 07/10/17 at 14:15 Trazodone HCl (Desyrel) 100 mg HS PO Last administered on 07/10/17 20:48; Start 07/10/17 at 21:00 Lactobacillus Acidophilus (Bacid, Leila-Bid) 1 tab BID PO Last administered on 07/11/17 08:01; Start 07/10/17 at 21:00 Magnesium Hydroxide (Milk Of Magnesia) 2,400 mg PRN DAILY PRN PO CONSTIPATION; Start 07/10/17 at 14:30 Ondansetron HCl (Zofran Odt) 4 mg Q6HRS PO Last administered on 07/10/17 17: 51; Start 07/10/17 at 14:30 Polyethylene Glycol (miraLAX PACKET) 17 gm PRN DAILY PRN PO CONSTIPATION; Start 07/11/17 at 09:00 Guaifenesin (Robitussin Dm) 10 ml PRN Q6HRS PRN PO COUGH Last administered on 07/11/17 04:55; Start 07/10/17 at 15:00 Acetaminophen/ Hydrocodone Bitart (Lortab 5/325) 1 tab PRN Q4HRS PRN PO PAIN; Start 07/10/17 at 15:00 Morphine Sulfate 1 mg PRN Q2HR PRN IV PAIN; Start 07/10/17 at 15:00 Furosemide (Lasix) 20 mg DAILY IVP Last administered on 07/11/17 08:01; Start 07/11/17 at 09:00 Budesonide (Pulmicort) 0.5 mg RTBID NEB Last administered on 07/11/17 07:24; Start 07/10/17 at 20:00 Albuterol Sulfate (Ventolin Neb Soln) 2.5 mg PRN Q4HRS PRN NEB SHORTNESS OF BREATH Last administered on 07/11/17 05:05; Start 07/10/17 at 23:00 Active Scripts Active Reported Tylenol (Acetaminophen) 325 Mg Tablet 650 Mg PO PRN Q6HRS PRN Amlodipine Besylate 10 Mg Tablet 10 Mg PO DAILY Voltaren (Diclofenac Sodium) 100 Gm Gel..gram. 100 Gm TP PRN QID PRN Senokot-S Tablet (Sennosides/Docusate Sodium) 1 Each Tablet 2 Each PO PRN DAILY PRN Polyethylene Glycol 3350 255 Gm Powder 17 Gm PO PRN DAILY PRN NITROGLYCERIN SubLingual (Nitroglycerin) 0.4 Mg Tab.subl 0.4 Mg SL PRN Q5MIN PRN Milk Of Magnesia (Magnesium Hydroxide) 2,400 Mg/10 Ml Oral.susp 2,400 Mg PO PRN DAILY PRN Probiotic (Lactobacillus Acidophilus) 1 Each Capsule 1 Each PO BID 5 Days Ferrous Sulfate 325 Mg Tablet 325 Mg PO DAILY Augmentin 875-125 Tablet (Amoxicillin/Potassium Clav) 1 Each Tablet 1 Tab PO BID 5 Days Atorvastatin Calcium 40 Mg Tablet 40 Mg PO HS Hydralazine Hcl 50 Mg Tablet 50 Mg PO BID Duoneb 0.5-3(2.5) Mg/3 Ml (Albuterol/Ipratropium) 3 Ml Ampul.neb 3 Ml NEB QID Trazodone Hcl 50 Mg Tablet 100 Mg PO HS Zofran (Ondansetron Hcl) 4 Mg Tablet 1 Tab PO Q6HRS Protonix (Pantoprazole Sodium) 40 Mg Tablet.dr 1 Tab PO DAILY Aspir 81 (Aspirin) 81 Mg Tablet.dr 1 Tab PO DAILY Vitals/I & O Vital Sign - Last 24 Hours 07/10/17 07/10/17 07/10/17 07/10/17 13:45 14:30 17:23 17:54 Temp 97.6 97.6 Pulse 78 78 Resp 22 B/P (MAP) 166/81 (109) 166/81 Pulse Ox 85 96 O2 Delivery Nasal Cannula Nasal Cannula Nasal Cannula O2 Flow Rate 6.0 6.0 5.0 07/10/17 07/10/17 07/10/17 07/10/17 19:00 19:54 19:56 20:00 Temp 98.1 98.1 Pulse 80 Resp 20 B/P (MAP) 143/70 (94) Pulse Ox 92 93 93 O2 Delivery Room Air Nasal Cannula Nasal Cannula Nasal Cannula O2 Flow Rate 7.0 7.0 6.0 07/10/17 07/10/17 07/11/17 07/11/17 20:48 23:00 01:16 03:00 Temp 97.5 98.3 97.5 98.3 Pulse 80 80 84 Resp 20 20 B/P (MAP) 143/70 129/67 (87) 135/76 (95) Pulse Ox 93 90 O2 Delivery Room Air Nasal Cannula Room Air O2 Flow Rate 7.0 07/11/17 07/11/17 07/11/17 07/11/17 05:05 07:22 07:28 07:32 Temp 97.9 97.9 Pulse 82 Resp 20 B/P (MAP) 141/74 (96) Pulse Ox 91 95 91 91 O2 Delivery Nasal Cannula Room Air Nasal Cannula Nasal Cannula O2 Flow Rate 7.0 5.0 5.0 07/11/17 07/11/17 07/11/17 08:00 08:00 08:00 Pulse 70 70 B/P (MAP) 106/71 106/71 O2 Delivery Nasal Cannula O2 Flow Rate 5.0 SAMIRA DEVLIN MD Jul 11, 2017 11:09
[2017-07-11 11:19] VITALS: BP 119/67
[2017-07-11] MEDS ORDERED: DEXTROSE 50% 25 GM / 50ML DISP.SYRIN. IV PRN (11:45)
[2017-07-11] MEDS: INSULIN ASPART 300 UNITS/3 ML INSULN.PEN SQ SCH ×2 (12:14→16:30)
--- NOTE | 2017-07-11 12:22 | PDOC ---
PROGRESS NOTES Subjective Subjective The patient is less short of breath today. Denies any chest pain. Objective Objective Vital Signs Date Time Temp Pulse Resp B/P (MAP) Pulse Ox O2 Delivery O2 Flow Rate FiO2 07/11/17 11:19 97.9 76 20 119/67 (84) 93 Room Air 97.9 07/11/17 11:11 5.0 Physical Exam Abdomen: Normal bowel sounds Heart: Regular rate General: No acute distress Lungs: Other (minimally decreased breath sounds) Assessment Assessment 1. Atypical Chest pain: MSK/pleuritic. No evidence of acute infarction. 2. Acute on chronic diastolic/systolic CHF: Improved today on medical treatment. 3. CAD with chronic LBBB: Past CABG with prosthetic AVR. As above. Possible WIN Thursday. Potentially this could be done as an outpatient if the patient insists on discharge. 4. AECOPD/Severe pulmonary hypertension: per PCP. PAP 87 mmHg 5. Possible PAFIB hx: multiple admissions with no evidence of AFIB 6. HKALIDA on CKD3 7. Schizophrenia/dementia 8. Hx of treatment Non-compliance 9. HTN 10. DM2/HLP 11. Continued tobaccoism 12. Recent pneumonia Comment Review of Relevant I have reviewed the following items florentin (where applicable) has been applied. Labs Laboratory Tests Test 07/10/17 14:35 07/10/17 21:24 07/10/17 22:57 07/11/17 03:30 White Blood Count 6.8 x10^3/uL (4.0-11.0) 7.2 x10^3/uL (4.0-11.0) Red Blood Count 2.79 x10^6/uL (4.30-5.70) 2.51 x10^6/uL (4.30-5.70) Hemoglobin 7.9 g/dL (13.0-17.5) 7.1 g/dL (13.0-17.5) Hematocrit 23.6 % (39.0-53.0) 20.8 % (39.0-53.0) Mean Corpuscular Volume 84 fL (79-100) 83 fL (79-100) Mean Corpuscular Hemoglobin 28 pg (25-35) 28 pg (25-35) Mean Corpuscular Hemoglobin Concent 34 g/dL (31-37) 34 g/dL (31-37) Red Cell Distribution Width 17.8 % (11.5-14.5) 17.9 % (11.5-14.5) Platelet Count 143 x10^3/uL (140-400) 142 x10^3/uL (140-400) Neutrophils (%) (Auto) 97 % (31-73) 95 % (31-73) Lymphocytes (%) (Auto) 2 % (24-48) 3 % (24-48) Monocytes (%) (Auto) 1 % (0-9) 2 % (0-9) Eosinophils (%) (Auto) 0 % (0-3) 0 % (0-3) Basophils (%) (Auto) 1 % (0-3) 0 % (0-3) Neutrophils # (Auto) 6.6 x10^3uL (1.8-7.7) 6.9 x10^3uL (1.8-7.7) Lymphocytes # (Auto) 0.1 x10^3/uL (1.0-4.8) 0.2 x10^3/uL (1.0-4.8) Monocytes # (Auto) 0.1 x10^3/uL (0.0-1.1) 0.1 x10^3/uL (0.0-1.1) Eosinophils # (Auto) 0.0 x10^3/uL (0.0-0.7) 0.0 x10^3/uL (0.0-0.7) Basophils # (Auto) 0.0 x10^3/uL (0.0-0.2) 0.0 x10^3/uL (0.0-0.2) Segmented Neutrophils % 97 % (35-66) Lymphocytes % 3 % (24-48) Platelet Estimate Adequate (ADEQUATE) Polychromasia Slight Anisocytosis Slight Ovalocytes Few Acanthocytes Occ Schistocytes Occ Prothrombin Time 14.3 SEC (11.7-14.0) Prothromb Time International Ratio 1.2 (0.8-1.1) Activated Partial Thromboplast Time 33 SEC (24-38) D-Dimer (Zayda) 1.43 ug/mlFEU (0.00-0.50) Sodium Level 139 mmol/L (136-145) 138 mmol/L (136-145) Potassium Level 4.0 mmol/L (3.5-5.1) 4.1 mmol/L (3.5-5.1) Chloride Level 102 mmol/L (98-107) 103 mmol/L (98-107) Carbon Dioxide Level 25 mmol/L (21-32) 26 mmol/L (21-32) Anion Gap 12 (6-14) 9 (6-14) Blood Urea Nitrogen 36 mg/dL (8-26) 42 mg/dL (8-26) Creatinine 2.0 mg/dL (0.7-1.3) 2.1 mg/dL (0.7-1.3) Estimated GFR (Cockcroft-Gault) 33.7 31.9 BUN/Creatinine Ratio 18 (6-20) 20 (6-20) Glucose Level 200 mg/dL (70-99) 153 mg/dL (70-99) Calcium Level 9.1 mg/dL (8.5-10.1) 8.7 mg/dL (8.5-10.1) Phosphorus Level 4.3 mg/dL (2.6-4.7) Magnesium Level 1.8 mg/dL (1.8-2.4) 1.8 mg/dL (1.8-2.4) Total Bilirubin 0.4 mg/dL (0.2-1.0) 0.3 mg/dL (0.2-1.0) Aspartate Amino Transf (AST/SGOT) 26 U/L (15-37) 22 U/L (15-37) Alanine Aminotransferase (ALT/SGPT) 26 U/L (16-63) 24 U/L (16-63) Alkaline Phosphatase 142 U/L (46-116) 118 U/L (46-116) Total Protein 7.9 g/dL (6.4-8.2) 7.2 g/dL (6.4-8.2) Albumin 3.1 g/dL (3.4-5.0) 2.9 g/dL (3.4-5.0) Albumin/Globulin Ratio 0.6 (1.0-1.7) 0.7 (1.0-1.7) Thyroid Stimulating Hormone (TSH) 1.779 uIU/mL (0.358-3.74) Glucose (Fingerstick) 239 mg/dL (70-99) Urine Collection Type Unknown Urine Color Yellow Urine Clarity Clear Urine pH 5.0 Urine Specific [place] 1.015 Urine Protein 30 mg/dL (NEG-TRACE) Urine Glucose (UA) Negative mg/dL (NEG) Urine Ketones (Stick) Negative mg/dL (NEG) Urine Blood Small (NEG) Urine Nitrite Negative (NEG) Urine Bilirubin Negative (NEG) Urine Urobilinogen Dipstick 0.2 mg/dL (0.2 mg/dL) Urine Leukocyte Esterase Moderate (NEG) Urine RBC 11-20 /HPF (0-2) Urine WBC 11-20 /HPF (0-4) Urine Squamous Epithelial Cells Few /LPF Urine Bacteria Few /HPF (0-FEW) Urine Hyaline Casts Many /HPF Reticulocyte Count (auto) 1.5 % (0.5-2.5) Test 07/11/17 07:27 07/11/17 10:56 Glucose (Fingerstick) 253 mg/dL (70-99) 201 mg/dL (70-99) Laboratory Tests Test 07/10/17 14:35 07/10/17 21:24 07/10/17 22:57 07/11/17 03:30 White Blood Count 6.8 x10^3/uL (4.0-11.0) 7.2 x10^3/uL (4.0-11.0) Red Blood Count 2.79 x10^6/uL (4.30-5.70) 2.51 x10^6/uL (4.30-5.70) Hemoglobin 7.9 g/dL (13.0-17.5) 7.1 g/dL (13.0-17.5) Hematocrit 23.6 % (39.0-53.0) 20.8 % (39.0-53.0) Mean Corpuscular Volume 84 fL (79-100) 83 fL (79-100) Mean Corpuscular Hemoglobin 28 pg (25-35) 28 pg (25-35) Mean Corpuscular Hemoglobin Concent 34 g/dL (31-37) 34 g/dL (31-37) Red Cell Distribution Width 17.8 % (11.5-14.5) 17.9 % (11.5-14.5) Platelet Count 143 x10^3/uL (140-400) 142 x10^3/uL (140-400) Neutrophils (%) (Auto) 97 % (31-73) 95 % (31-73) Lymphocytes (%) (Auto) 2 % (24-48) 3 % (24-48) Monocytes (%) (Auto) 1 % (0-9) 2 % (0-9) Eosinophils (%) (Auto) 0 % (0-3) 0 % (0-3) Basophils (%) (Auto) 1 % (0-3) 0 % (0-3) Neutrophils # (Auto) 6.6 x10^3uL (1.8-7.7) 6.9 x10^3uL (1.8-7.7) Lymphocytes # (Auto) 0.1 x10^3/uL (1.0-4.8) 0.2 x10^3/uL (1.0-4.8) Monocytes # (Auto) 0.1 x10^3/uL (0.0-1.1) 0.1 x10^3/uL (0.0-1.1) Eosinophils # (Auto) 0.0 x10^3/uL (0.0-0.7) 0.0 x10^3/uL (0.0-0.7) Basophils # (Auto) 0.0 x10^3/uL (0.0-0.2) 0.0 x10^3/uL (0.0-0.2) Segmented Neutrophils % 97 % (35-66) Lymphocytes % 3 % (24-48) Platelet Estimate Adequate (ADEQUATE) Polychromasia Slight Anisocytosis Slight Ovalocytes Few Acanthocytes Occ Schistocytes Occ Prothrombin Time 14.3 SEC (11.7-14.0) Prothromb Time International Ratio 1.2 (0.8-1.1) Activated Partial Thromboplast Time 33 SEC (24-38) D-Dimer (Zayda) 1.43 ug/mlFEU (0.00-0.50) Sodium Level 139 mmol/L (136-145) 138 mmol/L (136-145) Potassium Level 4.0 mmol/L (3.5-5.1) 4.1 mmol/L (3.5-5.1) Chloride Level 102 mmol/L (98-107) 103 mmol/L (98-107) Carbon Dioxide Level 25 mmol/L (21-32) 26 mmol/L (21-32) Anion Gap 12 (6-14) 9 (6-14) Blood Urea Nitrogen 36 mg/dL (8-26) 42 mg/dL (8-26) Creatinine 2.0 mg/dL (0.7-1.3) 2.1 mg/dL (0.7-1.3) Estimated GFR (Cockcroft-Gault) 33.7 31.9 BUN/Creatinine Ratio 18 (6-20) 20 (6-20) Glucose Level 200 mg/dL (70-99) 153 mg/dL (70-99) Calcium Level 9.1 mg/dL (8.5-10.1) 8.7 mg/dL (8.5-10.1) Phosphorus Level 4.3 mg/dL (2.6-4.7) Magnesium Level 1.8 mg/dL (1.8-2.4) 1.8 mg/dL (1.8-2.4) Total Bilirubin 0.4 mg/dL (0.2-1.0) 0.3 mg/dL (0.2-1.0) Aspartate Amino Transf (AST/SGOT) 26 U/L (15-37) 22 U/L (15-37) Alanine Aminotransferase (ALT/SGPT) 26 U/L (16-63) 24 U/L (16-63) Alkaline Phosphatase 142 U/L (46-116) 118 U/L (46-116) Total Protein 7.9 g/dL (6.4-8.2) 7.2 g/dL (6.4-8.2) Albumin 3.1 g/dL (3.4-5.0) 2.9 g/dL (3.4-5.0) Albumin/Globulin Ratio 0.6 (1.0-1.7) 0.7 (1.0-1.7) Thyroid Stimulating Hormone (TSH) 1.779 uIU/mL (0.358-3.74) Glucose (Fingerstick) 239 mg/dL (70-99) Urine Collection Type Unknown Urine Color Yellow Urine Clarity Clear Urine pH 5.0 Urine Specific [place] 1.015 Urine Protein 30 mg/dL (NEG-TRACE) Urine Glucose (UA) Negative mg/dL (NEG) Urine Ketones (Stick) Negative mg/dL (NEG) Urine Blood Small (NEG) Urine Nitrite Negative (NEG) Urine Bilirubin Negative (NEG) Urine Urobilinogen Dipstick 0.2 mg/dL (0.2 mg/dL) Urine Leukocyte Esterase Moderate (NEG) Urine RBC 11-20 /HPF (0-2) Urine WBC 11-20 /HPF (0-4) Urine Squamous Epithelial Cells Few /LPF Urine Bacteria Few /HPF (0-FEW) Urine Hyaline Casts Many /HPF Reticulocyte Count (auto) 1.5 % (0.5-2.5) Test 07/11/17 07:27 07/11/17 10:56 Glucose (Fingerstick) 253 mg/dL (70-99) 201 mg/dL (70-99) Medications Current Medications Sodium Chloride (Normal Saline Flush) 3 ml PRN DAILY PRN IV AFTER MEDS AND BLOOD DRAWS; Start 07/10/17 at 14:00 Prochlorperazine Edisylate (Compazine) 10 mg PRN Q6HRS PRN IV NAUSEA/VOMITING; Start 07/10/17 at 14:00 Al Hydroxide/Mg Hydroxide (Mylanta Plus Xs) 30 ml PRN Q3HRS PRN PO HEARTBURN / GAS; Start 07/10/17 at 14:00 Senna/Docusate Sodium (Senna Plus) 1 tab BID PO Last administered on 07:59; Start 07/10/17 at 21:00 Magnesium Hydroxide (Milk Of Magnesia) 2,400 mg PRN Q12HR PRN PO CONSTIPATION; Start 07/10/17 at 14:00 Acetaminophen (Tylenol) 650 mg PRN Q6HRS PRN PO MILD PAIN / TEMP Last administered on 07/11/17 04:55; Start 07/10/17 at 14:15 Amlodipine Besylate (Norvasc) 10 mg DAILY PO Last administered on 07/11/17 08 :00; Start 07/10/17 at 15:00 Aspirin (Ecotrin) 81 mg DAILY PO Last administered on 07/11/17 08:01; Start 07/10/17 at 15:00 Atorvastatin Calcium (Lipitor) 40 mg HS PO Last administered on 07/10/17 20: 48; Start 07/10/17 at 21:00 Diclofenac Sodium (Voltaren) 100 julissa PRN QID PRN TP INFLAMMATION; Start at 14:15 Ferrous Sulfate (Feosol) 325 mg DAILYWBKFT PO Last administered on 07/11/17 08:00; Start 07/10/17 at 15:00 Hydralazine HCl (Apresoline) 50 mg BID PO Last administered on 07/11/17 08:00 ; Start 07/10/17 at 21:00 Albuterol/ Ipratropium (Duoneb) 3 ml RTQID NEB Last administered on 07/11/17 11:10; Start 07/10/17 at 16:00 Nitroglycerin (Nitrostat) 0.4 mg PRN Q5MIN PRN SL CHEST PAIN; Start 07/10/17 at 14:15 Pantoprazole Sodium (Protonix) 40 mg DAILYAC PO Last administered on 08:01; Start 07/10/17 at 16:30 Polyethylene Glycol (miraLAX Powder BULK BOTTLE) 17 gm PRN DAILY PRN PO CONSTIPATION; Start 07/10/17 at 14:15; Stop 07/10/17 at 14:22; Status DC Senna/Docusate Sodium (Senna Plus) 2 tab PRN DAILY PRN PO CONSTIPATION; Start 07/10/17 at 14:15 Trazodone HCl (Desyrel) 100 mg HS PO Last administered on 07/10/17 20:48; Start 07/10/17 at 21:00 Lactobacillus Acidophilus (Bacid, Leila-Bid) 1 tab BID PO Last administered on 07/11/17 08:01; Start 07/10/17 at 21:00 Magnesium Hydroxide (Milk Of Magnesia) 2,400 mg PRN DAILY PRN PO CONSTIPATION; Start 07/10/17 at 14:30 Ondansetron HCl (Zofran Odt) 4 mg Q6HRS PO Last administered on 07/11/17 11: 35; Start 07/10/17 at 14:30 Polyethylene Glycol (miraLAX PACKET) 17 gm PRN DAILY PRN PO CONSTIPATION; Start 07/11/17 at 09:00 Guaifenesin (Robitussin Dm) 10 ml PRN Q6HRS PRN PO COUGH Last administered on 07/11/17 04:55; Start 07/10/17 at 15:00 Acetaminophen/ Hydrocodone Bitart (Lortab 5/325) 1 tab PRN Q4HRS PRN PO PAIN; Start 07/10/17 at 15:00 Morphine Sulfate 1 mg PRN Q2HR PRN IV PAIN; Start 07/10/17 at 15:00 Furosemide (Lasix) 20 mg DAILY IVP Last administered on 07/11/17 08:01; Start 07/11/17 at 09:00 Budesonide (Pulmicort) 0.5 mg RTBID NEB Last administered on 07/11/17 07:24; Start 07/10/17 at 20:00 Albuterol Sulfate (Ventolin Neb Soln) 2.5 mg PRN Q4HRS PRN NEB SHORTNESS OF BREATH Last administered on 07/11/17 05:05; Start 07/10/17 at 23:00 Insulin Aspart (NovoLOG) 0-9 UNITS TIDWMEALS SQ Last administered on 12:14; Start 07/11/17 at 12:00 Dextrose (Dextrose 50%-Water Syringe) 12.5 gm PRN Q15MIN PRN IV SEE COMMENTS; Start 07/11/17 at 11:45 Active Scripts Active Reported Tylenol (Acetaminophen) 325 Mg Tablet 650 Mg PO PRN Q6HRS PRN Amlodipine Besylate 10 Mg Tablet 10 Mg PO DAILY Voltaren (Diclofenac Sodium) 100 Gm Gel..gram. 100 Gm TP PRN QID PRN Senokot-S Tablet (Sennosides/Docusate Sodium) 1 Each Tablet 2 Each PO PRN DAILY PRN Polyethylene Glycol 3350 255 Gm Powder 17 Gm PO PRN DAILY PRN NITROGLYCERIN SubLingual (Nitroglycerin) 0.4 Mg Tab.subl 0.4 Mg SL PRN Q5MIN PRN Milk Of Magnesia (Magnesium Hydroxide) 2,400 Mg/10 Ml Oral.susp 2,400 Mg PO PRN DAILY PRN Probiotic (Lactobacillus Acidophilus) 1 Each Capsule 1 Each PO BID 5 Days Ferrous Sulfate 325 Mg Tablet 325 Mg PO DAILY Augmentin 875-125 Tablet (Amoxicillin/Potassium Clav) 1 Each Tablet 1 Tab PO BID 5 Days Atorvastatin Calcium 40 Mg Tablet 40 Mg PO HS Hydralazine Hcl 50 Mg Tablet 50 Mg PO BID Duoneb 0.5-3(2.5) Mg/3 Ml (Albuterol/Ipratropium) 3 Ml Ampul.neb 3 Ml NEB QID Trazodone Hcl 50 Mg Tablet 100 Mg PO HS Zofran (Ondansetron Hcl) 4 Mg Tablet 1 Tab PO Q6HRS Protonix (Pantoprazole Sodium) 40 Mg Tablet.dr 1 Tab PO DAILY Aspir 81 (Aspirin) 81 Mg Tablet.dr 1 Tab PO DAILY Vitals/I & O Vital Sign - Last 24 Hours 07/10/17 07/10/17 07/10/17 07/10/17 13:45 14:30 17:23 17:54 Temp 97.6 97.6 Pulse 78 78 Resp 22 B/P (MAP) 166/81 (109) 166/81 Pulse Ox 85 96 O2 Delivery Nasal Cannula Nasal Cannula Nasal Cannula O2 Flow Rate 6.0 6.0 5.0 07/10/17 07/10/17 07/10/17 07/10/17 19:00 19:54 19:56 20:00 Temp 98.1 98.1 Pulse 80 Resp 20 B/P (MAP) 143/70 (94) Pulse Ox 92 93 93 O2 Delivery Room Air Nasal Cannula Nasal Cannula Nasal Cannula O2 Flow Rate 7.0 7.0 6.0 07/10/17 07/10/17 07/11/17 07/11/17 20:48 23:00 01:16 03:00 Temp 97.5 98.3 97.5 98.3 Pulse 80 80 84 Resp 20 20 B/P (MAP) 143/70 129/67 (87) 135/76 (95) Pulse Ox 93 90 O2 Delivery Room Air Nasal Cannula Room Air O2 Flow Rate 7.0 07/11/17 07/11/17 07/11/17 07/11/17 05:05 07:22 07:28 07:32 Temp 97.9 97.9 Pulse 82 Resp 20 B/P (MAP) 141/74 (96) Pulse Ox 91 95 91 91 O2 Delivery Nasal Cannula Room Air Nasal Cannula Nasal Cannula O2 Flow Rate 7.0 5.0 5.0 07/11/17 07/11/17 07/11/17 07/11/17 08:00 08:00 08:00 11:11 Pulse 70 70 B/P (MAP) 106/71 106/71 O2 Delivery Nasal Cannula Nasal Cannula O2 Flow Rate 5.0 5.0 07/11/17 11:19 Temp 97.9 97.9 Pulse 76 Resp 20 B/P (MAP) 119/67 (84) Pulse Ox 93 O2 Delivery Room Air ANTHONY ROSAS MD Jul 11, 2017 12:22
--- NOTE | 2017-07-11 12:50 | PDOC ---
PULMONARY PROGRESS NOTES Subjective on 02, wants it off. sob better, has occ cough, no pain Vitals Vital Signs Date Time Temp Pulse Resp B/P (MAP) Pulse Ox O2 Delivery O2 Flow Rate FiO2 07/11/17 11:19 97.9 76 20 119/67 (84) 93 Room Air 97.9 07/11/17 11:11 5.0 ROS: No Nausea, No Chest Pain General: Alert, No acute distress HEENT: Other (nc at perrl) Lungs: Crackles Cardiovascular: S1, S2 Abdomen: Soft, Non-tender Neuro Exam: Alert Extremities: Other (edema) Skin: Warm Labs Laboratory Tests Test 07/10/17 14:35 07/10/17 21:24 07/10/17 22:57 07/11/17 03:30 White Blood Count 6.8 x10^3/uL (4.0-11.0) 7.2 x10^3/uL (4.0-11.0) Red Blood Count 2.79 x10^6/uL (4.30-5.70) 2.51 x10^6/uL (4.30-5.70) Hemoglobin 7.9 g/dL (13.0-17.5) 7.1 g/dL (13.0-17.5) Hematocrit 23.6 % (39.0-53.0) 20.8 % (39.0-53.0) Mean Corpuscular Volume 84 fL (79-100) 83 fL (79-100) Mean Corpuscular Hemoglobin 28 pg (25-35) 28 pg (25-35) Mean Corpuscular Hemoglobin Concent 34 g/dL (31-37) 34 g/dL (31-37) Red Cell Distribution Width 17.8 % (11.5-14.5) 17.9 % (11.5-14.5) Platelet Count 143 x10^3/uL (140-400) 142 x10^3/uL (140-400) Neutrophils (%) (Auto) 97 % (31-73) 95 % (31-73) Lymphocytes (%) (Auto) 2 % (24-48) 3 % (24-48) Monocytes (%) (Auto) 1 % (0-9) 2 % (0-9) Eosinophils (%) (Auto) 0 % (0-3) 0 % (0-3) Basophils (%) (Auto) 1 % (0-3) 0 % (0-3) Neutrophils # (Auto) 6.6 x10^3uL (1.8-7.7) 6.9 x10^3uL (1.8-7.7) Lymphocytes # (Auto) 0.1 x10^3/uL (1.0-4.8) 0.2 x10^3/uL (1.0-4.8) Monocytes # (Auto) 0.1 x10^3/uL (0.0-1.1) 0.1 x10^3/uL (0.0-1.1) Eosinophils # (Auto) 0.0 x10^3/uL (0.0-0.7) 0.0 x10^3/uL (0.0-0.7) Basophils # (Auto) 0.0 x10^3/uL (0.0-0.2) 0.0 x10^3/uL (0.0-0.2) Segmented Neutrophils % 97 % (35-66) Lymphocytes % 3 % (24-48) Platelet Estimate Adequate (ADEQUATE) Polychromasia Slight Anisocytosis Slight Ovalocytes Few Acanthocytes Occ Schistocytes Occ Prothrombin Time 14.3 SEC (11.7-14.0) Prothromb Time International Ratio 1.2 (0.8-1.1) Activated Partial Thromboplast Time 33 SEC (24-38) D-Dimer (Zayda) 1.43 ug/mlFEU (0.00-0.50) Sodium Level 139 mmol/L (136-145) 138 mmol/L (136-145) Potassium Level 4.0 mmol/L (3.5-5.1) 4.1 mmol/L (3.5-5.1) Chloride Level 102 mmol/L (98-107) 103 mmol/L (98-107) Carbon Dioxide Level 25 mmol/L (21-32) 26 mmol/L (21-32) Anion Gap 12 (6-14) 9 (6-14) Blood Urea Nitrogen 36 mg/dL (8-26) 42 mg/dL (8-26) Creatinine 2.0 mg/dL (0.7-1.3) 2.1 mg/dL (0.7-1.3) Estimated GFR (Cockcroft-Gault) 33.7 31.9 BUN/Creatinine Ratio 18 (6-20) 20 (6-20) Glucose Level 200 mg/dL (70-99) 153 mg/dL (70-99) Calcium Level 9.1 mg/dL (8.5-10.1) 8.7 mg/dL (8.5-10.1) Phosphorus Level 4.3 mg/dL (2.6-4.7) Magnesium Level 1.8 mg/dL (1.8-2.4) 1.8 mg/dL (1.8-2.4) Total Bilirubin 0.4 mg/dL (0.2-1.0) 0.3 mg/dL (0.2-1.0) Aspartate Amino Transf (AST/SGOT) 26 U/L (15-37) 22 U/L (15-37) Alanine Aminotransferase (ALT/SGPT) 26 U/L (16-63) 24 U/L (16-63) Alkaline Phosphatase 142 U/L (46-116) 118 U/L (46-116) Total Protein 7.9 g/dL (6.4-8.2) 7.2 g/dL (6.4-8.2) Albumin 3.1 g/dL (3.4-5.0) 2.9 g/dL (3.4-5.0) Albumin/Globulin Ratio 0.6 (1.0-1.7) 0.7 (1.0-1.7) Thyroid Stimulating Hormone (TSH) 1.779 uIU/mL (0.358-3.74) Glucose (Fingerstick) 239 mg/dL (70-99) Urine Collection Type Unknown Urine Color Yellow Urine Clarity Clear Urine pH 5.0 Urine Specific [place] 1.015 Urine Protein 30 mg/dL (NEG-TRACE) Urine Glucose (UA) Negative mg/dL (NEG) Urine Ketones (Stick) Negative mg/dL (NEG) Urine Blood Small (NEG) Urine Nitrite Negative (NEG) Urine Bilirubin Negative (NEG) Urine Urobilinogen Dipstick 0.2 mg/dL (0.2 mg/dL) Urine Leukocyte Esterase Moderate (NEG) Urine RBC 11-20 /HPF (0-2) Urine WBC 11-20 /HPF (0-4) Urine Squamous Epithelial Cells Few /LPF Urine Bacteria Few /HPF (0-FEW) Urine Hyaline Casts Many /HPF Reticulocyte Count (auto) 1.5 % (0.5-2.5) Test 07/11/17 07:27 07/11/17 10:56 Glucose (Fingerstick) 253 mg/dL (70-99) 201 mg/dL (70-99) Laboratory Tests Test 07/10/17 14:35 07/10/17 21:24 07/10/17 22:57 07/11/17 03:30 White Blood Count 6.8 x10^3/uL (4.0-11.0) 7.2 x10^3/uL (4.0-11.0) Red Blood Count 2.79 x10^6/uL (4.30-5.70) 2.51 x10^6/uL (4.30-5.70) Hemoglobin 7.9 g/dL (13.0-17.5) 7.1 g/dL (13.0-17.5) Hematocrit 23.6 % (39.0-53.0) 20.8 % (39.0-53.0) Mean Corpuscular Volume 84 fL (79-100) 83 fL (79-100) Mean Corpuscular Hemoglobin 28 pg (25-35) 28 pg (25-35) Mean Corpuscular Hemoglobin Concent 34 g/dL (31-37) 34 g/dL (31-37) Red Cell Distribution Width 17.8 % (11.5-14.5) 17.9 % (11.5-14.5) Platelet Count 143 x10^3/uL (140-400) 142 x10^3/uL (140-400) Neutrophils (%) (Auto) 97 % (31-73) 95 % (31-73) Lymphocytes (%) (Auto) 2 % (24-48) 3 % (24-48) Monocytes (%) (Auto) 1 % (0-9) 2 % (0-9) Eosinophils (%) (Auto) 0 % (0-3) 0 % (0-3) Basophils (%) (Auto) 1 % (0-3) 0 % (0-3) Neutrophils # (Auto) 6.6 x10^3uL (1.8-7.7) 6.9 x10^3uL (1.8-7.7) Lymphocytes # (Auto) 0.1 x10^3/uL (1.0-4.8) 0.2 x10^3/uL (1.0-4.8) Monocytes # (Auto) 0.1 x10^3/uL (0.0-1.1) 0.1 x10^3/uL (0.0-1.1) Eosinophils # (Auto) 0.0 x10^3/uL (0.0-0.7) 0.0 x10^3/uL (0.0-0.7) Basophils # (Auto) 0.0 x10^3/uL (0.0-0.2) 0.0 x10^3/uL (0.0-0.2) Segmented Neutrophils % 97 % (35-66) Lymphocytes % 3 % (24-48) Platelet Estimate Adequate (ADEQUATE) Polychromasia Slight Anisocytosis Slight Ovalocytes Few Acanthocytes Occ Schistocytes Occ Prothrombin Time 14.3 SEC (11.7-14.0) Prothromb Time International Ratio 1.2 (0.8-1.1) Activated Partial Thromboplast Time 33 SEC (24-38) D-Dimer (Zayda) 1.43 ug/mlFEU (0.00-0.50) Sodium Level 139 mmol/L (136-145) 138 mmol/L (136-145) Potassium Level 4.0 mmol/L (3.5-5.1) 4.1 mmol/L (3.5-5.1) Chloride Level 102 mmol/L (98-107) 103 mmol/L (98-107) Carbon Dioxide Level 25 mmol/L (21-32) 26 mmol/L (21-32) Anion Gap 12 (6-14) 9 (6-14) Blood Urea Nitrogen 36 mg/dL (8-26) 42 mg/dL (8-26) Creatinine 2.0 mg/dL (0.7-1.3) 2.1 mg/dL (0.7-1.3) Estimated GFR (Cockcroft-Gault) 33.7 31.9 BUN/Creatinine Ratio 18 (6-20) 20 (6-20) Glucose Level 200 mg/dL (70-99) 153 mg/dL (70-99) Calcium Level 9.1 mg/dL (8.5-10.1) 8.7 mg/dL (8.5-10.1) Phosphorus Level 4.3 mg/dL (2.6-4.7) Magnesium Level 1.8 mg/dL (1.8-2.4) 1.8 mg/dL (1.8-2.4) Total Bilirubin 0.4 mg/dL (0.2-1.0) 0.3 mg/dL (0.2-1.0) Aspartate Amino Transf (AST/SGOT) 26 U/L (15-37) 22 U/L (15-37) Alanine Aminotransferase (ALT/SGPT) 26 U/L (16-63) 24 U/L (16-63) Alkaline Phosphatase 142 U/L (46-116) 118 U/L (46-116) Total Protein 7.9 g/dL (6.4-8.2) 7.2 g/dL (6.4-8.2) Albumin 3.1 g/dL (3.4-5.0) 2.9 g/dL (3.4-5.0) Albumin/Globulin Ratio 0.6 (1.0-1.7) 0.7 (1.0-1.7) Thyroid Stimulating Hormone (TSH) 1.779 uIU/mL (0.358-3.74) Glucose (Fingerstick) 239 mg/dL (70-99) Urine Collection Type Unknown Urine Color Yellow Urine Clarity Clear Urine pH 5.0 Urine Specific [place] 1.015 Urine Protein 30 mg/dL (NEG-TRACE) Urine Glucose (UA) Negative mg/dL (NEG) Urine Ketones (Stick) Negative mg/dL (NEG) Urine Blood Small (NEG) Urine Nitrite Negative (NEG) Urine Bilirubin Negative (NEG) Urine Urobilinogen Dipstick 0.2 mg/dL (0.2 mg/dL) Urine Leukocyte Esterase Moderate (NEG) Urine RBC 11-20 /HPF (0-2) Urine WBC 11-20 /HPF (0-4) Urine Squamous Epithelial Cells Few /LPF Urine Bacteria Few /HPF (0-FEW) Urine Hyaline Casts Many /HPF Reticulocyte Count (auto) 1.5 % (0.5-2.5) Test 07/11/17 07:27 07/11/17 10:56 Glucose (Fingerstick) 253 mg/dL (70-99) 201 mg/dL (70-99) Medications Active Scripts Medications Dose Route/Sig Max Daily Dose Days Date Category Tylenol (Acetaminophen) 325 Mg Tablet 650 Mg PO PRN Q6HRS PRN 06/26/17 Reported Amlodipine Besylate 10 Mg Tablet 10 Mg PO DAILY 06/26/17 Reported Voltaren (Diclofenac Sodium) 100 Gm Gel..gram. 100 Gm TP PRN QID PRN 06/26/17 Reported Senokot-S Tablet (Sennosides/Docusate Sodium) 1 Each Tablet 2 Each PO PRN DAILY PRN 06/26/17 Reported Polyethylene Glycol 3350 255 Gm Powder 17 Gm PO PRN DAILY PRN 06/26/17 Reported NITROGLYCERIN SubLingual (Nitroglycerin) 0.4 Mg Tab.subl 0.4 Mg SL PRN Q5MIN PRN 06/26/17 Reported Milk Of Magnesia (Magnesium Hydroxide) 2,400 Mg/10 Ml Oral.susp 2,400 Mg PO PRN DAILY PRN 06/26/17 Reported Probiotic (Lactobacillus Acidophilus) 1 Each Capsule 1 Each PO BID 5 06/26/17 Reported Ferrous Sulfate 325 Mg Tablet 325 Mg PO DAILY 06/26/17 Reported Augmentin 875-125 Tablet (Amoxicillin/Potassium Clav) 1 Each Tablet 1 Tab PO BID 5 06/26/17 Reported Atorvastatin Calcium 40 Mg Tablet 40 Mg PO HS 06/26/17 Reported Hydralazine Hcl 50 Mg Tablet 50 Mg PO BID 06/26/17 Reported Duoneb 0.5-3(2.5) Mg/3 Ml (Albuterol/Ipratropium) 3 Ml Ampul.neb 3 Ml NEB QID 06/26/17 Reported Trazodone Hcl 50 Mg Tablet 100 Mg PO HS 06/26/17 Reported Zofran (Ondansetron Hcl) 4 Mg Tablet 1 Tab PO Q6HRS 01/01/15 Reported Protonix (Pantoprazole Sodium) 40 Mg Tablet.dr 1 Tab PO DAILY 01/01/15 Reported Aspir 81 (Aspirin) 81 Mg Tablet.dr 1 Tab PO DAILY 01/01/15 Reported Comments cxr reviewed, Old granulomatous disease is seen. Again seen are bilateral pleural effusions. There is a small to moderate-sized pleural effusion on the right side which has not changed significantly. Small left-sided pleural effusion is seen which has increased slightly in size. Loculated pleural fluid is again evident within the major fissure on the left side. This has increased here. Cephalization of pulmonary flow is seen. Mild perihilar interstitial pulmonary edema is seen which is more prominent than previously. No pneumothorax is seen. The heart size and mediastinum are stable. Impression . IMPRESSION: 1. Acute respiratory failure, multifactorial in etiology including acute diastolic congestive heart failure, acute exacerbation of chronic obstructive pulmonary disease. 2. Abnormal chest x-ray. 3. Severe pulmonary hypertension. 4. History previous thoracotomy. 5. Schizophrenia. 6. Paroxysmal atrial fibrillation. 7. [id number] kidney disease. 8. Diabetes mellitus. 9. Recent pneumonia. 10. Anemia. Plan . PLAN AND RECOMMENDATIONS: 1. Titrate FiO2 to keep O2 saturation 90%. 2. Bronchodilator. 3. Inhaled corticosteroid. 4. Keep intake less than output, Lasix, monitor creatinine and potassium. 5. Cardiology is consulted. They are planning to do a WIN on Thursday. 6. Monitor respiratory status very closely. 7. Workup for hemoglobin per primary physician. 8. Continue Protonix for stress ulcer prophylaxis. 9. Findings and recommendations were discussed with the patient and RN. 10. His lower extremity venous Doppler did not show DVT, V/Q scan neg. discussed w rn, pt YANNICK BARRON MD Jul 11, 2017 12:50
--- NOTE | 2017-07-11 12:53 | PDOC2 ---
GI CONSULT Reason For Consult: Anemia, bleeding? HPI: HPI: 67 y/o male admitted with pulmonary issues. Anemia noted, prompting GI consult. Some question of possible overt bleeding (in underwear?), the chronology of which is uncertain. Review of available labs at [facility] and here show hemoglobins ranging from current 7+ to 11+, though generally in the 8 to 9' s. To me he denies any overt bleeding nor melena, though a questionable historian. Denies any history of anemia. Believes had prior colonoscopy ([facility]? ) w/in the past 5 years recalled as normal. Denies abdominal pain, heartburn, dysphagia, PUD, GB, liver or pancreatic history. Does have documented chronic HCV by PCR here. Former smoker. No alcohol now, but suspect user in the past. H/o remote IV drug use. Recently on ASA. Denies diarrhea, constipation, wt. loss. Appetite good. No N or V. Recalls lots of cancer in family, unclearly any bowel malignancy. PMH: PMH: CAD/, Afib post-MAZE procedure, CHF, HTN, HLD, COPD-O2 dependent, Schizophrenia, DM, positive PPD. S/P CABG/AVR, MAZE procedure, back surgery. On CXR's, appears to have some sternal stabilizing hardware; AV seems to be bioprosthesis. Social History: Smoke: Quit ALCOHOL: none Drugs: Cocaine ROS: GEN: Denies fevers, chills, sweats HEENT: Denies blurred vision, sore throat CV: Denies chest pain RESP: Denies shortness of air, cough GI: Per HPI : Denies hematuria, dysuria ENDO: Denies weight changes NEURO: Denies confusion, dizziness MSK: Denies weakness, joint pain/swelling SKIN: Denies jaundice, pruritus Vitals: Vitals: Vital Signs Date Time Temp Pulse Resp B/P (MAP) Pulse Ox O2 Delivery O2 Flow Rate FiO2 07/11/17 11:19 97.9 76 20 119/67 (84) 93 Room Air 97.9 07/11/17 11:11 5.0 Labs: Labs: Laboratory Tests Test 07/10/17 14:35 07/10/17 21:24 07/10/17 22:57 07/11/17 03:30 White Blood Count 6.8 x10^3/uL (4.0-11.0) 7.2 x10^3/uL (4.0-11.0) Red Blood Count 2.79 x10^6/uL (4.30-5.70) 2.51 x10^6/uL (4.30-5.70) Hemoglobin 7.9 g/dL (13.0-17.5) 7.1 g/dL (13.0-17.5) Hematocrit 23.6 % (39.0-53.0) 20.8 % (39.0-53.0) Mean Corpuscular Volume 84 fL (79-100) 83 fL (79-100) Mean Corpuscular Hemoglobin 28 pg (25-35) 28 pg (25-35) Mean Corpuscular Hemoglobin Concent 34 g/dL (31-37) 34 g/dL (31-37) Red Cell Distribution Width 17.8 % (11.5-14.5) 17.9 % (11.5-14.5) Platelet Count 143 x10^3/uL (140-400) 142 x10^3/uL (140-400) Neutrophils (%) (Auto) 97 % (31-73) 95 % (31-73) Lymphocytes (%) (Auto) 2 % (24-48) 3 % (24-48) Monocytes (%) (Auto) 1 % (0-9) 2 % (0-9) Eosinophils (%) (Auto) 0 % (0-3) 0 % (0-3) Basophils (%) (Auto) 1 % (0-3) 0 % (0-3) Neutrophils # (Auto) 6.6 x10^3uL (1.8-7.7) 6.9 x10^3uL (1.8-7.7) Lymphocytes # (Auto) 0.1 x10^3/uL (1.0-4.8) 0.2 x10^3/uL (1.0-4.8) Monocytes # (Auto) 0.1 x10^3/uL (0.0-1.1) 0.1 x10^3/uL (0.0-1.1) Eosinophils # (Auto) 0.0 x10^3/uL (0.0-0.7) 0.0 x10^3/uL (0.0-0.7) Basophils # (Auto) 0.0 x10^3/uL (0.0-0.2) 0.0 x10^3/uL (0.0-0.2) Segmented Neutrophils % 97 % (35-66) Lymphocytes % 3 % (24-48) Platelet Estimate Adequate (ADEQUATE) Polychromasia Slight Anisocytosis Slight Ovalocytes Few Acanthocytes Occ Schistocytes Occ Prothrombin Time 14.3 SEC (11.7-14.0) Prothromb Time International Ratio 1.2 (0.8-1.1) Activated Partial Thromboplast Time 33 SEC (24-38) D-Dimer (Zayda) 1.43 ug/mlFEU (0.00-0.50) Sodium Level 139 mmol/L (136-145) 138 mmol/L (136-145) Potassium Level 4.0 mmol/L (3.5-5.1) 4.1 mmol/L (3.5-5.1) Chloride Level 102 mmol/L (98-107) 103 mmol/L (98-107) Carbon Dioxide Level 25 mmol/L (21-32) 26 mmol/L (21-32) Anion Gap 12 (6-14) 9 (6-14) Blood Urea Nitrogen 36 mg/dL (8-26) 42 mg/dL (8-26) Creatinine 2.0 mg/dL (0.7-1.3) 2.1 mg/dL (0.7-1.3) Estimated GFR (Cockcroft-Gault) 33.7 31.9 BUN/Creatinine Ratio 18 (6-20) 20 (6-20) Glucose Level 200 mg/dL (70-99) 153 mg/dL (70-99) Calcium Level 9.1 mg/dL (8.5-10.1) 8.7 mg/dL (8.5-10.1) Phosphorus Level 4.3 mg/dL (2.6-4.7) Magnesium Level 1.8 mg/dL (1.8-2.4) 1.8 mg/dL (1.8-2.4) Total Bilirubin 0.4 mg/dL (0.2-1.0) 0.3 mg/dL (0.2-1.0) Aspartate Amino Transf (AST/SGOT) 26 U/L (15-37) 22 U/L (15-37) Alanine Aminotransferase (ALT/SGPT) 26 U/L (16-63) 24 U/L (16-63) Alkaline Phosphatase 142 U/L (46-116) 118 U/L (46-116) Total Protein 7.9 g/dL (6.4-8.2) 7.2 g/dL (6.4-8.2) Albumin 3.1 g/dL (3.4-5.0) 2.9 g/dL (3.4-5.0) Albumin/Globulin Ratio 0.6 (1.0-1.7) 0.7 (1.0-1.7) Thyroid Stimulating Hormone (TSH) 1.779 uIU/mL (0.358-3.74) Glucose (Fingerstick) 239 mg/dL (70-99) Urine Collection Type Unknown Urine Color Yellow Urine Clarity Clear Urine pH 5.0 Urine Specific [place] 1.015 Urine Protein 30 mg/dL (NEG-TRACE) Urine Glucose (UA) Negative mg/dL (NEG) Urine Ketones (Stick) Negative mg/dL (NEG) Urine Blood Small (NEG) Urine Nitrite Negative (NEG) Urine Bilirubin Negative (NEG) Urine Urobilinogen Dipstick 0.2 mg/dL (0.2 mg/dL) Urine Leukocyte Esterase Moderate (NEG) Urine RBC 11-20 /HPF (0-2) Urine WBC 11-20 /HPF (0-4) Urine Squamous Epithelial Cells Few /LPF Urine Bacteria Few /HPF (0-FEW) Urine Hyaline Casts Many /HPF Reticulocyte Count (auto) 1.5 % (0.5-2.5) Test 07/11/17 07:27 07/11/17 10:56 Glucose (Fingerstick) 253 mg/dL (70-99) 201 mg/dL (70-99) Allergies: Coded Allergies: isoniazid (Verified Allergy, Intermediate, 01/01/15) thiamine (vitamin B1) (Verified Allergy, Intermediate, 01/01/15) I S O L A T I O N *CONTACT* (Verified Allergy, Unknown, 01/04/15) mrsa + Medications: Current Medications Medications (Trade) Dose Ordered Sig/Raine Route PRN Reason Start Time Stop Time Status Last Admin Dose Admin Senna/Docusate Sodium (Senna Plus) 1 tab BID PO 07/10/17 21:00 07/11/17 07:59 Acetaminophen (Tylenol) 650 mg PRN Q6HRS PRN PO MILD PAIN / TEMP 07/10/17 14:15 07/11/17 04:55 Amlodipine Besylate (Norvasc) 10 mg DAILY PO 07/10/17 15:00 07/11/17 08:00 Aspirin (Ecotrin) 81 mg DAILY PO 07/10/17 15:00 07/11/17 08:01 Atorvastatin Calcium (Lipitor) 40 mg HS PO 07/10/17 21:00 07/10/17 20:48 Ferrous Sulfate (Feosol) 325 mg DAILYWBKFT PO 07/10/17 15:00 07/11/17 08:00 Hydralazine HCl (Apresoline) 50 mg BID PO 07/10/17 21:00 07/11/17 08:00 Albuterol/ Ipratropium (Duoneb) 3 ml RTQID NEB 07/10/17 16:00 07/11/17 11:10 Pantoprazole Sodium (Protonix) 40 mg DAILYAC PO 07/10/17 16:30 07/11/17 08:01 Trazodone HCl (Desyrel) 100 mg HS PO 07/10/17 21:00 07/10/17 20:48 Lactobacillus Acidophilus (Bacid, Leila-Bid) 1 tab BID PO 07/10/17 21:00 07/11/17 08:01 Ondansetron HCl (Zofran Odt) 4 mg Q6HRS PO 07/10/17 14:30 07/11/17 11:35 Guaifenesin (Robitussin Dm) 10 ml PRN Q6HRS PRN PO COUGH 07/10/17 15:00 07/11/17 04:55 Furosemide (Lasix) 20 mg DAILY IVP 07/11/17 09:00 07/11/17 08:01 Budesonide (Pulmicort) 0.5 mg RTBID NEB 07/10/17 20:00 07/11/17 07:24 Albuterol Sulfate (Ventolin Neb Soln) 2.5 mg PRN Q4HRS PRN NEB SHORTNESS OF BREATH 07/10/17 23:00 07/11/17 05:05 Insulin Aspart (NovoLOG) 0-9 UNITS TIDWMEALS SQ 07/11/17 12:00 07/11/17 12:14 Imaging: Imaging: No GI imaging available to view. PE: GEN: NAD HEENT: Atraumatic, PERRLA LUNGS: CTAB HEART: RRR, no murmurs; do not hear metallic valve noises ABD: NABS, S/ND/NT, no masses EXTREMITY: No edema SKIN: No rashes, no jaundice NEURO/PSYCH: A & O 3, thought processes a little skewed A/P: A/P: IMP: Anemia. Elevated RDW hints at polymorphic RBC population, so iron deficiency possible. Normocytic, so B12 of folate as well? Seems to be a chronic problem. If h/o prior normal colonoscopy w/in past 5 years is true, not likely colonic issue. Chronic HCV; would not be good candidate for therapy. REC: Will check iron studies, B12 and folate. He vehemently declines a repeat colonoscopy at this time. Continue other w/u, treatment. --other pending hospital course. Thanks. DL CASTELLANO MD Jul 11, 2017 12:53
[2017-07-11 13:27] LABS: % SAT IRON 7 % (15-34); IRON,SERUM 21 ug/dL (65-175)
[2017-07-11 14:48] VITALS: BP 154/75
[2017-07-11 19:00] VITALS: BP 135/72
--- NOTE | 2017-07-11 19:14 | CONS ---
DATE OF CONSULTATION: REQUESTING PHYSICIAN: Hospitalist. REASON FOR CONSULTATION: Renal failure. HISTORY OF PRESENT ILLNESS: This is a 67-year-old gentleman with history of aortic stenosis status post aortic valve replacement, congestive cardiomyopathy, hypertension, diabetes mellitus and chronic kidney disease stage 3. The patient is currently admitted with chest pain. Due to increased level of azotemia, nephrology evaluation has been requested. PAST MEDICAL HISTORY: 1. Diabetes mellitus. 2. Hypertension. 3. Schizophrenia. 4. GE reflux disease. 5. Dysphagia. 6. Atrial fibrillation. 7. COPD with supplemental oxygen dependence. 8. Hyperlipidemia. 9. Congestive cardiomyopathy. 10. Aortic stenosis. 11. Aortic valve replacement. 12. Coronary artery bypass grafting/ 13. Back surgery. ALLERGIES: ISONIAZID, THIAMINE. MEDICATIONS: Noted. FAMILY HISTORY: Noncontributory for renal disease. SOCIAL HISTORY: The patient does not drink alcohol. REVIEW OF SYSTEMS: No headaches, sinus problem, nasal drainage, epistaxis, change in vision or hearing. No difficulty swallowing. No fever, chills, cough, sputum production or hemoptysis. He did have left-sided chest pain on presentation. He has had some shortness of breath. He is on 2-4 liters supplemental oxygen at home. No abdominal pain or upper or lower gastrointestinal blood loss. No nausea, vomiting, diarrhea or seizures. He has schizophrenia. PHYSICAL EXAMINATION: GENERAL APPEARANCE: The patient awake, conversant. HEENT: Clear. NECK: No increased JVD. No thyromegaly, mass or adenopathy. LUNGS: Clear. CARDIAC: Without S3 or rub. ABDOMEN: Soft, nontender, no bruits. EXTREMITIES: Without edema. NEUROPSYCHIATRIC: Speaks with a loud voice, poor attention to detail. LABORATORY DATA: Sodium 138, potassium 4.1, chloride 103, CO2 of 26, BUN 42, creatinine 2.1, GFR of 32. Hemoglobin 7.1, hematocrit 20.8, white count 7.2, platelets are 142. Urinalysis: Specific gravity 1.015. Few bacteria, 11-20 wbc's, small amount of blood, 30 mg percent protein. IMPRESSION: 1. Chronic kidney disease stage 3 secondary to diabetic nephropathy and hypertensive nephrosclerosis. 2. Diabetes mellitus. 3. Hypertension. 4. Possible urinary tract infection. 5. Schizophrenia. RECOMMENDATIONS: 1. Maintain fluid balance. 2. Glucose control. 3. Urine culture. 4. We will follow. DL MCNEAL MD DR: TRINO/crystal JOB#: [id number] / [id number]
[2017-07-11] MEDS: ATORVASTATIN CALCIUM 40 MG TABLET. PO SCH (20:43)
[2017-07-11] MEDS: traZODone 50 MG TABLET. PO SCH (20:43)
[2017-07-11 23:00] VITALS: BP 135/72
[2017-07-12] MEDS: ALBUTEROL SULFATE 2.5 MG/3 ML NEBU. NEB PRN ×2 (02:27→16:13)
[2017-07-12] MEDS: MORPHINE SULFATE 2 MG/ML DISP.SYRIN. IV PRN ×4 (02:40→18:26)
[2017-07-12 03:00] VITALS: BP 125/75
[2017-07-12] MEDS: HYDROcodone/APAP 5/325MG 1 TAB TABLET PO PRN ×2 (03:48→20:12)
[2017-07-12 05:35] LABS: HEMATOCRIT 21.6 % (39.0-53.0); HEMOGLOBIN 7.2 g/dL (13.0-17.5)
[2017-07-12] MEDS: ONDANSETRON ODT 4 MG TAB.RAPDIS. PO SCH ×4 (05:59→16:14)
[2017-07-12 06:15] LABS: CALCIUM 8.4 mg/dL (8.5-10.1); CREATININE 2.2 mg/dL (0.7-1.3); GFR 30.2; POTASSIUM 4.1 mmol/L (3.5-5.1)
[2017-07-12 07:00] VITALS: BP 123/76
[2017-07-12] MEDS: IPRATRPIUM/ALBUTEROL 0.5/2.5MG 3 ML NEBU. NEB SCH ×4 (07:17→20:24)
[2017-07-12] MEDS: BUDESONIDE 0.5 MG/2 ML NEBU. NEB SCH ×2 (07:18→20:24)
[2017-07-12] MEDS: INSULIN ASPART 300 UNITS/3 ML INSULN.PEN SQ SCH ×3 (07:58→16:13)
[2017-07-12] MEDS: FERROUS SULFATE 325 MG TABLET. PO SCH (08:06)
[2017-07-12] MEDS: SENNOSIDES/DOCUSATE 8.6/50MG TABLET. PO SCH ×2 (08:06→20:19)
[2017-07-12] MEDS: PANTOPRAZOLE 40 MG TABLET.DR. PO SCH (08:06)
[2017-07-12] MEDS: LACTOBACILLUS ACIDOPH & BULGAR 1 TABLET. PO SCH ×2 (08:06→20:12)
[2017-07-12] MEDS: amLODIPine BESYLATE 10 MG TABLET PO SCH (08:07)
[2017-07-12] MEDS: ASPIRIN ENTERIC COATED 81 MG TABLET.DR. PO SCH (08:07)
[2017-07-12] MEDS: FUROSEMIDE 20 MG/2 ML VIAL. IVP SCH (08:09)
--- NOTE | 2017-07-12 10:20 | PDOC ---
G I PROGRESS NOTE Subjective No GI complaints. Eating well. Surprised he's short on iron/anemic. Objective No records from either [facility] yet. Physical Exam Lungs clear. RRR Abdomen soft, not tender nor distended. Review of Relevant I have reviewed the following items florentin (where applicable) has been applied. Labs Laboratory Tests Test 07/10/17 14:35 07/10/17 21:24 07/10/17 22:57 07/11/17 01:00 White Blood Count 6.8 x10^3/uL (4.0-11.0) Red Blood Count 2.79 x10^6/uL (4.30-5.70) Hemoglobin 7.9 g/dL (13.0-17.5) Hematocrit 23.6 % (39.0-53.0) Mean Corpuscular Volume 84 fL (79-100) Mean Corpuscular Hemoglobin 28 pg (25-35) Mean Corpuscular Hemoglobin Concent 34 g/dL (31-37) Red Cell Distribution Width 17.8 % (11.5-14.5) Platelet Count 143 x10^3/uL (140-400) Neutrophils (%) (Auto) 97 % (31-73) Lymphocytes (%) (Auto) 2 % (24-48) Monocytes (%) (Auto) 1 % (0-9) Eosinophils (%) (Auto) 0 % (0-3) Basophils (%) (Auto) 1 % (0-3) Neutrophils # (Auto) 6.6 x10^3uL (1.8-7.7) Lymphocytes # (Auto) 0.1 x10^3/uL (1.0-4.8) Monocytes # (Auto) 0.1 x10^3/uL (0.0-1.1) Eosinophils # (Auto) 0.0 x10^3/uL (0.0-0.7) Basophils # (Auto) 0.0 x10^3/uL (0.0-0.2) Segmented Neutrophils % 97 % (35-66) Lymphocytes % 3 % (24-48) Platelet Estimate Adequate (ADEQUATE) Polychromasia Slight Anisocytosis Slight Ovalocytes Few Acanthocytes Occ Schistocytes Occ Prothrombin Time 14.3 SEC (11.7-14.0) Prothromb Time International Ratio 1.2 (0.8-1.1) Activated Partial Thromboplast Time 33 SEC (24-38) D-Dimer (Zayda) 1.43 ug/mlFEU (0.00-0.50) Sodium Level 139 mmol/L (136-145) Potassium Level 4.0 mmol/L (3.5-5.1) Chloride Level 102 mmol/L (98-107) Carbon Dioxide Level 25 mmol/L (21-32) Anion Gap 12 (6-14) Blood Urea Nitrogen 36 mg/dL (8-26) Creatinine 2.0 mg/dL (0.7-1.3) Estimated GFR (Cockcroft-Gault) 33.7 BUN/Creatinine Ratio 18 (6-20) Glucose Level 200 mg/dL (70-99) Calcium Level 9.1 mg/dL (8.5-10.1) Phosphorus Level 4.3 mg/dL (2.6-4.7) Magnesium Level 1.8 mg/dL (1.8-2.4) Total Bilirubin 0.4 mg/dL (0.2-1.0) Aspartate Amino Transf (AST/SGOT) 26 U/L (15-37) Alanine Aminotransferase (ALT/SGPT) 26 U/L (16-63) Alkaline Phosphatase 142 U/L (46-116) Total Protein 7.9 g/dL (6.4-8.2) Albumin 3.1 g/dL (3.4-5.0) Albumin/Globulin Ratio 0.6 (1.0-1.7) Thyroid Stimulating Hormone (TSH) 1.779 uIU/mL (0.358-3.74) Glucose (Fingerstick) 239 mg/dL (70-99) Urine Collection Type Unknown Urine Color Yellow Urine Clarity Clear Urine pH 5.0 Urine Specific [place] 1.015 Urine Protein 30 mg/dL (NEG-TRACE) Urine Glucose (UA) Negative mg/dL (NEG) Urine Ketones (Stick) Negative mg/dL (NEG) Urine Blood Small (NEG) Urine Nitrite Negative (NEG) Urine Bilirubin Negative (NEG) Urine Urobilinogen Dipstick 0.2 mg/dL (0.2 mg/dL) Urine Leukocyte Esterase Moderate (NEG) Urine RBC 11-20 /HPF (0-2) Urine WBC 11-20 /HPF (0-4) Urine Squamous Epithelial Cells Few /LPF Urine Bacteria Few /HPF (0-FEW) Urine Hyaline Casts Many /HPF Nasal Screen MRSA (PCR) Positive (Negative) Test 07/11/17 03:30 07/11/17 07:27 07/11/17 10:56 07/11/17 16:15 White Blood Count 7.2 x10^3/uL (4.0-11.0) Red Blood Count 2.51 x10^6/uL (4.30-5.70) Hemoglobin 7.1 g/dL (13.0-17.5) Hematocrit 20.8 % (39.0-53.0) Mean Corpuscular Volume 83 fL (79-100) Mean Corpuscular Hemoglobin 28 pg (25-35) Mean Corpuscular Hemoglobin Concent 34 g/dL (31-37) Red Cell Distribution Width 17.9 % (11.5-14.5) Platelet Count 142 x10^3/uL (140-400) Neutrophils (%) (Auto) 95 % (31-73) Lymphocytes (%) (Auto) 3 % (24-48) Monocytes (%) (Auto) 2 % (0-9) Eosinophils (%) (Auto) 0 % (0-3) Basophils (%) (Auto) 0 % (0-3) Neutrophils # (Auto) 6.9 x10^3uL (1.8-7.7) Lymphocytes # (Auto) 0.2 x10^3/uL (1.0-4.8) Monocytes # (Auto) 0.1 x10^3/uL (0.0-1.1) Eosinophils # (Auto) 0.0 x10^3/uL (0.0-0.7) Basophils # (Auto) 0.0 x10^3/uL (0.0-0.2) Reticulocyte Count (auto) 1.5 % (0.5-2.5) Sodium Level 138 mmol/L (136-145) Potassium Level 4.1 mmol/L (3.5-5.1) Chloride Level 103 mmol/L (98-107) Carbon Dioxide Level 26 mmol/L (21-32) Anion Gap 9 (6-14) Blood Urea Nitrogen 42 mg/dL (8-26) Creatinine 2.1 mg/dL (0.7-1.3) Estimated GFR (Cockcroft-Gault) 31.9 BUN/Creatinine Ratio 20 (6-20) Glucose Level 153 mg/dL (70-99) Calcium Level 8.7 mg/dL (8.5-10.1) Magnesium Level 1.8 mg/dL (1.8-2.4) Iron Level 21 ug/dL (65-175) Total Iron Binding Capacity 287 ug/dL (250-450) Iron Saturation 7 % (15-34) Total Bilirubin 0.3 mg/dL (0.2-1.0) Aspartate Amino Transf (AST/SGOT) 22 U/L (15-37) Alanine Aminotransferase (ALT/SGPT) 24 U/L (16-63) Alkaline Phosphatase 118 U/L (46-116) Total Protein 7.2 g/dL (6.4-8.2) Albumin 2.9 g/dL (3.4-5.0) Albumin/Globulin Ratio 0.7 (1.0-1.7) Glucose (Fingerstick) 253 mg/dL (70-99) 201 mg/dL (70-99) 94 mg/dL (70-99) Test 07/11/17 20:48 07/12/17 05:05 07/12/17 07:44 Glucose (Fingerstick) 134 mg/dL (70-99) 97 mg/dL (70-99) Hemoglobin 7.2 g/dL (13.0-17.5) Hematocrit 21.6 % (39.0-53.0) Mean Corpuscular Hemoglobin Concent 33 g/dL (31-37) Sodium Level 136 mmol/L (136-145) Potassium Level 4.1 mmol/L (3.5-5.1) Chloride Level 102 mmol/L (98-107) Carbon Dioxide Level 24 mmol/L (21-32) Anion Gap 10 (6-14) Blood Urea Nitrogen 57 mg/dL (8-26) Creatinine 2.2 mg/dL (0.7-1.3) Estimated GFR (Cockcroft-Gault) 30.2 Glucose Level 102 mg/dL (70-99) Calcium Level 8.4 mg/dL (8.5-10.1) Laboratory Tests Test 07/11/17 10:56 07/11/17 16:15 07/11/17 20:48 07/12/17 05:05 Glucose (Fingerstick) 201 mg/dL (70-99) 94 mg/dL (70-99) 134 mg/dL (70-99) Hemoglobin 7.2 g/dL (13.0-17.5) Hematocrit 21.6 % (39.0-53.0) Mean Corpuscular Hemoglobin Concent 33 g/dL (31-37) Sodium Level 136 mmol/L (136-145) Potassium Level 4.1 mmol/L (3.5-5.1) Chloride Level 102 mmol/L (98-107) Carbon Dioxide Level 24 mmol/L (21-32) Anion Gap 10 (6-14) Blood Urea Nitrogen 57 mg/dL (8-26) Creatinine 2.2 mg/dL (0.7-1.3) Estimated GFR (Cockcroft-Gault) 30.2 Glucose Level 102 mg/dL (70-99) Calcium Level 8.4 mg/dL (8.5-10.1) Test 07/12/17 07:44 Glucose (Fingerstick) 97 mg/dL (70-99) SANGITA noted. Medications Current Medications Sodium Chloride (Normal Saline Flush) 3 ml PRN DAILY PRN IV AFTER MEDS AND BLOOD DRAWS; Start 07/10/17 at 14:00 Prochlorperazine Edisylate (Compazine) 10 mg PRN Q6HRS PRN IV NAUSEA/VOMITING; Start 07/10/17 at 14:00 Al Hydroxide/Mg Hydroxide (Mylanta Plus Xs) 30 ml PRN Q3HRS PRN PO HEARTBURN / GAS; Start 07/10/17 at 14:00 Senna/Docusate Sodium (Senna Plus) 1 tab BID PO Last administered on 08:06; Start 07/10/17 at 21:00 Magnesium Hydroxide (Milk Of Magnesia) 2,400 mg PRN Q12HR PRN PO CONSTIPATION; Start 07/10/17 at 14:00 Acetaminophen (Tylenol) 650 mg PRN Q6HRS PRN PO MILD PAIN / TEMP Last administered on 07/11/17 04:55; Start 07/10/17 at 14:15 Amlodipine Besylate (Norvasc) 10 mg DAILY PO Last administered on 07/12/17 08 :07; Start 07/10/17 at 15:00 Aspirin (Ecotrin) 81 mg DAILY PO Last administered on 07/12/17 08:07; Start 07/10/17 at 15:00 Atorvastatin Calcium (Lipitor) 40 mg HS PO Last administered on 07/11/17 20: 43; Start 07/10/17 at 21:00 Diclofenac Sodium (Voltaren) 100 julissa PRN QID PRN TP INFLAMMATION; Start at 14:15 Ferrous Sulfate (Feosol) 325 mg DAILYWBKFT PO Last administered on 07/12/17 08:06; Start 07/10/17 at 15:00 Hydralazine HCl (Apresoline) 50 mg BID PO Last administered on 07/12/17 08:08 ; Start 07/10/17 at 21:00 Albuterol/ Ipratropium (Duoneb) 3 ml RTQID NEB Last administered on 07/12/17 07:17; Start 07/10/17 at 16:00 Nitroglycerin (Nitrostat) 0.4 mg PRN Q5MIN PRN SL CHEST PAIN; Start 07/10/17 at 14:15 Pantoprazole Sodium (Protonix) 40 mg DAILYAC PO Last administered on 08:06; Start 07/10/17 at 16:30 Polyethylene Glycol (miraLAX Powder BULK BOTTLE) 17 gm PRN DAILY PRN PO CONSTIPATION; Start 07/10/17 at 14:15; Stop 07/10/17 at 14:22; Status DC Senna/Docusate Sodium (Senna Plus) 2 tab PRN DAILY PRN PO CONSTIPATION; Start 07/10/17 at 14:15 Trazodone HCl (Desyrel) 100 mg HS PO Last administered on 07/11/17 20:43; Start 07/10/17 at 21:00 Lactobacillus Acidophilus (Bacid, Leila-Bid) 1 tab BID PO Last administered on 07/12/17 08:06; Start 07/10/17 at 21:00 Magnesium Hydroxide (Milk Of Magnesia) 2,400 mg PRN DAILY PRN PO CONSTIPATION; Start 07/10/17 at 14:30 Ondansetron HCl (Zofran Odt) 4 mg Q6HRS PO Last administered on 07/12/17 05: 59; Start 07/10/17 at 14:30 Polyethylene Glycol (miraLAX PACKET) 17 gm PRN DAILY PRN PO CONSTIPATION; Start 07/11/17 at 09:00 Guaifenesin (Robitussin Dm) 10 ml PRN Q6HRS PRN PO COUGH Last administered on 07/11/17 04:55; Start 07/10/17 at 15:00 Acetaminophen/ Hydrocodone Bitart (Lortab 5/325) 1 tab PRN Q4HRS PRN PO PAIN Last administered on 07/12/17 03:48; Start 07/10/17 at 15:00 Morphine Sulfate 1 mg PRN Q2HR PRN IV PAIN Last administered on 07/12/17 05: 43; Start 07/10/17 at 15:00 Furosemide (Lasix) 20 mg DAILY IVP Last administered on 07/12/17 08:09; Start 07/11/17 at 09:00 Budesonide (Pulmicort) 0.5 mg RTBID NEB Last administered on 07/12/17 07:18; Start 07/10/17 at 20:00 Albuterol Sulfate (Ventolin Neb Soln) 2.5 mg PRN Q4HRS PRN NEB SHORTNESS OF BREATH Last administered on 07/12/17 02:27; Start 07/10/17 at 23:00 Insulin Aspart (NovoLOG) 0-9 UNITS TIDWMEALS SQ Last administered on 12:14; Start 07/11/17 at 12:00 Dextrose (Dextrose 50%-Water Syringe) 12.5 gm PRN Q15MIN PRN IV SEE COMMENTS; Start 07/11/17 at 11:45 Active Scripts Active Reported Tylenol (Acetaminophen) 325 Mg Tablet 650 Mg PO PRN Q6HRS PRN Amlodipine Besylate 10 Mg Tablet 10 Mg PO DAILY Voltaren (Diclofenac Sodium) 100 Gm Gel..gram. 100 Gm TP PRN QID PRN Senokot-S Tablet (Sennosides/Docusate Sodium) 1 Each Tablet 2 Each PO PRN DAILY PRN Polyethylene Glycol 3350 255 Gm Powder 17 Gm PO PRN DAILY PRN NITROGLYCERIN SubLingual (Nitroglycerin) 0.4 Mg Tab.subl 0.4 Mg SL PRN Q5MIN PRN Milk Of Magnesia (Magnesium Hydroxide) 2,400 Mg/10 Ml Oral.susp 2,400 Mg PO PRN DAILY PRN Probiotic (Lactobacillus Acidophilus) 1 Each Capsule 1 Each PO BID 5 Days Ferrous Sulfate 325 Mg Tablet 325 Mg PO DAILY Augmentin 875-125 Tablet (Amoxicillin/Potassium Clav) 1 Each Tablet 1 Tab PO BID 5 Days Atorvastatin Calcium 40 Mg Tablet 40 Mg PO HS Hydralazine Hcl 50 Mg Tablet 50 Mg PO BID Duoneb 0.5-3(2.5) Mg/3 Ml (Albuterol/Ipratropium) 3 Ml Ampul.neb 3 Ml NEB QID Trazodone Hcl 50 Mg Tablet 100 Mg PO HS Zofran (Ondansetron Hcl) 4 Mg Tablet 1 Tab PO Q6HRS Protonix (Pantoprazole Sodium) 40 Mg Tablet.dr 1 Tab PO DAILY Aspir 81 (Aspirin) 81 Mg Tablet.dr 1 Tab PO DAILY Vitals/I & O Vital Sign - Last 24 Hours 07/11/17 07/11/17 07/11/17 07/11/17 11:11 11:19 14:48 16:44 Temp 97.9 97.8 97.9 97.8 Pulse 76 78 Resp 20 18 B/P (MAP) 119/67 (84) 154/75 (101) Pulse Ox 93 95 O2 Delivery Nasal Cannula Room Air Room Air Nasal Cannula O2 Flow Rate 5.0 4.0 07/11/17 07/11/17 07/11/17 07/11/17 19:00 20:00 20:44 20:47 Temp 98.4 98.4 Pulse 85 85 Resp 18 B/P (MAP) 135/72 (93) 135/72 Pulse Ox 98 92 O2 Delivery Room Air Nasal Cannula Nasal Cannula O2 Flow Rate 4.0 4.0 07/11/17 07/12/17 07/12/17 07/12/17 23:00 02:28 02:40 03:00 Temp 98.0 95.0 98.0 95.0 Pulse 85 75 Resp 18 18 B/P (MAP) 135/72 (93) 125/75 (92) Pulse Ox 96 93 96 96 O2 Delivery Nasal Cannula Nasal Cannula O2 Flow Rate 4.0 4.0 07/12/17 07/12/17 07/12/17 07/12/17 03:48 04:48 05:43 06:13 O2 Delivery Nasal Cannula Nasal Cannula Nasal Cannula Nasal Cannula O2 Flow Rate 4.0 4.0 4.0 4.0 07/12/17 07/12/17 07/12/17 07/12/17 07:00 07:20 07:25 07:36 Temp 97.5 97.5 Pulse 75 Resp 20 B/P (MAP) 123/76 (92) Pulse Ox 90 93 93 O2 Delivery Nasal Cannula Nasal Cannula Nasal Cannula Nasal Cannula O2 Flow Rate 5.0 4.0 4.0 4.0 07/12/17 07/12/17 08:07 08:08 Pulse 75 75 B/P (MAP) 123/76 123/76 Assessment SANGITA. Plan of Care: Continue current Tx, Mgmt Plan of Care Note Await any records of prior scopes; as still on high-flow O2, not best endoscopy candidate. DL CASTELLANO MD Jul 12, 2017 10:20
--- NOTE | 2017-07-12 10:50 | PDOC ---
PROGRESS NOTES Chief Complaint Chief Complaint 1. Acute respiratory failure, multifactorial in etiology including acute diastolic congestive heart failure, acute exacerbation of chronic obstructive pulmonary disease. 1. Atypical Chest pain: MSK/pleuritic. 2. Acute on chronic diastolic/systolic CHF: likely induced by pulmonary issue 3. Severe pulmonary hypertension. 3. CAD with chronic LBBB: Past CABG with prosthetic AVR 4. AECOPD/Severe pulmonary hypertension: per PCP. PAP 87 mmHg 5. Schizophrenia. 6. Paroxysmal atrial fibrillation. 7. Bhqul-af-xeuetfr kidney disease. 8. Diabetes mellitus. 9. Recent pneumonia. 10. Anemia, NORMOCYTIC History of Present Illness History of Present Illness Hgb 7,.2 NO stool sample yet Minimal ambulation Wheelchair bound in SNU Wants a nicotine patch - allowed to smoke in SNU few cigs at times Tentative plans of Alin thursday per cards NO other issues overnight CLaims last c scope many yrs ago,was ok, not wanting another one NO family support - many yrs ago, 3 kids are all out of state and has not seen in 10-15 yrs - no contact no etc PLAn: FOBT Nicotine patch Follow cards recs Dw RN Pau SCDs only bec of the hgb 7 Bowel regimen today Vitals Vitals Vital Signs Date Time Temp Pulse Resp B/P (MAP) Pulse Ox O2 Delivery O2 Flow Rate FiO2 07/12/17 08:08 75 123/76 07/12/17 07:36 Nasal Cannula 4.0 07/12/17 07:25 93 07/12/17 07:00 97.5 20 97.5 Physical Exam General: Alert, Oriented X3, Cooperative, No acute distress Heart: Regular rate Lungs: Crackles Abdomen: Normal bowel sounds Extremities: No clubbing, No cyanosis Skin: No rashes, No breakdown Labs LABS Laboratory Tests Test 07/11/17 10:56 07/11/17 16:15 07/11/17 20:48 07/12/17 05:05 Glucose (Fingerstick) 201 mg/dL (70-99) 94 mg/dL (70-99) 134 mg/dL (70-99) Hemoglobin 7.2 g/dL (13.0-17.5) Hematocrit 21.6 % (39.0-53.0) Mean Corpuscular Hemoglobin Concent 33 g/dL (31-37) Sodium Level 136 mmol/L (136-145) Potassium Level 4.1 mmol/L (3.5-5.1) Chloride Level 102 mmol/L (98-107) Carbon Dioxide Level 24 mmol/L (21-32) Anion Gap 10 (6-14) Blood Urea Nitrogen 57 mg/dL (8-26) Creatinine 2.2 mg/dL (0.7-1.3) Estimated GFR (Cockcroft-Gault) 30.2 Glucose Level 102 mg/dL (70-99) Calcium Level 8.4 mg/dL (8.5-10.1) Test 07/12/17 07:44 Glucose (Fingerstick) 97 mg/dL (70-99) Review of Systems Review of Systems denies 14 pt reviewed with him Comment Review of Relevant I have reviewed the following items florentin (where applicable) has been applied. Labs Laboratory Tests Test 07/10/17 14:35 07/10/17 21:24 07/10/17 22:57 07/11/17 01:00 White Blood Count 6.8 x10^3/uL (4.0-11.0) Red Blood Count 2.79 x10^6/uL (4.30-5.70) Hemoglobin 7.9 g/dL (13.0-17.5) Hematocrit 23.6 % (39.0-53.0) Mean Corpuscular Volume 84 fL (79-100) Mean Corpuscular Hemoglobin 28 pg (25-35) Mean Corpuscular Hemoglobin Concent 34 g/dL (31-37) Red Cell Distribution Width 17.8 % (11.5-14.5) Platelet Count 143 x10^3/uL (140-400) Neutrophils (%) (Auto) 97 % (31-73) Lymphocytes (%) (Auto) 2 % (24-48) Monocytes (%) (Auto) 1 % (0-9) Eosinophils (%) (Auto) 0 % (0-3) Basophils (%) (Auto) 1 % (0-3) Neutrophils # (Auto) 6.6 x10^3uL (1.8-7.7) Lymphocytes # (Auto) 0.1 x10^3/uL (1.0-4.8) Monocytes # (Auto) 0.1 x10^3/uL (0.0-1.1) Eosinophils # (Auto) 0.0 x10^3/uL (0.0-0.7) Basophils # (Auto) 0.0 x10^3/uL (0.0-0.2) Segmented Neutrophils % 97 % (35-66) Lymphocytes % 3 % (24-48) Platelet Estimate Adequate (ADEQUATE) Polychromasia Slight Anisocytosis Slight Ovalocytes Few Acanthocytes Occ Schistocytes Occ Prothrombin Time 14.3 SEC (11.7-14.0) Prothromb Time International Ratio 1.2 (0.8-1.1) Activated Partial Thromboplast Time 33 SEC (24-38) D-Dimer (Zayda) 1.43 ug/mlFEU (0.00-0.50) Sodium Level 139 mmol/L (136-145) Potassium Level 4.0 mmol/L (3.5-5.1) Chloride Level 102 mmol/L (98-107) Carbon Dioxide Level 25 mmol/L (21-32) Anion Gap 12 (6-14) Blood Urea Nitrogen 36 mg/dL (8-26) Creatinine 2.0 mg/dL (0.7-1.3) Estimated GFR (Cockcroft-Gault) 33.7 BUN/Creatinine Ratio 18 (6-20) Glucose Level 200 mg/dL (70-99) Calcium Level 9.1 mg/dL (8.5-10.1) Phosphorus Level 4.3 mg/dL (2.6-4.7) Magnesium Level 1.8 mg/dL (1.8-2.4) Total Bilirubin 0.4 mg/dL (0.2-1.0) Aspartate Amino Transf (AST/SGOT) 26 U/L (15-37) Alanine Aminotransferase (ALT/SGPT) 26 U/L (16-63) Alkaline Phosphatase 142 U/L (46-116) Total Protein 7.9 g/dL (6.4-8.2) Albumin 3.1 g/dL (3.4-5.0) Albumin/Globulin Ratio 0.6 (1.0-1.7) Thyroid Stimulating Hormone (TSH) 1.779 uIU/mL (0.358-3.74) Glucose (Fingerstick) 239 mg/dL (70-99) Urine Collection Type Unknown Urine Color Yellow Urine Clarity Clear Urine pH 5.0 Urine Specific Morganza 1.015 Urine Protein 30 mg/dL (NEG-TRACE) Urine Glucose (UA) Negative mg/dL (NEG) Urine Ketones (Stick) Negative mg/dL (NEG) Urine Blood Small (NEG) Urine Nitrite Negative (NEG) Urine Bilirubin Negative (NEG) Urine Urobilinogen Dipstick 0.2 mg/dL (0.2 mg/dL) Urine Leukocyte Esterase Moderate (NEG) Urine RBC 11-20 /HPF (0-2) Urine WBC 11-20 /HPF (0-4) Urine Squamous Epithelial Cells Few /LPF Urine Bacteria Few /HPF (0-FEW) Urine Hyaline Casts Many /HPF Nasal Screen MRSA (PCR) Positive (Negative) Test 07/11/17 03:30 07/11/17 07:27 07/11/17 10:56 07/11/17 16:15 White Blood Count 7.2 x10^3/uL (4.0-11.0) Red Blood Count 2.51 x10^6/uL (4.30-5.70) Hemoglobin 7.1 g/dL (13.0-17.5) Hematocrit 20.8 % (39.0-53.0) Mean Corpuscular Volume 83 fL (79-100) Mean Corpuscular Hemoglobin 28 pg (25-35) Mean Corpuscular Hemoglobin Concent 34 g/dL (31-37) Red Cell Distribution Width 17.9 % (11.5-14.5) Platelet Count 142 x10^3/uL (140-400) Neutrophils (%) (Auto) 95 % (31-73) Lymphocytes (%) (Auto) 3 % (24-48) Monocytes (%) (Auto) 2 % (0-9) Eosinophils (%) (Auto) 0 % (0-3) Basophils (%) (Auto) 0 % (0-3) Neutrophils # (Auto) 6.9 x10^3uL (1.8-7.7) Lymphocytes # (Auto) 0.2 x10^3/uL (1.0-4.8) Monocytes # (Auto) 0.1 x10^3/uL (0.0-1.1) Eosinophils # (Auto) 0.0 x10^3/uL (0.0-0.7) Basophils # (Auto) 0.0 x10^3/uL (0.0-0.2) Reticulocyte Count (auto) 1.5 % (0.5-2.5) Sodium Level 138 mmol/L (136-145) Potassium Level 4.1 mmol/L (3.5-5.1) Chloride Level 103 mmol/L (98-107) Carbon Dioxide Level 26 mmol/L (21-32) Anion Gap 9 (6-14) Blood Urea Nitrogen 42 mg/dL (8-26) Creatinine 2.1 mg/dL (0.7-1.3) Estimated GFR (Cockcroft-Gault) 31.9 BUN/Creatinine Ratio 20 (6-20) Glucose Level 153 mg/dL (70-99) Calcium Level 8.7 mg/dL (8.5-10.1) Magnesium Level 1.8 mg/dL (1.8-2.4) Iron Level 21 ug/dL (65-175) Total Iron Binding Capacity 287 ug/dL (250-450) Iron Saturation 7 % (15-34) Total Bilirubin 0.3 mg/dL (0.2-1.0) Aspartate Amino Transf (AST/SGOT) 22 U/L (15-37) Alanine Aminotransferase (ALT/SGPT) 24 U/L (16-63) Alkaline Phosphatase 118 U/L (46-116) Total Protein 7.2 g/dL (6.4-8.2) Albumin 2.9 g/dL (3.4-5.0) Albumin/Globulin Ratio 0.7 (1.0-1.7) Glucose (Fingerstick) 253 mg/dL (70-99) 201 mg/dL (70-99) 94 mg/dL (70-99) Test 07/11/17 20:48 07/12/17 05:05 07/12/17 07:44 Glucose (Fingerstick) 134 mg/dL (70-99) 97 mg/dL (70-99) Hemoglobin 7.2 g/dL (13.0-17.5) Hematocrit 21.6 % (39.0-53.0) Mean Corpuscular Hemoglobin Concent 33 g/dL (31-37) Sodium Level 136 mmol/L (136-145) Potassium Level 4.1 mmol/L (3.5-5.1) Chloride Level 102 mmol/L (98-107) Carbon Dioxide Level 24 mmol/L (21-32) Anion Gap 10 (6-14) Blood Urea Nitrogen 57 mg/dL (8-26) Creatinine 2.2 mg/dL (0.7-1.3) Estimated GFR (Cockcroft-Gault) 30.2 Glucose Level 102 mg/dL (70-99) Calcium Level 8.4 mg/dL (8.5-10.1) Laboratory Tests Test 07/11/17 10:56 07/11/17 16:15 07/11/17 20:48 07/12/17 05:05 Glucose (Fingerstick) 201 mg/dL (70-99) 94 mg/dL (70-99) 134 mg/dL (70-99) Hemoglobin 7.2 g/dL (13.0-17.5) Hematocrit 21.6 % (39.0-53.0) Mean Corpuscular Hemoglobin Concent 33 g/dL (31-37) Sodium Level 136 mmol/L (136-145) Potassium Level 4.1 mmol/L (3.5-5.1) Chloride Level 102 mmol/L (98-107) Carbon Dioxide Level 24 mmol/L (21-32) Anion Gap 10 (6-14) Blood Urea Nitrogen 57 mg/dL (8-26) Creatinine 2.2 mg/dL (0.7-1.3) Estimated GFR (Cockcroft-Gault) 30.2 Glucose Level 102 mg/dL (70-99) Calcium Level 8.4 mg/dL (8.5-10.1) Test 07/12/17 07:44 Glucose (Fingerstick) 97 mg/dL (70-99) Medications Current Medications Sodium Chloride (Normal Saline Flush) 3 ml PRN DAILY PRN IV AFTER MEDS AND BLOOD DRAWS; Start 07/10/17 at 14:00 Prochlorperazine Edisylate (Compazine) 10 mg PRN Q6HRS PRN IV NAUSEA/VOMITING; Start 07/10/17 at 14:00 Al Hydroxide/Mg Hydroxide (Mylanta Plus Xs) 30 ml PRN Q3HRS PRN PO HEARTBURN / GAS; Start 07/10/17 at 14:00 Senna/Docusate Sodium (Senna Plus) 1 tab BID PO Last administered on t 08:06; Start 07/10/17 at 21:00 Magnesium Hydroxide (Milk Of Magnesia) 2,400 mg PRN Q12HR PRN PO CONSTIPATION; Start 07/10/17 at 14:00 Acetaminophen (Tylenol) 650 mg PRN Q6HRS PRN PO MILD PAIN / TEMP Last administered on 07/11/17 04:55; Start 07/10/17 at 14:15 Amlodipine Besylate (Norvasc) 10 mg DAILY PO Last administered on 07/12/17 08 :07; Start 07/10/17 at 15:00 Aspirin (Ecotrin) 81 mg DAILY PO Last administered on 07/12/17 08:07; Start 07/10/17 at 15:00 Atorvastatin Calcium (Lipitor) 40 mg HS PO Last administered on 07/11/17 20: 43; Start 07/10/17 at 21:00 Diclofenac Sodium (Voltaren) 100 julissa PRN QID PRN TP INFLAMMATION; Start at 14:15 Ferrous Sulfate (Feosol) 325 mg DAILYWBKFT PO Last administered on 07/12/17 08:06; Start 07/10/17 at 15:00 Hydralazine HCl (Apresoline) 50 mg BID PO Last administered on 07/12/17 08:08 ; Start 07/10/17 at 21:00 Albuterol/ Ipratropium (Duoneb) 3 ml RTQID NEB Last administered on 07/12/17 07:17; Start 07/10/17 at 16:00 Nitroglycerin (Nitrostat) 0.4 mg PRN Q5MIN PRN SL CHEST PAIN; Start 07/10/17 at 14:15 Pantoprazole Sodium (Protonix) 40 mg DAILYAC PO Last administered on 08:06; Start 07/10/17 at 16:30 Polyethylene Glycol (miraLAX Powder BULK BOTTLE) 17 gm PRN DAILY PRN PO CONSTIPATION; Start 07/10/17 at 14:15; Stop 07/10/17 at 14:22; Status DC Senna/Docusate Sodium (Senna Plus) 2 tab PRN DAILY PRN PO CONSTIPATION; Start 07/10/17 at 14:15 Trazodone HCl (Desyrel) 100 mg HS PO Last administered on 07/11/17 20:43; Start 07/10/17 at 21:00 Lactobacillus Acidophilus (Bacid, Leila-Bid) 1 tab BID PO Last administered on 07/12/17 08:06; Start 07/10/17 at 21:00 Magnesium Hydroxide (Milk Of Magnesia) 2,400 mg PRN DAILY PRN PO CONSTIPATION; Start 07/10/17 at 14:30 Ondansetron HCl (Zofran Odt) 4 mg Q6HRS PO Last administered on 07/12/17 05: 59; Start 07/10/17 at 14:30 Polyethylene Glycol (miraLAX PACKET) 17 gm PRN DAILY PRN PO CONSTIPATION; Start 07/11/17 at 09:00 Guaifenesin (Robitussin Dm) 10 ml PRN Q6HRS PRN PO COUGH Last administered on 07/11/17 04:55; Start 07/10/17 at 15:00 Acetaminophen/ Hydrocodone Bitart (Lortab 5/325) 1 tab PRN Q4HRS PRN PO PAIN Last administered on 07/12/17 03:48; Start 07/10/17 at 15:00 Morphine Sulfate 1 mg PRN Q2HR PRN IV PAIN Last administered on 07/12/17 05: 43; Start 07/10/17 at 15:00 Furosemide (Lasix) 20 mg DAILY IVP Last administered on 07/12/17 08:09; Start 07/11/17 at 09:00 Budesonide (Pulmicort) 0.5 mg RTBID NEB Last administered on 07/12/17 07:18; Start 07/10/17 at 20:00 Albuterol Sulfate (Ventolin Neb Soln) 2.5 mg PRN Q4HRS PRN NEB SHORTNESS OF BREATH Last administered on 07/12/17 02:27; Start 07/10/17 at 23:00 Insulin Aspart (NovoLOG) 0-9 UNITS TIDWMEALS SQ Last administered on 12:14; Start 07/11/17 at 12:00 Dextrose (Dextrose 50%-Water Syringe) 12.5 gm PRN Q15MIN PRN IV SEE COMMENTS; Start 07/11/17 at 11:45 Nicotine (Nicoderm Cq 21mg) 1 patch PRN DAILY PRN TD SMOKING CESSATION; Start 07/12/17 at 11:00; Status UNV Active Scripts Active Reported Tylenol (Acetaminophen) 325 Mg Tablet 650 Mg PO PRN Q6HRS PRN Amlodipine Besylate 10 Mg Tablet 10 Mg PO DAILY Voltaren (Diclofenac Sodium) 100 Gm Gel..gram. 100 Gm TP PRN QID PRN Senokot-S Tablet (Sennosides/Docusate Sodium) 1 Each Tablet 2 Each PO PRN DAILY PRN Polyethylene Glycol 3350 255 Gm Powder 17 Gm PO PRN DAILY PRN NITROGLYCERIN SubLingual (Nitroglycerin) 0.4 Mg Tab.subl 0.4 Mg SL PRN Q5MIN PRN Milk Of Magnesia (Magnesium Hydroxide) 2,400 Mg/10 Ml Oral.susp 2,400 Mg PO PRN DAILY PRN Probiotic (Lactobacillus Acidophilus) 1 Each Capsule 1 Each PO BID 5 Days Ferrous Sulfate 325 Mg Tablet 325 Mg PO DAILY Augmentin 875-125 Tablet (Amoxicillin/Potassium Clav) 1 Each Tablet 1 Tab PO BID 5 Days Atorvastatin Calcium 40 Mg Tablet 40 Mg PO HS Hydralazine Hcl 50 Mg Tablet 50 Mg PO BID Duoneb 0.5-3(2.5) Mg/3 Ml (Albuterol/Ipratropium) 3 Ml Ampul.neb 3 Ml NEB QID Trazodone Hcl 50 Mg Tablet 100 Mg PO HS Zofran (Ondansetron Hcl) 4 Mg Tablet 1 Tab PO Q6HRS Protonix (Pantoprazole Sodium) 40 Mg Tablet.dr 1 Tab PO DAILY Aspir 81 (Aspirin) 81 Mg Tablet.dr 1 Tab PO DAILY Vitals/I & O Vital Sign - Last 24 Hours 07/11/17 07/11/17 07/11/17 07/11/17 11:11 11:19 14:48 16:44 Temp 97.9 97.8 97.9 97.8 Pulse 76 78 Resp 20 18 B/P (MAP) 119/67 (84) 154/75 (101) Pulse Ox 93 95 O2 Delivery Nasal Cannula Room Air Room Air Nasal Cannula O2 Flow Rate 5.0 4.0 07/11/17 07/11/17 07/11/17 07/11/17 19:00 20:00 20:44 20:47 Temp 98.4 98.4 Pulse 85 85 Resp 18 B/P (MAP) 135/72 (93) 135/72 Pulse Ox 98 92 O2 Delivery Room Air Nasal Cannula Nasal Cannula O2 Flow Rate 4.0 4.0 07/11/17 07/12/17 07/12/17 07/12/17 23:00 02:28 02:40 03:00 Temp 98.0 95.0 98.0 95.0 Pulse 85 75 Resp 18 18 B/P (MAP) 135/72 (93) 125/75 (92) Pulse Ox 96 93 96 96 O2 Delivery Nasal Cannula Nasal Cannula O2 Flow Rate 4.0 4.0 07/12/17 07/12/17 07/12/17 07/12/17 03:48 04:48 05:43 06:13 O2 Delivery Nasal Cannula Nasal Cannula Nasal Cannula Nasal Cannula O2 Flow Rate 4.0 4.0 4.0 4.0 07/12/17 07/12/17 07/12/17 07/12/17 07:00 07:20 07:25 07:36 Temp 97.5 97.5 Pulse 75 Resp 20 B/P (MAP) 123/76 (92) Pulse Ox 90 93 93 O2 Delivery Nasal Cannula Nasal Cannula Nasal Cannula Nasal Cannula O2 Flow Rate 5.0 4.0 4.0 4.0 07/12/17 07/12/17 08:07 08:08 Pulse 75 75 B/P (MAP) 123/76 123/76 SAMIRA DEVLIN MD Jul 12, 2017 10:50
[2017-07-12 11:00] VITALS: BP 131/71
[2017-07-12] MEDS ORDERED: MAGNESIUM HYDROXIDE 2,400 MG/30 ML ORAL.SUSP. PO ONE (11:00)
[2017-07-12] MEDS ORDERED: MAGNESIUM HYDROXIDE 2,400 MG/30 ML ORAL.SUSP. PO PRN (11:00)
[2017-07-12] MEDS ORDERED: POLYETHYLENE GLYCOL 3350 17 GM PACKET. PO SCH (11:00)
[2017-07-12] MEDS ORDERED: NICOTINE 21MG PATCH. TD PRN (11:00)
--- NOTE | 2017-07-12 11:05 | RAD ---
RENAL SONOGRAPHY History: Chronic kidney disease. Findings: The longitudinal and AP and transverse dimensions of the right kidney are 8.6 cm and 5.3 cm and 5.6 cm respectively. There is a small 6 mm stone within the superior pole. There is a small 7 mm cyst within the superior pole adjacent to it. This may represent a dilated calyx. No hydronephrosis or perinephric fluid collection or renal mass is seen on this side otherwise. The longitudinal and AP and transverse dimensions of the left kidney are 10.3 cm and 5.6 cm and 5.4 cm respectively. There is an 8 mm stone of the lower pole of the left kidney. There is a small 8 mm cyst adjacent to it which may represent a dilated calyx. No hydronephrosis or renal mass or perinephric fluid collection is seen on this side otherwise. The urinary bladder is empty due to an indwelling Cabrales catheter. Small amount of ascites is seen within the pelvis and abdomen. IMPRESSION: Bilateral renal stones with dilated calyx. No hydronephrosis is seen on either side otherwise. Empty bladder due to the indwelling Cabrales catheter. Small amount of ascites.
--- NOTE | 2017-07-12 12:13 | PDOC ---
PROGRESS NOTES Subjective Subjective Patient seen and examined He is less short of breath today. Objective Objective Vital Signs Date Time Temp Pulse Resp B/P (MAP) Pulse Ox O2 Delivery O2 Flow Rate FiO2 07/12/17 11:26 Nasal Cannula 4.0 07/12/17 11:00 97.7 76 20 131/71 (91) 90 97.7 Physical Exam Abdomen: Normal bowel sounds Heart: Regular rate General: mild distress Lungs: Other (mildly decreased breath sounds) Assessment Assessment 1. Atypical Chest pain: MSK/pleuritic. No evidence of acute infarction. 2. Acute on chronic diastolic/systolic CHF: Improved on medical treatment. 3. CAD with chronic LBBB: Past CABG with prosthetic AVR. As above. Possible WIN Thursday. Discussed with the patient. 4. AECOPD/Severe pulmonary hypertension: per PCP. PAP 87 mmHg. Continuing medical treatment. 5. Possible PAFIB hx: multiple admissions with no evidence of AFIB 6. KHALIDA on CKD3 7. Schizophrenia/dementia 8. Hx of treatment Non-compliance 9. HTN 10. DM2/HLP 11. Continued tobaccoism 12. Recent pneumonia Comment Review of Relevant I have reviewed the following items florentin (where applicable) has been applied. Labs Laboratory Tests Test 07/10/17 14:35 07/10/17 21:24 07/10/17 22:57 07/11/17 01:00 White Blood Count 6.8 x10^3/uL (4.0-11.0) Red Blood Count 2.79 x10^6/uL (4.30-5.70) Hemoglobin 7.9 g/dL (13.0-17.5) Hematocrit 23.6 % (39.0-53.0) Mean Corpuscular Volume 84 fL (79-100) Mean Corpuscular Hemoglobin 28 pg (25-35) Mean Corpuscular Hemoglobin Concent 34 g/dL (31-37) Red Cell Distribution Width 17.8 % (11.5-14.5) Platelet Count 143 x10^3/uL (140-400) Neutrophils (%) (Auto) 97 % (31-73) Lymphocytes (%) (Auto) 2 % (24-48) Monocytes (%) (Auto) 1 % (0-9) Eosinophils (%) (Auto) 0 % (0-3) Basophils (%) (Auto) 1 % (0-3) Neutrophils # (Auto) 6.6 x10^3uL (1.8-7.7) Lymphocytes # (Auto) 0.1 x10^3/uL (1.0-4.8) Monocytes # (Auto) 0.1 x10^3/uL (0.0-1.1) Eosinophils # (Auto) 0.0 x10^3/uL (0.0-0.7) Basophils # (Auto) 0.0 x10^3/uL (0.0-0.2) Segmented Neutrophils % 97 % (35-66) Lymphocytes % 3 % (24-48) Platelet Estimate Adequate (ADEQUATE) Polychromasia Slight Anisocytosis Slight Ovalocytes Few Acanthocytes Occ Schistocytes Occ Prothrombin Time 14.3 SEC (11.7-14.0) Prothromb Time International Ratio 1.2 (0.8-1.1) Activated Partial Thromboplast Time 33 SEC (24-38) D-Dimer (Zayda) 1.43 ug/mlFEU (0.00-0.50) Sodium Level 139 mmol/L (136-145) Potassium Level 4.0 mmol/L (3.5-5.1) Chloride Level 102 mmol/L (98-107) Carbon Dioxide Level 25 mmol/L (21-32) Anion Gap 12 (6-14) Blood Urea Nitrogen 36 mg/dL (8-26) Creatinine 2.0 mg/dL (0.7-1.3) Estimated GFR (Cockcroft-Gault) 33.7 BUN/Creatinine Ratio 18 (6-20) Glucose Level 200 mg/dL (70-99) Calcium Level 9.1 mg/dL (8.5-10.1) Phosphorus Level 4.3 mg/dL (2.6-4.7) Magnesium Level 1.8 mg/dL (1.8-2.4) Total Bilirubin 0.4 mg/dL (0.2-1.0) Aspartate Amino Transf (AST/SGOT) 26 U/L (15-37) Alanine Aminotransferase (ALT/SGPT) 26 U/L (16-63) Alkaline Phosphatase 142 U/L (46-116) Total Protein 7.9 g/dL (6.4-8.2) Albumin 3.1 g/dL (3.4-5.0) Albumin/Globulin Ratio 0.6 (1.0-1.7) Thyroid Stimulating Hormone (TSH) 1.779 uIU/mL (0.358-3.74) Glucose (Fingerstick) 239 mg/dL (70-99) Urine Collection Type Unknown Urine Color Yellow Urine Clarity Clear Urine pH 5.0 Urine Specific Purdy 1.015 Urine Protein 30 mg/dL (NEG-TRACE) Urine Glucose (UA) Negative mg/dL (NEG) Urine Ketones (Stick) Negative mg/dL (NEG) Urine Blood Small (NEG) Urine Nitrite Negative (NEG) Urine Bilirubin Negative (NEG) Urine Urobilinogen Dipstick 0.2 mg/dL (0.2 mg/dL) Urine Leukocyte Esterase Moderate (NEG) Urine RBC 11-20 /HPF (0-2) Urine WBC 11-20 /HPF (0-4) Urine Squamous Epithelial Cells Few /LPF Urine Bacteria Few /HPF (0-FEW) Urine Hyaline Casts Many /HPF Nasal Screen MRSA (PCR) Positive (Negative) Test 07/11/17 03:30 07/11/17 07:27 07/11/17 10:56 07/11/17 16:15 White Blood Count 7.2 x10^3/uL (4.0-11.0) Red Blood Count 2.51 x10^6/uL (4.30-5.70) Hemoglobin 7.1 g/dL (13.0-17.5) Hematocrit 20.8 % (39.0-53.0) Mean Corpuscular Volume 83 fL (79-100) Mean Corpuscular Hemoglobin 28 pg (25-35) Mean Corpuscular Hemoglobin Concent 34 g/dL (31-37) Red Cell Distribution Width 17.9 % (11.5-14.5) Platelet Count 142 x10^3/uL (140-400) Neutrophils (%) (Auto) 95 % (31-73) Lymphocytes (%) (Auto) 3 % (24-48) Monocytes (%) (Auto) 2 % (0-9) Eosinophils (%) (Auto) 0 % (0-3) Basophils (%) (Auto) 0 % (0-3) Neutrophils # (Auto) 6.9 x10^3uL (1.8-7.7) Lymphocytes # (Auto) 0.2 x10^3/uL (1.0-4.8) Monocytes # (Auto) 0.1 x10^3/uL (0.0-1.1) Eosinophils # (Auto) 0.0 x10^3/uL (0.0-0.7) Basophils # (Auto) 0.0 x10^3/uL (0.0-0.2) Reticulocyte Count (auto) 1.5 % (0.5-2.5) Sodium Level 138 mmol/L (136-145) Potassium Level 4.1 mmol/L (3.5-5.1) Chloride Level 103 mmol/L (98-107) Carbon Dioxide Level 26 mmol/L (21-32) Anion Gap 9 (6-14) Blood Urea Nitrogen 42 mg/dL (8-26) Creatinine 2.1 mg/dL (0.7-1.3) Estimated GFR (Cockcroft-Gault) 31.9 BUN/Creatinine Ratio 20 (6-20) Glucose Level 153 mg/dL (70-99) Calcium Level 8.7 mg/dL (8.5-10.1) Magnesium Level 1.8 mg/dL (1.8-2.4) Iron Level 21 ug/dL (65-175) Total Iron Binding Capacity 287 ug/dL (250-450) Iron Saturation 7 % (15-34) Total Bilirubin 0.3 mg/dL (0.2-1.0) Aspartate Amino Transf (AST/SGOT) 22 U/L (15-37) Alanine Aminotransferase (ALT/SGPT) 24 U/L (16-63) Alkaline Phosphatase 118 U/L (46-116) Total Protein 7.2 g/dL (6.4-8.2) Albumin 2.9 g/dL (3.4-5.0) Albumin/Globulin Ratio 0.7 (1.0-1.7) Glucose (Fingerstick) 253 mg/dL (70-99) 201 mg/dL (70-99) 94 mg/dL (70-99) Test 07/11/17 20:48 07/12/17 05:05 07/12/17 07:44 07/12/17 11:08 Glucose (Fingerstick) 134 mg/dL (70-99) 97 mg/dL (70-99) 112 mg/dL (70-99) Hemoglobin 7.2 g/dL (13.0-17.5) Hematocrit 21.6 % (39.0-53.0) Mean Corpuscular Hemoglobin Concent 33 g/dL (31-37) Sodium Level 136 mmol/L (136-145) Potassium Level 4.1 mmol/L (3.5-5.1) Chloride Level 102 mmol/L (98-107) Carbon Dioxide Level 24 mmol/L (21-32) Anion Gap 10 (6-14) Blood Urea Nitrogen 57 mg/dL (8-26) Creatinine 2.2 mg/dL (0.7-1.3) Estimated GFR (Cockcroft-Gault) 30.2 Glucose Level 102 mg/dL (70-99) Calcium Level 8.4 mg/dL (8.5-10.1) Laboratory Tests Test 07/11/17 16:15 07/11/17 20:48 07/12/17 05:05 07/12/17 07:44 Glucose (Fingerstick) 94 mg/dL (70-99) 134 mg/dL (70-99) 97 mg/dL (70-99) Hemoglobin 7.2 g/dL (13.0-17.5) Hematocrit 21.6 % (39.0-53.0) Mean Corpuscular Hemoglobin Concent 33 g/dL (31-37) Sodium Level 136 mmol/L (136-145) Potassium Level 4.1 mmol/L (3.5-5.1) Chloride Level 102 mmol/L (98-107) Carbon Dioxide Level 24 mmol/L (21-32) Anion Gap 10 (6-14) Blood Urea Nitrogen 57 mg/dL (8-26) Creatinine 2.2 mg/dL (0.7-1.3) Estimated GFR (Cockcroft-Gault) 30.2 Glucose Level 102 mg/dL (70-99) Calcium Level 8.4 mg/dL (8.5-10.1) Test 07/12/17 11:08 Glucose (Fingerstick) 112 mg/dL (70-99) Medications Current Medications Sodium Chloride (Normal Saline Flush) 3 ml PRN DAILY PRN IV AFTER MEDS AND BLOOD DRAWS; Start 07/10/17 at 14:00 Prochlorperazine Edisylate (Compazine) 10 mg PRN Q6HRS PRN IV NAUSEA/VOMITING; Start 07/10/17 at 14:00 Al Hydroxide/Mg Hydroxide (Mylanta Plus Xs) 30 ml PRN Q3HRS PRN PO HEARTBURN / GAS; Start 07/10/17 at 14:00 Senna/Docusate Sodium (Senna Plus) 1 tab BID PO Last administered on 08:06; Start 07/10/17 at 21:00 Magnesium Hydroxide (Milk Of Magnesia) 2,400 mg PRN Q12HR PRN PO CONSTIPATION; Start 07/10/17 at 14:00 Acetaminophen (Tylenol) 650 mg PRN Q6HRS PRN PO MILD PAIN / TEMP Last administered on 07/11/17 04:55; Start 07/10/17 at 14:15 Amlodipine Besylate (Norvasc) 10 mg DAILY PO Last administered on 07/12/17 08 :07; Start 07/10/17 at 15:00 Aspirin (Ecotrin) 81 mg DAILY PO Last administered on 07/12/17 08:07; Start 07/10/17 at 15:00 Atorvastatin Calcium (Lipitor) 40 mg HS PO Last administered on 07/11/17 20: 43; Start 07/10/17 at 21:00 Diclofenac Sodium (Voltaren) 100 julissa PRN QID PRN TP INFLAMMATION; Start at 14:15 Ferrous Sulfate (Feosol) 325 mg DAILYWBKFT PO Last administered on 07/12/17 08:06; Start 07/10/17 at 15:00 Hydralazine HCl (Apresoline) 50 mg BID PO Last administered on 07/12/17 08:08 ; Start 07/10/17 at 21:00 Albuterol/ Ipratropium (Duoneb) 3 ml RTQID NEB Last administered on 07/12/17 11:24; Start 07/10/17 at 16:00 Nitroglycerin (Nitrostat) 0.4 mg PRN Q5MIN PRN SL CHEST PAIN; Start 07/10/17 at 14:15 Pantoprazole Sodium (Protonix) 40 mg DAILYAC PO Last administered on 08:06; Start 07/10/17 at 16:30 Polyethylene Glycol (miraLAX Powder BULK BOTTLE) 17 gm PRN DAILY PRN PO CONSTIPATION; Start 07/10/17 at 14:15; Stop 07/10/17 at 14:22; Status DC Senna/Docusate Sodium (Senna Plus) 2 tab PRN DAILY PRN PO CONSTIPATION; Start 07/10/17 at 14:15 Trazodone HCl (Desyrel) 100 mg HS PO Last administered on 07/11/17 20:43; Start 07/10/17 at 21:00 Lactobacillus Acidophilus (Bacid, Leila-Bid) 1 tab BID PO Last administered on 07/12/17 08:06; Start 07/10/17 at 21:00 Magnesium Hydroxide (Milk Of Magnesia) 2,400 mg PRN DAILY PRN PO CONSTIPATION; Start 07/10/17 at 14:30 Ondansetron HCl (Zofran Odt) 4 mg Q6HRS PO Last administered on 07/12/17 11: 00; Start 07/10/17 at 14:30 Polyethylene Glycol (miraLAX PACKET) 17 gm PRN DAILY PRN PO CONSTIPATION; Start 07/11/17 at 09:00; Stop 07/12/17 at 10:47; Status DC Guaifenesin (Robitussin Dm) 10 ml PRN Q6HRS PRN PO COUGH Last administered on 07/11/17 04:55; Start 07/10/17 at 15:00 Acetaminophen/ Hydrocodone Bitart (Lortab 5/325) 1 tab PRN Q4HRS PRN PO PAIN Last administered on 07/12/17 03:48; Start 07/10/17 at 15:00 Morphine Sulfate 1 mg PRN Q2HR PRN IV PAIN Last administered on 07/12/17 05: 43; Start 07/10/17 at 15:00 Furosemide (Lasix) 20 mg DAILY IVP Last administered on 07/12/17 08:09; Start 07/11/17 at 09:00 Budesonide (Pulmicort) 0.5 mg RTBID NEB Last administered on 07/12/17 07:18; Start 07/10/17 at 20:00 Albuterol Sulfate (Ventolin Neb Soln) 2.5 mg PRN Q4HRS PRN NEB SHORTNESS OF BREATH Last administered on 07/12/17 02:27; Start 07/10/17 at 23:00 Insulin Aspart (NovoLOG) 0-9 UNITS TIDWMEALS SQ Last administered on 12:14; Start 07/11/17 at 12:00 Dextrose (Dextrose 50%-Water Syringe) 12.5 gm PRN Q15MIN PRN IV SEE COMMENTS; Start 07/11/17 at 11:45 Nicotine (Nicoderm Cq 21mg) 1 patch PRN DAILY PRN TD SMOKING CESSATION Last administered on 07/12/17 11:00; Start 07/12/17 at 11:00 Polyethylene Glycol (miraLAX PACKET) 17 gm DAILY PO Last administered on 10:59; Start 07/12/17 at 11:00 Magnesium Hydroxide (Milk Of Magnesia) 2,400 mg PRN DAILY PRN PO CONSTIPATION; Start 07/12/17 at 11:00 Magnesium Hydroxide (Milk Of Magnesia) 2,400 mg 1X ONCE PO Last administered on 07/12/17 11:00; Start 07/12/17 at 11:00; Stop 07/12/17 at 11:01; Status DC Heparin Sodium (Porcine) (Heparin Sq) 5,000 unit Q8HRS SQ ; Start 07/12/17 at 14:00; Status UNV Active Scripts Active Reported Tylenol (Acetaminophen) 325 Mg Tablet 650 Mg PO PRN Q6HRS PRN Amlodipine Besylate 10 Mg Tablet 10 Mg PO DAILY Voltaren (Diclofenac Sodium) 100 Gm Gel..gram. 100 Gm TP PRN QID PRN Senokot-S Tablet (Sennosides/Docusate Sodium) 1 Each Tablet 2 Each PO PRN DAILY PRN Polyethylene Glycol 3350 255 Gm Powder 17 Gm PO PRN DAILY PRN NITROGLYCERIN SubLingual (Nitroglycerin) 0.4 Mg Tab.subl 0.4 Mg SL PRN Q5MIN PRN Milk Of Magnesia (Magnesium Hydroxide) 2,400 Mg/10 Ml Oral.susp 2,400 Mg PO PRN DAILY PRN Probiotic (Lactobacillus Acidophilus) 1 Each Capsule 1 Each PO BID 5 Days Ferrous Sulfate 325 Mg Tablet 325 Mg PO DAILY Augmentin 875-125 Tablet (Amoxicillin/Potassium Clav) 1 Each Tablet 1 Tab PO BID 5 Days Atorvastatin Calcium 40 Mg Tablet 40 Mg PO HS Hydralazine Hcl 50 Mg Tablet 50 Mg PO BID Duoneb 0.5-3(2.5) Mg/3 Ml (Albuterol/Ipratropium) 3 Ml Ampul.neb 3 Ml NEB QID Trazodone Hcl 50 Mg Tablet 100 Mg PO HS Zofran (Ondansetron Hcl) 4 Mg Tablet 1 Tab PO Q6HRS Protonix (Pantoprazole Sodium) 40 Mg Tablet.dr 1 Tab PO DAILY Aspir 81 (Aspirin) 81 Mg Tablet.dr 1 Tab PO DAILY Vitals/I & O Vital Sign - Last 24 Hours 07/11/17 07/11/17 07/11/17 07/11/17 14:48 16:44 19:00 20:00 Temp 97.8 98.4 97.8 98.4 Pulse 78 85 Resp 18 18 B/P (MAP) 154/75 (101) 135/72 (93) Pulse Ox 95 98 O2 Delivery Room Air Nasal Cannula Room Air Nasal Cannula O2 Flow Rate 4.0 4.0 07/11/17 07/11/17 07/11/17 07/12/17 20:44 20:47 23:00 02:28 Temp 98.0 98.0 Pulse 85 85 Resp 18 B/P (MAP) 135/72 135/72 (93) Pulse Ox 92 96 93 O2 Delivery Nasal Cannula Nasal Cannula O2 Flow Rate 4.0 4.0 07/12/17 07/12/17 07/12/17 07/12/17 02:40 03:00 03:48 04:48 Temp 95.0 95.0 Pulse 75 Resp 18 B/P (MAP) 125/75 (92) Pulse Ox 96 96 O2 Delivery Nasal Cannula Nasal Cannula Nasal Cannula O2 Flow Rate 4.0 4.0 4.0 07/12/17 07/12/17 07/12/17 07/12/17 05:43 06:13 07:00 07:20 Temp 97.5 97.5 Pulse 75 Resp 20 B/P (MAP) 123/76 (92) Pulse Ox 90 93 O2 Delivery Nasal Cannula Nasal Cannula Nasal Cannula Nasal Cannula O2 Flow Rate 4.0 4.0 5.0 4.0 07/12/17 07/12/17 07/12/17 07/12/17 07:25 07:36 08:07 08:08 Pulse 75 75 B/P (MAP) 123/76 123/76 Pulse Ox 93 O2 Delivery Nasal Cannula Nasal Cannula O2 Flow Rate 4.0 4.0 07/12/17 07/12/17 11:00 11:26 Temp 97.7 97.7 Pulse 76 Resp 20 B/P (MAP) 131/71 (91) Pulse Ox 90 O2 Delivery Nasal Cannula Nasal Cannula O2 Flow Rate 5.0 4.0 ANTHONY ROSAS MD Jul 12, 2017 12:13
[2017-07-12] MEDS ORDERED: HEPARIN PF for SUB-Q USE 5,000 UNIT/0.5 ML VIAL. SQ SCH (14:00)
[2017-07-12 15:00] VITALS: BP 129/72
[2017-07-12 19:00] VITALS: BP 147/75
[2017-07-12] MEDS: SENNOSIDES/DOCUSATE 8.6/50MG TABLET. PO PRN (20:11)
[2017-07-12] MEDS: traZODone 50 MG TABLET. PO SCH (20:13)
[2017-07-12] MEDS: ATORVASTATIN CALCIUM 40 MG TABLET. PO SCH (20:40)
[2017-07-12 22:45] VITALS: BP 136/76
[2017-07-13] VITALS (12 sets, daily range): BP systolic 120–163; BP diastolic 63–118
[2017-07-13] MEDS: ALBUTEROL SULFATE 2.5 MG/3 ML NEBU. NEB PRN ×2 (00:01→03:53)
[2017-07-13] MEDS: HYDROcodone/APAP 5/325MG 1 TAB TABLET PO PRN ×2 (00:21→19:40)
[2017-07-13] MEDS: diphenhydrAMINE HCL 25 MG CAPSULE PO PRN (00:21)
[2017-07-13] MEDS: ONDANSETRON ODT 4 MG TAB.RAPDIS. PO SCH ×4 (00:21→18:19)
[2017-07-13 05:14] LABS: CALCIUM 8.5 mg/dL (8.5-10.1); CREATININE 2.2 mg/dL (0.7-1.3); GFR 30.2
[2017-07-13] MEDS: BUDESONIDE 0.5 MG/2 ML NEBU. NEB SCH ×2 (07:34→20:26)
[2017-07-13] MEDS: IPRATRPIUM/ALBUTEROL 0.5/2.5MG 3 ML NEBU. NEB SCH ×4 (07:34→20:26)
[2017-07-13] MEDS: INSULIN ASPART 300 UNITS/3 ML INSULN.PEN SQ SCH ×3 (07:57→17:00)
[2017-07-13] MEDS: FUROSEMIDE 20 MG/2 ML VIAL. IVP SCH (08:07)
[2017-07-13] MEDS: MORPHINE SULFATE 2 MG/ML DISP.SYRIN. IV PRN (09:50)
[2017-07-13] MEDS ORDERED: NICOTINE 14MG PATCH. TD PRN (10:00)
[2017-07-13] MEDS ORDERED: SALIVA STIMULANT AGENT 44ML SPRAY BOTTLE. PO PRN (10:00)
--- NOTE | 2017-07-13 10:02 | PDOC ---
PROGRESS NOTES Chief Complaint Chief Complaint 1. Acute hypoxic respiratory failure, w/ acute diastolic congestive heart failure, 2. hypoxia w/ acute exacerbation of chronic obstructive pulmonary disease. 3. Acute on chronic diastolic/systolic CHF: likely induced by pulmonary issue 4. Severe pulmonary hypertension. 5. 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 AECOPD/Severe pulmonary hypertension: per PCP. PAP 87 mmHg 7. Schizophrenia. 8. Paroxysmal atrial fibrillation. 9. [id number] kidney disease. w. anemia of CKD 10. Diabetes mellitus. History of Present Illness History of Present Illness Hgb 7,.2 dry mouth, thirsty and hungry he reports cannot walk, Wheelchair bound in SNU wants to retain lopez today WIN planened NO family support - many yrs ago Vitals Vitals Vital Signs Date Time Temp Pulse Resp B/P (MAP) Pulse Ox O2 Delivery O2 Flow Rate FiO2 07/13/17 09:50 20 94 Nasal Cannula 5.0 07/13/17 08:07 78 163/118 07/13/17 07:00 97.9 97.9 Physical Exam General: mild distress Heart: Regular rate Lungs: Crackles Abdomen: Normal bowel sounds Extremities: No clubbing, No cyanosis Skin: No rashes, No breakdown Labs LABS Laboratory Tests Test 07/12/17 11:08 07/12/17 16:11 07/12/17 20:51 07/13/17 03:00 Glucose (Fingerstick) 112 mg/dL (70-99) 128 mg/dL (70-99) 112 mg/dL (70-99) Sodium Level 137 mmol/L (136-145) Potassium Level 4.0 mmol/L (3.5-5.1) Chloride Level 102 mmol/L (98-107) Carbon Dioxide Level 25 mmol/L (21-32) Anion Gap 10 (6-14) Blood Urea Nitrogen 55 mg/dL (8-26) Creatinine 2.2 mg/dL (0.7-1.3) Estimated GFR (Cockcroft-Gault) 30.2 Glucose Level 94 mg/dL (70-99) Calcium Level 8.5 mg/dL (8.5-10.1) Test 07/13/17 07:43 Glucose (Fingerstick) 91 mg/dL (70-99) Review of Systems Review of Systems dry mouth weakness rigth ankle pain, small skin abrasion Comment Review of Relevant I have reviewed the following items florentin (where applicable) has been applied. Labs Laboratory Tests Test 07/11/17 10:56 07/11/17 16:15 07/11/17 20:48 07/12/17 05:05 Glucose (Fingerstick) 201 mg/dL (70-99) 94 mg/dL (70-99) 134 mg/dL (70-99) Hemoglobin 7.2 g/dL (13.0-17.5) Hematocrit 21.6 % (39.0-53.0) Mean Corpuscular Hemoglobin Concent 33 g/dL (31-37) Sodium Level 136 mmol/L (136-145) Potassium Level 4.1 mmol/L (3.5-5.1) Chloride Level 102 mmol/L (98-107) Carbon Dioxide Level 24 mmol/L (21-32) Anion Gap 10 (6-14) Blood Urea Nitrogen 57 mg/dL (8-26) Creatinine 2.2 mg/dL (0.7-1.3) Estimated GFR (Cockcroft-Gault) 30.2 Glucose Level 102 mg/dL (70-99) Hemoglobin A1c 5.3 % (4.8-5.6) Calcium Level 8.4 mg/dL (8.5-10.1) Test 07/12/17 07:44 07/12/17 11:08 07/12/17 16:11 07/12/17 20:51 Glucose (Fingerstick) 97 mg/dL (70-99) 112 mg/dL (70-99) 128 mg/dL (70-99) 112 mg/dL (70-99) Test 07/13/17 03:00 07/13/17 07:43 Sodium Level 137 mmol/L (136-145) Potassium Level 4.0 mmol/L (3.5-5.1) Chloride Level 102 mmol/L (98-107) Carbon Dioxide Level 25 mmol/L (21-32) Anion Gap 10 (6-14) Blood Urea Nitrogen 55 mg/dL (8-26) Creatinine 2.2 mg/dL (0.7-1.3) Estimated GFR (Cockcroft-Gault) 30.2 Glucose Level 94 mg/dL (70-99) Calcium Level 8.5 mg/dL (8.5-10.1) Glucose (Fingerstick) 91 mg/dL (70-99) Laboratory Tests Test 07/12/17 11:08 07/12/17 16:11 07/12/17 20:51 07/13/17 03:00 Glucose (Fingerstick) 112 mg/dL (70-99) 128 mg/dL (70-99) 112 mg/dL (70-99) Sodium Level 137 mmol/L (136-145) Potassium Level 4.0 mmol/L (3.5-5.1) Chloride Level 102 mmol/L (98-107) Carbon Dioxide Level 25 mmol/L (21-32) Anion Gap 10 (6-14) Blood Urea Nitrogen 55 mg/dL (8-26) Creatinine 2.2 mg/dL (0.7-1.3) Estimated GFR (Cockcroft-Gault) 30.2 Glucose Level 94 mg/dL (70-99) Calcium Level 8.5 mg/dL (8.5-10.1) Test 07/13/17 07:43 Glucose (Fingerstick) 91 mg/dL (70-99) Medications Current Medications Sodium Chloride (Normal Saline Flush) 3 ml PRN DAILY PRN IV AFTER MEDS AND BLOOD DRAWS; Start 07/10/17 at 14:00 Prochlorperazine Edisylate (Compazine) 10 mg PRN Q6HRS PRN IV NAUSEA/VOMITING; Start 07/10/17 at 14:00 Al Hydroxide/Mg Hydroxide (Mylanta Plus Xs) 30 ml PRN Q3HRS PRN PO HEARTBURN / GAS; Start 07/10/17 at 14:00 Senna/Docusate Sodium (Senna Plus) 1 tab BID PO Last administered on 08:06; Start 07/10/17 at 21:00 Magnesium Hydroxide (Milk Of Magnesia) 2,400 mg PRN Q12HR PRN PO CONSTIPATION; Start 07/10/17 at 14:00; Stop 07/12/17 at 17:14; Status DC Acetaminophen (Tylenol) 650 mg PRN Q6HRS PRN PO MILD PAIN / TEMP Last administered on 07/11/17 04:55; Start 07/10/17 at 14:15 Amlodipine Besylate (Norvasc) 10 mg DAILY PO Last administered on 07/12/17 08 :07; Start 07/10/17 at 15:00 Aspirin (Ecotrin) 81 mg DAILY PO Last administered on 07/12/17 08:07; Start 07/10/17 at 15:00 Atorvastatin Calcium (Lipitor) 40 mg HS PO Last administered on 07/12/17 20: 40; Start 07/10/17 at 21:00 Diclofenac Sodium (Voltaren) 100 julissa PRN QID PRN TP INFLAMMATION; Start at 14:15 Ferrous Sulfate (Feosol) 325 mg DAILYWBKFT PO Last administered on 07/12/17 08:06; Start 07/10/17 at 15:00 Hydralazine HCl (Apresoline) 50 mg BID PO Last administered on 07/13/17 08:07 ; Start 07/10/17 at 21:00 Albuterol/ Ipratropium (Duoneb) 3 ml RTQID NEB Last administered on 07/13/17 07:34; Start 07/10/17 at 16:00 Nitroglycerin (Nitrostat) 0.4 mg PRN Q5MIN PRN SL CHEST PAIN; Start 07/10/17 at 14:15 Pantoprazole Sodium (Protonix) 40 mg DAILYAC PO Last administered on 08:06; Start 07/10/17 at 16:30 Polyethylene Glycol (miraLAX Powder BULK BOTTLE) 17 gm PRN DAILY PRN PO CONSTIPATION; Start 07/10/17 at 14:15; Stop 07/10/17 at 14:22; Status DC Senna/Docusate Sodium (Senna Plus) 2 tab PRN DAILY PRN PO CONSTIPATION Last administered on 07/12/17 20:11; Start 07/10/17 at 14:15 Trazodone HCl (Desyrel) 100 mg HS PO Last administered on 07/12/17 20:13; Start 07/10/17 at 21:00 Lactobacillus Acidophilus (Bacid, Leila-Bid) 1 tab BID PO Last administered on 07/12/17 20:12; Start 07/10/17 at 21:00 Magnesium Hydroxide (Milk Of Magnesia) 2,400 mg PRN DAILY PRN PO CONSTIPATION; Start 07/10/17 at 14:30; Stop 07/12/17 at 17:13; Status DC Ondansetron HCl (Zofran Odt) 4 mg Q6HRS PO Last administered on 07/13/17 00: 21; Start 07/10/17 at 14:30 Polyethylene Glycol (miraLAX PACKET) 17 gm PRN DAILY PRN PO CONSTIPATION; Start 07/11/17 at 09:00; Stop 07/12/17 at 10:47; Status DC Guaifenesin (Robitussin Dm) 10 ml PRN Q6HRS PRN PO COUGH Last administered on 07/11/17 04:55; Start 07/10/17 at 15:00 Acetaminophen/ Hydrocodone Bitart (Lortab 5/325) 1 tab PRN Q4HRS PRN PO PAIN Last administered on 07/13/17 00:21; Start 07/10/17 at 15:00 Morphine Sulfate 1 mg PRN Q2HR PRN IV PAIN Last administered on 07/13/17 09: 50; Start 07/10/17 at 15:00 Furosemide (Lasix) 20 mg DAILY IVP Last administered on 07/13/17 08:07; Start 07/11/17 at 09:00 Budesonide (Pulmicort) 0.5 mg RTBID NEB Last administered on 07/13/17 07:34; Start 07/10/17 at 20:00 Albuterol Sulfate (Ventolin Neb Soln) 2.5 mg PRN Q4HRS PRN NEB SHORTNESS OF BREATH Last administered on 07/13/17 03:53; Start 07/10/17 at 23:00 Insulin Aspart (NovoLOG) 0-9 UNITS TIDWMEALS SQ Last administered on 12:14; Start 07/11/17 at 12:00 Dextrose (Dextrose 50%-Water Syringe) 12.5 gm PRN Q15MIN PRN IV SEE COMMENTS; Start 07/11/17 at 11:45 Nicotine (Nicoderm Cq 21mg) 1 patch PRN DAILY PRN TD SMOKING CESSATION Last administered on 07/12/17 11:00; Start 07/12/17 at 11:00; Stop 07/13/17 at 09 :50; Status DC Polyethylene Glycol (miraLAX PACKET) 17 gm DAILY PO Last administered on 10:59; Start 07/12/17 at 11:00 Magnesium Hydroxide (Milk Of Magnesia) 2,400 mg PRN DAILY PRN PO CONSTIPATION; Start 07/12/17 at 11:00 Magnesium Hydroxide (Milk Of Magnesia) 2,400 mg 1X ONCE PO Last administered on 07/12/17 11:00; Start 07/12/17 at 11:00; Stop 07/12/17 at 11:01; Status DC Heparin Sodium (Porcine) (Heparin Sq) 5,000 unit Q8HRS SQ ; Start 07/12/17 at 14:00; Status UNV Diphenhydramine HCl (Benadryl) 25 mg PRN QHS PRN PO INSOMNIA Last administered on 07/13/17 00:21; Start 07/13/17 at 00:15 Nicotine (Nicoderm Cq 14mg) 1 patch PRN DAILY PRN TD SMOKING CESSATION; Start 07/13/17 at 10:00 Active Scripts Active Reported Tylenol (Acetaminophen) 325 Mg Tablet 650 Mg PO PRN Q6HRS PRN Amlodipine Besylate 10 Mg Tablet 10 Mg PO DAILY Voltaren (Diclofenac Sodium) 100 Gm Gel..gram. 100 Gm TP PRN QID PRN Senokot-S Tablet (Sennosides/Docusate Sodium) 1 Each Tablet 2 Each PO PRN DAILY PRN Polyethylene Glycol 3350 255 Gm Powder 17 Gm PO PRN DAILY PRN NITROGLYCERIN SubLingual (Nitroglycerin) 0.4 Mg Tab.subl 0.4 Mg SL PRN Q5MIN PRN Milk Of Magnesia (Magnesium Hydroxide) 2,400 Mg/10 Ml Oral.susp 2,400 Mg PO PRN DAILY PRN Probiotic (Lactobacillus Acidophilus) 1 Each Capsule 1 Each PO BID 5 Days Ferrous Sulfate 325 Mg Tablet 325 Mg PO DAILY Augmentin 875-125 Tablet (Amoxicillin/Potassium Clav) 1 Each Tablet 1 Tab PO BID 5 Days Atorvastatin Calcium 40 Mg Tablet 40 Mg PO HS Hydralazine Hcl 50 Mg Tablet 50 Mg PO BID Duoneb 0.5-3(2.5) Mg/3 Ml (Albuterol/Ipratropium) 3 Ml Ampul.neb 3 Ml NEB QID Trazodone Hcl 50 Mg Tablet 100 Mg PO HS Zofran (Ondansetron Hcl) 4 Mg Tablet 1 Tab PO Q6HRS Protonix (Pantoprazole Sodium) 40 Mg Tablet.dr 1 Tab PO DAILY Aspir 81 (Aspirin) 81 Mg Tablet.dr 1 Tab PO DAILY Vitals/I & O Vital Sign - Last 24 Hours 07/12/17 07/12/17 07/12/17 07/12/17 11:00 11:26 14:28 14:55 Temp 97.7 97.7 Pulse 76 Resp 20 B/P (MAP) 131/71 (91) Pulse Ox 90 91 O2 Delivery Nasal Cannula Nasal Cannula Nasal Cannula Aerosol Mask O2 Flow Rate 5.0 4.0 4.0 10.0 07/12/17 07/12/17 07/12/17 07/12/17 15:00 16:14 18:26 19:00 Pulse 81 Resp 22 B/P (MAP) 129/72 (91) Pulse Ox 96 O2 Delivery BREATHING TREATMENT Nasal Cannula Nasal Cannula Nasal Cannula O2 Flow Rate 5.0 4.0 4.0 4.0 07/12/17 07/12/17 07/12/17 07/12/17 19:00 20:00 20:12 20:12 Temp 97.5 97.5 Pulse 80 80 Resp 22 B/P (MAP) 147/75 (99) 147/75 Pulse Ox 90 O2 Delivery Nasal Cannula Nasal Cannula Nasal Cannula O2 Flow Rate 5.0 4.0 4.0 07/12/17 07/12/17 07/12/17 07/13/17 20:25 20:26 22:45 00:01 Temp 97.7 97.7 Pulse 76 Resp 17 B/P (MAP) 136/76 (96) Pulse Ox 92 92 90 92 O2 Delivery Nasal Cannula Nasal Cannula Nasal Cannula Nasal Cannula O2 Flow Rate 5.0 5.0 5.0 5.0 07/13/17 07/13/17 07/13/17 07/13/17 00:21 01:21 03:00 03:54 Temp 97.7 97.7 Pulse 74 Resp 17 B/P (MAP) 150/71 (97) Pulse Ox 90 O2 Delivery Nasal Cannula Nasal Cannula Nasal Cannula Nasal Cannula O2 Flow Rate 5.0 5.0 5.0 5.0 07/13/17 07/13/17 07/13/17 07/13/17 07:00 07:34 08:07 09:50 Temp 97.9 97.9 Pulse 78 78 Resp 22 20 B/P (MAP) 163/118 (133) 163/118 Pulse Ox 94 94 O2 Delivery Nasal Cannula Nasal Cannula Nasal Cannula O2 Flow Rate 5.0 5.0 5.0 BRYN SOTELO MD Jul 13, 2017 10:02
[2017-07-13] MEDS ORDERED: IV RINGERS,LACTATED 1000ML 1,000 ML IV SCH (10:23)
[2017-07-13] MEDS ORDERED: PROCHLORPERAZINE 10 MG/2 ML VIAL. IV PRN (10:30)
[2017-07-13] MEDS ORDERED: fentaNYL PF VIAL 100 MCG/2 ML VIAL IV PRN ×2 (10:30)
[2017-07-13] MEDS ORDERED: HYDROmorphone 2 MG/ML VIAL IV PRN (10:30)
[2017-07-13] MEDS ORDERED: ONDANSETRON PF 4 MG/2 ML VIAL. IV PRN (10:30)
[2017-07-13] MEDS ORDERED: MORPHINE SULFATE 2 MG/ML DISP.SYRIN. IV PRN (10:30)
[2017-07-13] MEDS ORDERED: LIDOCAINE 1% PF 2 ML VIAL. ID PRN (10:30)
[2017-07-13] MEDS ORDERED: POLYETHYLENE GLYCOL 3350 17 GM PACKET. PO ONE ×2 (10:45→18:00)
[2017-07-13 10:55] LABS: FOLATE 10.71 ng/ml (3.2-20.0)
--- NOTE | 2017-07-13 11:49 | PDOC ---
SUBJECTIVE ROS CKD III DOing OK overall CVS: no Orthopnea, no CP RESP: no SOB, no COULTER GI: no Nausea, no Vomiting : n Dysuria, vladimir Urgency OBJECTIVE Vital Signs Vital Signs Date Time Temp Pulse Resp B/P (MAP) Pulse Ox O2 Delivery O2 Flow Rate FiO2 07/13/17 11:33 92 Nasal Cannula 3.0 07/13/17 11:00 97.5 74 20 148/72 (97) 97.5 PHYSICAL EXAM Physical Exam GEN: Awake, Oriented x 2, In no distress EYES: Vision Unchanged, Conjunctiva Normal EN: No EN Drainage, Mucous Membranes moist NECK: no JVD, no JVP, Supple, no Thyromegaly CVS: S1S2, ? soft Murmur, No Gallop, No Rub,+ Edema RESP: rare basal Rales, no Rhonchi,no Acc. Muscle Use GI: BS + ve, NO Bruit, Non Tender, Non Distended : no CVA tenderness, no Suprapubic Tenderness DIAGNOSIS/ASSESSMENT Assessment & Plan CKD III/ Iv - (presumed from HTN/ DM and previous Crack use) check ing 24-hr Urine collection: Pt is not aware of CKD diagnosis per se. Current fluid and E -lyte status does not necessitate emergent need for dialysis. Will re-evaluate for dialysis in the am Fe def ANEMIA; IV venofer as ordered. HTN: Current BP meds as reviewed. See orders for changes. BONE & MINERAL: Check PTH Problems: COMMENT/RELEVANT DATA Meds Current Medications Medications (Trade) Dose Ordered Sig/Raine Start Time Stop Time Status Last Admin Dose Admin Acetaminophen (Tylenol) 650 mg PRN Q6HRS PRN 07/10/17 14:15 07/11/17 04:55 650 MG Acetaminophen/ Hydrocodone Bitart (Lortab 5/325) 1 tab PRN Q4HRS PRN 07/10/17 15:00 07/13/17 00:21 1 TAB Al Hydroxide/Mg Hydroxide (Mylanta Plus Xs) 30 ml PRN Q3HRS PRN 07/10/17 14:00 Albuterol Sulfate (Ventolin Neb Soln) 2.5 mg PRN Q4HRS PRN 07/10/17 23:00 07/13/17 03:53 2.5 MG Albuterol/ Ipratropium (Duoneb) 3 ml RTQID 07/10/17 16:00 07/13/17 11:33 3 ML Amlodipine Besylate (Norvasc) 10 mg DAILY 07/10/17 15:00 07/12/17 08:07 10 MG Aspirin (Ecotrin) 81 mg DAILY 07/10/17 15:00 07/12/17 08:07 81 MG Atorvastatin Calcium (Lipitor) 40 mg HS 07/10/17 21:00 07/12/17 20:40 40 MG Budesonide (Pulmicort) 0.5 mg RTBID 07/10/17 20:00 07/13/17 07:34 0.5 MG Dextrose (Dextrose 50%-Water Syringe) 12.5 gm PRN Q15MIN PRN 07/11/17 11:45 Diclofenac Sodium (Voltaren) 100 julissa PRN QID PRN 07/10/17 14:15 Diphenhydramine HCl (Benadryl) 25 mg PRN QHS PRN 07/13/17 00:15 07/13/17 00:21 25 MG Fentanyl Citrate (Fentanyl 2ml Vial) 50 mcg PRN Q5MIN PRN 07/13/17 10:30 07/14/17 10:29 Ferrous Sulfate (Feosol) 325 mg DAILYWBKFT 07/10/17 15:00 07/12/17 08:06 325 MG Furosemide (Lasix) 20 mg DAILY 07/11/17 09:00 07/13/17 08:07 20 MG Guaifenesin (Robitussin Dm) 10 ml PRN Q6HRS PRN 07/10/17 15:00 07/11/17 04:55 10 ML Heparin Sodium (Porcine) (Heparin Sq) 5,000 unit Q12HR 07/13/17 11:00 Hydralazine HCl (Apresoline) 50 mg BID 07/10/17 21:00 07/13/17 08:07 50 MG Hydromorphone HCl (Dilaudid) 0.5 mg PRN Q10MIN PRN 07/13/17 10:30 07/14/17 10:29 Insulin Aspart (NovoLOG) 0-9 UNITS TIDWMEALS 07/11/17 12:00 07/11/17 12:14 5 UNITS Lactobacillus Acidophilus (Bacid, Leila-Bid) 1 tab BID 07/10/17 21:00 07/12/17 20:12 1 TAB Lidocaine HCl (Xylocaine-Mpf 1% Vial) 2 ml 1X PRN PRN 07/13/17 10:30 07/14/17 10:29 Magnesium Hydroxide (Milk Of Magnesia) 2,400 mg 1X ONCE 07/12/17 11:00 07/12/17 11:01 DC 07/12/17 11:00 2,400 MG Morphine Sulfate 1 mg PRN Q10MIN PRN 07/13/17 10:30 07/14/17 10:29 Nicotine (Nicoderm Cq 14mg) 1 patch PRN DAILY PRN 07/13/17 10:00 Nicotine (Nicoderm Cq 21mg) 1 patch PRN DAILY PRN 07/12/17 11:00 07/13/17 09:50 DC 07/12/17 11:00 1 PATCH Nitroglycerin (Nitrostat) 0.4 mg PRN Q5MIN PRN 07/10/17 14:15 Ondansetron HCl (Zofran Odt) 4 mg Q6HRS 07/10/17 14:30 07/13/17 00:21 4 MG Ondansetron HCl (Zofran) 4 mg PRN Q6HRS PRN 07/13/17 10:30 07/14/17 10:29 Pantoprazole Sodium (Protonix) 40 mg DAILYAC 07/10/17 16:30 07/12/17 08:06 40 MG Polyethylene Glycol (miraLAX PACKET) 17 gm DAILY 07/14/17 09:00 Polyethylene Glycol (miraLAX Powder BULK BOTTLE) 17 gm PRN DAILY PRN 07/10/17 14:15 07/10/17 14:22 DC Prochlorperazine Edisylate (Compazine) 5 mg PACU PRN PRN 07/13/17 10:30 07/14/17 10:29 Ringer's Solution 1,000 ml @ 30 mls/hr Q24H 07/13/17 10:23 07/13/17 22:22 Saliva Substitute (Biotene Moisturizing Mouth) 2 spray PRN Q15MIN PRN 07/13/17 10:00 Senna/Docusate Sodium (Senna Plus) 2 tab PRN DAILY PRN 07/10/17 14:15 10/15/17 20:11 2 TAB Sodium Chloride (Normal Saline Flush) 3 ml PRN DAILY PRN 07/10/17 14:00 Trazodone HCl (Desyrel) 100 mg HS 07/10/17 21:00 07/12/17 20:13 100 MG Lab Laboratory Tests Test 07/12/17 16:11 07/12/17 20:51 07/13/17 03:00 07/13/17 07:43 Glucose (Fingerstick) 128 mg/dL (70-99) 112 mg/dL (70-99) 91 mg/dL (70-99) Sodium Level 137 mmol/L (136-145) Potassium Level 4.0 mmol/L (3.5-5.1) Chloride Level 102 mmol/L (98-107) Carbon Dioxide Level 25 mmol/L (21-32) Anion Gap 10 (6-14) Blood Urea Nitrogen 55 mg/dL (8-26) Creatinine 2.2 mg/dL (0.7-1.3) Estimated GFR (Cockcroft-Gault) 30.2 Glucose Level 94 mg/dL (70-99) Calcium Level 8.5 mg/dL (8.5-10.1) Other IMPRESSION: Bilateral renal stones with dilated calyx. No hydronephrosis is seen on either side otherwise. Empty bladder due to the indwelling Cabrales catheter. Small amount of ascites. FREDY MOSS MD Jul 13, 2017 11:49
[2017-07-13] MEDS ORDERED: MAGNESIUM SULFATE 2GM 50 ML IV PRN (12:00)
[2017-07-13] MEDS ORDERED: LIDOCAINE 2% TOPICAL JELLY 30GM TUBE. TP ONE ×2 (12:25→12:26)
[2017-07-13] MEDS ORDERED: LIDOCAINE 2% VISCOUS 15 ML SOLUTION. ONE (12:25)
[2017-07-13] MEDS ORDERED: BENZOCAINE ONE 20% MUCOSAL SPRAY. (12:25)
[2017-07-13] MEDS ORDERED: ETOMIDATE 20 MG/10 ML VIAL. IV ONE (12:51)
[2017-07-13] MEDS ORDERED: LIDOCAINE 2% PF Vial for OR 5 ML VIAL. ONE (12:51)
[2017-07-13] MEDS ORDERED: PROPOFOL 20 ML IV ONE (12:51)
--- NOTE | 2017-07-13 14:08 | PDOC ---
Objective: Objective: Out of room - for WIN? Vital Signs: Vital Signs Date Time Temp Pulse Resp B/P (MAP) Pulse Ox O2 Delivery O2 Flow Rate FiO2 07/13/17 13:39 76 16 157/77 07/13/17 13:24 97.6 93 Simple Mask 10 97.6 Labs: Laboratory Tests Test 07/12/17 16:11 07/12/17 20:51 07/13/17 03:00 07/13/17 07:43 Glucose (Fingerstick) 128 mg/dL 112 mg/dL 91 mg/dL Sodium Level 137 mmol/L Potassium Level 4.0 mmol/L Chloride Level 102 mmol/L Carbon Dioxide Level 25 mmol/L Anion Gap 10 Blood Urea Nitrogen 55 mg/dL Creatinine 2.2 mg/dL Estimated GFR (Cockcroft-Gault) 30.2 Glucose Level 94 mg/dL Calcium Level 8.5 mg/dL Ferritin 83 ng/mL Test 07/13/17 12:04 Glucose (Fingerstick) 90 mg/dL PE: no exam A/P: SANGITA -- Will check re: any records received from previous 'scopes. MARKY MEIER Jul 13, 2017 14:08
[2017-07-13] MEDS: ASPIRIN ENTERIC COATED 81 MG TABLET.DR. PO SCH (15:18)
[2017-07-13] MEDS: PANTOPRAZOLE 40 MG TABLET.DR. PO SCH (15:18)
[2017-07-13] MEDS: LACTOBACILLUS ACIDOPH & BULGAR 1 TABLET. PO SCH ×2 (15:18→21:47)
[2017-07-13] MEDS: SENNOSIDES/DOCUSATE 8.6/50MG TABLET. PO SCH ×2 (15:18→21:46)
[2017-07-13] MEDS: amLODIPine BESYLATE 10 MG TABLET PO SCH (15:19)
[2017-07-13] MEDS: FERROUS SULFATE 325 MG TABLET. PO SCH (15:19)
[2017-07-13] MEDS: IRON SUCROSE COMPLEX 200 MG in IV NORMAL SALINE 100ML 100 ML IV SCH (15:20)
[2017-07-13] MEDS: HEPARIN PF for SUB-Q USE 5,000 UNIT/0.5 ML VIAL. SQ SCH ×2 (15:25→21:49)
--- NOTE | 2017-07-13 16:28 | PDOC ---
PULMONARY PROGRESS NOTES Subjective pt feels better less soa Vitals Vital Signs Date Time Temp Pulse Resp B/P (MAP) Pulse Ox O2 Delivery O2 Flow Rate FiO2 07/13/17 15:19 77 141/73 07/13/17 14:51 Nasal Cannula 5.0 07/13/17 13:54 16 91 07/13/17 13:24 97.6 97.6 ROS: No Nausea, No Chest Pain General: Alert, No acute distress HEENT: Other (nc at perrl) Lungs: Crackles Cardiovascular: S1, S2 Abdomen: Soft, Non-tender Neuro Exam: Alert Extremities: Other (edema) Skin: Warm Labs Laboratory Tests Test 07/11/17 20:48 07/12/17 05:05 07/12/17 07:44 07/12/17 11:08 Glucose (Fingerstick) 134 mg/dL (70-99) 97 mg/dL (70-99) 112 mg/dL (70-99) Hemoglobin 7.2 g/dL (13.0-17.5) Hematocrit 21.6 % (39.0-53.0) Mean Corpuscular Hemoglobin Concent 33 g/dL (31-37) Sodium Level 136 mmol/L (136-145) Potassium Level 4.1 mmol/L (3.5-5.1) Chloride Level 102 mmol/L (98-107) Carbon Dioxide Level 24 mmol/L (21-32) Anion Gap 10 (6-14) Blood Urea Nitrogen 57 mg/dL (8-26) Creatinine 2.2 mg/dL (0.7-1.3) Estimated GFR (Cockcroft-Gault) 30.2 Glucose Level 102 mg/dL (70-99) Hemoglobin A1c 5.3 % (4.8-5.6) Calcium Level 8.4 mg/dL (8.5-10.1) Test 07/12/17 16:11 07/12/17 20:51 07/13/17 03:00 07/13/17 07:43 Glucose (Fingerstick) 128 mg/dL (70-99) 112 mg/dL (70-99) 91 mg/dL (70-99) Sodium Level 137 mmol/L (136-145) Potassium Level 4.0 mmol/L (3.5-5.1) Chloride Level 102 mmol/L (98-107) Carbon Dioxide Level 25 mmol/L (21-32) Anion Gap 10 (6-14) Blood Urea Nitrogen 55 mg/dL (8-26) Creatinine 2.2 mg/dL (0.7-1.3) Estimated GFR (Cockcroft-Gault) 30.2 Glucose Level 94 mg/dL (70-99) Calcium Level 8.5 mg/dL (8.5-10.1) Ferritin 83 ng/mL (26-388) Test 07/13/17 12:04 Glucose (Fingerstick) 90 mg/dL (70-99) Laboratory Tests Test 07/12/17 20:51 07/13/17 03:00 07/13/17 07:43 07/13/17 12:04 Glucose (Fingerstick) 112 mg/dL (70-99) 91 mg/dL (70-99) 90 mg/dL (70-99) Sodium Level 137 mmol/L (136-145) Potassium Level 4.0 mmol/L (3.5-5.1) Chloride Level 102 mmol/L (98-107) Carbon Dioxide Level 25 mmol/L (21-32) Anion Gap 10 (6-14) Blood Urea Nitrogen 55 mg/dL (8-26) Creatinine 2.2 mg/dL (0.7-1.3) Estimated GFR (Cockcroft-Gault) 30.2 Glucose Level 94 mg/dL (70-99) Calcium Level 8.5 mg/dL (8.5-10.1) Ferritin 83 ng/mL (26-388) Medications Active Scripts Medications Dose Route/Sig Max Daily Dose Days Date Category Tylenol (Acetaminophen) 325 Mg Tablet 650 Mg PO PRN Q6HRS PRN 06/26/17 Reported Amlodipine Besylate 10 Mg Tablet 10 Mg PO DAILY 06/26/17 Reported Voltaren (Diclofenac Sodium) 100 Gm Gel..gram. 100 Gm TP PRN QID PRN 06/26/17 Reported Senokot-S Tablet (Sennosides/Docusate Sodium) 1 Each Tablet 2 Each PO PRN DAILY PRN 06/26/17 Reported Polyethylene Glycol 3350 255 Gm Powder 17 Gm PO PRN DAILY PRN 06/26/17 Reported NITROGLYCERIN SubLingual (Nitroglycerin) 0.4 Mg Tab.subl 0.4 Mg SL PRN Q5MIN PRN 06/26/17 Reported Milk Of Magnesia (Magnesium Hydroxide) 2,400 Mg/10 Ml Oral.susp 2,400 Mg PO PRN DAILY PRN 06/26/17 Reported Probiotic (Lactobacillus Acidophilus) 1 Each Capsule 1 Each PO BID 5 06/26/17 Reported Ferrous Sulfate 325 Mg Tablet 325 Mg PO DAILY 06/26/17 Reported Augmentin 875-125 Tablet (Amoxicillin/Potassium Clav) 1 Each Tablet 1 Tab PO BID 5 06/26/17 Reported Atorvastatin Calcium 40 Mg Tablet 40 Mg PO HS 06/26/17 Reported Hydralazine Hcl 50 Mg Tablet 50 Mg PO BID 06/26/17 Reported Duoneb 0.5-3(2.5) Mg/3 Ml (Albuterol/Ipratropium) 3 Ml Ampul.neb 3 Ml NEB QID 06/26/17 Reported Trazodone Hcl 50 Mg Tablet 100 Mg PO HS 06/26/17 Reported Zofran (Ondansetron Hcl) 4 Mg Tablet 1 Tab PO Q6HRS 01/01/15 Reported Protonix (Pantoprazole Sodium) 40 Mg Tablet.dr 1 Tab PO DAILY 01/01/15 Reported Aspir 81 (Aspirin) 81 Mg Tablet.dr 1 Tab PO DAILY 01/01/15 Reported Comments cxr reviewed, Old granulomatous disease is seen. Again seen are bilateral pleural effusions. There is a small to moderate-sized pleural effusion on the right side which has not changed significantly. Small left-sided pleural effusion is seen which has increased slightly in size. Loculated pleural fluid is again evident within the major fissure on the left side. This has increased here. Cephalization of pulmonary flow is seen. Mild perihilar interstitial pulmonary edema is seen which is more prominent than previously. No pneumothorax is seen. The heart size and mediastinum are stable. Impression . IMPRESSION: 1. Acute respiratory failure, multifactorial in etiology including acute diastolic congestive heart failure, acute exacerbation of chronic obstructive pulmonary disease. 2. Abnormal chest x-ray. 3. Severe pulmonary hypertension. 4. History previous thoracotomy. 5. Schizophrenia. 6. Paroxysmal atrial fibrillation. 7. Lxqfn-[id number] kidney disease. 8. Diabetes mellitus. 9. Recent pneumonia. 10. Anemia. Plan . continue the same 1. Titrate FiO2 to keep O2 saturation 90%. 2. Bronchodilator. 3. Inhaled corticosteroid. 4. diurese 5. Cardiology is consulted. They are planning to do a WIN on Thursday. 6. Monitor respiratory status very closely. 7. Workup for hemoglobin per primary physician. 8. Continue Protonix for stress ulcer prophylaxis. 9. Findings and recommendations were discussed with the patient and RN. 10. His lower extremity venous Doppler did not show DVT, V/Q scan neg. SIGRID DAMON MD Jul 13, 2017 16:28
--- NOTE | 2017-07-13 17:38 | CARD ---
APPROVED REPORT EXAM: Two-dimensional and M-mode echocardiogram with Doppler and color Doppler. INDICATION Aortic Valve Disease Reason For Test : Evaluate prosthetic valve PROCEDURE After obtaining informed consent, patient underwent transesophageal echo in the PACU. Type of Sedation : General Anesthesia Sedation was provided by anesthesiologist, see EMR for medications administered. Transesophageal probe was inserted and advanced into esophagus by Tyron Mora MD. The WIN was performed with complications. Throughout the procedure, the blood pressure, pulse oximetry, cardiac rhythm, and rate were monitored . The patient tolerated the procedure without adverse effects. Recovery from conscious sedation was une ventful and vital signs were stable. LEFT VENTRICLE The left ventricle is normal size. There is normal left ventricular wall thickness. Left ventricle sy stolic function is normal. The Ejection Fraction is 50-55%. There is normal LV segmental wall motion. RIGHT VENTRICLE The right ventricle is normal size. The right ventricular systolic function is normal. ATRIA The left atrium size is normal. The right atrium size is normal. The interatrial septum is intact wit h no evidence for an atrial septal defect or patent foramen ovale as noted on 2-D or Doppler imaging. There is no thrombus noted in the left atrial appendage. AORTIC VALVE Doppler and Color Flow revealed trace aortic regurgitation. Doppler and color-flow analysis revealed mild aortic stenosis. There is a bioprosthetic aortic valve prosthesis. MITRAL VALVE The mitral valve is normal in structure and function. There is no mitral valve stenosis. Doppler and Color Flow revealed mild mitral regurgitation. TRICUSPID VALVE The tricuspid valve is normal in structure and function. Doppler and Color Flow revealed moderate tri cuspid regurgitation. The PA pressure was estimated at 58 mmHg. PULMONIC VALVE The pulmonic valve is not well visualized. Doppler and Color Flow revealed no pulmonic valvular regur gitation. GREAT VESSELS The aortic root is normal in size. The ascending aorta is normal in size. The IVC was visualized and appears normal in size. PERICARDIAL EFFUSION There is no evidence of significant pericardial effusion. Critical Notification Critical Value: No <Conclusion> The left ventricle is normal size. Left ventricle systolic function is normal. The Ejection Fraction is 50-55%. There is a bioprosthetic aortic valve prosthesis. Doppler and color-flow analysis revealed mild aortic stenosis. Doppler and Color Flow revealed trace aortic regurgitation. Doppler and Color Flow revealed mild mitral regurgitation. Doppler and Color Flow revealed moderate tricuspid regurgitation. The PA pressure was estimated at 58 mmHg.
[2017-07-13] MEDS: NITROGLYCERIN SUBLINGUAL 0.4 MG BOTTLE OF 25. SL PRN (19:40)
[2017-07-13] MEDS: ATORVASTATIN CALCIUM 40 MG TABLET. PO SCH (21:46)
[2017-07-13] MEDS: traZODone 50 MG TABLET. PO SCH (21:47)
[2017-07-13 23:20] LABS: NEG OBC FOB NEG; POS OBC FOB POS
[2017-07-14] MEDS: ONDANSETRON ODT 4 MG TAB.RAPDIS. PO SCH ×5 (00:01→23:54)
[2017-07-14 03:30] VITALS: BP 135/72
[2017-07-14] MEDS: ALBUTEROL SULFATE 2.5 MG/3 ML NEBU. NEB PRN (05:15)
[2017-07-14] MEDS: HYDROcodone/APAP 5/325MG 1 TAB TABLET PO PRN ×3 (05:29→20:48)
[2017-07-14] MEDS: NITROGLYCERIN SUBLINGUAL 0.4 MG BOTTLE OF 25. SL PRN ×2 (05:31→16:34)
[2017-07-14 05:38] LABS: ALBUMIN 2.8 g/dL (3.4-5.0); CALCIUM 8.8 mg/dL (8.5-10.1); CREATININE 1.9 mg/dL (0.7-1.3); GFR 35.8; PHOSPHORUS 4.1 mg/dL (2.6-4.7); POTASSIUM 3.7 mmol/L (3.5-5.1)
[2017-07-14 07:20] VITALS: BP 140/56
[2017-07-14] MEDS: IPRATRPIUM/ALBUTEROL 0.5/2.5MG 3 ML NEBU. NEB SCH ×4 (07:24→20:02)
[2017-07-14] MEDS: BUDESONIDE 0.5 MG/2 ML NEBU. NEB SCH ×2 (07:24→20:02)
[2017-07-14] MEDS: INSULIN ASPART 300 UNITS/3 ML INSULN.PEN SQ SCH ×3 (08:00→17:00)
[2017-07-14] MEDS: HEPARIN PF for SUB-Q USE 5,000 UNIT/0.5 ML VIAL. SQ SCH ×2 (09:00→20:52)
[2017-07-14] MEDS: PANTOPRAZOLE 40 MG TABLET.DR. PO SCH (09:32)
[2017-07-14] MEDS: LACTOBACILLUS ACIDOPH & BULGAR 1 TABLET. PO SCH ×2 (09:32→20:47)
[2017-07-14] MEDS: SENNOSIDES/DOCUSATE 8.6/50MG TABLET. PO SCH ×2 (09:32→20:48)
[2017-07-14] MEDS: ASPIRIN ENTERIC COATED 81 MG TABLET.DR. PO SCH (09:32)
[2017-07-14] MEDS: amLODIPine BESYLATE 10 MG TABLET PO SCH (09:34)
[2017-07-14] MEDS: FERROUS SULFATE 325 MG TABLET. PO SCH (09:34)
[2017-07-14] MEDS: POLYETHYLENE GLYCOL 3350 17 GM PACKET. PO SCH (09:35)
[2017-07-14] MEDS: FUROSEMIDE 20 MG/2 ML VIAL. IVP SCH (09:36)
--- NOTE | 2017-07-14 10:26 | PDOC ---
G I PROGRESS NOTE Subjective No complaints. Thought WIN wasn't so bad. Objective [facility]. Physical Exam Lungs clear. RRR Abdomen soft, not tender nor distended. Review of Relevant I have reviewed the following items florentin (where applicable) has been applied. Labs Laboratory Tests Test 07/12/17 11:08 07/12/17 16:11 07/12/17 20:51 07/13/17 03:00 Glucose (Fingerstick) 112 mg/dL (70-99) 128 mg/dL (70-99) 112 mg/dL (70-99) Sodium Level 137 mmol/L (136-145) Potassium Level 4.0 mmol/L (3.5-5.1) Chloride Level 102 mmol/L (98-107) Carbon Dioxide Level 25 mmol/L (21-32) Anion Gap 10 (6-14) Blood Urea Nitrogen 55 mg/dL (8-26) Creatinine 2.2 mg/dL (0.7-1.3) Estimated GFR (Cockcroft-Gault) 30.2 Glucose Level 94 mg/dL (70-99) Calcium Level 8.5 mg/dL (8.5-10.1) Ferritin 83 ng/mL (26-388) Test 07/13/17 07:43 07/13/17 12:04 07/13/17 17:04 07/13/17 20:22 Glucose (Fingerstick) 91 mg/dL (70-99) 90 mg/dL (70-99) 121 mg/dL (70-99) 94 mg/dL (70-99) Test 07/13/17 23:00 07/14/17 03:30 07/14/17 07:24 Stool Occult Blood Positive (NEG) Hemoglobin 7.5 g/dL (13.0-17.5) Sodium Level 139 mmol/L (136-145) Potassium Level 3.7 mmol/L (3.5-5.1) Chloride Level 103 mmol/L (98-107) Carbon Dioxide Level 26 mmol/L (21-32) Anion Gap 10 (6-14) Blood Urea Nitrogen 47 mg/dL (8-26) Creatinine 1.9 mg/dL (0.7-1.3) Estimated GFR (Cockcroft-Gault) 35.8 Glucose Level 82 mg/dL (70-99) Calcium Level 8.8 mg/dL (8.5-10.1) Phosphorus Level 4.1 mg/dL (2.6-4.7) Magnesium Level 2.2 mg/dL (1.8-2.4) Albumin 2.8 g/dL (3.4-5.0) Glucose (Fingerstick) 82 mg/dL (70-99) Laboratory Tests Test 07/13/17 12:04 07/13/17 17:04 07/13/17 20:22 07/13/17 23:00 Glucose (Fingerstick) 90 mg/dL (70-99) 121 mg/dL (70-99) 94 mg/dL (70-99) Stool Occult Blood Positive (NEG) Test 07/14/17 03:30 07/14/17 07:24 Hemoglobin 7.5 g/dL (13.0-17.5) Sodium Level 139 mmol/L (136-145) Potassium Level 3.7 mmol/L (3.5-5.1) Chloride Level 103 mmol/L (98-107) Carbon Dioxide Level 26 mmol/L (21-32) Anion Gap 10 (6-14) Blood Urea Nitrogen 47 mg/dL (8-26) Creatinine 1.9 mg/dL (0.7-1.3) Estimated GFR (Cockcroft-Gault) 35.8 Glucose Level 82 mg/dL (70-99) Calcium Level 8.8 mg/dL (8.5-10.1) Phosphorus Level 4.1 mg/dL (2.6-4.7) Magnesium Level 2.2 mg/dL (1.8-2.4) Albumin 2.8 g/dL (3.4-5.0) Glucose (Fingerstick) 82 mg/dL (70-99) Medications Current Medications Sodium Chloride (Normal Saline Flush) 3 ml PRN DAILY PRN IV AFTER MEDS AND BLOOD DRAWS; Start 07/10/17 at 14:00 Prochlorperazine Edisylate (Compazine) 10 mg PRN Q6HRS PRN IV NAUSEA/VOMITING; Start 07/10/17 at 14:00 Al Hydroxide/Mg Hydroxide (Mylanta Plus Xs) 30 ml PRN Q3HRS PRN PO HEARTBURN / GAS; Start 07/10/17 at 14:00 Senna/Docusate Sodium (Senna Plus) 1 tab BID PO Last administered on 09:32; Start 07/10/17 at 21:00 Magnesium Hydroxide (Milk Of Magnesia) 2,400 mg PRN Q12HR PRN PO CONSTIPATION; Start 07/10/17 at 14:00; Stop 07/12/17 at 17:14; Status DC Acetaminophen (Tylenol) 650 mg PRN Q6HRS PRN PO MILD PAIN / TEMP Last administered on 07/11/17 04:55; Start 07/10/17 at 14:15 Amlodipine Besylate (Norvasc) 10 mg DAILY PO Last administered on 07/14/17 09 :34; Start 07/10/17 at 15:00 Aspirin (Ecotrin) 81 mg DAILY PO Last administered on 07/14/17 09:32; Start 07/10/17 at 15:00 Atorvastatin Calcium (Lipitor) 40 mg HS PO Last administered on 07/13/17 21: 46; Start 07/10/17 at 21:00 Diclofenac Sodium (Voltaren) 100 julissa PRN QID PRN TP INFLAMMATION; Start at 14:15 Ferrous Sulfate (Feosol) 325 mg DAILYWBKFT PO Last administered on 07/14/17 09:34; Start 07/10/17 at 15:00 Hydralazine HCl (Apresoline) 50 mg BID PO Last administered on 07/14/17 09:36 ; Start 07/10/17 at 21:00 Albuterol/ Ipratropium (Duoneb) 3 ml RTQID NEB Last administered on 07/14/17 07:24; Start 07/10/17 at 16:00 Nitroglycerin (Nitrostat) 0.4 mg PRN Q5MIN PRN SL CHEST PAIN Last administered on 07/14/17 05:31; Start 07/10/17 at 14:15 Pantoprazole Sodium (Protonix) 40 mg DAILYAC PO Last administered on 09:32; Start 07/10/17 at 16:30 Polyethylene Glycol (miraLAX Powder BULK BOTTLE) 17 gm PRN DAILY PRN PO CONSTIPATION; Start 07/10/17 at 14:15; Stop 07/10/17 at 14:22; Status DC Senna/Docusate Sodium (Senna Plus) 2 tab PRN DAILY PRN PO CONSTIPATION Last administered on 07/12/17 20:11; Start 07/10/17 at 14:15 Trazodone HCl (Desyrel) 100 mg HS PO Last administered on 07/13/17 21:47; Start 07/10/17 at 21:00 Lactobacillus Acidophilus (Bacid, Leila-Bid) 1 tab BID PO Last administered on 07/14/17 09:32; Start 07/10/17 at 21:00 Magnesium Hydroxide (Milk Of Magnesia) 2,400 mg PRN DAILY PRN PO CONSTIPATION; Start 07/10/17 at 14:30; Stop 07/12/17 at 17:13; Status DC Ondansetron HCl (Zofran Odt) 4 mg Q6HRS PO Last administered on 07/14/17 05: 37; Start 07/10/17 at 14:30 Polyethylene Glycol (miraLAX PACKET) 17 gm PRN DAILY PRN PO CONSTIPATION; Start 07/11/17 at 09:00; Stop 07/12/17 at 10:47; Status DC Guaifenesin (Robitussin Dm) 10 ml PRN Q6HRS PRN PO COUGH Last administered on 07/11/17 04:55; Start 07/10/17 at 15:00 Acetaminophen/ Hydrocodone Bitart (Lortab 5/325) 1 tab PRN Q4HRS PRN PO PAIN Last administered on 07/14/17 05:29; Start 07/10/17 at 15:00 Morphine Sulfate 1 mg PRN Q2HR PRN IV PAIN Last administered on 07/13/17 09: 50; Start 07/10/17 at 15:00 Furosemide (Lasix) 20 mg DAILY IVP Last administered on 07/14/17 09:36; Start 07/11/17 at 09:00 Budesonide (Pulmicort) 0.5 mg RTBID NEB Last administered on 07/14/17 07:24; Start 07/10/17 at 20:00 Albuterol Sulfate (Ventolin Neb Soln) 2.5 mg PRN Q4HRS PRN NEB SHORTNESS OF BREATH Last administered on 07/14/17 05:15; Start 07/10/17 at 23:00 Insulin Aspart (NovoLOG) 0-9 UNITS TIDWMEALS SQ Last administered on 12:14; Start 07/11/17 at 12:00 Dextrose (Dextrose 50%-Water Syringe) 12.5 gm PRN Q15MIN PRN IV SEE COMMENTS; Start 07/11/17 at 11:45 Nicotine (Nicoderm Cq 21mg) 1 patch PRN DAILY PRN TD SMOKING CESSATION Last administered on 07/12/17 11:00; Start 07/12/17 at 11:00; Stop 07/13/17 at 09 :50; Status DC Polyethylene Glycol (miraLAX PACKET) 17 gm DAILY PO Last administered on 10:59; Start 07/12/17 at 11:00; Stop 07/13/17 at 10:34; Status DC Magnesium Hydroxide (Milk Of Magnesia) 2,400 mg PRN DAILY PRN PO CONSTIPATION; Start 07/12/17 at 11:00 Magnesium Hydroxide (Milk Of Magnesia) 2,400 mg 1X ONCE PO Last administered on 07/12/17 11:00; Start 07/12/17 at 11:00; Stop 07/12/17 at 11:01; Status DC Heparin Sodium (Porcine) (Heparin Sq) 5,000 unit Q8HRS SQ ; Start 07/12/17 at 14:00; Status UNV Diphenhydramine HCl (Benadryl) 25 mg PRN QHS PRN PO INSOMNIA Last administered on 07/13/17 00:21; Start 07/13/17 at 00:15 Nicotine (Nicoderm Cq 14mg) 1 patch PRN DAILY PRN TD SMOKING CESSATION; Start 07/13/17 at 10:00 Saliva Substitute (Biotene Moisturizing Mouth) 2 spray PRN Q15MIN PRN PO DRY MOUTH; Start 07/13/17 at 10:00 Heparin Sodium (Porcine) (Heparin Sq) 5,000 unit Q12HR SQ Last administered on 07/13/17 21:49; Start 07/13/17 at 11:00 Ondansetron HCl (Zofran) 4 mg PRN Q6HRS PRN IV NAUSEA/VOMITING; Start at 10:30; Stop 07/14/17 at 10:29 Fentanyl Citrate (Fentanyl 2ml Vial) 25 mcg PRN Q5MIN PRN IV MILD PAIN; Start 07/13/17 at 10:30; Stop 07/14/17 at 10:29 Fentanyl Citrate (Fentanyl 2ml Vial) 50 mcg PRN Q5MIN PRN IV MODERATE PAIN; Start 07/13/17 at 10:30; Stop 07/14/17 at 10:29 Morphine Sulfate 1 mg PRN Q10MIN PRN IV SEVERE PAIN; Start 07/13/17 at 10:30; Stop 07/14/17 at 10:29 Ringer's Solution 1,000 ml @ 30 mls/hr Q24H IV ; Start 07/13/17 at 10:23; Stop 07/13/17 at 22:22; Status DC Lidocaine HCl (Xylocaine-Mpf 1% Vial) 2 ml 1X PRN PRN ID IV START; Start 07/13 at 10:30; Stop 07/14/17 at 10:29 Hydromorphone HCl (Dilaudid) 0.5 mg PRN Q10MIN PRN IV SEV PAIN, Second choice; Start 07/13/17 at 10:30; Stop 07/14/17 at 10:29 Prochlorperazine Edisylate (Compazine) 5 mg PACU PRN PRN IV NAUSEA, MRX1; Start 07/13/17 at 10:30; Stop 07/14/17 at 10:29 Polyethylene Glycol (miraLAX PACKET) 17 gm 1X ONCE PO ; Start 07/13/17 at 10: 45; Stop 07/13/17 at 10:46; Status DC Polyethylene Glycol (miraLAX PACKET) 17 gm DAILY PO Last administered on t 09:35; Start 07/14/17 at 09:00 Magnesium Sulfate/ Dextrose 50 ml @ 25 mls/hr PRN DAILY PRN IV for Mag < 1.7 on am labs; Start 07/13/17 at 12:00 Lidocaine HCl (Viscous Lidocaine) 15 ml STK-MED ONCE .ROUTE ; Start 07/13/17 at 12:25; Stop 07/13/17 at 12:26; Status DC Benzocaine (Hurricaine One) 1 spray STK-MED ONCE .ROUTE ; Start 07/13/17 at 12: 25; Stop 07/13/17 at 12:26; Status DC Lidocaine HCl (Xylocaine 2% Topical 30gm Tube) 30 julissa STK-MED ONCE TP ; Start 07/13/17 at 12:25; Stop 07/13/17 at 12:26; Status DC Lidocaine HCl (Xylocaine 2% Topical 30gm Tube) 30 julissa STK-MED ONCE TP ; Start 07/13/17 at 12:26; Stop 07/13/17 at 12:27; Status DC Propofol 20 ml @ As Directed STK-MED ONCE IV ; Start 07/13/17 at 12:51; Stop 07/13/17 at 12:52; Status DC Lidocaine HCl (Lidocaine Pf 2% Vial) 5 ml STK-MED ONCE .ROUTE ; Start 07/13/17 at 12:51; Stop 07/13/17 at 12:52; Status DC Etomidate (Amidate) 20 mg STK-MED ONCE IV ; Start 07/13/17 at 12:51; Stop at 12:52; Status DC Iron Sucrose 200 mg/Sodium Chloride 110 ml @ 55 mls/hr 3X/WEEK IV Last administered on 07/13/17t 15:20; Start 07/13/17 at 14:00; Stop 07/22/17 at 10 :59 Polyethylene Glycol (miraLAX PACKET) 17 gm 1X ONCE PO Last administered on t 18:20; Start 07/13/17 at 18:00; Stop 07/13/17 at 18:01; Status DC Active Scripts Active Reported Tylenol (Acetaminophen) 325 Mg Tablet 650 Mg PO PRN Q6HRS PRN Amlodipine Besylate 10 Mg Tablet 10 Mg PO DAILY Voltaren (Diclofenac Sodium) 100 Gm Gel..gram. 100 Gm TP PRN QID PRN Senokot-S Tablet (Sennosides/Docusate Sodium) 1 Each Tablet 2 Each PO PRN DAILY PRN Polyethylene Glycol 3350 255 Gm Powder 17 Gm PO PRN DAILY PRN NITROGLYCERIN SubLingual (Nitroglycerin) 0.4 Mg Tab.subl 0.4 Mg SL PRN Q5MIN PRN Milk Of Magnesia (Magnesium Hydroxide) 2,400 Mg/10 Ml Oral.susp 2,400 Mg PO PRN DAILY PRN Probiotic (Lactobacillus Acidophilus) 1 Each Capsule 1 Each PO BID 5 Days Ferrous Sulfate 325 Mg Tablet 325 Mg PO DAILY Augmentin 875-125 Tablet (Amoxicillin/Potassium Clav) 1 Each Tablet 1 Tab PO BID 5 Days Atorvastatin Calcium 40 Mg Tablet 40 Mg PO HS Hydralazine Hcl 50 Mg Tablet 50 Mg PO BID Duoneb 0.5-3(2.5) Mg/3 Ml (Albuterol/Ipratropium) 3 Ml Ampul.neb 3 Ml NEB QID Trazodone Hcl 50 Mg Tablet 100 Mg PO HS Zofran (Ondansetron Hcl) 4 Mg Tablet 1 Tab PO Q6HRS Protonix (Pantoprazole Sodium) 40 Mg Tablet.dr 1 Tab PO DAILY Aspir 81 (Aspirin) 81 Mg Tablet.dr 1 Tab PO DAILY Vitals/I & O Vital Sign - Last 24 Hours 07/13/17 07/13/17 07/13/17 07/13/17 10:30 11:00 11:33 12:38 Temp 97.5 98.2 97.5 98.2 Pulse 74 75 Resp 20 20 16 B/P (MAP) 148/72 (97) 149/67 Pulse Ox 93 90 92 96 O2 Delivery Nasal Cannula Nasal Cannula Nasal Cannula Room Air O2 Flow Rate 5.0 5.0 3.0 07/13/17 07/13/17 07/13/17 07/13/17 13:24 13:39 13:54 14:30 Temp 97.6 97.6 Pulse 65 76 77 79 Resp 16 16 16 B/P (MAP) 129/71 157/77 141/73 138/76 (96) Pulse Ox 93 91 O2 Delivery Simple Mask Nasal Cannula O2 Flow Rate 10 07/13/17 07/13/17 07/13/17 07/13/17 14:45 14:51 15:00 15:15 Temp 98.0 98.0 Pulse 76 74 71 Resp 20 B/P (MAP) 134/67 (89) 132/64 (86) 134/67 (89) Pulse Ox 92 O2 Delivery Nasal Cannula Nasal Cannula O2 Flow Rate 5.0 5.0 07/13/17 07/13/17 07/13/17 07/13/17 15:19 15:45 16:15 17:15 Pulse 77 74 72 70 B/P (MAP) 141/73 125/70 (88) 131/65 (87) 122/63 (82) 07/13/17 07/13/17 07/13/17 07/13/17 19:20 19:40 19:40 19:45 Temp 97.9 97.9 Pulse 71 66 Resp 18 20 B/P (MAP) 138/71 (93) 136/67 Pulse Ox 87 90 O2 Delivery Nasal Cannula Nasal Cannula Nasal Cannula O2 Flow Rate 5.0 5.0 4.0 07/13/17 07/13/17 07/13/17 07/13/17 20:26 21:00 21:55 23:52 Temp 97.7 97.7 Pulse 66 72 Resp 16 B/P (MAP) 136/67 120/69 (86) Pulse Ox 90 90 93 O2 Delivery Nasal Cannula Nasal Cannula O2 Flow Rate 5.0 5.0 5.0 07/14/17 07/14/17 07/14/17 07/14/17 03:30 05:15 05:29 05:31 Temp 97.8 97.8 Pulse 76 76 Resp 16 20 B/P (MAP) 135/72 (93) 135/72 Pulse Ox 87 91 O2 Delivery Nasal Cannula Nasal Cannula Nasal Cannula O2 Flow Rate 5.0 5.0 5.0 07/14/17 07/14/17 07/14/17 07/14/17 05:32 06:30 07:20 07:26 Temp 97.8 97.8 Pulse 69 Resp 20 19 B/P (MAP) 140/56 (84) Pulse Ox 91 91 91 O2 Delivery Nasal Cannula Nasal Cannula Nasal Cannula O2 Flow Rate 5.0 5.0 5.0 5.0 07/14/17 07/14/17 07/14/17 08:00 09:34 09:36 Pulse 69 69 B/P (MAP) 140/56 140/56 O2 Delivery Nasal Cannula O2 Flow Rate 5.0 Images On WIN, looks like bioprosthetic valve and pulmonary HTN. Assessment SANGITA. Plan of Care: Continue current Tx, Mgmt Plan of Care Note [facility]wait any [facility]. Offered EGD today since hadn't eaten; he declined. DL CASTELLANO MD Jul 14, 2017 10:26
--- NOTE | 2017-07-14 10:39 | PDOC ---
SUBJECTIVE ROS KHALIDA/ CKD III Doing OK today CVS: no Orthopnea, no CP RESP: no SOB, no COULTER GI: no Nausea, no Vomiting : no Dysuria, no Urgency OBJECTIVE Vital Signs Vital Signs Date Time Temp Pulse Resp B/P (MAP) Pulse Ox O2 Delivery O2 Flow Rate FiO2 07/14/17 09:36 69 140/56 07/14/17 08:00 Nasal Cannula 5.0 07/14/17 07:26 91 07/14/17 07:20 97.8 19 97.8 PHYSICAL EXAM Physical Exam GEN: Awake, Oriented x 2, In no distress EYES: Vision Unchanged, Conjunctiva Normal EN: No EN Drainage, Mucous Membranes moist NECK: no JVD, no JVP, Supple, no Thyromegaly CVS: S1S2, ? soft Murmur, No Gallop, No Rub,+ Edema RESP: rare basal Rales, no Rhonchi,no Acc. Muscle Use GI: BS + ve, NO Bruit, Non Tender, Non Distended : no CVA tenderness, no Suprapubic Tenderness DIAGNOSIS/ASSESSMENT Assessment & Plan CKD III/ Iv - (presumed from HTN/ DM and previous Crack use) check ing 24-hr Urine collection: Pt is not aware of CKD diagnosis per se. Current fluid and E -lyte status does not necessitate emergent need for dialysis. Will re-evaluate for dialysis in the am Fe def ANEMIA; IV venofer as ordered. HTN: Current BP meds as reviewed. See orders for changes. BONE & MINERAL: Check PTH CHF on CXR - ? hypervolemia - EF was preserved on last ECHO, recehck CXR : -ve fluid balance as ntoed. marcellane Lasix to PO fo rnow and assess response COMMENT/RELEVANT DATA Meds Current Medications Medications (Trade) Dose Ordered Sig/Raine Start Time Stop Time Status Last Admin Dose Admin Acetaminophen (Tylenol) 650 mg PRN Q6HRS PRN 07/10/17 14:15 07/11/17 04:55 650 MG Acetaminophen/ Hydrocodone Bitart (Lortab 5/325) 1 tab PRN Q4HRS PRN 07/10/17 15:00 07/14/17 05:29 1 TAB Al Hydroxide/Mg Hydroxide (Mylanta Plus Xs) 30 ml PRN Q3HRS PRN 07/10/17 14:00 Albuterol Sulfate (Ventolin Neb Soln) 2.5 mg PRN Q4HRS PRN 07/10/17 23:00 07/14/17 05:15 2.5 MG Albuterol/ Ipratropium (Duoneb) 3 ml RTQID 07/10/17 16:00 07/14/17 07:24 3 ML Amlodipine Besylate (Norvasc) 10 mg DAILY 07/10/17 15:00 07/14/17 09:34 10 MG Aspirin (Ecotrin) 81 mg DAILY 07/10/17 15:00 07/14/17 09:32 81 MG Atorvastatin Calcium (Lipitor) 40 mg HS 07/10/17 21:00 07/13/17 21:46 40 MG Benzocaine (Hurricaine One) 1 spray STK-MED ONCE 07/13/17 12:25 07/13/17 12:26 DC Budesonide (Pulmicort) 0.5 mg RTBID 07/10/17 20:00 07/14/17 07:24 0.5 MG Dextrose (Dextrose 50%-Water Syringe) 12.5 gm PRN Q15MIN PRN 07/11/17 11:45 Diclofenac Sodium (Voltaren) 100 julissa PRN QID PRN 07/10/17 14:15 Diphenhydramine HCl (Benadryl) 25 mg PRN QHS PRN 07/13/17 00:15 07/13/17 00:21 25 MG Etomidate (Amidate) 20 mg STK-MED ONCE 07/13/17 12:51 07/13/17 12:52 DC Fentanyl Citrate (Fentanyl 2ml Vial) 50 mcg PRN Q5MIN PRN 07/13/17 10:30 07/14/17 10:29 DC Ferrous Sulfate (Feosol) 325 mg DAILYWBKFT 07/10/17 15:00 07/14/17 09:34 325 MG Furosemide (Lasix) 20 mg DAILY 07/11/17 09:00 07/14/17 09:36 20 MG Guaifenesin (Robitussin Dm) 10 ml PRN Q6HRS PRN 07/10/17 15:00 07/11/17 04:55 10 ML Heparin Sodium (Porcine) (Heparin Sq) 5,000 unit Q12HR 07/13/17 11:00 07/13/17 21:49 5,000 UNIT Hydralazine HCl (Apresoline) 50 mg BID 07/10/17 21:00 07/14/17 09:36 50 MG Hydromorphone HCl (Dilaudid) 0.5 mg PRN Q10MIN PRN 07/13/17 10:30 07/14/17 10:29 DC Insulin Aspart (NovoLOG) 0-9 UNITS TIDWMEALS 07/11/17 12:00 07/11/17 12:14 5 UNITS Iron Sucrose 200 mg/Sodium Chloride 110 ml @ 55 mls/hr 3X/WEEK 07/13/17 14:00 07/22/17 10:59 07/13/17 15:20 55 MLS/HR Lactobacillus Acidophilus (Bacid, Leila-Bid) 1 tab BID 07/10/17 21:00 07/14/17 09:32 1 TAB Lidocaine HCl (Lidocaine Pf 2% Vial) 5 ml STK-MED ONCE 07/13/17 12:51 07/13/17 12:52 DC Lidocaine HCl (Viscous Lidocaine) 15 ml STK-MED ONCE 07/13/17 12:25 07/13/17 12:26 DC Lidocaine HCl (Xylocaine 2% Topical 30gm Tube) 30 julissa STK-MED ONCE 07/13/17 12:26 07/13/17 12:27 DC Lidocaine HCl (Xylocaine-Mpf 1% Vial) 2 ml 1X PRN PRN 07/13/17 10:30 07/14/17 10:29 DC Magnesium Hydroxide (Milk Of Magnesia) 2,400 mg 1X ONCE 07/12/17 11:00 07/12/17 11:01 DC 07/12/17 11:00 2,400 MG Magnesium Sulfate/ Dextrose 50 ml @ 25 mls/hr PRN DAILY PRN 07/13/17 12:00 Morphine Sulfate 1 mg PRN Q10MIN PRN 07/13/17 10:30 07/14/17 10:29 DC Nicotine (Nicoderm Cq 14mg) 1 patch PRN DAILY PRN 07/13/17 10:00 Nicotine (Nicoderm Cq 21mg) 1 patch PRN DAILY PRN 07/12/17 11:00 07/13/17 09:50 DC 07/12/17 11:00 1 PATCH Nitroglycerin (Nitrostat) 0.4 mg PRN Q5MIN PRN 07/10/17 14:15 07/14/17 05:31 0.4 MG Ondansetron HCl (Zofran Odt) 4 mg Q6HRS 07/10/17 14:30 07/14/17 05:37 4 MG Ondansetron HCl (Zofran) 4 mg PRN Q6HRS PRN 07/13/17 10:30 07/14/17 10:29 DC Pantoprazole Sodium (Protonix) 40 mg DAILYAC 07/10/17 16:30 07/14/17 09:32 40 MG Polyethylene Glycol (miraLAX PACKET) 17 gm 1X ONCE 07/13/17 18:00 07/13/17 18:01 DC 07/13/17 18:20 17 GM Polyethylene Glycol (miraLAX Powder BULK BOTTLE) 17 gm PRN DAILY PRN 07/10/17 14:15 07/10/17 14:22 DC Prochlorperazine Edisylate (Compazine) 5 mg PACU PRN PRN 07/13/17 10:30 07/14/17 10:29 DC Propofol 20 ml @ As Directed STK-MED ONCE 07/13/17 12:51 07/13/17 12:52 DC Ringer's Solution 1,000 ml @ 30 mls/hr Q24H 07/13/17 10:23 07/13/17 22:22 DC Saliva Substitute (Biotene Moisturizing Mouth) 2 spray PRN Q15MIN PRN 07/13/17 10:00 Senna/Docusate Sodium (Senna Plus) 2 tab PRN DAILY PRN 07/10/17 14:15 07/12/17 20:11 2 TAB Sodium Chloride (Normal Saline Flush) 3 ml PRN DAILY PRN 07/10/17 14:00 Trazodone HCl (Desyrel) 100 mg HS 07/10/17 21:00 07/13/17 21:47 100 MG Lab Laboratory Tests Test 07/13/17 12:04 07/13/17 17:04 07/13/17 20:22 07/13/17 23:00 Glucose (Fingerstick) 90 mg/dL (70-99) 121 mg/dL (70-99) 94 mg/dL (70-99) Stool Occult Blood Positive (NEG) Test 07/14/17 03:30 07/14/17 07:24 Hemoglobin 7.5 g/dL (13.0-17.5) Sodium Level 139 mmol/L (136-145) Potassium Level 3.7 mmol/L (3.5-5.1) Chloride Level 103 mmol/L (98-107) Carbon Dioxide Level 26 mmol/L (21-32) Anion Gap 10 (6-14) Blood Urea Nitrogen 47 mg/dL (8-26) Creatinine 1.9 mg/dL (0.7-1.3) Estimated GFR (Cockcroft-Gault) 35.8 Glucose Level 82 mg/dL (70-99) Calcium Level 8.8 mg/dL (8.5-10.1) Phosphorus Level 4.1 mg/dL (2.6-4.7) Magnesium Level 2.2 mg/dL (1.8-2.4) Albumin 2.8 g/dL (3.4-5.0) Glucose (Fingerstick) 82 mg/dL (70-99) FREDY MOSS MD Jul 14, 2017 10:39
[2017-07-14 10:55] VITALS: BP 122/59
--- NOTE | 2017-07-14 11:39 | PDOC ---
CARDIO Progress Notes Date and Time Date of Service 07/14/17 Time of Evaluation 1120 Subjective Subjective: No Chest Pain, No Palpitations, Other (breathing improved) Vitals Vitals Vital Signs Date Time Temp Pulse Resp B/P (MAP) Pulse Ox O2 Delivery O2 Flow Rate FiO2 07/14/17 10:55 97.9 70 18 122/59 (80) 94 Nasal Cannula 5.0 97.9 Weight Weight [ ] Input and Output Intake and Output Intake and Output 07/15/17 07:00 Intake Total 250 ml Output Total 500 ml Balance -250 ml Intake Oral 250 ml Output Urine Total 500 ml Laboratory Labs Laboratory Tests Test 07/13/17 12:04 07/13/17 17:04 07/13/17 20:22 07/13/17 23:00 Glucose (Fingerstick) 90 mg/dL (70-99) 121 mg/dL (70-99) 94 mg/dL (70-99) Stool Occult Blood Positive (NEG) Test 07/14/17 03:30 07/14/17 07:24 Hemoglobin 7.5 g/dL (13.0-17.5) Sodium Level 139 mmol/L (136-145) Potassium Level 3.7 mmol/L (3.5-5.1) Chloride Level 103 mmol/L (98-107) Carbon Dioxide Level 26 mmol/L (21-32) Anion Gap 10 (6-14) Blood Urea Nitrogen 47 mg/dL (8-26) Creatinine 1.9 mg/dL (0.7-1.3) Estimated GFR (Cockcroft-Gault) 35.8 Glucose Level 82 mg/dL (70-99) Calcium Level 8.8 mg/dL (8.5-10.1) Phosphorus Level 4.1 mg/dL (2.6-4.7) Magnesium Level 2.2 mg/dL (1.8-2.4) Albumin 2.8 g/dL (3.4-5.0) Glucose (Fingerstick) 82 mg/dL (70-99) Physical Exam HEENT: Neck Supple W Full Motion Chest: Symmetric LUNGS: Other (diminished bases ) Heart: S1S2, RRR (SR with LBBB), murmurs (2/6 systolic murmur ), other ( distant heart sounds) Abdomen: Soft N/T Extremities: No Calf Tenderness, Other (trace bilateral LE edema) Neurology: alert, follow commands, other (ancious, aggressive at times) Assessment Assessment 1. Atypical Chest pain: MSK/pleuritic. No evidence of acute infarction. Continue supportive care. Will follow along peripherally. 2. Acute on chronic diastolic/systolic CHF: Improved. Appears compensated. Lasix converted to oral 3. CAD with chronic LBBB: Past CABG with prosthetic AVR. WIN with preserved LV function along with appropriately functioning aortic valve 4. AECOPD/Severe pulmonary hypertension: PAP 87 mmHg. Continuing medical treatment. 5. Hypertension; well-controlled 6. KHALIDA on CKD3; Cr trending downward. As per renal 7. Schizophrenia/dementia 8. DM2/HLP; Lipids on goal per recent panel 9. Continued tobaccoism 10. Hx of treatment non-compliance MARILUZ MARTÍNEZ APRN Jul 14, 2017 11:39
--- NOTE | 2017-07-14 11:44 | PDOC ---
PROGRESS NOTES Chief Complaint Chief Complaint 1. Acute hypoxic respiratory failure, w/ acute diastolic congestive heart failure, 2. hypoxia w/ acute exacerbation of chronic obstructive pulmonary disease. 3. Acute on chronic diastolic/systolic CHF: likely induced by pulmonary issue 4. Severe pulmonary hypertension. 5. 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 AE COPD/Severe pulmonary hypertension: per PCP. PAP 87 mmHg 7. Schizophrenia. 8. Paroxysmal atrial fibrillation. 9. Mdicc-qs-[id number] kidney disease. w. anemia of CKD 10. Diabetes mellitus. History of Present Illness History of Present Illness complains of groin itching dry mouth, thirsty and hungry he reports cannot walk, Wheelchair bound in SNU wants to retain lopez today WIN OK NO family support - Vitals Vitals Vital Signs Date Time Temp Pulse Resp B/P (MAP) Pulse Ox O2 Delivery O2 Flow Rate FiO2 07/14/17 10:55 97.9 70 18 122/59 (80) 94 Nasal Cannula 5.0 97.9 Physical Exam General: mild distress Heart: Regular rate Lungs: Crackles Abdomen: Normal bowel sounds Extremities: No clubbing, No cyanosis Skin: No rashes, No breakdown Labs LABS Laboratory Tests Test 07/13/17 12:04 07/13/17 17:04 07/13/17 20:22 07/13/17 23:00 Glucose (Fingerstick) 90 mg/dL (70-99) 121 mg/dL (70-99) 94 mg/dL (70-99) Stool Occult Blood Positive (NEG) Test 07/14/17 03:30 07/14/17 07:24 Hemoglobin 7.5 g/dL (13.0-17.5) Sodium Level 139 mmol/L (136-145) Potassium Level 3.7 mmol/L (3.5-5.1) Chloride Level 103 mmol/L (98-107) Carbon Dioxide Level 26 mmol/L (21-32) Anion Gap 10 (6-14) Blood Urea Nitrogen 47 mg/dL (8-26) Creatinine 1.9 mg/dL (0.7-1.3) Estimated GFR (Cockcroft-Gault) 35.8 Glucose Level 82 mg/dL (70-99) Calcium Level 8.8 mg/dL (8.5-10.1) Phosphorus Level 4.1 mg/dL (2.6-4.7) Magnesium Level 2.2 mg/dL (1.8-2.4) Albumin 2.8 g/dL (3.4-5.0) Glucose (Fingerstick) 82 mg/dL (70-99) Review of Systems Review of Systems itching Assessment and Plan Assessmemt and Plan nystatin powder getting 24 hour urine until 7pm, maintain lopez, incontinent, plan remove lopez in AM Problems: Comment Review of Relevant I have reviewed the following items florentin (where applicable) has been applied. Labs Laboratory Tests Test 07/12/17 16:11 07/12/17 20:51 07/13/17 03:00 07/13/17 07:43 Glucose (Fingerstick) 128 mg/dL (70-99) 112 mg/dL (70-99) 91 mg/dL (70-99) Sodium Level 137 mmol/L (136-145) Potassium Level 4.0 mmol/L (3.5-5.1) Chloride Level 102 mmol/L (98-107) Carbon Dioxide Level 25 mmol/L (21-32) Anion Gap 10 (6-14) Blood Urea Nitrogen 55 mg/dL (8-26) Creatinine 2.2 mg/dL (0.7-1.3) Estimated GFR (Cockcroft-Gault) 30.2 Glucose Level 94 mg/dL (70-99) Calcium Level 8.5 mg/dL (8.5-10.1) Ferritin 83 ng/mL (26-388) Test 07/13/17 12:04 07/13/17 17:04 07/13/17 20:22 07/13/17 23:00 Glucose (Fingerstick) 90 mg/dL (70-99) 121 mg/dL (70-99) 94 mg/dL (70-99) Stool Occult Blood Positive (NEG) Test 07/14/17 03:30 07/14/17 07:24 Hemoglobin 7.5 g/dL (13.0-17.5) Sodium Level 139 mmol/L (136-145) Potassium Level 3.7 mmol/L (3.5-5.1) Chloride Level 103 mmol/L (98-107) Carbon Dioxide Level 26 mmol/L (21-32) Anion Gap 10 (6-14) Blood Urea Nitrogen 47 mg/dL (8-26) Creatinine 1.9 mg/dL (0.7-1.3) Estimated GFR (Cockcroft-Gault) 35.8 Glucose Level 82 mg/dL (70-99) Calcium Level 8.8 mg/dL (8.5-10.1) Phosphorus Level 4.1 mg/dL (2.6-4.7) Magnesium Level 2.2 mg/dL (1.8-2.4) Albumin 2.8 g/dL (3.4-5.0) Glucose (Fingerstick) 82 mg/dL (70-99) Laboratory Tests Test 07/13/17 12:04 07/13/17 17:04 07/13/17 20:22 07/13/17 23:00 Glucose (Fingerstick) 90 mg/dL (70-99) 121 mg/dL (70-99) 94 mg/dL (70-99) Stool Occult Blood Positive (NEG) Test 07/14/17 03:30 07/14/17 07:24 Hemoglobin 7.5 g/dL (13.0-17.5) Sodium Level 139 mmol/L (136-145) Potassium Level 3.7 mmol/L (3.5-5.1) Chloride Level 103 mmol/L (98-107) Carbon Dioxide Level 26 mmol/L (21-32) Anion Gap 10 (6-14) Blood Urea Nitrogen 47 mg/dL (8-26) Creatinine 1.9 mg/dL (0.7-1.3) Estimated GFR (Cockcroft-Gault) 35.8 Glucose Level 82 mg/dL (70-99) Calcium Level 8.8 mg/dL (8.5-10.1) Phosphorus Level 4.1 mg/dL (2.6-4.7) Magnesium Level 2.2 mg/dL (1.8-2.4) Albumin 2.8 g/dL (3.4-5.0) Glucose (Fingerstick) 82 mg/dL (70-99) Medications Current Medications Sodium Chloride (Normal Saline Flush) 3 ml PRN DAILY PRN IV AFTER MEDS AND BLOOD DRAWS; Start 07/10/17 at 14:00 Prochlorperazine Edisylate (Compazine) 10 mg PRN Q6HRS PRN IV NAUSEA/VOMITING; Start 07/10/17 at 14:00 Al Hydroxide/Mg Hydroxide (Mylanta Plus Xs) 30 ml PRN Q3HRS PRN PO HEARTBURN / GAS; Start 07/10/17 at 14:00 Senna/Docusate Sodium (Senna Plus) 1 tab BID PO Last administered on 09:32; Start 07/10/17 at 21:00 Magnesium Hydroxide (Milk Of Magnesia) 2,400 mg PRN Q12HR PRN PO CONSTIPATION; Start 07/10/17 at 14:00; Stop 07/12/17 at 17:14; Status DC Acetaminophen (Tylenol) 650 mg PRN Q6HRS PRN PO MILD PAIN / TEMP Last administered on 07/11/17 04:55; Start 07/10/17 at 14:15 Amlodipine Besylate (Norvasc) 10 mg DAILY PO Last administered on 07/14/17 09 :34; Start 07/10/17 at 15:00 Aspirin (Ecotrin) 81 mg DAILY PO Last administered on 07/14/17 09:32; Start 07/10/17 at 15:00 Atorvastatin Calcium (Lipitor) 40 mg HS PO Last administered on 07/13/17 21: 46; Start 07/10/17 at 21:00 Diclofenac Sodium (Voltaren) 100 julissa PRN QID PRN TP INFLAMMATION; Start at 14:15 Ferrous Sulfate (Feosol) 325 mg DAILYWBKFT PO Last administered on 07/14/17 09:34; Start 07/10/17 at 15:00 Hydralazine HCl (Apresoline) 50 mg BID PO Last administered on 07/14/17 09:36 ; Start 07/10/17 at 21:00 Albuterol/ Ipratropium (Duoneb) 3 ml RTQID NEB Last administered on 07/14/17 07:24; Start 07/10/17 at 16:00 Nitroglycerin (Nitrostat) 0.4 mg PRN Q5MIN PRN SL CHEST PAIN Last administered on 07/14/17 05:31; Start 07/10/17 at 14:15 Pantoprazole Sodium (Protonix) 40 mg DAILYAC PO Last administered on 09:32; Start 07/10/17 at 16:30 Polyethylene Glycol (miraLAX Powder BULK BOTTLE) 17 gm PRN DAILY PRN PO CONSTIPATION; Start 07/10/17 at 14:15; Stop 07/10/17 at 14:22; Status DC Senna/Docusate Sodium (Senna Plus) 2 tab PRN DAILY PRN PO CONSTIPATION Last administered on 07/12/17 20:11; Start 07/10/17 at 14:15 Trazodone HCl (Desyrel) 100 mg HS PO Last administered on 07/13/17 21:47; Start 07/10/17 at 21:00 Lactobacillus Acidophilus (Bacid, Leila-Bid) 1 tab BID PO Last administered on 07/14/17 09:32; Start 07/10/17 at 21:00 Magnesium Hydroxide (Milk Of Magnesia) 2,400 mg PRN DAILY PRN PO CONSTIPATION; Start 07/10/17 at 14:30; Stop 07/12/17 at 17:13; Status DC Ondansetron HCl (Zofran Odt) 4 mg Q6HRS PO Last administered on 07/14/17 05: 37; Start 07/10/17 at 14:30 Polyethylene Glycol (miraLAX PACKET) 17 gm PRN DAILY PRN PO CONSTIPATION; Start 07/11/17 at 09:00; Stop 07/12/17 at 10:47; Status DC Guaifenesin (Robitussin Dm) 10 ml PRN Q6HRS PRN PO COUGH Last administered on 07/11/17 04:55; Start 07/10/17 at 15:00 Acetaminophen/ Hydrocodone Bitart (Lortab 5/325) 1 tab PRN Q4HRS PRN PO PAIN Last administered on 07/14/17 05:29; Start 07/10/17 at 15:00 Morphine Sulfate 1 mg PRN Q2HR PRN IV PAIN Last administered on 07/13/17 09: 50; Start 07/10/17 at 15:00 Furosemide (Lasix) 20 mg DAILY IVP Last administered on 07/14/17 09:36; Start 07/11/17 at 09:00; Stop 07/14/17 at 10:35; Status DC Budesonide (Pulmicort) 0.5 mg RTBID NEB Last administered on 07/14/17 07:24; Start 07/10/17 at 20:00 Albuterol Sulfate (Ventolin Neb Soln) 2.5 mg PRN Q4HRS PRN NEB SHORTNESS OF BREATH Last administered on 07/14/17 05:15; Start 07/10/17 at 23:00 Insulin Aspart (NovoLOG) 0-9 UNITS TIDWMEALS SQ Last administered on 12:14; Start 07/11/17 at 12:00 Dextrose (Dextrose 50%-Water Syringe) 12.5 gm PRN Q15MIN PRN IV SEE COMMENTS; Start 07/11/17 at 11:45 Nicotine (Nicoderm Cq 21mg) 1 patch PRN DAILY PRN TD SMOKING CESSATION Last administered on 07/12/17 11:00; Start 07/12/17 at 11:00; Stop 07/13/17 at 09 :50; Status DC Polyethylene Glycol (miraLAX PACKET) 17 gm DAILY PO Last administered on 10:59; Start 07/12/17 at 11:00; Stop 07/13/17 at 10:34; Status DC Magnesium Hydroxide (Milk Of Magnesia) 2,400 mg PRN DAILY PRN PO CONSTIPATION; Start 07/12/17 at 11:00 Magnesium Hydroxide (Milk Of Magnesia) 2,400 mg 1X ONCE PO Last administered on 07/12/17 11:00; Start 07/12/17 at 11:00; Stop 07/12/17 at 11:01; Status DC Heparin Sodium (Porcine) (Heparin Sq) 5,000 unit Q8HRS SQ ; Start 07/12/17 at 14:00; Status UNV Diphenhydramine HCl (Benadryl) 25 mg PRN QHS PRN PO INSOMNIA Last administered on 07/13/17 00:21; Start 07/13/17 at 00:15 Nicotine (Nicoderm Cq 14mg) 1 patch PRN DAILY PRN TD SMOKING CESSATION; Start 07/13/17 at 10:00 Saliva Substitute (Biotene Moisturizing Mouth) 2 spray PRN Q15MIN PRN PO DRY MOUTH; Start 07/13/17 at 10:00 Heparin Sodium (Porcine) (Heparin Sq) 5,000 unit Q12HR SQ Last administered on 07/13/17 21:49; Start 07/13/17 at 11:00 Ondansetron HCl (Zofran) 4 mg PRN Q6HRS PRN IV NAUSEA/VOMITING; Start at 10:30; Stop 07/14/17 at 10:29; Status DC Fentanyl Citrate (Fentanyl 2ml Vial) 25 mcg PRN Q5MIN PRN IV MILD PAIN; Start 07/13/17 at 10:30; Stop 07/14/17 at 10:29; Status DC Fentanyl Citrate (Fentanyl 2ml Vial) 50 mcg PRN Q5MIN PRN IV MODERATE PAIN; Start 07/13/17 at 10:30; Stop 07/14/17 at 10:29; Status DC Morphine Sulfate 1 mg PRN Q10MIN PRN IV SEVERE PAIN; Start 07/13/17 at 10:30; Stop 07/14/17 at 10:29; Status DC Ringer's Solution 1,000 ml @ 30 mls/hr Q24H IV ; Start 07/13/17 at 10:23; Stop 07/13/17 at 22:22; Status DC Lidocaine HCl (Xylocaine-Mpf 1% Vial) 2 ml 1X PRN PRN ID IV START; Start 07/13 at 10:30; Stop 07/14/17 at 10:29; Status DC Hydromorphone HCl (Dilaudid) 0.5 mg PRN Q10MIN PRN IV SEV PAIN, Second choice; Start 07/13/17 at 10:30; Stop 07/14/17 at 10:29; Status DC Prochlorperazine Edisylate (Compazine) 5 mg PACU PRN PRN IV NAUSEA, MRX1; Start 07/13/17 at 10:30; Stop 07/14/17 at 10:29; Status DC Polyethylene Glycol (miraLAX PACKET) 17 gm 1X ONCE PO ; Start 07/13/17 at 10: 45; Stop 07/13/17 at 10:46; Status DC Polyethylene Glycol (miraLAX PACKET) 17 gm DAILY PO Last administered on t 09:35; Start 07/14/17 at 09:00 Magnesium Sulfate/ Dextrose 50 ml @ 25 mls/hr PRN DAILY PRN IV for Mag < 1.7 on am labs; Start 07/13/17 at 12:00 Lidocaine HCl (Viscous Lidocaine) 15 ml STK-MED ONCE .ROUTE ; Start 07/13/17 at 12:25; Stop 07/13/17 at 12:26; Status DC Benzocaine (Hurricaine One) 1 spray STK-MED ONCE .ROUTE ; Start 07/13/17 at 12: 25; Stop 07/13/17 at 12:26; Status DC Lidocaine HCl (Xylocaine 2% Topical 30gm Tube) 30 julissa STK-MED ONCE TP ; Start 07/13/17 at 12:25; Stop 07/13/17 at 12:26; Status DC Lidocaine HCl (Xylocaine 2% Topical 30gm Tube) 30 julissa STK-MED ONCE TP ; Start 07/13/17 at 12:26; Stop 07/13/17 at 12:27; Status DC Propofol 20 ml @ As Directed STK-MED ONCE IV ; Start 07/13/17 at 12:51; Stop 07/13/17 at 12:52; Status DC Lidocaine HCl (Lidocaine Pf 2% Vial) 5 ml STK-MED ONCE .ROUTE ; Start 07/13/17 at 12:51; Stop 07/13/17 at 12:52; Status DC Etomidate (Amidate) 20 mg STK-MED ONCE IV ; Start 07/13/17 at 12:51; Stop at 12:52; Status DC Iron Sucrose 200 mg/Sodium Chloride 110 ml @ 55 mls/hr 3X/WEEK IV Last administered on 07/13/17t 15:20; Start 07/13/17 at 14:00; Stop 07/22/17 at 10 :59 Polyethylene Glycol (miraLAX PACKET) 17 gm 1X ONCE PO Last administered on t 18:20; Start 07/13/17 at 18:00; Stop 07/13/17 at 18:01; Status DC Furosemide (Lasix) 40 mg DAILY PO ; Start 07/15/17 at 09:00 Active Scripts Active Reported Tylenol (Acetaminophen) 325 Mg Tablet 650 Mg PO PRN Q6HRS PRN Amlodipine Besylate 10 Mg Tablet 10 Mg PO DAILY Voltaren (Diclofenac Sodium) 100 Gm Gel..gram. 100 Gm TP PRN QID PRN Senokot-S Tablet (Sennosides/Docusate Sodium) 1 Each Tablet 2 Each PO PRN DAILY PRN Polyethylene Glycol 3350 255 Gm Powder 17 Gm PO PRN DAILY PRN NITROGLYCERIN SubLingual (Nitroglycerin) 0.4 Mg Tab.subl 0.4 Mg SL PRN Q5MIN PRN Milk Of Magnesia (Magnesium Hydroxide) 2,400 Mg/10 Ml Oral.susp 2,400 Mg PO PRN DAILY PRN Probiotic (Lactobacillus Acidophilus) 1 Each Capsule 1 Each PO BID 5 Days Ferrous Sulfate 325 Mg Tablet 325 Mg PO DAILY Augmentin 875-125 Tablet (Amoxicillin/Potassium Clav) 1 Each Tablet 1 Tab PO BID 5 Days Atorvastatin Calcium 40 Mg Tablet 40 Mg PO HS Hydralazine Hcl 50 Mg Tablet 50 Mg PO BID Duoneb 0.5-3(2.5) Mg/3 Ml (Albuterol/Ipratropium) 3 Ml Ampul.neb 3 Ml NEB QID Trazodone Hcl 50 Mg Tablet 100 Mg PO HS Zofran (Ondansetron Hcl) 4 Mg Tablet 1 Tab PO Q6HRS Protonix (Pantoprazole Sodium) 40 Mg Tablet.dr 1 Tab PO DAILY Aspir 81 (Aspirin) 81 Mg Tablet.dr 1 Tab PO DAILY Vitals/I & O Vital Sign - Last 24 Hours 07/13/17 07/13/17 07/13/17 07/13/17 12:38 13:24 13:39 13:54 Temp 98.2 97.6 98.2 97.6 Pulse 75 65 76 77 Resp 16 B/P (MAP) 149/67 129/71 157/77 141/73 Pulse Ox 96 93 91 O2 Delivery Room Air Simple Mask Nasal Cannula O2 Flow Rate 10 07/13/17 07/13/17 07/13/17 07/13/17 14:30 14:45 14:51 15:00 Temp 98.0 98.0 Pulse 79 76 74 Resp 20 B/P (MAP) 138/76 (96) 134/67 (89) 132/64 (86) Pulse Ox 92 O2 Delivery Nasal Cannula Nasal Cannula O2 Flow Rate 5.0 5.0 07/13/17 07/13/17 07/13/17 07/13/17 15:15 15:19 15:45 16:15 Pulse 71 77 74 72 B/P (MAP) 134/67 (89) 141/73 125/70 (88) 131/65 (87) 07/13/17 07/13/17 07/13/17 07/13/17 17:15 19:20 19:40 19:40 Temp 97.9 97.9 Pulse 70 71 66 Resp 18 20 B/P (MAP) 122/63 (82) 138/71 (93) 136/67 Pulse Ox 87 90 O2 Delivery Nasal Cannula Nasal Cannula O2 Flow Rate 5.0 5.0 07/13/17 07/13/17 07/13/17 07/13/17 19:45 20:26 21:00 21:55 Pulse 66 B/P (MAP) 136/67 Pulse Ox 90 90 O2 Delivery Nasal Cannula Nasal Cannula O2 Flow Rate 4.0 5.0 5.0 07/13/17 07/14/17 07/14/17 07/14/17 23:52 03:30 05:15 05:29 Temp 97.7 97.8 97.7 97.8 Pulse 72 76 Resp 16 16 20 B/P (MAP) 120/69 (86) 135/72 (93) Pulse Ox 93 87 91 O2 Delivery Nasal Cannula Nasal Cannula Nasal Cannula Nasal Cannula O2 Flow Rate 5.0 5.0 5.0 5.0 07/14/17 07/14/17 07/14/17 07/14/17 05:31 05:32 06:30 07:20 Temp 97.8 97.8 Pulse 76 69 Resp 20 19 B/P (MAP) 135/72 140/56 (84) Pulse Ox 91 91 O2 Delivery Nasal Cannula Nasal Cannula O2 Flow Rate 5.0 5.0 5.0 07/14/17 07/14/17 07/14/17 07/14/17 07:26 08:00 09:34 09:36 Pulse 69 69 B/P (MAP) 140/56 140/56 Pulse Ox 91 O2 Delivery Nasal Cannula Nasal Cannula O2 Flow Rate 5.0 5.0 07/14/17 10:55 Temp 97.9 97.9 Pulse 70 Resp 18 B/P (MAP) 122/59 (80) Pulse Ox 94 O2 Delivery Nasal Cannula O2 Flow Rate 5.0 Intake and Output 07/14/17 07/14/17 07/15/17 15:00 23:00 07:00 Intake Total 250 ml Output Total 500 ml Balance -250 ml BRYN SOTELO MD Jul 14, 2017 11:44
--- NOTE | 2017-07-14 12:33 | RAD ---
Indication difficulty breathing. A single view of the chest was obtained and is compared to a study 3 days earlier. Postoperative changes are noted. Heart size is unchanged. Patchy infiltrates persist but appear slightly improved. Findings would be consistent with slight improvement in congestive heart failure. Bilateral pleural effusions persist but appear slightly smaller. Right pleural thickening is noted. Oval density, compatible with fluid along the fissure in the left lung appears similar. A new finding in the chest is not seen. IMPRESSION: Slight interval improvement in the appearance of the chest
[2017-07-14 14:45] VITALS: BP 132/64
[2017-07-14 15:35] LABS: PTH INTACT 62 pg/mL (15-65)
[2017-07-14] MEDS: NYSTATIN TOPICAL POWDER 15GM BOTTLE. TP SCH ×3 (16:00→21:00)
[2017-07-14] MEDS ORDERED: LORazepam 1 MG TABLET PO PRN (17:15)
--- NOTE | 2017-07-14 19:00 | PDOC ---
PULMONARY PROGRESS NOTES Subjective pt feels better less soa Vitals Vital Signs Date Time Temp Pulse Resp B/P (MAP) Pulse Ox O2 Delivery O2 Flow Rate FiO2 07/14/17 17:50 94 Nasal Cannula 7.0 07/14/17 16:34 69 143/73 07/14/17 14:45 98.2 18 98.2 ROS: No Nausea, No Chest Pain General: Alert, No acute distress HEENT: Other (nc at perrl) Lungs: Crackles Cardiovascular: S1, S2 Abdomen: Soft, Non-tender Neuro Exam: Alert Extremities: Other (edema) Skin: Warm Labs Laboratory Tests Test 07/12/17 20:51 07/13/17 03:00 07/13/17 07:43 07/13/17 12:04 Glucose (Fingerstick) 112 mg/dL (70-99) 91 mg/dL (70-99) 90 mg/dL (70-99) Sodium Level 137 mmol/L (136-145) Potassium Level 4.0 mmol/L (3.5-5.1) Chloride Level 102 mmol/L (98-107) Carbon Dioxide Level 25 mmol/L (21-32) Anion Gap 10 (6-14) Blood Urea Nitrogen 55 mg/dL (8-26) Creatinine 2.2 mg/dL (0.7-1.3) Estimated GFR (Cockcroft-Gault) 30.2 Glucose Level 94 mg/dL (70-99) Calcium Level 8.5 mg/dL (8.5-10.1) Ferritin 83 ng/mL (26-388) Test 07/13/17 14:25 07/13/17 17:04 07/13/17 20:22 07/13/17 23:00 Estimated GFR (Non- 32 (>59) EGFR 37 (>59) PTH (Intact) Specimen Description Comment (.) Parathyroid Hormone (Intact) 62 pg/mL (15-65) Calcium (PTH Intact) 8.6 mg/dL (8.6-10.2) Creatinine (PTH Intact) 2.08 mg/dL (0.76-1.27) Phosphorus (PTH Intact) 3.7 mg/dL (2.5-4.5) Glucose (Fingerstick) 121 mg/dL (70-99) 94 mg/dL (70-99) Stool Occult Blood Positive (NEG) Test 07/14/17 03:30 07/14/17 07:24 07/14/17 11:58 07/14/17 16:26 Hemoglobin 7.5 g/dL (13.0-17.5) Sodium Level 139 mmol/L (136-145) Potassium Level 3.7 mmol/L (3.5-5.1) Chloride Level 103 mmol/L (98-107) Carbon Dioxide Level 26 mmol/L (21-32) Anion Gap 10 (6-14) Blood Urea Nitrogen 47 mg/dL (8-26) Creatinine 1.9 mg/dL (0.7-1.3) Estimated GFR (Cockcroft-Gault) 35.8 Glucose Level 82 mg/dL (70-99) Calcium Level 8.8 mg/dL (8.5-10.1) Phosphorus Level 4.1 mg/dL (2.6-4.7) Magnesium Level 2.2 mg/dL (1.8-2.4) Albumin 2.8 g/dL (3.4-5.0) Glucose (Fingerstick) 82 mg/dL (70-99) 95 mg/dL (70-99) 106 mg/dL (70-99) Laboratory Tests Test 07/13/17 20:22 07/13/17 23:00 07/14/17 03:30 07/14/17 07:24 Glucose (Fingerstick) 94 mg/dL (70-99) 82 mg/dL (70-99) Stool Occult Blood Positive (NEG) Hemoglobin 7.5 g/dL (13.0-17.5) Sodium Level 139 mmol/L (136-145) Potassium Level 3.7 mmol/L (3.5-5.1) Chloride Level 103 mmol/L (98-107) Carbon Dioxide Level 26 mmol/L (21-32) Anion Gap 10 (6-14) Blood Urea Nitrogen 47 mg/dL (8-26) Creatinine 1.9 mg/dL (0.7-1.3) Estimated GFR (Cockcroft-Gault) 35.8 Glucose Level 82 mg/dL (70-99) Calcium Level 8.8 mg/dL (8.5-10.1) Phosphorus Level 4.1 mg/dL (2.6-4.7) Magnesium Level 2.2 mg/dL (1.8-2.4) Albumin 2.8 g/dL (3.4-5.0) Test 07/14/17 11:58 07/14/17 16:26 Glucose (Fingerstick) 95 mg/dL (70-99) 106 mg/dL (70-99) Medications Active Scripts Medications Dose Route/Sig Max Daily Dose Days Date Category Tylenol (Acetaminophen) 325 Mg Tablet 650 Mg PO PRN Q6HRS PRN 06/26/17 Reported Amlodipine Besylate 10 Mg Tablet 10 Mg PO DAILY 06/26/17 Reported Voltaren (Diclofenac Sodium) 100 Gm Gel..gram. 100 Gm TP PRN QID PRN 06/26/17 Reported Senokot-S Tablet (Sennosides/Docusate Sodium) 1 Each Tablet 2 Each PO PRN DAILY PRN 06/26/17 Reported Polyethylene Glycol 3350 255 Gm Powder 17 Gm PO PRN DAILY PRN 06/26/17 Reported NITROGLYCERIN SubLingual (Nitroglycerin) 0.4 Mg Tab.subl 0.4 Mg SL PRN Q5MIN PRN 06/26/17 Reported Milk Of Magnesia (Magnesium Hydroxide) 2,400 Mg/10 Ml Oral.susp 2,400 Mg PO PRN DAILY PRN 06/26/17 Reported Probiotic (Lactobacillus Acidophilus) 1 Each Capsule 1 Each PO BID 5 06/26/17 Reported Ferrous Sulfate 325 Mg Tablet 325 Mg PO DAILY 06/26/17 Reported Augmentin 875-125 Tablet (Amoxicillin/Potassium Clav) 1 Each Tablet 1 Tab PO BID 5 06/26/17 Reported Atorvastatin Calcium 40 Mg Tablet 40 Mg PO HS 06/26/17 Reported Hydralazine Hcl 50 Mg Tablet 50 Mg PO BID 06/26/17 Reported Duoneb 0.5-3(2.5) Mg/3 Ml (Albuterol/Ipratropium) 3 Ml Ampul.neb 3 Ml NEB QID 06/26/17 Reported Trazodone Hcl 50 Mg Tablet 100 Mg PO HS 06/26/17 Reported Zofran (Ondansetron Hcl) 4 Mg Tablet 1 Tab PO Q6HRS 01/01/15 Reported Protonix (Pantoprazole Sodium) 40 Mg Tablet.dr 1 Tab PO DAILY 01/01/15 Reported Aspir 81 (Aspirin) 81 Mg Tablet.dr 1 Tab PO DAILY 01/01/15 Reported Comments cxr reviewed, Old granulomatous disease is seen. Again seen are bilateral pleural effusions. There is a small to moderate-sized pleural effusion on the right side which has not changed significantly. Small left-sided pleural effusion is seen which has increased slightly in size. Loculated pleural fluid is again evident within the major fissure on the left side. This has increased here. Cephalization of pulmonary flow is seen. Mild perihilar interstitial pulmonary edema is seen which is more prominent than previously. No pneumothorax is seen. The heart size and mediastinum are stable. Impression . IMPRESSION: 1. Acute respiratory failure, multifactorial in etiology including acute diastolic congestive heart failure, acute exacerbation of chronic obstructive pulmonary disease. 2. Abnormal chest x-ray. 3. Severe pulmonary hypertension. 4. History previous thoracotomy. 5. Schizophrenia. 6. Paroxysmal atrial fibrillation. 7. [id number]-[id number] kidney disease. 8. Diabetes mellitus. 9. Recent pneumonia. 10. Anemia. Plan . resp status is compensated cxr in am reviewed improved 1. Titrate FiO2 to keep O2 saturation 90%. 2. Bronchodilator. 3. Inhaled corticosteroid. 4. diurese 5. Cardiology is consulted. They are planning to do a WIN on Thursday. 6. Monitor respiratory status very closely. 7. Workup for hemoglobin per primary physician. 8. Continue Protonix for stress ulcer prophylaxis. 9. Findings and recommendations were discussed with the patient and RN. 10. His lower extremity venous Doppler did not show DVT, V/Q scan neg. SIGRID DAMON MD Jul 14, 2017 19:00
[2017-07-14 19:51] VITALS: BP 134/73
[2017-07-14] MEDS: traZODone 50 MG TABLET. PO SCH (20:47)
[2017-07-14] MEDS: ATORVASTATIN CALCIUM 40 MG TABLET. PO SCH (20:48)
[2017-07-14 23:13] VITALS: BP 143/70
[2017-07-14] MEDS: diphenhydrAMINE HCL 25 MG CAPSULE PO PRN (23:54)
[2017-07-15 03:00] VITALS: BP 135/71
[2017-07-15 06:26] LABS: CALCIUM 8.6 mg/dL (8.5-10.1); CREATININE 2.1 mg/dL (0.7-1.3); GFR 31.9; PHOSPHORUS 4.7 mg/dL (2.6-4.7); POTASSIUM 4.1 mmol/L (3.5-5.1)
[2017-07-15 07:00] VITALS: BP 159/74
[2017-07-15] MEDS: IPRATRPIUM/ALBUTEROL 0.5/2.5MG 3 ML NEBU. NEB SCH ×3 (07:21→16:00)
[2017-07-15] MEDS: BUDESONIDE 0.5 MG/2 ML NEBU. NEB SCH (07:22)
[2017-07-15] MEDS: INSULIN ASPART 300 UNITS/3 ML INSULN.PEN SQ SCH ×2 (08:00→12:00)
[2017-07-15] MEDS: NYSTATIN TOPICAL POWDER 15GM BOTTLE. TP SCH ×2 (09:00→14:00)
[2017-07-15] MEDS: POLYETHYLENE GLYCOL 3350 17 GM PACKET. PO SCH (09:00)
[2017-07-15] MEDS ORDERED: FUROSEMIDE 40 MG TABLET. PO SCH (09:00)
--- NOTE | 2017-07-15 09:03 | PDOC ---
G I PROGRESS NOTE Subjective Denies abdominal issues. Eating ok. Feels vaguely worse. Objective Notes from [facility] indicate EGD with PEG removal in February 2015; no definite pathology described. No other records have showed. Physical Exam Lungs clear anteriorly. RRR Abdomen soft, not tender nor distended. Review of Relevant I have reviewed the following items florentin (where applicable) has been applied. Labs Laboratory Tests Test 07/13/17 12:04 07/13/17 14:25 07/13/17 17:04 07/13/17 20:22 Glucose (Fingerstick) 90 mg/dL (70-99) 121 mg/dL (70-99) 94 mg/dL (70-99) Estimated GFR (Non- 32 (>59) EGFR 37 (>59) PTH (Intact) Specimen Description Comment (.) Parathyroid Hormone (Intact) 62 pg/mL (15-65) Calcium (PTH Intact) 8.6 mg/dL (8.6-10.2) Creatinine (PTH Intact) 2.08 mg/dL (0.76-1.27) Phosphorus (PTH Intact) 3.7 mg/dL (2.5-4.5) Test 07/13/17 23:00 07/14/17 03:30 07/14/17 07:24 07/14/17 11:58 Stool Occult Blood Positive (NEG) Hemoglobin 7.5 g/dL (13.0-17.5) Sodium Level 139 mmol/L (136-145) Potassium Level 3.7 mmol/L (3.5-5.1) Chloride Level 103 mmol/L (98-107) Carbon Dioxide Level 26 mmol/L (21-32) Anion Gap 10 (6-14) Blood Urea Nitrogen 47 mg/dL (8-26) Creatinine 1.9 mg/dL (0.7-1.3) Estimated GFR (Cockcroft-Gault) 35.8 Glucose Level 82 mg/dL (70-99) Calcium Level 8.8 mg/dL (8.5-10.1) Phosphorus Level 4.1 mg/dL (2.6-4.7) Magnesium Level 2.2 mg/dL (1.8-2.4) Albumin 2.8 g/dL (3.4-5.0) Glucose (Fingerstick) 82 mg/dL (70-99) 95 mg/dL (70-99) Test 07/14/17 16:26 07/14/17 20:27 07/15/17 05:25 07/15/17 07:17 Glucose (Fingerstick) 106 mg/dL (70-99) 163 mg/dL (70-99) 96 mg/dL (70-99) Sodium Level 137 mmol/L (136-145) Potassium Level 4.1 mmol/L (3.5-5.1) Chloride Level 102 mmol/L (98-107) Carbon Dioxide Level 27 mmol/L (21-32) Anion Gap 8 (6-14) Blood Urea Nitrogen 42 mg/dL (8-26) Creatinine 2.1 mg/dL (0.7-1.3) Estimated GFR (Cockcroft-Gault) 31.9 Glucose Level 96 mg/dL (70-99) Calcium Level 8.6 mg/dL (8.5-10.1) Phosphorus Level 4.7 mg/dL (2.6-4.7) Magnesium Level 2.1 mg/dL (1.8-2.4) Albumin 3.0 g/dL (3.4-5.0) Laboratory Tests Test 07/14/17 11:58 07/14/17 16:26 07/14/17 20:27 07/15/17 05:25 Glucose (Fingerstick) 95 mg/dL (70-99) 106 mg/dL (70-99) 163 mg/dL (70-99) Sodium Level 137 mmol/L (136-145) Potassium Level 4.1 mmol/L (3.5-5.1) Chloride Level 102 mmol/L (98-107) Carbon Dioxide Level 27 mmol/L (21-32) Anion Gap 8 (6-14) Blood Urea Nitrogen 42 mg/dL (8-26) Creatinine 2.1 mg/dL (0.7-1.3) Estimated GFR (Cockcroft-Gault) 31.9 Glucose Level 96 mg/dL (70-99) Calcium Level 8.6 mg/dL (8.5-10.1) Phosphorus Level 4.7 mg/dL (2.6-4.7) Magnesium Level 2.1 mg/dL (1.8-2.4) Albumin 3.0 g/dL (3.4-5.0) Test 07/15/17 07:17 Glucose (Fingerstick) 96 mg/dL (70-99) Medications Current Medications Sodium Chloride (Normal Saline Flush) 3 ml PRN DAILY PRN IV AFTER MEDS AND BLOOD DRAWS; Start 07/10/17 at 14:00 Prochlorperazine Edisylate (Compazine) 10 mg PRN Q6HRS PRN IV NAUSEA/VOMITING; Start 07/10/17 at 14:00 Al Hydroxide/Mg Hydroxide (Mylanta Plus Xs) 30 ml PRN Q3HRS PRN PO HEARTBURN / GAS; Start 07/10/17 at 14:00 Senna/Docusate Sodium (Senna Plus) 1 tab BID PO Last administered on 20:48; Start 07/10/17 at 21:00 Magnesium Hydroxide (Milk Of Magnesia) 2,400 mg PRN Q12HR PRN PO CONSTIPATION; Start 07/10/17 at 14:00; Stop 07/12/17 at 17:14; Status DC Acetaminophen (Tylenol) 650 mg PRN Q6HRS PRN PO MILD PAIN / TEMP Last administered on 07/11/17 04:55; Start 07/10/17 at 14:15 Amlodipine Besylate (Norvasc) 10 mg DAILY PO Last administered on 07/14/17 09 :34; Start 07/10/17 at 15:00 Aspirin (Ecotrin) 81 mg DAILY PO Last administered on 07/14/17 09:32; Start 07/10/17 at 15:00 Atorvastatin Calcium (Lipitor) 40 mg HS PO Last administered on 07/14/17 20: 48; Start 07/10/17 at 21:00 Diclofenac Sodium (Voltaren) 100 julissa PRN QID PRN TP INFLAMMATION; Start at 14:15 Ferrous Sulfate (Feosol) 325 mg DAILYWBKFT PO Last administered on 07/14/17 09:34; Start 07/10/17 at 15:00 Hydralazine HCl (Apresoline) 50 mg BID PO Last administered on 07/14/17 09:36 ; Start 07/10/17 at 21:00 Albuterol/ Ipratropium (Duoneb) 3 ml RTQID NEB Last administered on 07/15/17 07:21; Start 07/10/17 at 16:00 Nitroglycerin (Nitrostat) 0.4 mg PRN Q5MIN PRN SL CHEST PAIN Last administered on 07/14/17 16:34; Start 07/10/17 at 14:15 Pantoprazole Sodium (Protonix) 40 mg DAILYAC PO Last administered on 09:32; Start 07/10/17 at 16:30 Polyethylene Glycol (miraLAX Powder BULK BOTTLE) 17 gm PRN DAILY PRN PO CONSTIPATION; Start 07/10/17 at 14:15; Stop 07/10/17 at 14:22; Status DC Senna/Docusate Sodium (Senna Plus) 2 tab PRN DAILY PRN PO CONSTIPATION Last administered on 07/12/17 20:11; Start 07/10/17 at 14:15 Trazodone HCl (Desyrel) 100 mg HS PO Last administered on 07/14/17 20:47; Start 07/10/17 at 21:00 Lactobacillus Acidophilus (Bacid, Leila-Bid) 1 tab BID PO Last administered on 07/14/17 20:47; Start 07/10/17 at 21:00 Magnesium Hydroxide (Milk Of Magnesia) 2,400 mg PRN DAILY PRN PO CONSTIPATION; Start 07/10/17 at 14:30; Stop 07/12/17 at 17:13; Status DC Ondansetron HCl (Zofran Odt) 4 mg Q6HRS PO Last administered on 07/14/17 23: 54; Start 07/10/17 at 14:30 Polyethylene Glycol (miraLAX PACKET) 17 gm PRN DAILY PRN PO CONSTIPATION; Start 07/11/17 at 09:00; Stop 07/12/17 at 10:47; Status DC Guaifenesin (Robitussin Dm) 10 ml PRN Q6HRS PRN PO COUGH Last administered on 07/11/17 04:55; Start 07/10/17 at 15:00 Acetaminophen/ Hydrocodone Bitart (Lortab 5/325) 1 tab PRN Q4HRS PRN PO PAIN Last administered on 07/14/17 20:48; Start 07/10/17 at 15:00 Morphine Sulfate 1 mg PRN Q2HR PRN IV PAIN Last administered on 07/13/17 09: 50; Start 07/10/17 at 15:00 Furosemide (Lasix) 20 mg DAILY IVP Last administered on 07/14/17 09:36; Start 07/11/17 at 09:00; Stop 07/14/17 at 10:35; Status DC Budesonide (Pulmicort) 0.5 mg RTBID NEB Last administered on 07/15/17 07:22; Start 07/10/17 at 20:00 Albuterol Sulfate (Ventolin Neb Soln) 2.5 mg PRN Q4HRS PRN NEB SHORTNESS OF BREATH Last administered on 07/14/17 05:15; Start 07/10/17 at 23:00 Insulin Aspart (NovoLOG) 0-9 UNITS TIDWMEALS SQ Last administered on 12:14; Start 07/11/17 at 12:00 Dextrose (Dextrose 50%-Water Syringe) 12.5 gm PRN Q15MIN PRN IV SEE COMMENTS; Start 07/11/17 at 11:45 Nicotine (Nicoderm Cq 21mg) 1 patch PRN DAILY PRN TD SMOKING CESSATION Last administered on 07/12/17 11:00; Start 07/12/17 at 11:00; Stop 07/13/17 at 09 :50; Status DC Polyethylene Glycol (miraLAX PACKET) 17 gm DAILY PO Last administered on 10:59; Start 07/12/17 at 11:00; Stop 07/13/17 at 10:34; Status DC Magnesium Hydroxide (Milk Of Magnesia) 2,400 mg PRN DAILY PRN PO CONSTIPATION; Start 07/12/17 at 11:00 Magnesium Hydroxide (Milk Of Magnesia) 2,400 mg 1X ONCE PO Last administered on 07/12/17 11:00; Start 07/12/17 at 11:00; Stop 07/12/17 at 11:01; Status DC Heparin Sodium (Porcine) (Heparin Sq) 5,000 unit Q8HRS SQ ; Start 07/12/17 at 14:00; Status UNV Diphenhydramine HCl (Benadryl) 25 mg PRN QHS PRN PO INSOMNIA Last administered on 07/14/17 23:54; Start 07/13/17 at 00:15 Nicotine (Nicoderm Cq 14mg) 1 patch PRN DAILY PRN TD SMOKING CESSATION; Start 07/13/17 at 10:00 Saliva Substitute (Biotene Moisturizing Mouth) 2 spray PRN Q15MIN PRN PO DRY MOUTH; Start 07/13/17 at 10:00 Heparin Sodium (Porcine) (Heparin Sq) 5,000 unit Q12HR SQ Last administered on 07/14/17t 20:52; Start 07/13/17 at 11:00 Ondansetron HCl (Zofran) 4 mg PRN Q6HRS PRN IV NAUSEA/VOMITING; Start at 10:30; Stop 07/14/17 at 10:29; Status DC Fentanyl Citrate (Fentanyl 2ml Vial) 25 mcg PRN Q5MIN PRN IV MILD PAIN; Start 07/13/17 at 10:30; Stop 07/14/17 at 10:29; Status DC Fentanyl Citrate (Fentanyl 2ml Vial) 50 mcg PRN Q5MIN PRN IV MODERATE PAIN; Start 07/13/17 at 10:30; Stop 07/14/17 at 10:29; Status DC Morphine Sulfate 1 mg PRN Q10MIN PRN IV SEVERE PAIN; Start 07/13/17 at 10:30; Stop 07/14/17 at 10:29; Status DC Ringer's Solution 1,000 ml @ 30 mls/hr Q24H IV ; Start 07/13/17 at 10:23; Stop 07/13/17 at 22:22; Status DC Lidocaine HCl (Xylocaine-Mpf 1% Vial) 2 ml 1X PRN PRN ID IV START; Start 07/13 at 10:30; Stop 07/14/17 at 10:29; Status DC Hydromorphone HCl (Dilaudid) 0.5 mg PRN Q10MIN PRN IV SEV PAIN, Second choice; Start 07/13/17 at 10:30; Stop 07/14/17 at 10:29; Status DC Prochlorperazine Edisylate (Compazine) 5 mg PACU PRN PRN IV NAUSEA, MRX1; Start 07/13/17 at 10:30; Stop 07/14/17 at 10:29; Status DC Polyethylene Glycol (miraLAX PACKET) 17 gm 1X ONCE PO ; Start 07/13/17 at 10: 45; Stop 07/13/17 at 10:46; Status DC Polyethylene Glycol (miraLAX PACKET) 17 gm DAILY PO Last administered on 09:35; Start 07/14/17 at 09:00 Magnesium Sulfate/ Dextrose 50 ml @ 25 mls/hr PRN DAILY PRN IV for Mag < 1.7 on am labs; Start 07/13/17 at 12:00 Lidocaine HCl (Viscous Lidocaine) 15 ml STK-MED ONCE .ROUTE ; Start 07/13/17 at 12:25; Stop 07/13/17 at 12:26; Status DC Benzocaine (Hurricaine One) 1 spray STK-MED ONCE .ROUTE ; Start 07/13/17 at 12: 25; Stop 07/13/17 at 12:26; Status DC Lidocaine HCl (Xylocaine 2% Topical 30gm Tube) 30 julissa STK-MED ONCE TP ; Start 07/13/17 at 12:25; Stop 07/13/17 at 12:26; Status DC Lidocaine HCl (Xylocaine 2% Topical 30gm Tube) 30 julissa STK-MED ONCE TP ; Start 07/13/17 at 12:26; Stop 07/13/17 at 12:27; Status DC Propofol 20 ml @ As Directed STK-MED ONCE IV ; Start 07/13/17 at 12:51; Stop 07/13/17 at 12:52; Status DC Lidocaine HCl (Lidocaine Pf 2% Vial) 5 ml STK-MED ONCE .ROUTE ; Start 07/13/17 at 12:51; Stop 07/13/17 at 12:52; Status DC Etomidate (Amidate) 20 mg STK-MED ONCE IV ; Start 07/13/17 at 12:51; Stop at 12:52; Status DC Iron Sucrose 200 mg/Sodium Chloride 110 ml @ 55 mls/hr 3X/WEEK IV Last administered on 07/13/17 15:20; Start 07/13/17 at 14:00; Stop 07/22/17 at 10 :59 Polyethylene Glycol (miraLAX PACKET) 17 gm 1X ONCE PO Last administered on 18:20; Start 07/13/17 at 18:00; Stop 07/13/17 at 18:01; Status DC Furosemide (Lasix) 40 mg DAILY PO ; Start 07/15/17 at 09:00 Nystatin (Nystop) 1 julissa TID TP Last administered on 07/14/17 16:39; Start at 12:00 Lorazepam (Ativan) 1 mg PRN Q6HRS PRN PO ANXIETY / AGITATION Last administered on 07/14/17 18:14; Start 07/14/17 at 17:15 Active Scripts Active Reported Tylenol (Acetaminophen) 325 Mg Tablet 650 Mg PO PRN Q6HRS PRN Amlodipine Besylate 10 Mg Tablet 10 Mg PO DAILY Voltaren (Diclofenac Sodium) 100 Gm Gel..gram. 100 Gm TP PRN QID PRN Senokot-S Tablet (Sennosides/Docusate Sodium) 1 Each Tablet 2 Each PO PRN DAILY PRN Polyethylene Glycol 3350 255 Gm Powder 17 Gm PO PRN DAILY PRN NITROGLYCERIN SubLingual (Nitroglycerin) 0.4 Mg Tab.subl 0.4 Mg SL PRN Q5MIN PRN Milk Of Magnesia (Magnesium Hydroxide) 2,400 Mg/10 Ml Oral.susp 2,400 Mg PO PRN DAILY PRN Probiotic (Lactobacillus Acidophilus) 1 Each Capsule 1 Each PO BID 5 Days Ferrous Sulfate 325 Mg Tablet 325 Mg PO DAILY Augmentin 875-125 Tablet (Amoxicillin/Potassium Clav) 1 Each Tablet 1 Tab PO BID 5 Days Atorvastatin Calcium 40 Mg Tablet 40 Mg PO HS Hydralazine Hcl 50 Mg Tablet 50 Mg PO BID Duoneb 0.5-3(2.5) Mg/3 Ml (Albuterol/Ipratropium) 3 Ml Ampul.neb 3 Ml NEB QID Trazodone Hcl 50 Mg Tablet 100 Mg PO HS Zofran (Ondansetron Hcl) 4 Mg Tablet 1 Tab PO Q6HRS Protonix (Pantoprazole Sodium) 40 Mg Tablet.dr 1 Tab PO DAILY Aspir 81 (Aspirin) 81 Mg Tablet.dr 1 Tab PO DAILY Vitals/I & O Vital Sign - Last 24 Hours 07/14/17 07/14/17 07/14/17 07/14/17 09:34 09:36 10:55 12:00 Temp 97.9 97.9 Pulse 69 69 70 Resp 18 B/P (MAP) 140/56 140/56 122/59 (80) Pulse Ox 94 O2 Delivery Nasal Cannula Nasal Cannula O2 Flow Rate 5.0 5.0 07/14/17 07/14/17 07/14/17/17/17 14:45 15:59 16:34 16:48 Temp 98.2 98.2 Pulse 68 69 Resp 18 B/P (MAP) 132/64 (86) 143/73 Pulse Ox 94 94 94 O2 Delivery Nasal Cannula Nasal Cannula Nasal Cannula O2 Flow Rate 5.0 5.0 7.0 07/14/17 07/14/17 07/14/17 07/14/17 17:50 19:51 20:00 20:03 Temp 97.9 97.9 Pulse 66 Resp 18 B/P (MAP) 134/73 (93) Pulse Ox 94 91 94 O2 Delivery Nasal Cannula Nasal Cannula Nasal Cannula Nasal Cannula O2 Flow Rate 7.0 5.0 7.0 7.0 07/14/17 07/14/17 07/14/17 07/14/17 20:05 20:48 20:53 23:13 Temp 98.4 98.4 Pulse 66 76 Resp 24 18 B/P (MAP) 134/73 143/70 (94) Pulse Ox 94 91 O2 Delivery Nasal Cannula Nasal Cannula Nasal Cannula O2 Flow Rate 7.0 7.0 5.0 07/15/17 07/15/17 07/15/17 07/15/17 03:00 07:00 07:24 07:30 Temp 98.4 98.1 98.4 98.1 Pulse 72 72 Resp 18 18 B/P (MAP) 135/71 (92) 159/74 (102) Pulse Ox 90 96 91 91 O2 Delivery Nasal Cannula Nasal Cannula Nasal Cannula Nasal Cannula O2 Flow Rate 5.0 5.0 8.0 8.0 Assessment SANGITA, cause unclear. Extent of any other w/u unclear as well. Plan of Care: Continue current Tx, Mgmt Plan of Care Note Probably should consider repeating muñoz-endoscopy at some point as outpatient. DL CASTELLANO MD Jul 15, 2017 09:03
[2017-07-15] MEDS: IRON SUCROSE COMPLEX 200 MG in IV NORMAL SALINE 100ML 100 ML IV SCH (10:04)
[2017-07-15] MEDS: HEPARIN PF for SUB-Q USE 5,000 UNIT/0.5 ML VIAL. SQ SCH (10:09)
[2017-07-15] MEDS: LACTOBACILLUS ACIDOPH & BULGAR 1 TABLET. PO SCH (10:09)
[2017-07-15] MEDS: ASPIRIN ENTERIC COATED 81 MG TABLET.DR. PO SCH (10:09)
[2017-07-15] MEDS: PANTOPRAZOLE 40 MG TABLET.DR. PO SCH (10:09)
[2017-07-15] MEDS: amLODIPine BESYLATE 10 MG TABLET PO SCH (10:10)
[2017-07-15] MEDS: ONDANSETRON ODT 4 MG TAB.RAPDIS. PO SCH ×2 (10:10→12:00)
[2017-07-15] MEDS: SENNOSIDES/DOCUSATE 8.6/50MG TABLET. PO PRN (10:11)
[2017-07-15] MEDS: FERROUS SULFATE 325 MG TABLET. PO SCH (10:11)
[2017-07-15] MEDS: SENNOSIDES/DOCUSATE 8.6/50MG TABLET. PO SCH (10:12)
[2017-07-15 10:49] VITALS: BP 135/70
--- NOTE | 2017-07-15 11:12 | PDOC ---
SUBJECTIVE ROS CKD III/ Iv Breathing is better today CVS: no Orthopnea, no CP RESP: no SOB, ? COULTER (not ambulated ) GI: no Nausea, no Vomiting : no Dysuria, no Urgency OBJECTIVE Vital Signs Vital Signs Date Time Temp Pulse Resp B/P (MAP) Pulse Ox O2 Delivery O2 Flow Rate FiO2 07/15/17 10:49 97.9 74 16 135/70 (91) 94 Nasal Cannula 5.0 97.9 PHYSICAL EXAM Physical Exam GEN: Awake, Oriented x 2, In no distress EYES: Vision Unchanged, Conjunctiva Normal EN: No EN Drainage, Mucous Membranes moist NECK: no JVD, no JVP, Supple, no Thyromegaly CVS: S1S2, ? soft Murmur, No Gallop, No Rub,+ Edema RESP: rare basal Rales, no Rhonchi,no Acc. Muscle Use GI: BS + ve, NO Bruit, Non Tender, Non Distended : no CVA tenderness, no Suprapubic Tenderness DIAGNOSIS/ASSESSMENT Assessment & Plan CKD III/ Iv - (presumed from HTN/ DM and previous Crack use) check ing 24-hr Urine collection: Pt is not aware of CKD diagnosis per se. Current fluid and E -lyte status does not necessitate emergent need for dialysis. Will re-evaluate for dialysis in the am Fe def ANEMIA; IV venofer as ordered. HTN: Current BP meds as reviewed. See orders for changes BONE & MINERAL: PTH WNL CHF on CXR - ? hypervolemia - EF was preserved on last ECHO, recehck CXR in am : -ve fluid balance as ntoed. chagne Lasix to PO fo rnow OK to D/c From Renal standpoint COMMENT/RELEVANT DATA Meds Current Medications Medications (Trade) Dose Ordered Sig/Raine Start Time Stop Time Status Last Admin Dose Admin Acetaminophen (Tylenol) 650 mg PRN Q6HRS PRN 07/10/17 14:15 07/11/17 04:55 650 MG Acetaminophen/ Hydrocodone Bitart (Lortab 5/325) 1 tab PRN Q4HRS PRN 07/10/17 15:00 07/14/17 20:48 1 TAB Al Hydroxide/Mg Hydroxide (Mylanta Plus Xs) 30 ml PRN Q3HRS PRN 07/10/17 14:00 Albuterol Sulfate (Ventolin Neb Soln) 2.5 mg PRN Q4HRS PRN 07/10/17 23:00 07/14/17 05:15 2.5 MG Albuterol/ Ipratropium (Duoneb) 3 ml RTQID 07/10/17 16:00 07/15/17 07:21 3 ML Amlodipine Besylate (Norvasc) 10 mg DAILY 07/10/17 15:00 07/15/17 10:10 10 MG Aspirin (Ecotrin) 81 mg DAILY 07/10/17 15:00 07/15/17 10:09 81 MG Atorvastatin Calcium (Lipitor) 40 mg HS 07/10/17 21:00 07/14/17 20:48 40 MG Benzocaine (Hurricaine One) 1 spray STK-MED ONCE 07/13/17 12:25 07/13/17 12:26 DC Budesonide (Pulmicort) 0.5 mg RTBID 07/10/17 20:00 07/15/17 07:22 0.5 MG Dextrose (Dextrose 50%-Water Syringe) 12.5 gm PRN Q15MIN PRN 07/11/17 11:45 Diclofenac Sodium (Voltaren) 100 julissa PRN QID PRN 07/10/17 14:15 Diphenhydramine HCl (Benadryl) 25 mg PRN QHS PRN 07/13/17 00:15 07/14/17 23:54 25 MG Etomidate (Amidate) 20 mg STK-MED ONCE 07/13/17 12:51 07/13/17 12:52 DC Fentanyl Citrate (Fentanyl 2ml Vial) 50 mcg PRN Q5MIN PRN 07/13/17 10:30 07/14/17 10:29 DC Ferrous Sulfate (Feosol) 325 mg DAILYWBKFT 07/10/17 15:00 07/15/17 10:11 325 MG Furosemide (Lasix) 40 mg DAILY 07/15/17 09:00 07/15/17 10:11 40 MG Guaifenesin (Robitussin Dm) 10 ml PRN Q6HRS PRN 07/10/17 15:00 07/11/17 04:55 10 ML Heparin Sodium (Porcine) (Heparin Sq) 5,000 unit Q12HR 07/13/17 11:00 10/18/17 10:09 5,000 UNIT Hydralazine HCl (Apresoline) 50 mg BID 07/10/17 21:00 07/15/17 10:10 50 MG Hydromorphone HCl (Dilaudid) 0.5 mg PRN Q10MIN PRN 07/13/17 10:30 07/14/17 10:29 DC Insulin Aspart (NovoLOG) 0-9 UNITS TIDWMEALS 07/11/17 12:00 07/11/17 12:14 5 UNITS Iron Sucrose 200 mg/Sodium Chloride 110 ml @ 55 mls/hr 3X/WEEK 07/13/17 14:00 07/22/17 10:59 07/15/17 10:04 55 MLS/HR Lactobacillus Acidophilus (Bacid, Leila-Bid) 1 tab BID 07/10/17 21:00 07/15/17 10:09 1 TAB Lidocaine HCl (Lidocaine Pf 2% Vial) 5 ml STK-MED ONCE 07/13/17 12:51 07/13/17 12:52 DC Lidocaine HCl (Viscous Lidocaine) 15 ml STK-MED ONCE 07/13/17 12:25 07/13/17 12:26 DC Lidocaine HCl (Xylocaine 2% Topical 30gm Tube) 30 julissa STK-MED ONCE 07/13/17 12:26 07/13/17 12:27 DC Lidocaine HCl (Xylocaine-Mpf 1% Vial) 2 ml 1X PRN PRN 07/13/17 10:30 07/14/17 10:29 DC Lorazepam (Ativan) 1 mg PRN Q6HRS PRN 07/14/17 17:15 07/14/17 18:14 1 MG Magnesium Hydroxide (Milk Of Magnesia) 2,400 mg 1X ONCE 07/12/17 11:00 07/12/17 11:01 DC 07/12/17 11:00 2,400 MG Magnesium Sulfate/ Dextrose 50 ml @ 25 mls/hr PRN DAILY PRN 07/13/17 12:00 Morphine Sulfate 1 mg PRN Q10MIN PRN 07/13/17 10:30 07/14/17 10:29 DC Nicotine (Nicoderm Cq 14mg) 1 patch PRN DAILY PRN 07/13/17 10:00 Nicotine (Nicoderm Cq 21mg) 1 patch PRN DAILY PRN 07/12/17 11:00 07/13/17 09:50 DC 07/12/17 11:00 1 PATCH Nitroglycerin (Nitrostat) 0.4 mg PRN Q5MIN PRN 07/10/17 14:15 07/14/17 16:34 0.4 MG Nystatin (Nystop) 1 julissa TID 07/14/17 12:00 07/14/17 16:39 1 JULISSA Ondansetron HCl (Zofran Odt) 4 mg Q6HRS 07/10/17 14:30 07/15/17 10:10 4 MG Ondansetron HCl (Zofran) 4 mg PRN Q6HRS PRN 07/13/17 10:30 07/14/17 10:29 DC Pantoprazole Sodium (Protonix) 40 mg DAILYAC 07/10/17 16:30 07/15/17 10:09 40 MG Polyethylene Glycol (miraLAX PACKET) 17 gm 1X ONCE 07/13/17 18:00 07/13/17 18:01 DC 07/13/17 18:20 17 GM Polyethylene Glycol (miraLAX Powder BULK BOTTLE) 17 gm PRN DAILY PRN 07/10/17 14:15 07/10/17 14:22 DC Prochlorperazine Edisylate (Compazine) 5 mg PACU PRN PRN 07/13/17 10:30 07/14/17 10:29 DC Propofol 20 ml @ As Directed STK-MED ONCE 07/13/17 12:51 07/13/17 12:52 DC Ringer's Solution 1,000 ml @ 30 mls/hr Q24H 07/13/17 10:23 07/13/17 22:22 DC Saliva Substitute (Biotene Moisturizing Mouth) 2 spray PRN Q15MIN PRN 07/13/17 10:00 Senna/Docusate Sodium (Senna Plus) 2 tab PRN DAILY PRN 07/10/17 14:15 07/15/17 10:11 2 TAB Sodium Chloride (Normal Saline Flush) 3 ml PRN DAILY PRN 07/10/17 14:00 Trazodone HCl (Desyrel) 100 mg HS 07/10/17 21:00 07/14/17 20:47 100 MG Lab Laboratory Tests Test 07/14/17 11:58 07/14/17 16:26 07/14/17 20:27 07/15/17 05:25 Glucose (Fingerstick) 95 mg/dL (70-99) 106 mg/dL (70-99) 163 mg/dL (70-99) Sodium Level 137 mmol/L (136-145) Potassium Level 4.1 mmol/L (3.5-5.1) Chloride Level 102 mmol/L (98-107) Carbon Dioxide Level 27 mmol/L (21-32) Anion Gap 8 (6-14) Blood Urea Nitrogen 42 mg/dL (8-26) Creatinine 2.1 mg/dL (0.7-1.3) Estimated GFR (Cockcroft-Gault) 31.9 Glucose Level 96 mg/dL (70-99) Calcium Level 8.6 mg/dL (8.5-10.1) Phosphorus Level 4.7 mg/dL (2.6-4.7) Magnesium Level 2.1 mg/dL (1.8-2.4) Albumin 3.0 g/dL (3.4-5.0) Test 07/15/17 07:17 Glucose (Fingerstick) 96 mg/dL (70-99) FREDY MOSS MD Jul 15, 2017 11:12
--- NOTE | 2017-07-15 11:35 | PDOC ---
PULMONARY PROGRESS NOTES Subjective pt feels better less soa Vitals Vital Signs Date Time Temp Pulse Resp B/P (MAP) Pulse Ox O2 Delivery O2 Flow Rate FiO2 07/15/17 10:49 97.9 74 16 135/70 (91) 94 Nasal Cannula 5.0 97.9 ROS: No Nausea, No Chest Pain General: Alert, No acute distress HEENT: Other (nc at perrl) Lungs: Crackles Cardiovascular: S1, S2 Abdomen: Soft, Non-tender Neuro Exam: Alert Extremities: Other (edema) Skin: Warm Labs Laboratory Tests Test 07/13/17 12:04 07/13/17 14:25 07/13/17 17:04 07/13/17 20:22 Glucose (Fingerstick) 90 mg/dL (70-99) 121 mg/dL (70-99) 94 mg/dL (70-99) Estimated GFR (Non- 32 (>59) EGFR 37 (>59) PTH (Intact) Specimen Description Comment (.) Parathyroid Hormone (Intact) 62 pg/mL (15-65) Calcium (PTH Intact) 8.6 mg/dL (8.6-10.2) Creatinine (PTH Intact) 2.08 mg/dL (0.76-1.27) Phosphorus (PTH Intact) 3.7 mg/dL (2.5-4.5) Test 07/13/17 23:00 07/14/17 03:30 07/14/17 07:24 07/14/17 11:58 Stool Occult Blood Positive (NEG) Hemoglobin 7.5 g/dL (13.0-17.5) Sodium Level 139 mmol/L (136-145) Potassium Level 3.7 mmol/L (3.5-5.1) Chloride Level 103 mmol/L (98-107) Carbon Dioxide Level 26 mmol/L (21-32) Anion Gap 10 (6-14) Blood Urea Nitrogen 47 mg/dL (8-26) Creatinine 1.9 mg/dL (0.7-1.3) Estimated GFR (Cockcroft-Gault) 35.8 Glucose Level 82 mg/dL (70-99) Calcium Level 8.8 mg/dL (8.5-10.1) Phosphorus Level 4.1 mg/dL (2.6-4.7) Magnesium Level 2.2 mg/dL (1.8-2.4) Albumin 2.8 g/dL (3.4-5.0) Glucose (Fingerstick) 82 mg/dL (70-99) 95 mg/dL (70-99) Test 07/14/17 16:26 07/14/17 20:27 07/15/17 05:25 07/15/17 07:17 Glucose (Fingerstick) 106 mg/dL (70-99) 163 mg/dL (70-99) 96 mg/dL (70-99) Sodium Level 137 mmol/L (136-145) Potassium Level 4.1 mmol/L (3.5-5.1) Chloride Level 102 mmol/L (98-107) Carbon Dioxide Level 27 mmol/L (21-32) Anion Gap 8 (6-14) Blood Urea Nitrogen 42 mg/dL (8-26) Creatinine 2.1 mg/dL (0.7-1.3) Estimated GFR (Cockcroft-Gault) 31.9 Glucose Level 96 mg/dL (70-99) Calcium Level 8.6 mg/dL (8.5-10.1) Phosphorus Level 4.7 mg/dL (2.6-4.7) Magnesium Level 2.1 mg/dL (1.8-2.4) Albumin 3.0 g/dL (3.4-5.0) Laboratory Tests Test 07/14/17 11:58 07/14/17 16:26 07/14/17 20:27 07/15/17 05:25 Glucose (Fingerstick) 95 mg/dL (70-99) 106 mg/dL (70-99) 163 mg/dL (70-99) Sodium Level 137 mmol/L (136-145) Potassium Level 4.1 mmol/L (3.5-5.1) Chloride Level 102 mmol/L (98-107) Carbon Dioxide Level 27 mmol/L (21-32) Anion Gap 8 (6-14) Blood Urea Nitrogen 42 mg/dL (8-26) Creatinine 2.1 mg/dL (0.7-1.3) Estimated GFR (Cockcroft-Gault) 31.9 Glucose Level 96 mg/dL (70-99) Calcium Level 8.6 mg/dL (8.5-10.1) Phosphorus Level 4.7 mg/dL (2.6-4.7) Magnesium Level 2.1 mg/dL (1.8-2.4) Albumin 3.0 g/dL (3.4-5.0) Test 07/15/17 07:17 Glucose (Fingerstick) 96 mg/dL (70-99) Medications Active Scripts Medications Dose Route/Sig Max Daily Dose Days Date Category Tylenol (Acetaminophen) 325 Mg Tablet 650 Mg PO PRN Q6HRS PRN 06/26/17 Reported Amlodipine Besylate 10 Mg Tablet 10 Mg PO DAILY 06/26/17 Reported Voltaren (Diclofenac Sodium) 100 Gm Gel..gram. 100 Gm TP PRN QID PRN 06/26/17 Reported Senokot-S Tablet (Sennosides/Docusate Sodium) 1 Each Tablet 2 Each PO PRN DAILY PRN 06/26/17 Reported Polyethylene Glycol 3350 255 Gm Powder 17 Gm PO PRN DAILY PRN 06/26/17 Reported NITROGLYCERIN SubLingual (Nitroglycerin) 0.4 Mg Tab.subl 0.4 Mg SL PRN Q5MIN PRN 06/26/17 Reported Milk Of Magnesia (Magnesium Hydroxide) 2,400 Mg/10 Ml Oral.susp 2,400 Mg PO PRN DAILY PRN 06/26/17 Reported Probiotic (Lactobacillus Acidophilus) 1 Each Capsule 1 Each PO BID 5 06/26/17 Reported Ferrous Sulfate 325 Mg Tablet 325 Mg PO DAILY 06/26/17 Reported Augmentin 875-125 Tablet (Amoxicillin/Potassium Clav) 1 Each Tablet 1 Tab PO BID 5 06/26/17 Reported Atorvastatin Calcium 40 Mg Tablet 40 Mg PO HS 06/26/17 Reported Hydralazine Hcl 50 Mg Tablet 50 Mg PO BID 06/26/17 Reported Duoneb 0.5-3(2.5) Mg/3 Ml (Albuterol/Ipratropium) 3 Ml Ampul.neb 3 Ml NEB QID 06/26/17 Reported Trazodone Hcl 50 Mg Tablet 100 Mg PO HS 06/26/17 Reported Zofran (Ondansetron Hcl) 4 Mg Tablet 1 Tab PO Q6HRS 01/01/15 Reported Protonix (Pantoprazole Sodium) 40 Mg Tablet.dr 1 Tab PO DAILY 01/01/15 Reported Aspir 81 (Aspirin) 81 Mg Tablet.dr 1 Tab PO DAILY 01/01/15 Reported Comments cxr reviewed, Old granulomatous disease is seen. Again seen are bilateral pleural effusions. There is a small to moderate-sized pleural effusion on the right side which has not changed significantly. Small left-sided pleural effusion is seen which has increased slightly in size. Loculated pleural fluid is again evident within the major fissure on the left side. This has increased here. Cephalization of pulmonary flow is seen. Mild perihilar interstitial pulmonary edema is seen which is more prominent than previously. No pneumothorax is seen. The heart size and mediastinum are stable. Impression . IMPRESSION: 1. Acute respiratory failure, multifactorial in etiology including acute diastolic congestive heart failure, acute exacerbation of chronic obstructive pulmonary disease. 2. Abnormal chest x-ray. 3. Severe pulmonary hypertension. 4. History previous thoracotomy. 5. Schizophrenia. 6. Paroxysmal atrial fibrillation. 7. Yaarj-le-kejjicj kidney disease. 8. Diabetes mellitus. 9. Recent pneumonia. 10. Anemia. Plan . resp status is compensated cxr in am reviewed improved [place] TRANSFER 1. Titrate FiO2 to keep O2 saturation 90%. 2. Bronchodilator. 3. Inhaled corticosteroid. 4. diurese 5. Cardiology is consulted. They are planning to do a WIN on Thursday. 6. Monitor respiratory status very closely. 7. Workup for hemoglobin per primary physician. 8. Continue Protonix for stress ulcer prophylaxis. 9. Findings and recommendations were discussed with the patient and RN. 10. His lower extremity venous Doppler did not show DVT, V/Q scan neg. SIGRID DAMON MD Jul 15, 2017 11:35
[2017-07-15 13:22] LABS: TOTAL SERUM CREATININE 1.91 mg/dL (0.76-1.27); TOTAL URINE CREATININE 49.1 mg/dL (Not Estab.)
[2017-07-15] MEDS: FUROSEMIDE 40 MG TABLET. PO SCH ×2 (14:00→16:21)
--- NOTE | 2017-07-15 14:22 | PDOC3 ---
Discharge Summary Visit Information Date of Admission: Jul 10, 2017 Date of Discharge: Jul 15, 2017 Final Diagnosis 1. Acute hypoxic respiratory failure, w/ acute diastolic congestive heart failure, 2. hypoxia w/ acute exacerbation of chronic obstructive pulmonary disease. 3. Acute on chronic diastolic/systolic CHF: likely induced by pulmonary issue 4. Severe pulmonary hypertension. 5. 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 AE COPD/Severe pulmonary hypertension: per PCP. PAP 87 mmHg 7. Schizophrenia. 8. Paroxysmal atrial fibrillation. 9. Gtrjq-yj-rmlvjob kidney disease. w. anemia of CKD 10. Diabetes mellitus. Brief Hospital Course Allergies Allergies Coded Allergies Type Severity Reaction Last Updated Verified isoniazid Allergy Intermediate 01/01/15 Yes thiamine (vitamin B1) Allergy Intermediate 01/01/15 Yes I S O L A T I O N *CONTACT* Allergy Unknown 01/04/15 Yes Vital Signs Vital Signs Date Time Temp Pulse Resp B/P (MAP) Pulse Ox O2 Delivery O2 Flow Rate FiO2 07/15/17 11:39 Nasal Cannula 8.0 07/15/17 10:49 97.9 74 16 135/70 (91) 94 97.9 Lab Results Laboratory Tests Test 07/13/17 14:25 07/13/17 17:04 07/13/17 19:20 07/13/17 20:22 Estimated GFR (Non- 32 (>59) 36 (>59) EGFR 37 (>59) 42 (>59) PTH (Intact) Specimen Description Comment (.) Parathyroid Hormone (Intact) 62 pg/mL (15-65) Calcium (PTH Intact) 8.6 mg/dL (8.6-10.2) Creatinine (PTH Intact) 2.08 mg/dL (0.76-1.27) Phosphorus (PTH Intact) 3.7 mg/dL (2.5-4.5) Glucose (Fingerstick) 121 mg/dL (70-99) 94 mg/dL (70-99) Urine Protein 27.1 mg/dL (Not Estab.) Urine Creatinine 24 Hour 933 mg/24 hr (7384-3068) Creatinine Clearance 24 Hour 34 mL/min (97-137) Urine Protein 24 Hr Calculated 515 mg/24 hr (30-150) Creatinine 1.91 mg/dL (0.76-1.27) Test 07/13/17 23:00 07/14/17 03:30 07/14/17 07:24 07/14/17 11:58 Stool Occult Blood Positive (NEG) Hemoglobin 7.5 g/dL (13.0-17.5) Sodium Level 139 mmol/L (136-145) Potassium Level 3.7 mmol/L (3.5-5.1) Chloride Level 103 mmol/L (98-107) Carbon Dioxide Level 26 mmol/L (21-32) Anion Gap 10 (6-14) Blood Urea Nitrogen 47 mg/dL (8-26) Creatinine 1.9 mg/dL (0.7-1.3) Estimated GFR (Cockcroft-Gault) 35.8 Glucose Level 82 mg/dL (70-99) Calcium Level 8.8 mg/dL (8.5-10.1) Phosphorus Level 4.1 mg/dL (2.6-4.7) Magnesium Level 2.2 mg/dL (1.8-2.4) Albumin 2.8 g/dL (3.4-5.0) Glucose (Fingerstick) 82 mg/dL (70-99) 95 mg/dL (70-99) Test 07/14/17 16:26 07/14/17 20:27 07/15/17 05:25 07/15/17 07:17 Glucose (Fingerstick) 106 mg/dL (70-99) 163 mg/dL (70-99) 96 mg/dL (70-99) Sodium Level 137 mmol/L (136-145) Potassium Level 4.1 mmol/L (3.5-5.1) Chloride Level 102 mmol/L (98-107) Carbon Dioxide Level 27 mmol/L (21-32) Anion Gap 8 (6-14) Blood Urea Nitrogen 42 mg/dL (8-26) Creatinine 2.1 mg/dL (0.7-1.3) Estimated GFR (Cockcroft-Gault) 31.9 Glucose Level 96 mg/dL (70-99) Calcium Level 8.6 mg/dL (8.5-10.1) Phosphorus Level 4.7 mg/dL (2.6-4.7) Magnesium Level 2.1 mg/dL (1.8-2.4) Albumin 3.0 g/dL (3.4-5.0) Test 07/15/17 11:28 Glucose (Fingerstick) 110 mg/dL (70-99) Laboratory Tests Test 07/14/17 16:26 07/14/17 20:27 07/15/17 05:25 07/15/17 07:17 Glucose (Fingerstick) 106 mg/dL (70-99) 163 mg/dL (70-99) 96 mg/dL (70-99) Sodium Level 137 mmol/L (136-145) Potassium Level 4.1 mmol/L (3.5-5.1) Chloride Level 102 mmol/L (98-107) Carbon Dioxide Level 27 mmol/L (21-32) Anion Gap 8 (6-14) Blood Urea Nitrogen 42 mg/dL (8-26) Creatinine 2.1 mg/dL (0.7-1.3) Estimated GFR (Cockcroft-Gault) 31.9 Glucose Level 96 mg/dL (70-99) Calcium Level 8.6 mg/dL (8.5-10.1) Phosphorus Level 4.7 mg/dL (2.6-4.7) Magnesium Level 2.1 mg/dL (1.8-2.4) Albumin 3.0 g/dL (3.4-5.0) Test 07/15/17 11:28 Glucose (Fingerstick) 110 mg/dL (70-99) Brief Hospital Course Mr. Sandhu is a 67 old male admit to ICU with acute hypoxia, and CHF acute on chronic, better with diuresis also COPD, ae, steroids, nebs, and abx, better ovver days dry mouth, thirsty and hungry he reports cannot walk, Wheelchair bound in [facility] [place] Discharge Information Condition at Discharge: Improved Follow Up: Weeks Disposition/Orders: D/C to Another Facility (Skilled then resuem custodial CT care) Scheduled Amlodipine Besylate (Amlodipine Besylate), 10 MG PO DAILY, (Reported) Amoxicillin/Potassium Clav (Augmentin 875-125 Tablet), 1 TAB PO BID, (Reported) Aspirin (Aspir 81), 1 TAB PO DAILY, (Reported) Atorvastatin Calcium (Atorvastatin Calcium), 40 MG PO HS, (Reported) Ferrous Sulfate (Ferrous Sulfate), 325 MG PO DAILY, (Reported) Hydralazine Hcl (Hydralazine Hcl), 50 MG PO BID, (Reported) Ipratropium/Albuterol Sulfate (Duoneb 0.5-3(2.5) Mg/3 Ml), 3 ML NEB QID, ( Reported) Lactobacillus Acidophilus (Probiotic), 1 EACH PO BID, (Reported) Ondansetron Hcl (Zofran), 1 TAB PO Q6HRS, (Reported) Pantoprazole Sodium (Protonix), 1 TAB PO DAILY, (Reported) Trazodone Hcl (Trazodone Hcl), 100 MG PO HS, (Reported) Scheduled PRN Acetaminophen (Tylenol), 650 MG PO PRN Q6HRS PRN for MILD PAIN / TEMP, (Reported ) Diclofenac Sodium (Voltaren), 100 GM TP PRN QID PRN for INFLAMMATION, (Reported) Magnesium Hydroxide (Milk Of Magnesia), 2,400 MG PO PRN DAILY PRN for CONSTIPATION, (Reported) Nitroglycerin (NITROGLYCERIN SubLingual), 0.4 MG SL PRN Q5MIN PRN for CHEST PAIN , (Reported) Polyethylene Glycol 3350 (Polyethylene Glycol 3350), 17 GM PO PRN DAILY PRN for CONSTIPATION, (Reported) Sennosides/Docusate Sodium (Senokot-S Tablet), 2 EACH PO PRN DAILY PRN for CONSTIPATION, (Reported) Patient Instructions Patient Instructions > 35 min face to face X2 and exam BRYN SOTELO MD Jul 15, 2017 14:22
[2017-07-15 15:07] VITALS: BP 143/68
[2017-07-15] MEDS: ACETAMINOPHEN 325 MG TABLET. PO PRN (16:22)
== END 2017-07-15 16:15 | DRG 682 ==
LOC: 6 SOUTH 13:27
PROVIDERS: ADMIT Internal Medicine Hematology & Oncology; ATTEND Internal Medicine Hematology & Oncology
PROC: B24BZZ4 Ultrasonography of Heart with Aorta, Transesophageal (ICD-10-PCS; principal; 2017-07-13 13:00)
DX: N17.9 Acute kidney failure, unspecified (principal); J96.01 Acute respiratory failure with hypoxia; I50.43 Acute on chronic combined systolic (congestive) and diastolic (congestive) heart failure; I13.0 Hypertensive heart and chronic kidney disease with heart failure and stage 1 through stage 4 chronic kidney disease, or unspecified chronic kidney disease; J44.1 Chronic obstructive pulmonary disease with (acute) exacerbation; E87.1 Hypo-osmolality and hyponatremia; J44.0 Chronic obstructive pulmonary disease with (acute) lower respiratory infection; I42.0 Dilated cardiomyopathy; D63.1 Anemia in chronic kidney disease; E11.21 Type 2 diabetes mellitus with diabetic nephropathy; E11.22 Type 2 diabetes mellitus with diabetic chronic kidney disease; E78.5 Hyperlipidemia, unspecified; F03.90 Unspecified dementia, unspecified severity, without behavioral disturbance, psychotic disturbance, mood disturbance, and anxiety; F17.200 Nicotine dependence, unspecified, uncomplicated; F20.9 Schizophrenia, unspecified; I25.10 Atherosclerotic heart disease of native coronary artery without angina pectoris; I27.20 Pulmonary hypertension, unspecified; I35.0 Nonrheumatic aortic (valve) stenosis; I48.0 Paroxysmal atrial fibrillation; K21.9 Gastro-esophageal reflux disease without esophagitis; N18.3 Chronic kidney disease, stage 3 (moderate); Z82.49 Family history of ischemic heart disease and other diseases of the circulatory system; Z87.01 Personal history of pneumonia (recurrent); Z91.19 Patient's noncompliance with other medical treatment and regimen; Z95.1 Presence of aortocoronary bypass graft; Z99.3 Dependence on wheelchair; Z99.81 Dependence on supplemental oxygen; Z95.2 Presence of prosthetic heart valve; Z80.9 Family history of malignant neoplasm, unspecified; Z93.8 Other artificial opening status; Z88.8 Allergy status to other drugs, medicaments and biological substances; I44.7 Left bundle-branch block, unspecified; R07.81 Pleurodynia
CPT/HCPCS: 36415; 71010; 76376; 76770; 78582; 80048; 80053; 80069; 81001; 82274; 82575; 82607; 82728; 82746; 82962; 83036; 83540; 83550; 83735; 83970; 84100; 84156; 84443; 85007; 85014; 85018; 85025; 85045; 85379; 85610; 85730; 87641; 93005; 93312; 93325; 94250; 94640; 94760; 96374; A4314; A9540; A9558; J1756; J1815; J2270; J2704; J7613; J7620; J7626; Q0162; Q0163; 97110; 97530; 97535; J2001